=== PATIENT | female | born 1945 | race Caucasian/White ===

== ENCOUNTER → 2019-12-21 11:24 | Outpatient (CLI) | payer MEDICARE, SELFPAY ==
--- NOTE | ~2019-12-21 | XR_ITS ---
EXAMINATION: XR hip LT 2V w AP pelvis INDICATION: Left hip pain TECHNIQUE: AP view of the pelvis and two views of the left hip are obtained. COMPARISON: 06/02/2009 FINDINGS: There is mild osteoarthritis of the hips. Bone alignment is normal. There is no fracture. T here is a large findings of colonic stool. Osteitis pubis is noted. There are phleboliths of the pelv is. IMPRESSION: 1. Mild hip osteoarthritis without acute findings. Reviewed, dictated and finalized at location A.
== END ==
PROVIDERS: PCP Nurse Practitioner Family; Visit Provider Nurse Practitioner Family
DX: M16.12 Unilateral primary osteoarthritis, left hip (principal)
CPT/HCPCS: 73502

== ENCOUNTER → 2020-01-28 13:20 | Outpatient (CLI) | payer MEDICARE, SELFPAY ==
--- NOTE | ~2020-01-28 | MM_ITS ---
EXAMINATION: MM screening mi BI w spenser HISTORY: Screening mammogram TECHNIQUE: Craniocaudal and mediolateral oblique 3-D tomosynthesis images were obtained and synthetic 2-D images were generated. CAD analysis was submitted and interpreted. COMPARISON: 11/26/2018, 11/18/2016, 08/07/2015 bilateral digital screening mammogram examinations BREAST PARENCHYMAL COMPOSITION: The breasts are heterogeneously dense, which may obscure small masses . FINDINGS: New approximately 7.5 mm asymmetric opacity is suggested in the deep central right breast o n screening craniocaudal views (craniocaudal Tomosynthesis image 42/79). Otherwise there is no evidence of suspicious mass, calcification, or architectural distortion to sugg est malignancy in either breast. There has been no suspicious interval change. IMPRESSION: 1. Possible new 7.5 mm mass of right breast 2. Diagnostic right mammogram is recommended, with ultrasound if required BI-RADS Category 0: Incomplete: Needs additional imaging evaluation. Reviewed, dictated and finalized at location A.
== END ==
PROVIDERS: PCP Nurse Practitioner Family; Visit Provider Nurse Practitioner Family
DX: Z12.31 Encounter for screening mammogram for malignant neoplasm of breast (principal)
CPT/HCPCS: 77063; 77067

== ENCOUNTER → 2020-02-14 07:53 | Outpatient (CLI) | payer MEDICARE, SELFPAY ==
--- NOTE | ~2020-02-14 | MMUS_ITS ---
EXAMINATION: MM diagnostic mammo unilat RT, US breast RT limited HISTORY: Follow-up right breast asymmetry TECHNIQUE: Additional 3-D tomosynthesis images of the right breast were performed and synthetic 2-D i mages were generated. CAD analysis was submitted and interpreted. High resolution breast ultrasound w as performed. COMPARISON: Comparison to multiple prior studies sequentially, with oldest reviewed study dated 08/2015. BREAST PARENCHYMAL COMPOSITION: Breast composed of scattered areas of fibroglandular density FINDINGS: MAMMOGRAPHIC FINDINGS: There are no suspicious masses, calcifications or architectural distortion in the right breast to sug gest malignancy. ULTRASOUND: Limited right breast ultrasound: Normal heterogeneous echotexture without focal solid or cystic mass. IMPRESSION: 1. No evidence for malignancy in the right breast. 2. Routine yearly screening mammogram and regular clinical breast examination are recommended. BI-RADS Category 1: Negative Reviewed, dictated and finalized at location A. IMPRESSION: 1. No evidence for malignancy in the right breast. 2. Routine yearly screening mammogram and regular clinical breast examination a re recommended. BI-RADS Category 1: Negative
== END ==
PROVIDERS: PCP Nurse Practitioner Family; Visit Provider Nurse Practitioner Family
DX: R92.8 Other abnormal and inconclusive findings on diagnostic imaging of breast (principal)
CPT/HCPCS: 76642; 77065

== ENCOUNTER 2020-06-03 00:49 | Outpatient (CLI) | payer MEDICARE, SELFPAY ==
[2020-06-03 18:47] LABS: SARS-CoV-2 RNA PCR Negative
== END 2020-06-03 00:50 | disposition home or self-care (01) ==
LOC: ANHCOVIDDT 00:49
PROVIDERS: PCP Nurse Practitioner Family; Visit Provider Internal Medicine Gastroenterology
DX: Z01.812 Encounter for preprocedural laboratory examination (principal); Z20.822 Contact with and (suspected) exposure to COVID-19
CPT/HCPCS: C9803; U0003; U0005

== ENCOUNTER 2020-06-07 01:25 | Day surgery (SDC) | payer MEDICARE, SELFPAY ==
[2020-05-19 09:42] VITALS: BMI 31.8
[2020-06-07 06:20] VITALS: BP 160/91; PULSE 93; RESP 16; TEMP 36.7; O2SAT 97
[2020-06-07] MEDS: LACTATED RINGERS 1,000 ML 150 ML IV CONT (06:31)
--- NOTE | 2020-06-07 07:03 | P.PNAN_ITS ---
Anes - Initial Pre Proc Eval Procedure: Operation Date: 06/07/20 07:30 Proposed Procedures p Screening Colonoscopy - Dominguez Yousif MD Date/Time: 06/07/20 07:03 Surgeon: Dominguez Yousif MD Pre Op Diagnosis: neoplasm screening Patient Data Age: 74 Gender: F Height: 1.65 m Weight: 84.9 kg Last Vital Signs Temp 36.7 C 06/07/20 06:20 Pulse 93 06/07/20 06:20 Resp 16 06/07/20 06:20 BP 160/91 H 06/07/20 06:20 Pulse Ox 97 06/07/20 06:20 Allergies Allergy/AdvReac Type Severity Reaction Status Date / Time Yorzpsu-Yea-Esj Reductase Allergy Intermediate Cramping Verified 06/07/20 06:19 Inhibitor of the Muscles Home Medications Medication Instructions Recorded Confirmed Type omeprazole 20 mg capsule,delayed 20 mg PO DAILY #30 cap 05/04/20 06/07/20 Rx release Eye Promise 1 cap PO BID 05/19/20 06/07/20 History calcium citrate-vitamin D3 2 tablet PO BID 05/19/20 06/07/20 History [Citracal plus D] ezetimibe [Zetia] 10 mg PO DAILY 05/19/20 06/07/20 History light mineral oil-mineral oil 1 drp OPHTHALMIC (EYE) DAILY 05/19/20 06/07/20 History [Soothe XP] lisinopril 20 mg tablet 20 mg PO DAILY #90 tablet 05/22/20 06/07/20 Rx Patient hx anesthesia problems: none Family hx anesthesia problems: none PMFSH Past Medical History Medical History (Updated 05/22/20 @ 16:32 by Candelaria Yeh NP) Family history of breast cancer Mother Family hx of colon cancer Hyperlipidemia Normal colonoscopy (~08/2014) Dr Galeana Normal mammography (~11/2018) Pain of left hip Seasonal allergies Trochanteric bursitis of left hip Surgical History Surgical History History of bunionectomy (~2009) Hx of cataract extraction (~2008) Hx of hammer toe correction (~2015) Family History Family History (Updated 05/04/20 @ 08:52 by Candelaria Yeh NP) Mother Family history of malignant neoplasm of breast in first degree relative Patient's mother is Grandparent Carcinoma of colon, Onset Age: 60 Other Family history of malignant neoplasm Social History Social History (Reviewed 05/04/20 @ 08:13 by Adelaide Sanford [facility]) Smoking status: Never smoker Second hand tobacco smoke exposure: No Alcohol intake: current Drinks per week: 3 Alcohol use details: WINE Substance use: never Substance use type: does not use Living arrangements: with family Spiritual care concerns: No Anes - Eval Final PreProcedure Day of Procedure 06/07/20 07:03 Patient weight: overweight Heart: regular rate and rhythm Lungs: clear to auscultation and normal air movement Airway: Mallampati scale class II Neurological: alert and oriented Last oral intake: >/= 8 hours ASA classification: II Emergent: no Anesthetic plan: proceed Anesthesia type and monitoring: general GIVS Informed Consent: The patient's anesthetic plan and its attendant risks and benefits were discussed with the patient/family/POA. Questions were solicited and answers provided to the satisfaction of the patient/family/POA.
--- NOTE | 2020-06-07 07:33 | PM.HPGS ---
History of Present Illness History of Present Illness Consent: Risks, benefits, and alternatives have been discussed and questions answered. Patient agrees to proceed with procedure. Chief complaint: neoplasm screening Narrative: Olive Pereira is a 74 year old female here for screening colonoscopy, last one 6 years ago. Review of Systems Constitutional: Constitutional: Denies headache(s) and Denies weakness Eyes: Eyes: Denies blurry vision ENT: Reports Normal hearing present, Denies headache(s) and Denies neck pain Cardiovascular: Cardiovascular: Denies chest pain and Denies dyspnea Respiratory: Respiratory: Denies dyspnea Gastrointestinal: Gastrointestinal: Reports no additional gastrointestinal complaints Genitourinary: Genitourinary: Denies dysuria Musculoskeletal: Musculoskeletal: Denies neck pain Integumentary/Breasts: Skin/Breast: Denies dry skin Neurologic: Reports Normal hearing present, Denies headache(s) and Denies weakness Psychiatric: Psychiatric: Denies anxiety Endocrine: Endocrine: Denies change in body appearance Hematologic/Lymphatic: Hematologic/Lymphatic: Denies easy bleeding Allergic/Immunologic: Allergic/Immunologic: Denies urticaria PMFSH Past Medical History Medical History (Updated 06/07/20 @ 07:33 by Dominguez Yousif MD) Colon cancer screening Family history of breast cancer Mother Family hx of colon cancer Hyperlipidemia Normal colonoscopy (~08/2014) Dr Galeana Normal mammography (~11/2018) Pain of left hip Seasonal allergies Trochanteric bursitis of left hip Surgical History Surgical History History of bunionectomy (~2009) Hx of cataract extraction (~2008) Hx of hammer toe correction (~2015) Family History Family History (Updated 05/04/20 @ 08:52 by Candelarai Yeh NP) Mother Family history of malignant neoplasm of breast in first degree relative Patient's mother is Grandparent Carcinoma of colon, Onset Age: 60 Other Family history of malignant neoplasm Social History Social History Smoking status: Never smoker Second hand tobacco smoke exposure: No Alcohol intake: current Drinks per week: 3 Alcohol use details: WINE Substance use: never Substance use type: does not use Living arrangements: with family Spiritual care concerns: No Meds Home Medications and Allergies Home Medications Medication Instructions Recorded Confirmed Type omeprazole 20 mg capsule,delayed 20 mg PO DAILY #30 cap 05/04/20 06/07/20 Rx release Eye Promise 1 cap PO BID 05/19/20 06/07/20 History calcium citrate-vitamin D3 2 tablet PO BID 05/19/20 06/07/20 History [Citracal plus D] ezetimibe [Zetia] 10 mg PO DAILY 05/19/20 06/07/20 History light mineral oil-mineral oil 1 drp OPHTHALMIC (EYE) DAILY 05/19/20 06/07/20 History [Soothe XP] lisinopril 20 mg tablet 20 mg PO DAILY #90 tablet 05/22/20 06/07/20 Rx Allergies Allergy/AdvReac Type Severity Reaction Status Date / Time Zwzpdsu-Uxf-Nya Reductase Allergy Intermediate Cramping Verified 06/07/20 06:19 Inhibitor of the Muscles Vital Signs Vital Signs - 24 hr 06/07/20 06:20 Temperature 98.1 F Pulse Rate 93 Respiratory Rate 16 Blood Pressure 160/91 H Pulse Oximetry 97 Exam Const: General: comfortable and no acute distress HENMT: General nose exam: Normal nares present Eyes: General: appearance normal, both eyes and all related structures Neck: Neck: no JVD Resp: Auscultation: clear to auscultation bilaterally Cardio: Rate: regular rate Rhythm: regular rhythm GI: Inspection: non-distended GI Palp: Yes Soft to palpation Skin: General skin exam: normal color Neuro: General: gait normal Speech: normal speech Extrem: General: normal to inspection Psych: Mental Status: mental status grossly normal Assessme
[2020-06-07 07:54] VITALS: BP 106/73; PULSE 70; RESP 16; O2SAT 95
[2020-06-07 08:04] VITALS: BP 116/72; PULSE 72; RESP 18; O2SAT 98
[2020-06-07 08:14] VITALS: BP 133/86; PULSE 72; RESP 18; O2SAT 98
== END 2020-06-07 08:31 | disposition home or self-care (01) ==
PROVIDERS: PCP Nurse Practitioner Family; Visit Provider Internal Medicine Gastroenterology
PROC: 0DJD8ZZ Inspection of Lower Intestinal Tract, Via Natural or Artificial Opening Endoscopic (ICD-10-PCS; CPT 45378; principal; 2020-06-07 07:30)
DX: Z12.11 Encounter for screening for malignant neoplasm of colon (principal); K57.30 Diverticulosis of large intestine without perforation or abscess without bleeding; Z80.0 Family history of malignant neoplasm of digestive organs; E78.5 Hyperlipidemia, unspecified
CPT/HCPCS: G0105; C9803; J2704; J7120; U0003; U0005

== ENCOUNTER 2020-12-07 10:23 | Day surgery (SDC) | payer MEDICARE, SELFPAY ==
[2020-12-07] VITALS (14 sets, daily range): BP systolic 99–146; BP diastolic 52–88; PULSE 60–89; RESP 12–18; TEMP 36.3–37.2; O2SAT 95–100
--- NOTE | ~2020-12-07 | CT_ITS ---
EXAMINATION: CT abdomen pelvis w con INDICATION: Right lower quadrant abdominal pain TECHNIQUE: Computed tomographic images of the abdomen and pelvis were obtained after the administrati on of 100 cc of Omnipaque 350 intravenous contrast. The dose-length product (DLP) was 671.60 mGy-cm. Automated exposure control and iterative reconstruction technique were employed. COMPARISON: None available FINDINGS: Minimal dependent atelectasis is present in the lung bases. The heart size is normal. There is a small sliding hiatal hernia. An 8 mm cyst is noted in the left hepatic lobe. The spleen, pancre as, gallbladder, and adrenal glands are normal. There is a large diverticulum in the second portion o f the duodenum. The right kidney is unremarkable. There appears to be a 10 mm enhancing mass within t he left renal pelvis and possible abnormal enhancement in lower pole calyces of the left kidney. The dilated appendix measures up to 12 mm. There is edematous stranding of the periappendiceal fat withou t abscess or perforation. Cystic lesions of the left adnexa measure up to 3.3 cm. No pathologically e nlarged abdominal or pelvic lymph nodes are identified. There is no free intraperitoneal gas or evide nce of bowel obstruction. Colonic diverticulosis is present without evidence of diverticulitis. There is moderate lumbar spondylosis. IMPRESSION: 1. Acute appendicitis. 2. Findings concerning for urothelial carcinoma the left renal pelvis and possible urothelial lesion in lower pole calyces of the left kidney. Urologic evaluation is recommended. 3. Cystic lesions of the left adnexa measuring up to 3.3 cm. Follow-up pelvic ultrasound is recommend ed for a postmenopausal female. These findings were discussed with Dr. Mehran West DO in the Emergency Department at 1201 hour s on 12/07/2020. Reviewed, dictated and finalized at location [facility]. IMPRESSION: 1. Acute appendicitis. 2. Findings concerning for urothelial carcinoma the left renal pelvis and possi ble urothelial lesion in lower pole calyces of the left kidney. Urologic evalua tion is recommended. 3. Cystic lesions of the left adnexa measuring up to 3.3 cm. Follow-up pelvic u ltrasound is recommended for a postmenopausal female. These findings were discussed with Dr. Mehran West DO in the Emergency D epartment at 1201 hours on 12/07/2020.
--- NOTE | ~2020-12-07 | XR_ITS ---
EXAMINATION: XR retrograde pyelo w/stent LT DATE: 12/07/2020 16:29 INDICATION: Left ureteral mass. TECHNIQUE: 87 intraoperative fluoroscopic views of the abdomen and pelvis were obtained. I was not pr esent. Fluoroscopy exposure time was 50 seconds. COMPARISON: CT abdomen and pelvis 12/07/2020 FINDINGS: The left-sided retrograde pyelogram demonstrates filling defects in the left renal pelvis a nd calyces. IMPRESSION: 1. Filling defects in the left renal pelvis and calyces, consistent with urothelial carcinoma. Reviewed, dictated and finalized at location [facility]. IMPRESSION: 1. Filling defects in the left renal pelvis and calyces, consistent with urothe lial carcinoma.
--- NOTE | 2020-12-07 10:40 | ED.GENADULT ---
HPI - General Adult General Chief complaint: Abdominal Pain Stated complaint: abd pain Time Seen by Provider: 12/07/20 10:33 Source: RN notes reviewed History of Present Illness HPI narrative: Patient presents emergency room from home for abdominal pain. Patient states abdominal pain began 2 days ago with pain in the periumbilical region is moved in the right lower quadrant. Pain described as sharp and stabbing does not radiate states she is taken no pain medication for the pain today. She notes a subjective fever last night but denies any fever today denies any nausea vomiting diarrhea or any other symptoms Related Data Home Medications Medication Instructions Recorded Confirmed Eye Promise 1 cap PO BID 05/19/20 11/02/20 calcium citrate-vitamin D3 2 tablet PO BID 05/19/20 11/02/20 [Citracal plus D] Allergies Allergy/AdvReac Type Severity Reaction Status Date / Time Xifswhw-Fje-Gia Reductase Allergy Intermediate Cramping Verified 12/07/20 10:39 Inhibitor of the Muscles Review of Systems Review of Systems: Gen.: Denies fevers or chills ENT: Denies congestion Respiratory: Denies shortness of breath or cough CV: Denies chest pain or palpitations GI: See HPI denies burning, urgency, frequency or hematuria Musculoskeletal: Denies back pain or muscle pain Neuro: Denies numbness, tingling, weakness or focal weakness Skin: Denies rash Except as documented, all other systems reviewed and negative [facility] Past Medical History Medical History Family history of breast cancer Mother Family hx of colon cancer Hyperlipidemia Seasonal allergies Trochanteric bursitis of left hip Surgical History Surgical History History of bunionectomy (~2009) Hx of cataract extraction (~2008) Hx of hammer toe correction (~2015) Family History Family History Mother Family history of malignant neoplasm of breast in first degree relative Patient's mother is Grandparent Carcinoma of colon, Onset Age: 60 Other Family history of malignant neoplasm Social History Social History Smoking status: Never smoker Second hand tobacco smoke exposure: No Alcohol intake: current Drinks per week: 3 Alcohol use details: WINE Substance use: never Substance use type: does not use Gender identity (if verbalized by the patient): Female Spiritual care concerns: No Exam Narrative: APPEARANCE: No acute distress, nontoxic, resting in bed HEENT: Normocephalic, atraumatic, OMM RESPIRATORY: No respiratory distress, clear to auscultation bilaterally with no rhonchi wheezing or rales CARDIOVASCULAR: RRR s murmur ABDOMINAL: Soft, nondistended, tender to palpation in right lower quadrant no tenderness in left upper quadrant, left lower quadrant and right upper quadrant positive percussion tenderness MUSCULOSKELETAl: Moves all extremities. No clubbing, cyanosis or edema. NEURO: Awake and alert. Following commands, speech normal, no focal deficits SKIN:: Warm, dry. Normal Color PSYCHIATRIC: Normal affect/mood Course Course Emergency Course: Called and discussed with Dr. Tanner presentation work-up we will plan to take patient to surgery today Discussed with Dr. Herrera presentation work-up discussed CT results we will plan to do intervention during patient's appendicitis surgery today for further evaluation Discussed with patient results of work-up discussed CT scan showing acute appendicitis as well as urothelial mass adnexal mass discussed need for evaluation by urology as well as outpatient imaging with ultrasound after appendicitis treatment all questions answered Dr. Herrera and Dr. Tanner came to see the patient in the emergency department Vital Signs Vital signs: Vital Signs Temperature
[2020-12-07 10:59] LABS: Basophils Percent Auto 0.1 % (0.2-1.2); Eosinophils Absolute Auto 0.1 K/mm3 (0-0.3); Eosinophils Percent Auto 0.9 % (0-4.4); Hematocrit 44.9 % (37.0-47.0); Hemoglobin 14.8 g/dL (12.0-15.0); Immature Granulocyte Absolute 0.02 K/mm3 (0.00-0.031); Immature Granulocyte Percent A 0.3 % (0-0.5); Lymphocytes Absolute Auto 1.55 K/mm3 (0.9-3.2); Lymphocytes Percent Auto 22.3 % (18.3-44.2); Mean Corpuscular Hemoglobin 29.1 pg (26-34); Mean Corpuscular Volume 88.2 fl (80-100); Mean Platelet Volume 9.5 fl (7.4-10.4); Monocytes Absolute Auto 0.5 K/mm3 (0.1-0.6); Monocytes Percent Auto 6.5 % (2.6-8.5); Neutrophils Absolute Auto 4.9 K/mm3 (1.3-6.7); Neutrophils Percent Auto 69.9 % (45.5-73.1); Platelet Count Result 192 k/mm3 (150-375); Red Blood Count 5.09 M/mm3 (4.2-5.4); Red Cell Distribution Width 14.5 % (11.5-14.5)
[2020-12-07] MEDS: fentaNYL CITRATE INJ (*CRX) 100 MCG/2 ML VIAL 25 MCG IV PUSH (11:00)
[2020-12-07] MEDS: SODIUM CHLORIDE 0.9% IV 1,000 ML 999 ML IV CONT (11:05)
[2020-12-07 11:07] LABS: Alanine Aminotransferase 19 U/L (4-35); Albumin Level 4.6 g/dL (3.5-5.1); Alkaline Phosphatase 71 U/L (38-126); Anion Gap 6 mmol/L (8-16); Aspartate Amino Transferase 24 U/L (14-36); Bilirubin,Total 1.3 mg/dL (0.2-1.3); Blood Urea Nitrogen 8 mg/dL (7-17); Carbon Dioxide 27 mmol/L (22-30); Chloride 103 mmol/L (98-107); Estimated CRCL calculation 57 ml/min; Estimated Glomerular Filt Rate > 60; Glucose 104 mg/dL (65-110); Lipase 65 U/L (23-300); Potassium 3.9 mmol/L (3.4-5.0); Sodium 136 mmol/L (137-145)
[2020-12-07 11:16] LABS: Add Urine Microscopic? YES; Appearance Urine Cloudy (Clear); Bilirubin Urine Negative (Negative); Blood Urine 2+ (Negative); Color Urine Amber (Yellow); Glucose Urine UA Negative (Negative); Ketones Urine Negative (Negative); Leukocyte Esterase Ur 2+ LEU/UL (Negative); Mucus Urine Rare /lpf; Nitrate Urine Negative (Negative); Protein Urine Negative (Negative); RBC Urine 0-2 /hpf (0-2); Specific Grav Ur 1.015 (1.001-1.035); Squamous Epithelial Cell Urine Rare /hpf (Few); Urobilinogen Urine Negative mg/dL (<2.0); WBC Urine 0-3 /hpf
--- NOTE | 2020-12-07 12:32 | PC.NURSE ---
Pt states the last thing she ate was 0600 this morning. she drank a cup of coffee and a coffee
--- NOTE | 2020-12-07 13:00 | PC.NURSE ---
Dr. Tanner and Dr. Jims at bedside discussing procedures And obtained consent
--- NOTE | 2020-12-07 13:09 | WPDURCON ---
Assessment and Plan Assessment and plan (1) Hydronephrosis, left: Code(s): N13.30 - Unspecified hydronephrosis Status: Acute Assessment and Plan: CT scan abdomen and pelvis reveals a unusual, somewhat thickened and slightly enhancing appearance to the urothelium of her left renal pelvis and proximal ureter. Although not diagnostic, this is concerning for possible urothelial carcinoma. This was identified during evaluation for, which turned out to be, acute appendicitis. after discussion with the patient and her , as well as Dr. Tanner, and plan cystoscopy with left retrograde pyelography and left ureteroscopy time of his laparoscopic appendectomy. Urology Consult Note HPI Date Seen: 12/07/20 Primary Care Provider: Candelaria Yeh NP Consult Narrative Narrative: Olive Pereira is a 75 year old female with no prior significant urological history. She presents to the ER with a 2 day history of right lower quadrant abdominal pain. Koul incidentally, CT scan of the abdomen pelvis reveals some abnormal thickening, fullness and possible filling defect in the left renal pelvis and left proximal ureter. The patient has no prior history of hematuria, recurrence urinary tract infections, urolithiasis or significant flank pain. Review of Systems Cardiovascular: Cardiovascular: Denies chest pain, Denies lightheadedness, Denies palpitations and Denies dyspnea Respiratory: Respiratory: Denies dyspnea Gastrointestinal: Gastrointestinal: Reports abdominal pain, Denies diarrhea, Denies nausea and Denies vomiting Genitourinary: Genitourinary: Denies hematuria and Denies dysuria Endocrine: Endocrine: Denies palpitations PMFSH Past Medical History Medical History Family history of breast cancer Mother Family hx of colon cancer Hyperlipidemia Seasonal allergies Trochanteric bursitis of left hip Surgical History Surgical History History of bunionectomy (~2009) Hx of cataract extraction (~2008) Hx of hammer toe correction (~2015) Family History Family History Mother Family history of malignant neoplasm of breast in first degree relative Patient's mother is Grandparent Carcinoma of colon, Onset Age: 60 Other Family history of malignant neoplasm Social History Social History Smoking status: Never smoker Second hand tobacco smoke exposure: No Alcohol intake: current Drinks per week: 3 Alcohol use details: WINE Substance use: never Substance use type: does not use Gender identity (if verbalized by the patient): Female Spiritual care concerns: No Meds Home Medications and Allergies Home Medications Medication Instructions Recorded Confirmed Type Eye Promise 1 cap PO BID 05/19/20 11/02/20 History calcium citrate-vitamin D3 2 tablet PO BID 05/19/20 11/02/20 History [Citracal plus D] ezetimibe 10 mg tablet 10 mg PO DAILY #90 tablet 11/02/20 11/02/20 Rx famotidine 20 mg tablet 20 mg PO DAILY #90 tablet 11/02/20 11/02/20 Rx lisinopril 20 mg tablet 20 mg PO DAILY #90 tablet 11/02/20 11/02/20 Rx triamcinolone acetonide 0.1 % 1 applic TOPICAL BID #80 g 11/02/20 11/02/20 Rx topical cream Allergies Allergy/AdvReac Type Severity Reaction Status Date / Time Fyjtecb-Foi-Pbm Reductase Allergy Intermediate Cramping Verified 12/07/20 10:39 Inhibitor of the Muscles Vital Signs Vital Signs - 24 hr 12/07/20 10:27 12/07/20 12:00 12/07/20 12:19 Temperature 97.3 F L Pulse Rate 89 74 77 Respiratory Rate 18 18 18 Blood Pressure 139/88 132/74 136/81 Pulse Oximetry 99 100 100 12/07/20 13:04 Temperature Pulse Rate 82 Respiratory Rate 18 Blood Pressure 146/83 H Pulse Oximetry 99 Exam Const: General: no acu
--- NOTE | 2020-12-07 13:17 | WPDANESEPPF ---
Anes - Initial Pre Proc Eval Procedure: Operation Date: 12/07/20 14:00 Proposed Procedures p Laparoscopic Appendectomy - Lyn Tanner MD s Left Ureteroscopy - Juan Daniel Herrera MD Date/Time: 12/07/20 13:17 Surgeon: Lyn Tanner MD Pre Op Diagnosis: abd pain Patient Data Age: 75 Gender: F Height: 1.65 m Weight: 82 kg Last Vital Signs Temp 36.3 C L 12/07/20 10:27 Pulse 82 12/07/20 13:04 Resp 18 12/07/20 13:04 BP 146/83 H 12/07/20 13:04 Pulse Ox 99 12/07/20 13:04 Allergies Allergy/AdvReac Type Severity Reaction Status Date / Time Xriuxyo-Ujm-Agm Reductase Allergy Intermediate Cramping Verified 12/07/20 10:39 Inhibitor of the Muscles Home Medications Medication Instructions Recorded Confirmed Type Eye Promise 1 cap PO BID 05/19/20 11/02/20 History calcium citrate-vitamin D3 2 tablet PO BID 05/19/20 11/02/20 History [Citracal plus D] ezetimibe 10 mg tablet 10 mg PO DAILY #90 tablet 11/02/20 11/02/20 Rx famotidine 20 mg tablet 20 mg PO DAILY #90 tablet 11/02/20 11/02/20 Rx lisinopril 20 mg tablet 20 mg PO DAILY #90 tablet 11/02/20 11/02/20 Rx triamcinolone acetonide 0.1 % 1 applic TOPICAL BID #80 g 11/02/20 11/02/20 Rx topical cream Laboratory Tests 12/07/20 12/07/20 12/07/20 10:44 10:44 10:44 WBC 7.0 K/mm3 K/mm3 (4.5-10.0) RBC 5.09 M/mm3 M/mm3 (4.2-5.4) Hgb 14.8 g/dL g/dL (12.0-15.0) Hct 44.9 % % (37.0-47.0) MCV 88.2 fl fl (80-100) MCH 29.1 pg pg (26-34) MCHC 33.0 g/dl g/dl (32-36) RDW 14.5 % % (11.5-14.5) Plt Count 192 k/mm3 k/mm3 (150-375) MPV 9.5 fl fl (7.4-10.4) Immature Gran % (Auto) 0.3 % % (0-0.5) Neut % (Auto) 69.9 % % (45.5-73.1) Lymph % (Auto) 22.3 % % (18.3-44.2) Weber % (Auto) 6.5 % % (2.6-8.5) Eos % (Auto) 0.9 % % (0-4.4) Baso % (Auto) 0.1 % L % (0.2-1.2) Lymph # (Auto) 1.55 K/mm3 K/mm3 (0.9-3.2) Weber # (Auto) 0.5 K/mm3 K/mm3 (0.1-0.6) Eos # (Auto) 0.1 K/mm3 K/mm3 (0-0.3) Baso # (Auto) 0.0 K/mm3 K/mm3 (0.0-0.1) Abs Immat Gran (auto) 0.02 K/mm3 K/mm3 (0.00-0.031) Absolute Neuts (auto) 4.9 K/mm3 K/mm3 (1.3-6.7) Absolute Nucleated RBC 0.0 K/mm3 K/mm3 (0.0-0.012) Nucleated RBC % 0.0 % % (0.0-0.2) Sodium 136 mmol/L L mmol/L (137-145) Potassium 3.9 mmol/L mmol/L (3.4-5.0) Chloride 103 mmol/L mmol/L (98-107) Carbon Dioxide 27 mmol/L mmol/L (22-30) Anion Gap 6 mmol/L L mmol/L (8-16) BUN 8 mg/dL mg/dL (7-17) Creatinine 0.80 mg/dL mg/dL (0.7-1.0) Estim Creat Clear Calc 57 ml/min ml/min Estimated GFR > 60 (59 - ) Glucose 104 mg/dL mg/dL (65-110) Calcium 10.0 mg/dL mg/dL (8.4-10.2) Total Bilirubin 1.3 mg/dL mg/dL (0.2-1.3) AST 24 U/L U/L (14-36) ALT 19 U/L U/L (4-35) Alkaline Phosphatase 71 U/L U/L (38-126) Total Protein 7.0 g/dL g/dL (6.3-8.2) Albumin 4.6 g/dL g/dL (3.5-5.1) Lipase 65 U/L U/L (23-300) Urine Color Sweetie (Yellow) Urine Appearance Cloudy H (Clear) Urine pH 5.0 (5.0-9.0) Ur Specific [place] 1.015 (1.001-1.035) Urine Protein Negative mg/dL mg/dL (Negative) Urine Glucose (UA) Negative mg/dL mg/dL (Negative) Urine Ketones Negative mg/dL mg/dL (Negative) Ur Blood (Man) 2+ H (Negative) Urine Nitrate Negative (Negative) Urine Bilirubin Negative (Negative) Urine Urobilinogen Negative mg/dL mg/dL (<2.0) Leukocyte Esterase Rfl 2+ STAN/UL H STAN/UL (Negative) Urine RBC 0-2 /hpf /hpf (0-2) Urine WBC 0-3
--- NOTE | 2020-12-07 13:31 | PM.IMHP ---
H&P: HPI History of Present Illness Date/Time: 12/07/20 13:31 Pt is a 75 y/o F presenting to ED c/o severe RLQ abd pain over last few days. Pt reports pain was initially more mild and periumbilical. Pt reports over last day, pain in now localized to RLQ and constant. Pt reports poor appetite, general weakness during this episode. Pt denies previous episodes. Chief Complaint: acute appendicitis Review of Systems Constitutional: Constitutional: Denies anorexia, Denies body ache(s), Denies chills, Reports fatigue, Denies fever(s), Reports lethargy, Reports malaise, Reports poor appetite, Reports weakness, Denies weight gain and Denies weight loss Eyes: Eyes: Reports no additional eye complaints ENT: Reports system reviewed and no additional complaints, except as documented Cardiovascular: Cardiovascular: Reports no additional cardiovascular complaints Respiratory: Respiratory: Reports no additional respiratory complaints Gastrointestinal: Gastrointestinal: Reports as per HPI, Reports abdominal pain, Denies change in stool character, Reports GI cramping, Reports nausea and Denies vomiting Genitourinary: Genitourinary: Reports no additional female genitourinary complaints Musculoskeletal: Musculoskeletal: Reports no additional musculoskeletal complaints Integumentary/Breasts: Skin/Breast: Reports system reviewed and no additional complaints, except as docu Neurologic: Reports system reviewed and no additional complaints, except as documented Psychiatric: Psychiatric: Reports no additional psychiatric complaints Endocrine: Endocrine: Reports no additional endocrine complaints Hematologic/Lymphatic: Hematologic/Lymphatic: Reports no additional hematologic/lymphatic complaints Allergic/Immunologic: Allergic/Immunologic: Reports no additional allergic/immunologic complaints [facility] Past Medical History Medical History Family history of breast cancer Mother Family hx of colon cancer Gastroesophageal reflux disease HTN (hypertension) Hyperlipidemia Obesity Seasonal allergies Trochanteric bursitis of left hip Surgical History Surgical History History of bunionectomy (~2009) Hx of cataract extraction (~2008) Hx of hammer toe correction (~2015) Family History Family History Mother Family history of malignant neoplasm of breast in first degree relative Patient's mother is Grandparent Carcinoma of colon, Onset Age: 60 Other Family history of malignant neoplasm Social History Social History Smoking status: Never smoker Second hand tobacco smoke exposure: No Alcohol intake: current Drinks per week: 3 Alcohol use details: WINE Substance use: never Substance use type: does not use Gender identity (if verbalized by the patient): Female Spiritual care concerns: No Meds Home Medications and Allergies Home Medications Medication Instructions Recorded Confirmed Type Eye Promise 1 cap PO BID 05/19/20 11/02/20 History calcium citrate-vitamin D3 2 tablet PO BID 05/19/20 11/02/20 History [Citracal plus D] ezetimibe 10 mg tablet 10 mg PO DAILY #90 tablet 11/02/20 11/02/20 Rx famotidine 20 mg tablet 20 mg PO DAILY #90 tablet 11/02/20 11/02/20 Rx lisinopril 20 mg tablet 20 mg PO DAILY #90 tablet 11/02/20 11/02/20 Rx triamcinolone acetonide 0.1 % 1 applic TOPICAL BID #80 g 11/02/20 11/02/20 Rx topical cream Allergies Allergy/AdvReac Type Severity Reaction Status Date / Time Tqbtiqh-Txb-Bsi Reductase Allergy Intermediate Cramping Verified 12/07/20 10:39 Inhibitor of the Muscles Vital Signs Vital Signs - 24 hr 12/07/20 10:27 12/07/20 12:00 12/07/20 12:19 Temperature 36.3 C L Pulse Rate 89 74 77 Respiratory Rate 18 18 18 Blood Pressure 139/88 132
[2020-12-07] MEDS: LACTATED RINGERS 1,000 ML 30 ML IV CONT ×2 (14:00→16:16)
--- NOTE | 2020-12-07 14:41 | WPDHPUPDATE1 ---
History and Physical Update Update Date/Time: 12/07/20 14:41 History and Physical has been reviewed, including an updated exam of the patient. There are NO changes in the patient's condition. Risks, benefits, and alternatives have been discussed and questions answered. Patient agrees to proceed with procedure.
--- NOTE | 2020-12-07 15:26 | W.PM.PROC2 ---
Procedure Note - Detailed Date of Procedure 12/07/20 Pre-op Diagnosis acute appendicitis Post-op Diagnosis same Procedure Performed laparoscopic appendectomy Surgeon Lyn Tanner MD Anesthesia general Indications 75 y/o F c acute appendicitis Findings acute appendicitis, no evidence of perforation Description of Procedure The patient was taken to the operating room and placed in the supine position. After adequate induction of general anesthesia, the patient was prepped and draped in the normal sterile fashion. A time-out was then done to verify the patient's identity, as well as the procedure being performed. I began by making a 5 mm incision in the infraumbilical region, through this a Veress needle was placed in the peritoneal cavity. CO2 gas was then insufflated and after adequate pneumoperitoneum was achieved the Veress needle was removed. Then placed a 5 mm Optiview trocar under direct visualization into the peritoneal cavity. I then insufflated through this trocar site and the endoscope was placed into the trocar. Under direct visualization, placed 2 further 5 mm suprapubic port as well as an additional 12 mm port in the left lower abdomen. At this point identified the cecum, I retracted the cecum both medially and superiorly allowing me to expose the appendix. The appendix was noted to be dilated and inflamed. The appendix was noted to be very adherent to the right lateral sidewall as well as the ileum. I was able to bluntly dissect the appendix from these adhesions. I then was able to locate the base of the appendix with the cecum. I created a window with the [place] dissector between the appendix itself and the mesoappendix. I then transected the mesoappendix with a white vascular staple load. The Endo-HENNA was then reloaded with a blue staple load and I transected the base of the appendix. Once the specimen was completely detached, an endo-pouch was placed into the 12 mm port site and the specimen was removed through the endo-pouch. The appendiceal specimen will be sent to pathology for further review. I then copiously irrigated the right lower quadrant. Hemostasis was noted at both staple lines no other pathology was seen in this area. I then moved the camera to the suprapubic port to check our its port of entry. No iatrogenic injury or other pathology was noted in the upper abdomen. I then closed the 12 mm port site with a Kulwant code and 0 Vicryl suture under direct visualization. At this point, the abdomen was desufflated and all ports were removed. All port sites were closed with 4 Monocryl subcuticular suture. Dermabond was placed on all wounds. The patient tolerated the procedure well and will now undergo ureteroscopy per Dr. Herrera. Estimated Blood Loss 5 Drains No Packing No Pathology yes Complications No immediate complications Condition stable Disposition PACU
[2020-12-07] MEDS: BUPIVACAINE/EPINEPHRINE 0.5% 30 ML VIAL INFILTRATE (15:42)
[2020-12-07] MEDS: LIDOCAINE HCL 2% GEL UROJET 10 ML PKG MUCOUS MEM (15:43)
--- NOTE | 2020-12-07 16:02 | SUR.OPER ---
urine for cytology sent with VADIM Zamora, received by Darwin in lab
--- NOTE | 2020-12-07 16:38 | W.PM.PROC2 ---
Procedure Note - Detailed Date of Procedure 12/07/20 Pre-op Diagnosis abd pain, left renal pelvic filling defect Post-op Diagnosis same Procedure Performed Cystoscopy, left retrograde pyelography, left ureteroscopy with renal pelvic biopsies. 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 Tanner has completed a laparoscopic appendectomy. Cystoscopy is undertaken with a 21 F rigid cystoscope. Urethra and bladder neck were endoscopically normal. The bladder mucosa is perfectly normal without hyperemia. There is no intravesical foreign body or neoplasm. 0.035 in glidewire was advanced in the left renal pelvis, the distal ureter was dilated with an 8 F 10 F dilator and ureteroscopy was undertaken with a 7.5 F flexible ureteral scope. There was a large, somewhat sessile appearing urothelial neoplasm involving much of the renal pelvis. Upper pole calices are endoscopically normal but there is additional neoplasm at least midpole and perhaps lower pole calices. Obtained several small biopsies using a small disposable forceps. I very carefully inspected the ureter upon withdrawing the ureteral scope in there are no additional sites of urothelial carcinoma throughout any other portion of her left ureter. This point scopes and wires removed the patient was taken recovery room in good condition. Estimated Blood Loss 5 Drains No Packing No Pathology yes Complications No immediate complications Condition stable Disposition PACU
== END 2020-12-07 17:45 | disposition home or self-care (01) ==
LOC: ANHED 12:58 → ANHSURGERY 13:09
PROVIDERS: Urology; Emergency Provider Emergency Medicine; PCP Nurse Practitioner Family; Visit Provider Surgery
PROC: 0DTJ4ZZ Resection of Appendix, Percutaneous Endoscopic Approach (ICD-10-PCS; CPT 44970; principal; 2020-12-07 14:00)
PROC: (CPT 52352; 2020-12-07 14:00)
DX: K35.30 Acute appendicitis with localized peritonitis, without perforation or gangrene (principal); D41.12 Neoplasm of uncertain behavior of left renal pelvis; R82.998 Other abnormal findings in urine; R10.31 Right lower quadrant pain; N13.30 Unspecified hydronephrosis; R10.33 Periumbilical pain; E78.5 Hyperlipidemia, unspecified; I10 Essential (primary) hypertension; E66.8 Other obesity; Z68.30 Body mass index [BMI] 30.0-30.9, adult; K21.9 Gastro-esophageal reflux disease without esophagitis
CPT/HCPCS: 44970; 52354; 36415; 74177; 74420; 80053; 81001; 83690; 85025; 88108; 88304; 88305; 96365; 96366; 96367; 96375; 99285; A9270; C1769; J0131; J0330; J1100; J2250; J2405; J2543; J2704; J2710; J3010; J7030; J7120; Q9966; Q9967

== ENCOUNTER 2020-12-07 23:15 | Observation (INO) | payer MEDICARE, SELFPAY ==
--- NOTE | ~2020-12-07 | CT_ITS ---
EXAMINATION: CT abdomen pelvis w con DATE: 12/08/2020 00:50 INDICATION: Lower abdominal pain. History of appendectomy. Left renal biopsy 12/07/2020 afternoon TECHNIQUE: Computed tomography (CT) of the abdomen and pelvis was performed with 100 cc Omnipaque 350 intravenous contrast. Automated exposure control and iterative reconstruction technique were employe d. Exam dose: 586.28 mGy-cm total exam DLP. COMPARISON: 12/07/2020 CT abdomen pelvis FINDINGS: There is mild discoid atelectasis at the lung bases. Cardiomegaly. No pericardial or pleural effusion. 8 mm left hepatic cyst is again noted. The liver is otherwise unremarkable. The gallbladder is presen t. No gallbladder wall thickening or pericholecystic fluid or fat stranding. No bile duct dilatation. No pancreatic mass lesion, calcification or ductal dilatation. Normal splenic size. Prominent fluid level in the stomach. Normal morphology of the adrenal glands. Normal appearing right kidney. There is mild left hydronephrosis. There is parapelvic fluid density, possibly hemorrhage associated with recent left renal biopsy. Follow-up KUB would be helpful to exclude any extravasated contrast ma terial. There is some air in the urinary bladder, likely secondary to instrumentation. Bilobed left adnexal cyst measuring up to 5.6 cm, stable since 1142 hours on 12/07/2020. Diverticulosis of the colon, prominently involving the sigmoid colon. No CT evidence of diverticuliti s. No bowel obstruction is evident. A small amount of intraperitoneal free air consistent with recent appendectomy. There is subcutaneous emphysema of the anterior abdominal wall. Normal caliber of the abdominal aorta. No intraperitoneal or retroperitoneal or pelvic mass lesion or adenopathy or ascites is noted otherwise. Degenerative changes at the apophyseal joints with associated grade 1 anterolisthesis at L5-S1. No suspicious osteolytic or osteoblastic lesions are noted. IMPRESSION: Status post appendectomy Left parapelvic and perinephric fluid, possibly hemorrhage secondary to left renal biopsy. Consider f ollow-up KUB to evaluate for extravasated contrast material. Reviewed, dictated and finalized at [facility]. Reviewed, dictated and finalized at location [facility]. IMPRESSION: Status post appendectomy Left parapelvic and perinephric fluid, possibly hemorrhage secondary to left re nal biopsy. Consider follow-up KUB to evaluate for extravasated contrast gail hoover
[2020-12-07 23:18] VITALS: BP 182/91; PULSE 65; RESP 18; TEMP 36.6; O2SAT 97
--- NOTE | 2020-12-07 23:20 | ED.ABDPAIN ---
HPI - Abdominal Pain General Chief Complaint: Abdominal Pain Stated Complaint: L abd pain Time Seen by Provider: 12/07/20 23:20 Source: patient and family Mode of arrival: ambulatory Limitations: no limitations History of Present Illness HPI narrative: Patient is a 75 yo female with recent appendectomy this morning and renal pelvis biopsies of the left kidney, who presents to the ER for evaluation of worsening left lower quadrant abdominal pain. Patient has been taking her pain medication this evening, however has vomited once and has felt no improvement in pain. Pain radiates to her left flank. Patient denies fever or chills. She reports mild abdominal distension. No dysuria or hematuria. She states her incisions are not leaking or red. Pt denies flatus or bowel movement today. Related Data Home Medications Medication Instructions Recorded Confirmed Eye Promise 1 cap PO BID 05/19/20 12/07/20 calcium citrate-vitamin D3 2 tablet PO BID 05/19/20 12/07/20 Allergies Allergy/AdvReac Type Severity Reaction Status Date / Time [id number]-Arr Reductase Allergy Intermediate Cramping Verified 12/07/20 13:45 Inhibitor of the Muscles Review of Systems Review of Systems: CONSTITUTIONAL: Denies fever, chills EYES: Denies visual changes ENT: Denies rhinorrhea, congestion CARDIOVASCULAR: Denies chest pain, palpitations, or edema. RESPIRATORY: Denies cough or dyspnea. GASTROINTESTINAL: Reports abdominal pain in the left lower quadrant, reports vomiting GENITOURINARY: Denies dysuria or hematuria. SKIN: Denies rash or itching. MUSCULOSKELETAL: Reports left flank pain, denies joint pain, or myalgia. NEUROLOGIC: Denies headache, numbness, or weakness. [facility] Past Medical History Medical History (Updated 12/08/20 @ 01:37 by Jeaneth Singh MD) Acute appendicitis Encounter for screening mammogram for malignant neoplasm of breast Family history of breast cancer Mother Family hx of colon cancer Gastroesophageal reflux disease HTN (hypertension) Hydronephrosis, left Hyperlipidemia Leukopenia Obesity Seasonal allergies Trochanteric bursitis of left hip Surgical History Surgical History History of bunionectomy (~2009) Hx of cataract extraction (~2008) Hx of hammer toe correction (~2015) Family History Family History Mother Family history of malignant neoplasm of breast in first degree relative Patient's mother is Grandparent Carcinoma of colon, Onset Age: 60 Other Family history of malignant neoplasm Social History Social History Smoking status: Never smoker Second hand tobacco smoke exposure: No Alcohol intake: current Drinks per week: 3 Alcohol use details: WINE Substance use: never Substance use type: does not use Gender identity (if verbalized by the patient): Female Spiritual care concerns: No Exam Narrative: GENERAL: Awake, alert, conversant HEAD: Normocephalic, atraumatic. EYES: 2+ PERRLA and EOMI. ENT: Nares clear, no rhinorrhea or epistaxis. Mucous membranes moist. NECK: Supple. CHEST: No respiratory distress, breathing even and non labored HEART: Regular rate, sinus rhythm ABDOMEN: Mild distension, incision sites c/d/i, tender in the LLQ with rebound and guarding, mild left flank tenderness EXTREMITIES: Normal range of motion. No edema. SKIN: Warm, dry, no rash. NEURO:No focal deficits. Alert and oriented x3 Course Vital Signs Vital signs: Vital Signs Temperature 36.6 C 12/07/20 23:18 Pulse Rate 65 12/07/20 23:18 Respiratory Rate 18 12/07/20 23:18 Blood Pressure 182/91 H 12/07/20 23:18 Pulse Oximetry 97 12/07/20 23:18 Temperature 36.6 C 12/07/20 23:18 Pulse Rate 91 12/08/20 01:00 Respiratory Rate 24 H 12/08/20 01:00 Blood Pressure 151/83 H 12/08/20 01:00 Pulse
[2020-12-07] MEDS: ONDANSETRON INJ 4 MG/2 ML VIAL IV PUSH (23:49)
[2020-12-07] MEDS: SODIUM CHLORIDE 0.9% IV 1,000 ML 999 ML IV CONT (23:49)
[2020-12-07] MEDS: MORPHINE SULFATE (*CRX) 4 MG/ML INJ IV PUSH (23:51)
[2020-12-08 00:06] LABS: Basophils Percent Auto 0.1 % (0.2-1.2); Hematocrit 43.4 % (37.0-47.0); Hemoglobin 14.4 g/dL (12.0-15.0); Immature Granulocyte Absolute 0.03 K/mm3 (0.00-0.031); Immature Granulocyte Percent A 0.4 % (0-0.5); Lymphocytes Absolute Auto 0.55 K/mm3 (0.9-3.2); Lymphocytes Percent Auto 7.2 % (18.3-44.2); Mean Corpuscular HGB Conc 33.2 g/dl (32-36); Mean Corpuscular Volume 87.3 fl (80-100); Mean Platelet Volume 9.6 fl (7.4-10.4); Monocytes Absolute Auto 0.1 K/mm3 (0.1-0.6); Monocytes Percent Auto 1.7 % (2.6-8.5); Neutrophils Percent Auto 90.6 % (45.5-73.1); Platelet Count Result 196 k/mm3 (150-375); Red Blood Count 4.97 M/mm3 (4.2-5.4); Red Cell Distribution Width 14.5 % (11.5-14.5); White Blood Count 7.7 K/mm3 (4.5-10.0)
[2020-12-08 00:16] LABS: Lipase 34 U/L (23-300)
[2020-12-08 00:18] LABS: Alanine Aminotransferase 20 U/L (4-35); Albumin Level 4.5 g/dL (3.5-5.1); Alkaline Phosphatase 73 U/L (38-126); Anion Gap 10 mmol/L (8-16); Aspartate Amino Transferase 26 U/L (14-36); Blood Urea Nitrogen 9 mg/dL (7-17); Calcium 9.8 mg/dL (8.4-10.2); Carbon Dioxide 23 mmol/L (22-30); Chloride 105 mmol/L (98-107); Estimated CRCL calculation 65 ml/min; Estimated Glomerular Filt Rate > 60; Glucose 167 mg/dL (65-110); Potassium 4.3 mmol/L (3.4-5.0); Sodium 138 mmol/L (137-145)
[2020-12-08] MEDS: HYDROmorphone HCL INJ (*CRX) 1 MG/ML SYR 0.5 MG IV PUSH (00:58)
[2020-12-08 01:00] VITALS: BP 151/83; PULSE 91; RESP 24; O2SAT 96
[2020-12-08 01:54] VITALS: BP 127/77; PULSE 83; RESP 19; O2SAT 94
--- NOTE | 2020-12-08 02:44 | ADMGEN ---
This patient, Olive Pereira, was admitted to [address] [place] [address] Room 325-02. Patient/family oriented to hospital policies and general routines including ID bracelet, bed and alarms, visiting hours, pain management, procedures, bathroom and other care routines, personal items, smoking policy, room service/diet, and visiting hours. Information on how to activate the Rapid Response Team has been discussed. Patient/Family are encouraged to report perceived risks to care and to ask questions if they do not understand what they are told or what they should do.
[2020-12-08 02:52] VITALS: PULSE 83; RESP 19; O2SAT 94
[2020-12-08] MEDS: LACTATED RINGERS 1,000 ML 125 ML IV CONT (03:13)
[2020-12-08 06:00] VITALS: BP 139/65; PULSE 80; RESP 18; TEMP 36.4; O2SAT 96
--- NOTE | 2020-12-08 11:06 | PM.IMHP ---
H&P: HPI History of Present Illness Date/Time: 12/08/20 11:06 Pt is a 75 y/o F s/p lap appy, cystoscopy, left retrograde pyelography, left ureteroscopy with renal pelvic biopsies yesterday afternoon presenting to ED c/o severe LLQ, L flank pain. Pt reports pain was severe, constant and not relieved despite pain meds. Pt reports other incisions and RLQ c minimal to no soreness/pain. Pt denies any urinary issues. Pt has not had any bowel fxn and does feel somewhat bloated. Chief Complaint: abdominal pain Review of Systems Constitutional: Constitutional: Reports anorexia, Denies chills, Reports fatigue, Denies fever(s), Denies headache(s), Reports lethargy, Denies malaise, Reports poor appetite, Reports weakness, Denies weight gain and Denies weight loss Eyes: Eyes: Reports no additional eye complaints ENT: Reports system reviewed and no additional complaints, except as documented Cardiovascular: Cardiovascular: Reports no additional cardiovascular complaints Respiratory: Respiratory: Reports no additional respiratory complaints Gastrointestinal: Gastrointestinal: Reports as per HPI, Reports abdominal pain, Reports bloating, Reports change in bowel habits, Reports change in stool character, Reports GI cramping, Reports nausea and Denies vomiting Genitourinary: Genitourinary: Reports no additional female genitourinary complaints Musculoskeletal: Musculoskeletal: Reports no additional musculoskeletal complaints Integumentary/Breasts: Skin/Breast: Reports system reviewed and no additional complaints, except as docu Neurologic: Reports system reviewed and no additional complaints, except as documented Psychiatric: Psychiatric: Reports no additional psychiatric complaints Endocrine: Endocrine: Reports no additional endocrine complaints Hematologic/Lymphatic: Hematologic/Lymphatic: Reports no additional hematologic/lymphatic complaints Allergic/Immunologic: Allergic/Immunologic: Reports no additional allergic/immunologic complaints [facility] Past Medical History Medical History Acute appendicitis Encounter for screening mammogram for malignant neoplasm of breast Family history of breast cancer Mother Family hx of colon cancer Gastroesophageal reflux disease HTN (hypertension) Hydronephrosis, left Hyperlipidemia Leukopenia Obesity Seasonal allergies Trochanteric bursitis of left hip Surgical History Surgical History History of bunionectomy (~2009) Hx of cataract extraction (~2008) Hx of hammer toe correction (~2016) Family History Family History Mother Family history of malignant neoplasm of breast in first degree relative Patient's mother is Grandparent Carcinoma of colon, Onset Age: 60 Other Family history of malignant neoplasm Social History Social History Smoking status: Never smoker Second hand tobacco smoke exposure: No Alcohol intake: current Drinks per week: 2 Alcohol use details: WINE Substance use: never Substance use type: does not use Gender identity (if verbalized by the patient): Female Spiritual care concerns: No Meds Home Medications and Allergies Home Medications Medication Instructions Recorded Confirmed Type Eye Promise 1 cap PO BID 05/19/20 12/08/20 History calcium citrate-vitamin D3 2 tablet PO BID 05/19/20 12/08/20 History ezetimibe 10 mg tablet 10 mg PO DAILY #90 tablet 11/02/20 12/08/20 Rx famotidine 20 mg tablet 20 mg PO DAILY #90 tablet 11/02/20 12/08/20 Rx lisinopril 20 mg tablet 20 mg PO DAILY #90 tablet 11/02/20 12/08/20 Rx cephalexin 500 mg PO Q8H #9 cap 12/07/20 12/08/20 Rx docusate sodium [Colace] 100 mg PO BID #20 cap 12/07/20 12/08/20 Rx hydrocodone-acetaminophen 1 tablet PO Q6H PRN #20 tablet 12/07/20 12/08/20 Rx Allergies
--- NOTE | 2020-12-08 13:03 | WPDURCON ---
Assessment and Plan Assessment and plan (1) Postoperative lower abdominal pain: Code(s): G89.18 - Other acute postprocedural pain; R10.30 - Lower abdominal pain, unspecified Status: Acute (2) Hydronephrosis, left: Code(s): N13.30 - Unspecified hydronephrosis Status: Acute Assessment and Plan: Lower abdominal pain following appendectomy and left ureteroscopy. Based on the location of her pain, and the presence of fluid around the left kidney, I suspect her pain may be related to high pressure irrigation of fluid use during ureteroscopy with extravasation from the calices. I do not suspect a significant retroperitoneal bleed. In the absence of hydronephrosis there is no indication for stent placement or any other urological intervention at this point. I had another lengthy discussion with her about the endoscopic findings. She and her are both fully aware that I suspect a urothelial carcinoma. I will call them with biopsy results next week. I that time we will arrange follow-up care. Urology Consult Note HPI Date Seen: 12/08/20 Requesting Physician: Lyn Tanner MD Primary Care Provider: Candelaria Yeh NP Consult Narrative Narrative: Olive Pereira is a 75 year old female Who I became for med your with just yesterday when she presented with acute appendicitis but was also found to have a filling defect in her left renal pelvis. Ripped time of her appendectomy I did left ureteroscopy with biopsy of a renal pelvic mass. Endoscopically this lesion was consistent with a urothelial carcinoma. She initially did well and was discharged as an outpatient. She came back to the ER later that evening with left lower quadrant pain and bloating. She had noted some pink to red colored urine but noted no clots or clot urinary retention. She had no fevers or chills. CT scan of the abdomen and pelvis shows fluid around her left kidney. Currently, she is feeling much better over the course of the morning. She is tolerating clear liquids. Review of Systems Cardiovascular: Cardiovascular: Denies chest pain, Denies lightheadedness, Denies palpitations and Denies dyspnea Respiratory: Respiratory: Denies dyspnea Gastrointestinal: Gastrointestinal: Denies diarrhea, Denies nausea and Denies vomiting Genitourinary: Genitourinary: Denies hematuria and Denies dysuria Endocrine: Endocrine: Denies palpitations PMFSH Past Medical History Medical History Acute appendicitis Encounter for screening mammogram for malignant neoplasm of breast Family history of breast cancer Mother Family hx of colon cancer Gastroesophageal reflux disease HTN (hypertension) Hydronephrosis, left Hyperlipidemia Leukopenia Obesity Seasonal allergies Trochanteric bursitis of left hip Surgical History Surgical History History of bunionectomy (~2009) Hx of cataract extraction (~2008) Hx of hammer toe correction (~2015) Family History Family History Mother Family history of malignant neoplasm of breast in first degree relative Patient's mother is Grandparent Carcinoma of colon, Onset Age: 60 Other Family history of malignant neoplasm Social History Social History Smoking status: Never smoker Second hand tobacco smoke exposure: No Alcohol intake: current Drinks per week: 2 Alcohol use details: WINE Substance use: never Substance use type: does not use Gender identity (if verbalized by the patient): Female Spiritual care concerns: No Meds Home Medications and Allergies Home Medications Medication Instructions Recorded Confirmed Type Eye Promise 1 cap PO BID 05/19/20 12/08/20 History calcium citrate-vitamin D3 2 tablet PO BID 05/19/20 12/08/20 Hi
[2020-12-08 14:00] VITALS: BP 139/67; PULSE 65; RESP 16; TEMP 36.7; O2SAT 91
--- NOTE | 2020-12-12 11:58 | PM.DS ---
DS: Admitting Diagnosis Admitting Diagnosis postoperative abdominal pain DS: Discharge Diagnosis Discharge Diagnosis (1) Postoperative lower abdominal pain: Code(s): G89.18 - Other acute postprocedural pain; R10.30 - Lower abdominal pain, unspecified Status: Acute Assessment and Plan: likely from perinephric hematoma s/p biopsy, improved c analgesia, now jabari diet, home c cont routine postop care, po analgesics, await bx results, f/u 2 wks DS: Summary Hospital Course Reason for hospitalization: postoperative left lower abdominal pain Hospital Course: Pt is a 75 y/o F presenting c severe LLQ/L flank abd pain. Pt had lap appy and L urteroscopy c bx earlier in the day. Pt reports worsening LLQ/L flank abd pain since discharge. Pt reports pain not relieved by analgesics. Pt had CT in ED suggesting L perinephric hematoma and ileus. Pt admitted to surgical service. Pt reports pain much better on HD 1 c IV analgesia. Pt seen by urology and they agree c no further intervention at this time. Pt awaiting bx results. Pt to be discharged c po analgesics and routine postop care. Status at Discharge Functional status at discharge: independent ambulation Overall status at discharge: patient is progressing back to baseline Time Spent with Patient Time attestation: Total time spent providing and/or coordinating discharge services: Time spent: Less than 30 minutes Exam Const: General: cooperative, comfortable and no acute distress Nutritional Appearance: obese Orientation/consciousness: patient oriented x3 Limitations: no limitations Chest: Chest palpation & inspection: normal inspection of the chest Resp: Effort & Inspection: normal respiratory effort Auscultation: clear to auscultation bilaterally Cardio: Rate: regular rate Rhythm: regular rhythm GI: Inspection: normal to inspection, distended and incision GI Palp: Yes Soft to palpation, Yes Tenderness to palpation present (GI), No Guarding due to palpation present (GI) and No Rigid due to palpation Other: soft, sl dist, allen TTP, incisions C/D/I Skin: General skin exam: normal color and no rashes or lesions noted Neuro: General: patient oriented x3 Discharge Plan Discharge Attending physician on discharge: Lyn Tanner Consulting providers: Meggan Marks ; Sterling Urias ; Juan Daniel Herrera Discharging Clinician: Lyn Tanner Anticipated Discharge Date/Time: 08/06/21 14:10 Patient Disposition: Home, Self-Care Activity: other - see discharge instructions Diet: as tolerated Wound Care Instructions: incision open to air Discharge Instructions: DISCHARGE INSTRUCTION SHEET FOR HERNIA, GALLBLADDER AND APPENDIX SURGERIES DR. TANNER PATIENT TO TAKE HOME 1. May shower in 24 hours, no soaking in bath x 2weeks. 2. Call office for: Wound increasingly painful or bleeding Vomiting Fever of greater than 101 degrees 3. If no bowel movement for three days, take 1 oz. (30 ml) Milk of Magnesia or MiraLax 17g 1 to 2 times daily. 4. No heavy lifting > 10-15 pounds x 6 weeks for hernia repairs and 2 weeks for laparoscopic cholecystectomy or appendectomy. 5. No driving for 3 days or while taking narcotic pain medications. 6. Ice to surgical site for 48 hours (30 min on, then 30 min off). 7. Up walking 10-30 minutes three times per day. 8. Resume previous home medications. 9. Follow-up 10-14 days in office for wound check or as previously scheduled. ([phone]) 10. Oral pain medications prescription to be sent to pharmacy. Take Tylenol 500mg every 6 hours and Ibuprofen 600mg every 6 hours for the first 2 days, then as needed. 11. NUTRITION: Start out by drinking fluids and increase your diet as tolerated. If you experience nausea, try dry toast, crackers, and 7-UP. If nausea or vomiting persists, contact your surgeon?s office. 12. Gallbladders-Low Fat Diet for 2 we
== END 2020-12-08 17:15 | disposition home or self-care (01) ==
LOC: ANHED 12-08 01:37 → ANH3MEDSUR 12-08 02:10
PROVIDERS: Admitting Provider Surgery; Emergency Provider Emergency Medicine; PCP Nurse Practitioner Family; Visit Provider Surgery
DX: G89.18 Other acute postprocedural pain (principal); R10.32 Left lower quadrant pain; N13.30 Unspecified hydronephrosis; R11.10 Vomiting, unspecified; K56.7 Ileus, unspecified; R14.0 Abdominal distension (gaseous); K21.9 Gastro-esophageal reflux disease without esophagitis; E78.5 Hyperlipidemia, unspecified; N83.8 Other noninflammatory disorders of ovary, fallopian tube and broad ligament; I11.9 Hypertensive heart disease without heart failure; K76.89 Other specified diseases of liver; J43.9 Emphysema, unspecified; M47.817 Spondylosis without myelopathy or radiculopathy, lumbosacral region; J98.11 Atelectasis; K57.90 Diverticulosis of intestine, part unspecified, without perforation or abscess without bleeding; J30.2 Other seasonal allergic rhinitis; D72.819 Decreased white blood cell count, unspecified; E66.9 Obesity, unspecified; Z68.30 Body mass index [BMI] 30.0-30.9, adult; M70.62 Trochanteric bursitis, left hip; Z80.3 Family history of malignant neoplasm of breast; Z80.0 Family history of malignant neoplasm of digestive organs; Z79.1 Long term (current) use of non-steroidal anti-inflammatories (NSAID); Z79.811 Long term (current) use of aromatase inhibitors; Z90.89 Acquired absence of other organs; Z98.890 Other specified postprocedural states; Z79.899 Other long term (current) drug therapy
CPT/HCPCS: 36415; 74177; 80053; 83690; 85025; 96361; 96374; 96375; 99285; G0378; J1170; J2270; J2405; J7030; J7120; Q9967

== ENCOUNTER 2021-02-07 13:58 | Outpatient (CLI) | payer MEDICARE, SELFPAY ==
--- NOTE | ~2021-02-07 | XR_ITS ---
EXAMINATION: XR chest 2V DATE: 02/07/2021 15:29 INDICATION: Malignant neoplasm of urinary organ. TECHNIQUE: PA and lateral views of the chest were obtained. COMPARISON: Chest radiograph dated 12/08/2015 FINDINGS: The lungs remain clear with no focal airspace opacities, pulmonary edema, pleural effusion or pneumot horax. Heart size is normal. Tortuous thoracic aorta. Calcified mediastinal lymph nodes consistent wi th old granulomatous disease. Mild thoracic kyphosis with chronic minimal anterior wedging of a midth oracic vertebral body and mild to moderate spondylosis. IMPRESSION: 1. No acute cardiopulmonary disease. Reviewed, dictated and finalized at location B.
--- NOTE | 2021-02-07 14:53 | ECG_ITS ---
Measurements Intervals [place] Rate: 71 P: 25 CO: 177 QRS: -18 QRSD: 101 T: 5 QT: 373 QTc: 407 Interpretive Statements SINUS RHYTHM POSSIBLE LEFT ATRIAL ENLARGEMENT LOW QRS VOLTAGE IN PRECORDIAL LEADS INCOMPLETE RIGHT BUNDLE BRANCH BLOCK POSSIBLE LEFT VENTRICULAR HYPERTROPHY BORDERLINE T WAVE ABNORMALITY- ANTEROLAT/INF LEADS BORDERLINE ECG Electronically Signed On 02-07-2021 15:26:13 CDT by Dayday Samano D.O.
[2021-02-07 15:28] LABS: Eosinophils Absolute Auto 0.1 K/mm3 (0-0.3); Eosinophils Percent Auto 3.5 % (0-4.4); Hematocrit 42.4 % (37.0-47.0); Hemoglobin 13.9 g/dL (12.0-15.0); Immature Granulocyte Absolute 0.01 K/mm3 (0.00-0.031); Immature Granulocyte Percent A 0.3 % (0-0.5); Lymphocytes Absolute Auto 1.23 K/mm3 (0.9-3.2); Lymphocytes Percent Auto 33.2 % (18.3-44.2); Mean Corpuscular HGB Conc 32.8 g/dl (32-36); Mean Corpuscular Hemoglobin 29.2 pg (26-34); Mean Corpuscular Volume 89.1 fl (80-100); Mean Platelet Volume 9.5 fl (7.4-10.4); Monocytes Absolute Auto 0.3 K/mm3 (0.1-0.6); Monocytes Percent Auto 8.4 % (2.6-8.5); Neutrophils Percent Auto 54.6 % (45.5-73.1); Platelet Count Result 213 k/mm3 (150-375); Red Blood Count 4.76 M/mm3 (4.2-5.4); White Blood Count 3.7 K/mm3 (4.5-10.0)
[2021-02-07 15:35] LABS: INR 0.9; Prothrombin Time 11.7 Seconds (11.1-14.7)
[2021-02-07 15:36] LABS: Partial Thromboplastin Time 24.9 SECONDS (22.3-36.8)
[2021-02-07 15:40] LABS: Alanine Aminotransferase 18 U/L (4-35); Albumin Level 4.9 g/dL (3.5-5.1); Alkaline Phosphatase 71 U/L (38-126); Anion Gap 8 mmol/L (8-16); Aspartate Amino Transferase 27 U/L (14-36); Bilirubin,Total 0.5 mg/dL (0.2-1.3); Blood Urea Nitrogen 9 mg/dL (7-17); Carbon Dioxide 29 mmol/L (22-30); Chloride 106 mmol/L (98-107); Estimated Glomerular Filt Rate > 60; Glucose 106 mg/dL (65-110); Potassium 3.9 mmol/L (3.4-5.0); Sodium 143 mmol/L (137-145)
== END 2021-02-07 13:59 | disposition home or self-care (01) ==
LOC: ANHSURGERY 14:01
PROVIDERS: PCP Nurse Practitioner Family; Visit Provider Urology
DX: C68.9 Malignant neoplasm of urinary organ, unspecified (principal); Z01.818 Encounter for other preprocedural examination; I45.10 Unspecified right bundle-branch block
CPT/HCPCS: 36415; 71046; 80053; 85025; 85610; 85730; 86850; 86900; 86901; 87086; 93005

== ENCOUNTER 2021-02-15 10:16 | Inpatient (IN) | payer MEDICARE, SELFPAY ==
[2021-02-07 14:07] VITALS: BMI 29.3
[2021-02-07 14:48] VITALS: BP 143/85; PULSE 87; RESP 16; TEMP 36.7; O2SAT 97
--- NOTE | 2021-02-12 07:48 | PM.IMHP ---
H&P: HPI History of Present Illness Date/Time: 02/12/21 07:48 Pleasant 75-year-old female without prior significant urological history who was found to have an enhancing mass in the left collecting system which she presented with acute prostatitis. 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 The remainder of the distal ureter was unremarkable, as was her bladder. CT scan suggested no evidence of metastatic disease. She has a normal appearing contralateral kidney. After discussion of therapeutic options she has elected to proceed with hand assisted laparoscopic left radical nephro ureterectomy with preoperative mitomycin installation. She is aware of the risk of this procedure including, but not limited to, adverse cardiopulmonary events, fair control cancer, intraoperative bleeding necessitating conversion to an open procedure and mortality. Chief Complaint: Left renal pelvic cancer Review of Systems Cardiovascular: Cardiovascular: Denies chest pain, Denies lightheadedness, Denies palpitations and Denies dyspnea Respiratory: Respiratory: Denies dyspnea Gastrointestinal: Gastrointestinal: Denies diarrhea, Denies nausea and Denies vomiting Genitourinary: Genitourinary: Denies hematuria and Denies dysuria Endocrine: Endocrine: Denies palpitations PMFSH Past Medical History Medical History Acute appendicitis Encounter for screening mammogram for malignant neoplasm of breast Family history of breast cancer Mother Family hx of colon cancer Gastroesophageal reflux disease HTN (hypertension) Hydronephrosis, left Hyperlipidemia Leukopenia Obesity Seasonal allergies Trochanteric bursitis of left hip Surgical History Surgical History History of bunionectomy (~2009) History of laparoscopic appendectomy 12/07/20 Hx of cataract extraction (~2008) Hx of hammer toe correction (~2015) Family History Family History Mother Family history of malignant neoplasm of breast in first degree relative Patient's mother is Grandparent Carcinoma of colon, Onset Age: 60 Other Family history of malignant neoplasm Social History Social History Smoking status: Never smoker Second hand tobacco smoke exposure: No Alcohol intake: current Drinks per week: 2 Alcohol use details: 2 DRINKS PER MONTH Substance use: never Substance use type: does not use Gender identity (if verbalized by the patient): Female Spiritual care concerns: No Meds Home Medications and Allergies Home Medications Medication Instructions Recorded Confirmed Type Eye Promise 1 cap PO DAILY 05/19/20 02/07/21 History calcium citrate-vitamin D3 2 tablet PO DAILY 05/19/20 02/07/21 History ezetimibe [Zetia] 10 mg PO HS 02/07/21 02/07/21 History light mineral oil-mineral oil 1 drp OPHTHALMIC (EYE) HS 02/07/21 02/07/21 History [Soothe XP] lisinopril 20 mg PO HS 02/07/21 02/07/21 History triamcinolone acetonide 0.1 applic TOPICAL PRN PRN 02/07/21 02/07/21 History Allergies Allergy/AdvReac Type Severity Reaction Status Date / Time Ughjndx-YCG-FiN Reductase Allergy Intermediate Cramping Verified 02/07/21 14:07 Inhibitor of the [Evbdsqs-Hxp-Xjg Reductase Muscles Inhibitor] Exam Const: General: no acute distress Resp: Effort & Inspection: normal respiratory effort GI: Inspection: non-distended GI Palp: No abdominal tenderness and No Guarding due to palpation present (GI) Auscultation: normal bowel sounds Assessment and Plan Assessment and plan (1) Cancer of left renal pelvis: Code(s): C65.2 - Malignant neoplasm of left renal pelvis
--- NOTE | 2021-02-14 14:09 | WPDANESEPPF ---
Anes - Initial Pre Proc Eval Procedure: Operation Date: 02/15/21 07:30 Proposed Procedures p Hand-Assisted Laparoscopic Left Radical Nephroureterectomy with, - Juan Daniel Herrera MD s Trans Urethral Resection Bladder Cuff with Preoperative Mitomycin C Instillation - Juan Daniel Herrera MD Date/Time: 02/14/21 14:09 Surgeon: Juan Daniel Herrera MD Pre Op Diagnosis: malignant neoplasm of bladder Patient Data Age: 75 Gender: F Height: 1.65 m Weight: 80.1 kg Last Vital Signs Temp 36.7 C 02/07/21 14:48 Pulse 87 02/07/21 14:48 Resp 16 02/07/21 14:48 BP 143/85 H 02/07/21 14:48 Pulse Ox 97 02/07/21 14:48 Allergies Allergy/AdvReac Type Severity Reaction Status Date / Time Rkafpzn-JRL-UmS Reductase Allergy Intermediate Cramping Verified 02/15/21 06:34 Inhibitor of the [Rzngdrv-Mqe-Vqr Reductase Muscles Inhibitor] Home Medications Medication Instructions Recorded Confirmed Type Eye Promise 1 cap PO DAILY 05/19/20 02/15/21 History calcium citrate-vitamin D3 2 tablet PO DAILY 05/19/20 02/15/21 History ezetimibe [Zetia] 10 mg PO HS 02/07/21 02/15/21 History light mineral oil-mineral oil 1 drp OPHTHALMIC (EYE) HS 02/07/21 02/15/21 History [Soothe XP] lisinopril 20 mg PO HS 02/07/21 02/15/21 History triamcinolone acetonide 0.1 applic TOPICAL PRN PRN 02/07/21 02/07/21 History Patient hx anesthesia problems: none Family hx anesthesia problems: none Results Review: All pre-operative results and documents have been reviewed as part of the pre-operative evaluation. [facility] Past Medical History Medical History Acute appendicitis Encounter for screening mammogram for malignant neoplasm of breast Family history of breast cancer Mother Family hx of colon cancer Gastroesophageal reflux disease HTN (hypertension) Hydronephrosis, left Hyperlipidemia Leukopenia Obesity Seasonal allergies Trochanteric bursitis of left hip Surgical History Surgical History History of bunionectomy (~2009) History of laparoscopic appendectomy 12/07/20 Hx of cataract extraction (~2008) Hx of hammer toe correction (~2015) Family History Family History Mother Family history of malignant neoplasm of breast in first degree relative Patient's mother is Grandparent Carcinoma of colon, Onset Age: 60 Other Family history of malignant neoplasm Social History Social History (Reviewed 12/27/20 @ 11:03 by Elisabeth Herron [facility]) Smoking status: Never smoker Second hand tobacco smoke exposure: No Alcohol intake: current Drinks per week: 2 Alcohol use details: WINE Substance use: never Substance use type: does not use Living arrangements: with family Gender identity (if verbalized by the patient): Female Spiritual care concerns: No Anes - Eval Final PreProcedure Day of Procedure 02/14/21 14:09 Patient weight: obese Heart: regular rate and rhythm Lungs: clear to auscultation and normal air movement Airway: Mallampati scale class II Neurological: alert and oriented Last oral intake: >/= 8 hours ASA classification: III Emergent: no Anesthetic plan: proceed Anesthesia type and monitoring: general ETT Results Review: All pre-operative results and documents have been reviewed as part of the pre-operative evaluation. Informed Consent: The patient's anesthetic plan and its attendant risks and benefits were discussed with the patient/family/POA. Questions were solicited and answers provided to the satisfaction of the patient/family/POA.
[2021-02-15] VITALS (20 sets, daily range): BP systolic 138–173; BP diastolic 68–95; PULSE 49–94; RESP 12–18; TEMP 36–36.4; O2SAT 87–100
[2021-02-15] MEDS: LACTATED RINGERS 1,000 ML 30 ML IV CONT ×2 (06:40→10:46)
--- NOTE | 2021-02-15 06:44 | WPDHPUPDATE1 ---
History and Physical Update Update Date/Time: 02/15/21 06:44 History and Physical has been reviewed, including an updated exam of the patient. There are NO changes in the patient's condition. Risks, benefits, and alternatives have been discussed and questions answered. Patient agrees to proceed with procedure.
[2021-02-15] MEDS: ceFAZolin 2 GM/D5W 50 ML 2 GM/50 ML BAG IVPB (07:33)
--- NOTE | 2021-02-15 10:09 | P.OP_ITS ---
Procedure Note - Detailed Date of Procedure 02/15/21 Pre-op Diagnosis Malignant neoplasm of left renal pelvis Post-op Diagnosis same Procedure Performed Hand assisted, laparoscopic left radical nephro ureterectomy with transurethral resection of bladder cuff Surgeon Juan Daniel Herrera MD [facility] Smith, [facility] Anesthesia general Description of Procedure The patient is brought to the operative suite where she is placed in the right lateral position in anticipation of a left radical nephrectomy. An 8cm periumbilical incision made and dissection was carried into the peritoneal cavity with care taken to avoid injury to the peritoneal contents. A hand-port is placed at this site and insufflation is undertaken to 18cm Hg. Two 12mm trocars were then placed in the left midaxillary line, one 3-4cm below the costovertebral angle and another 3-4cm above the iliac crest. A 5mm trocar is placed in the left anterior axillary line and used to retract the left kidney. Using the harmonic scalpel the descending colon is mobilized medially by incising the white line of Toldt. The spleno-renal ligament is also dissected with the harmonic scalpel. The hilum is in dissected and the left renal vein and renal artery are identified. A single vascular hemaclip is placed on the left renal artery. Left gonadal vein is controlled with 2 vascular clips and transected. The renal vein is in controlled and transected with a laparoscopic HENNA stapling device with a vascular load. 3 clips were then placed on the proximal and distal side of the renal artery and the artery was transected. Using the Harmonic scalpel the fibro-fatty attachment to the kidney to the psoas and wonders lumbar muscles are freed. The ureter was identified, dissected deep into the pelvis to within a showed 1-2 cm of the ureterovesical junction Where it is clipped with vascular clips and transected. The upper and lower pole of the kidney are then dissected with the harmonic scalpel. The specimen is submitted for permanent section. Inspection for hemostasis is undertaken at low insufflation pressures and appeared excellent. The descending colon was returned to an orthotopic position. The hand port and trocars were removed. The midline incision is closed with a running looped 0 PDS. The trocar sites were closed with 4-0 Vicryl subcuticular. Estimated blood loss was less than 25cc . patient was then repositioned in the dorsal lithotomy position. Using a 24 F resectoscope and a Weston 9th bladder cuff was created in the distal ureters dissected to the previously placed vascular eulogio. An 18 F urethral catheter was left to drainage.The patient was taken to the recovery room having tolerated this procedure well. Estimated Blood Loss 25 Drains Yes (18F Caro catheter) Packing No Pathology yes Complications No immediate complications Condition stable Disposition PACU
--- NOTE | 2021-02-15 10:48 | W.PM.PROC2 ---
Procedure Note - Detailed Date of Procedure 02/15/21 Pre-op Diagnosis Malignant neoplasm of left renal pelvis Post-op Diagnosis same Procedure Performed Mitomycin-C bladder instillation Surgeon Juan Daniel Herrera MD Anesthesia general Description of Procedure With the patient in the supine position, a 16F Caro catheter is placed using sterile technique. Using a protective facemask, gown and double layer of gloves Mitomycin-C 40 mg in 50 cc saline is administered through the catheter/into the bladder. The catheter is then plugged. This is left indwelling during the initial part of our nephro ureterectomy and drained 60 minutes later. Total dwell time will be 60 min., after which the bladder will be drained. following completion of the nephroureterectomy the bladder was irrigated copiously with saline. Estimated Blood Loss 25
[2021-02-15] MEDS: fentaNYL CITRATE INJ (*CRX) 100 MCG/2 ML VIAL 25 MCG IV PUSH ×3 (11:14→11:47)
--- NOTE | 2021-02-15 12:13 | SUR.PHASEI ---
1200 PT MEETS ANESTHESIA DISCHARGE CRITERIA TO GO TO THE FLOOR. WAITING ON A POST OP ROOM TO BECOME AVAILABLE.
[2021-02-15] MEDS: DEXTROSE 5%/LACTATED RINGERS 1,000 ML 150 ML IV CONT ×2 (13:38→20:06)
[2021-02-15 14:11] LABS: Anion Gap 6 mmol/L (8-16); Blood Urea Nitrogen 13 mg/dL (7-17); Carbon Dioxide 27 mmol/L (22-30); Chloride 103 mmol/L (98-107); Estimated CRCL calculation 56 ml/min; Estimated Glomerular Filt Rate > 60; Glucose 167 mg/dL (65-110); Potassium 4.1 mmol/L (3.4-5.0); Sodium 136 mmol/L (137-145)
[2021-02-15] MEDS: ONDANSETRON INJ 4 MG/2 ML VIAL IV PUSH (21:12)
[2021-02-15] MEDS: lisinopriL 20 MG TABLET PO (21:22)
[2021-02-15] MEDS: EZETIMIBE 10 MG TABLET PO (21:22)
[2021-02-16 00:09] VITALS: BP 144/74; PULSE 92; RESP 16; TEMP 36.8; O2SAT 96
[2021-02-16] MEDS: traMADol HCL (*CRX) 50 MG TABLET PO ×2 (00:58→20:08)
[2021-02-16 05:48] VITALS: BP 148/74; PULSE 86; RESP 16; TEMP 36.6; O2SAT 95
[2021-02-16 06:37] LABS: Basophils Percent Auto 0.1 % (0.2-1.2); Hematocrit 43.9 % (37.0-47.0); Hemoglobin 14.7 g/dL (12.0-15.0); Immature Granulocyte Absolute 0.02 K/mm3 (0.00-0.031); Immature Granulocyte Percent A 0.2 % (0-0.5); Lymphocytes Absolute Auto 0.81 K/mm3 (0.9-3.2); Lymphocytes Percent Auto 9.7 % (18.3-44.2); Mean Corpuscular HGB Conc 33.5 g/dl (32-36); Mean Corpuscular Hemoglobin 29.3 pg (26-34); Mean Corpuscular Volume 87.5 fl (80-100); Mean Platelet Volume 9.6 fl (7.4-10.4); Monocytes Absolute Auto 0.6 K/mm3 (0.1-0.6); Monocytes Percent Auto 7.2 % (2.6-8.5); Neutrophils Absolute Auto 6.9 K/mm3 (1.3-6.7); Neutrophils Percent Auto 82.8 % (45.5-73.1); Platelet Count Result 202 k/mm3 (150-375); Red Blood Count 5.02 M/mm3 (4.2-5.4); Red Cell Distribution Width 14.8 % (11.5-14.5); White Blood Count 8.4 K/mm3 (4.5-10.0)
[2021-02-16] MEDS: DEXTROSE 5%/LACTATED RINGERS 1,000 ML 150 ML IV CONT ×4 (06:53→23:49)
[2021-02-16 06:56] LABS: Anion Gap 5 mmol/L (8-16); Blood Urea Nitrogen 13 mg/dL (7-17); Calcium 9.4 mg/dL (8.4-10.2); Carbon Dioxide 27 mmol/L (22-30); Chloride 104 mmol/L (98-107); Estimated CRCL calculation 45 ml/min; Estimated Glomerular Filt Rate 54; Glucose 171 mg/dL (65-110); Potassium 4.4 mmol/L (3.4-5.0); Sodium 136 mmol/L (137-145)
--- NOTE | 2021-02-16 07:25 | WPDUROPN2 ---
Progress Note: A&P Assessment and Plan (1) Cancer of left renal pelvis: Code(s): C65.2 - Malignant neoplasm of left renal pelvis Status: Acute Assessment and Plan: Doing well POD #1. Increase diet/activity. Subjective Subjective Date/Time Seen: 02/16/21 07:25 Comfortable, no complaints Review of Systems Cardiovascular: Cardiovascular: Denies chest pain, Denies lightheadedness, Denies palpitations and Denies dyspnea Respiratory: Respiratory: Denies dyspnea Gastrointestinal: Gastrointestinal: Denies diarrhea, Denies nausea and Denies vomiting Genitourinary: Genitourinary: Denies hematuria and Denies dysuria Endocrine: Endocrine: Denies palpitations Exam Const: General: no acute distress Resp: Effort & Inspection: normal respiratory effort GI: Inspection: normal to inspection and non-distended GI Palp: No abdominal tenderness and No Guarding due to palpation present (GI) Auscultation: normal bowel sounds Objective Data Vital Signs Vital Signs: Vital Signs - 24 hr 02/15/21 10:46 02/15/21 11:00 02/15/21 11:15 Temperature 97.3 F L Pulse Rate 77 66 65 Respiratory Rate 16 18 13 Blood Pressure 141/86 H 156/84 H 154/93 H Pulse Oximetry 100 99 100 02/15/21 11:30 02/15/21 11:45 02/15/21 11:57 Temperature Pulse Rate 58 L 54 L Respiratory Rate 12 12 Blood Pressure 154/95 H 165/80 H Pulse Oximetry 100 98 87 L 02/15/21 12:00 02/15/21 12:15 02/15/21 12:30 Temperature Pulse Rate 49 L 53 L 58 L Respiratory Rate 12 12 12 Blood Pressure 154/84 H 150/83 H 147/78 H Pulse Oximetry 97 98 97 02/15/21 12:45 02/15/21 13:00 02/15/21 13:15 Temperature 97.4 F L 96.8 F L Pulse Rate 58 L 57 L 69 Respiratory Rate 12 12 14 Blood Pressure 147/78 H 142/83 H 139/76 Pulse Oximetry 99 99 97 02/15/21 13:30 02/15/21 14:00 02/15/21 15:00 Temperature 96.9 F L 97.0 F L 97.0 F L Pulse Rate 68 61 73 Respiratory Rate 14 16 16 Blood Pressure 138/74 149/68 H 147/81 H Pulse Oximetry 98 100 100 02/15/21 20:00 02/15/21 22:00 02/15/21 22:34 Temperature 97.6 F Pulse Rate 94 Respiratory Rate 14 Blood Pressure 142/78 H Pulse Oximetry 100 99 97 02/16/21 00:09 02/16/21 05:48 Temperature 98.2 F 97.9 F Pulse Rate 92 86 Respiratory Rate 16 16 Blood Pressure 144/74 H 148/74 H Pulse Oximetry 96 95 Intake/Output Intake/Output: Intake & Output 02/13/21 02/14/21 02/15/21 02/16/21 23:59 23:59 23:59 23:59 Intake Total 1300 1100 Output Total 850 800 Balance 450 300 Meds/Results Medications: Active Medications Generic Name Dose Route Start Last Admin Trade Name Freq PRN Reason Stop Dose Admin Hydrocodone Bitart/Acetaminophen 1 tab 02/16/21 05:00 Hydrocodone/Acetaminophen (*Crx) 5-325 Mg Tablet PO Q4H PRN Pain Rated 1-3 Hydrocodone Bitart/Acetaminophen 2 tab 02/16/21 05:00 Hydrocodone/Acetaminophen (*Crx) 5-325 Mg Tablet PO Q4H PRN Pain Rated 4-6 Ezetimibe 10 mg 02/15/21 21:00 02/15/21 21:22 Ezetimibe 10 Mg Tablet PO 10 mg HS QUENTIN Administration Hydromorphone HCl 0.5 mg 02/15/21 10:14 Hydromorphone Hcl Inj (*Crx) 1 Mg/Ml Syr IV PUSH Q4H PRN Pain Rated 7-10 Dextrose/Lactated Ringer's 1,000 mls @ 150 mls/hr 02/15/21 10:15 02/16/21 06:53 Dextrose 5%/Lactated Ringers IV CONT 150 mls/hr .Q6H40M QUENTIN Administration Lisinopril 20 mg 02/15/21 21:00 02/15/21 21:22 Lisinopril 20 Mg Tablet PO 20 mg HS QUENTIN Administration Naloxone HCl 0.1 mg 02/15/21 10:14 Naloxone Hcl 0.4 Mg/Ml Vial IV PUSH Q2M PRN Opiate Reversal Ondansetron HCl 4 mg 02/15/21 20:52 02/15/21 21:12 Ondansetron Inj 4 Mg/2 Ml Vial IV PUSH 4 mg Q6H PRN Administration Nausea And Vomiting Tramadol HCl 50 mg 02/15/21 20:57 02/16/21 00:58 Tramadol Hcl (*Crx) 50 Mg Tablet PO 50 mg Q8H PRN Administration Pain Rated 4-6 Labs Labs: Laboratory Results - last 24 hr 10
[2021-02-16 09:11] VITALS: O2SAT 95
[2021-02-16] MEDS: ONDANSETRON INJ 4 MG/2 ML VIAL IV PUSH ×2 (10:46→20:09)
[2021-02-16 11:17] VITALS: BP 157/80; PULSE 89; RESP 20; TEMP 36.6; O2SAT 96
[2021-02-16 19:49] VITALS: BP 167/85; PULSE 91; RESP 18; TEMP 37.4; O2SAT 96
[2021-02-16] MEDS: EZETIMIBE 10 MG TABLET PO (20:08)
[2021-02-16] MEDS: lisinopriL 20 MG TABLET PO (20:08)
[2021-02-17 04:44] VITALS: BP 162/82; PULSE 100; RESP 16; TEMP 37.3; O2SAT 94
--- NOTE | 2021-02-22 06:28 | PM.DS ---
DS: Admitting Diagnosis Discharge Date 02/17/21 Admitting Diagnosis Urothelial carcinoma left renal pelvis DS: Discharge Diagnosis Discharge Diagnosis (1) Cancer of left renal pelvis: Code(s): C65.2 - Malignant neoplasm of left renal pelvis Status: Acute DS: Summary Hospital Course Hospital Course: Patient admitted on the morning of for planned left left hand assisted nephro ureterectomy. The procedure was uneventful, as was her postoperative course. By the 1st day she was ambulating of bed and tolerating full liquids. By the 2nd day she was tolerating regular diet ambulating quite well. Postoperative blood counts and creatinine did not change appreciably. She was discharged with an indwelling catheter with plans to come back in 1 week with a cystogram. Time Spent with Patient Time attestation: Total time spent providing and/or coordinating discharge services:15 Exam Const: General: no acute distress Resp: Effort & Inspection: normal respiratory effort GI: Inspection: non-distended GI Palp: No abdominal tenderness and No Guarding due to palpation present (GI) Auscultation: normal bowel sounds DS: Data Data Completed and Pending Completed studies during hospitalization: Pending at discharge 02/15/21 09:46 Surgical [PTH] Routine Discharge Plan Discharge Attending physician on discharge: Juan Daniel Herrera Discharging Clinician: Juan Daniel Herrera Patient Disposition: Home, Self-Care Activity: may shower Diet: as tolerated Discharge Instructions: 1) Caro catheter -> leg bag / bedside bag at night. 2) No lifting/straining >15lbs. x3 weeks. 3) No driving x1-week. 4) Resume normal, pre-operative diet. 5) My office will contact regarding follow-up in 1-week with cystogram. Patient Instructions: Caro Catheter Placement and Care (DC) Stand Alone Forms: General Discharge Instructions Follow-up/Referrals: Juan Daniel Herrera MD [Physician] - Discharge Medications: New hydrocodone-acetaminophen 5-325 mg tablet 1 - 2 tablet PO Q6H PRN (Reason: pain) Qty: 24 RF: 0 cephalexin 500 mg capsule 500 mg PO Q8H Qty: 9 RF: 0 Continued ezetimibe [Zetia] 10 mg tablet 10 mg PO HS RF: 0 lisinopril 20 mg tablet 20 mg PO HS RF: 0 triamcinolone acetonide 0.1 % cream 0.1 applic TOPICAL PRN PRN (Reason: ECZEMA) RF: 0 Soothe XP 1-4.5 % Drops 1 drp OPHTHALMIC (EYE) HS RF: 0 calcium citrate-vitamin D3 315 mg-5 mcg (200 unit) Tablet 2 tablet PO DAILY RF: 0 Held Eye Promise 1 cap PO DAILY RF: 0 Hold Instructions: Resume on 02/17/21. Date of admission: 02/15/21 10:16 Primary Care Provider: Candelaria Yeh Admitting Provider: Juan Daniel Herrera Attending physician on admission: Juan Daniel Herrera Condition: Stable
== END 2021-02-17 13:50 | disposition home or self-care (01) | DRG 655 ==
LOC: ANH2MED 12:51 → ANHSURGERY 02-16 08:55 → ANH2MED 02-16 16:54
PROVIDERS: Admitting Provider Urology; PCP Nurse Practitioner Family; Visit Provider Urology
PROC: 0TT10ZZ Resection of Left Kidney, Open Approach (ICD-10-PCS; CPT 50548; principal; 2021-02-15 07:30)
PROC: 0TBB8ZZ Excision of Bladder, Via Natural or Artificial Opening Endoscopic (ICD-10-PCS; 2021-02-15 07:30)
DX: C65.2 Malignant neoplasm of left renal pelvis (principal); K21.9 Gastro-esophageal reflux disease without esophagitis; I10 Essential (primary) hypertension; E78.5 Hyperlipidemia, unspecified; M70.62 Trochanteric bursitis, left hip; Z98.42 Cataract extraction status, left eye; Z98.41 Cataract extraction status, right eye; Z90.49 Acquired absence of other specified parts of digestive tract
CPT/HCPCS: 36415; 80048; 85025; 88305; 88307; 88309; A9270; J0690; J1100; J1170; J2250; J2370; J2405; J2704; J2710; J3010; J7030; J7120; J7121; J9280

== ENCOUNTER 2021-02-23 10:46 | Outpatient (CLI) | payer MEDICARE, SELFPAY ==
--- NOTE | ~2021-02-23 | XR_ITS ---
EXAMINATION: XR cystogram DATE: 02/23/2021 11:24 INDICATION: Malignant neoplasm of left renal pelvis status post left nephrectomy and ureterectomy. TECHNIQUE: Water-soluble contrast was gravity-infused through the patient's Caro catheter. Multiple fluoroscopic images were obtained. Fluoroscopy exposure time was 0.3 minutes. The total number of eduardo ges was 11. COMPARISON: CT abdomen and pelvis 12/08/2020 FINDINGS: There is irregularity of the left posterior bladder wall, consistent with surgical change. No extraluminal leakage of contrast. No ureteral reflux. IMPRESSION: 1. No extraluminal leakage of contrast. Reviewed, dictated and finalized at location A.
== END 2021-02-23 10:47 | disposition home or self-care (01) ==
PROVIDERS: PCP Nurse Practitioner Family; Visit Provider Urology
DX: C65.2 Malignant neoplasm of left renal pelvis (principal)
CPT/HCPCS: 51600; 74430; Q9967

== ENCOUNTER 2021-04-02 01:17 | Day surgery (SDC) | payer MEDICARE, SELFPAY ==
[2021-03-19 14:49] VITALS: BMI 28.2
--- NOTE | 2021-03-19 15:00 | PC.NURSE ---
Report to the Outpatient Waiting Room, entrance under the green pavilion located off [facility], at time ___0700____ on date ___04/02/21____. OR Time: ___09 . - You and your visitor will be asked a series of questions to screen for COVID 19 for your protection. - A mask is required within the hospital. - Only one visitor is allowed at this time. Patient visitors will be guided where to wait when not with patient. Preoperative COVID Testing Requirements: No COVID Test needed if: (proof is required; if not received patient will have Rapid Test prior to entry) - Patient has received COVID Vaccine at least 14 days prior to procedure date or - Patient has positive COVID test result within last 90 days of surgery date. COVID Test needed if above criteria is not met If not COVID vaccinated a COVID test must be conducted within 72 hours of surgery and patient is asked to isolate self from time of testing until procedure. You will go to the [facility] for your COVID testing. The [facility] site is located at the corner of [address] [facility]. You will only be called if COVID results are positive and your surgeon may reschedule your elective surgery date. Patients may have clear liquids (water, carbonated beverages, clear teas, apple juice) until 3 hours prior to surgery with a maximum of 20 ounces. - No food from midnight until time of surgery - Infants may have breast milk until 4 hours before surgery, infant formula 6 hours prior to surgery. - Children will be allowed to drink immediately following surgery. If applicable, please bring a bottle or sippy cup to assist with drinking. Juice, water, soda, and popsicles are readily available. For infants on formula, please bring formula the day of surgery. Pacifiers are allowed. Take the following medications with a SIP of water the morning of surgery: ____NONE Medications to discontinue per physician ALL VITAMINS/SUPPLEMENTS 3 DAYS PRE-OP Date to take last dose Please no make-up, nail turkish, hairspray, perfume, deodorant, or body powder the day of surgery. No jewelry (including any body piercings) or valuables the day of surgery, leave them at home. Please take a shower or bath the night before, or the morning of, surgery with an antibacterial soap. Wear comfortable, loose fitting clothing. Children are encouraged to wear pajamas. - Jewelry must be removed prior to entering the operating room. Rings and piercings that are not removed may be cut off. - The hospital will not accept responsibility for valuables. - Please leave all valuables, including medications, at home the day of surgery. If you are going home after surgery, a licensed electric pile driver operator must drive you home. - NO public transportation without another adult. - We recommend that an adult stay with you for 24 hours following discharge. - We also recommend that you do not drive, make important decision, drink alcoholic beverages, or take any drugs that were not prescribed by your health care provider for at least 24 hours after your discharge time. For Pediatric surgeries, we recommend two adults accompany the child home (only one inside the building at this time). Follow any additional instructions given to you from your surgeon. Telephone instructions given to ___PATIENT and asked if any additional questions and then verbalized understanding. Patient advised to call surgeon office or pre surgery nurse liaison [phone] if any additional questions.
--- NOTE | ~2021-04-02 | XR_ITS ---
EXAMINATION: XR chest port-a-cath/central 04/02/2021 10:40 INDICATION: Portacatheter placement PROCEDURE: AP portable chest COMPARISON: 02/07/2021 FINDINGS: The lungs are clear. The cardiomediastinal silhouette is within normal limits. There are no pleural effusions. There is no pneumothorax suspected. Right-sided portacatheter tip in the SVC. IMPRESSION: 1: NO ACUTE CARDIOPULMONARY DISEASE. Reviewed, dictated and finalized at location B. MIZATION ANALYST
--- NOTE | ~2021-04-02 | XR_ITS ---
XR fl guide central line place 04/02/2021 10:26 Indication: Portacatheter placement Procedure: 2 fluoroscopic images of the chest. 42 seconds of fluoroscopy. Comparison: Chest dated 02/07/2021 Findings: There is a rashawn catheter, tip likely near the cavoatrial junction. Visualized lung parench yma is grossly unremarkable, although resolution limited. Impression: 1: Portacatheter placement, tip likely near the cavoatrial junction. Reviewed, dictated and finalized at location B. CISE INSTRUCT Impression: 1: Portacatheter placement, tip likely near the cavoatrial junction.
[2021-04-02] MEDS: KETOROLAC 15 MG/ML VIAL (*BKC) IV PUSH (08:13)
[2021-04-02 08:23] VITALS: BP 150/78; PULSE 82; RESP 16; TEMP 36.7; O2SAT 100
--- NOTE | 2021-04-02 08:44 | WPDANESEPPF ---
Anes - Initial Pre Proc Eval Procedure: Operation Date: 04/02/21 09:30 Proposed Procedures p Arie Cath Placement - Lyn Tanner MD Date/Time: 04/02/21 08:44 Surgeon: Lyn Tanner MD Pre Op Diagnosis: UROTHELIAL Ca Patient Data Age: 75 Gender: F Height: 1.65 m Weight: 76.7 kg Last Vital Signs Temp 36.7 C 04/02/21 08:23 Pulse 82 04/02/21 08:23 Resp 16 04/02/21 08:23 BP 150/78 H 04/02/21 08:23 Pulse Ox 100 04/02/21 08:23 Allergies Allergy/AdvReac Type Severity Reaction Status Date / Time Kzjdsif-OBI-LeI Reductase Allergy Intermediate Cramping Verified 04/02/21 07:43 Inhibitor of the [Mdegyvx-Equ-Ugh Reductase Muscles Inhibitor] Home Medications Medication Instructions Recorded Confirmed Type Eye Promise 1 cap PO DAILY 05/19/20 04/02/21 History calcium citrate-vitamin D3 2 tablet PO DAILY 05/19/20 04/02/21 History Soothe XP 1 drp OPHTHALMIC (EYE) HS 02/07/21 04/02/21 History ezetimibe [Zetia] 10 mg PO HS 02/07/21 04/02/21 History lisinopril 20 mg PO HS 02/07/21 04/02/21 History triamcinolone acetonide 0.1 applic TOPICAL PRN PRN 02/07/21 04/02/21 History tamsulosin 0.4 mg PO HS 04/02/21 04/02/21 History Patient hx anesthesia problems: none Family hx anesthesia problems: none Results Review: All pre-operative results and documents have been reviewed as part of the pre-operative evaluation. [facility] Past Medical History Medical History Acute appendicitis Encounter for screening mammogram for malignant neoplasm of breast Family history of breast cancer Mother Family hx of colon cancer Gastroesophageal reflux disease HTN (hypertension) Hydronephrosis, left Hyperlipidemia Leukopenia Obesity Seasonal allergies Trochanteric bursitis of left hip Surgical History Surgical History History of bunionectomy (~2009) History of laparoscopic appendectomy 12/07/20 Hx of cataract extraction (~2008) Hx of hammer toe correction (~2016) Family History Family History Mother Family history of malignant neoplasm of breast in first degree relative Patient's mother is Grandparent Carcinoma of colon, Onset Age: 60 Other Family history of malignant neoplasm Social History Social History Smoking status: Never smoker Second hand tobacco smoke exposure: No Alcohol intake: current Drinks per week: 2 Alcohol use details: WINE Substance use: never Substance use type: does not use Living arrangements: with family Additional living arrangements comments: HUSB Gender identity (if verbalized by the patient): Female Spiritual care concerns: No Anes - Eval Final PreProcedure Day of Procedure 04/02/21 08:44 Patient weight: overweight Heart: regular rate and rhythm Lungs: clear to auscultation and normal air movement Airway: Mallampati scale class II Neurological: alert and oriented Last oral intake: >/= 8 hours ASA classification: III Emergent: no Anesthetic plan: proceed Anesthesia type and monitoring: general GIVS and standard monitoring Results Review: All pre-operative results and documents have been reviewed as part of the pre-operative evaluation. Informed Consent: The patient's anesthetic plan and its attendant risks and benefits were discussed with the patient/family/POA. Questions were solicited and answers provided to the satisfaction of the patient/family/POA.
[2021-04-02] MEDS: LACTATED RINGERS 1,000 ML 30 ML IV CONT (08:53)
--- NOTE | 2021-04-02 09:28 | PM.IMHP ---
H&P: HPI History of Present Illness Date/Time: 04/02/21 09:28 75 y/o F presenting for VAD placement. Pt denies previous central venous catheterization. Pt prefers placement of right side. Pt is going to undergo adjuvant tx of urothelial cancer. Chief Complaint: urothelial cancer Review of Systems Review of Systems: All systems reviewed & are unremarkable except as noted in HPI and below PMFSH Past Medical History Medical History Acute appendicitis Encounter for screening mammogram for malignant neoplasm of breast Family history of breast cancer Mother Family hx of colon cancer Gastroesophageal reflux disease HTN (hypertension) Hydronephrosis, left Hyperlipidemia Leukopenia Obesity Seasonal allergies Trochanteric bursitis of left hip Surgical History Surgical History History of bunionectomy (~2009) History of laparoscopic appendectomy 12/07/20 Hx of cataract extraction (~2008) Hx of hammer toe correction (~2015) Family History Family History Mother Family history of malignant neoplasm of breast in first degree relative Patient's mother is Grandparent Carcinoma of colon, Onset Age: 60 Other Family history of malignant neoplasm Social History Social History Smoking status: Never smoker Second hand tobacco smoke exposure: No Alcohol intake: current Drinks per week: 2 Alcohol use details: WINE Substance use: never Substance use type: does not use Living arrangements: with family Additional living arrangements comments: HUSJorje Gender identity (if verbalized by the patient): Female Spiritual care concerns: No Meds Home Medications and Allergies Home Medications Medication Instructions Recorded Confirmed Type Eye Promise 1 cap PO DAILY 05/19/20 04/02/21 History calcium citrate-vitamin D3 2 tablet PO DAILY 05/19/20 04/02/21 History Soothe XP 1 drp OPHTHALMIC (EYE) HS 02/07/21 04/02/21 History ezetimibe [Zetia] 10 mg PO HS 02/07/21 04/02/21 History lisinopril 20 mg PO HS 02/07/21 04/02/21 History triamcinolone acetonide 0.1 applic TOPICAL PRN PRN 02/07/21 04/02/21 History tamsulosin 0.4 mg PO HS 04/02/21 04/02/21 History Allergies Allergy/AdvReac Type Severity Reaction Status Date / Time Kvwtave-ZEZ-KmD Reductase Allergy Intermediate Cramping Verified 04/02/21 07:43 Inhibitor of the [Ijienjl-Nsm-Shh Reductase Muscles Inhibitor] Vital Signs Vital Signs - 24 hr 04/02/21 08:23 Temperature 36.7 C Pulse Rate 82 Respiratory Rate 16 Blood Pressure 150/78 H Pulse Oximetry 100 Exam Const: General: cooperative, comfortable and no acute distress Nutritional Appearance: obese Neck: Neck: normal visual inspection, full ROM and no lymphadenopathy Chest: Chest palpation & inspection: normal inspection of the chest Resp: Effort & Inspection: normal respiratory effort Auscultation: clear to auscultation bilaterally Cardio: Rate: regular rate Rhythm: regular rhythm GI: Inspection: normal to inspection and non-distended GI Palp: Yes Soft to palpation and No Tenderness to palpation present (GI) Assessment and Plan Assessment and plan (1) 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
--- NOTE | 2021-04-02 09:31 | WPDHPUPDATE1 ---
History and Physical Update Update Date/Time: 04/02/21 09:31 History and Physical has been reviewed, including an updated exam of the patient. There are NO changes in the patient's condition. Risks, benefits, and alternatives have been discussed and questions answered. Patient agrees to proceed with procedure.
[2021-04-02] MEDS: ceFAZolin 2 GM/D5W 50 ML 2 GM/50 ML BAG IVPB (09:48)
[2021-04-02] MEDS: BUPIVACAINE HCL 0.5% PF 30 ML VIAL INFILTRATE (10:10)
[2021-04-02] MEDS: HEPARIN SODIUM 5,000 UNITS/ML VIAL 5000 UNITS IRRIGATION (10:11)
[2021-04-02] MEDS: HEPARIN SODIUM, PORCINE 10,000 UNITS/10 ML VIAL 2000 UNITS IV PUSH (10:12)
[2021-04-02 10:30] VITALS: BP 134/69; PULSE 72; RESP 14; O2SAT 98
--- NOTE | 2021-04-02 10:46 | W.PM.PROC2 ---
Procedure Note - Detailed Date of Procedure 04/02/21 Pre-op Diagnosis UROTHELIAL Ca Post-op Diagnosis same Procedure Performed Placement of left subclavian venous access device Surgeon Lyn Tanner MD Anesthesia MAC and local Indications 75-year-old female with urothelial cancer and needing access for adjuvant chemotherapy Findings first stick L SCV Description of Procedure Patient was brought into the operating room and placed in the supine position. After adequate induction of mac anesthesia, the patient was prepped and draped in normal sterile fashion. Time-out was then done to verify the patient's identity, as well as the procedure being performed. I began by making a small incision in the left chest, I then gained access into the left subclavian vein with an 18 gauge needle. I then placed the guidewire into the vein and confirmed placement via fluoroscopic guidance. I then locally anesthetized the area in the left chest. I then enlarged the incision around the guidewire including making a subcutaneous pocket inferiorly to allow placement of the port itself. I then placed a dilating sheath over the guidewire into the left subclavian vein via sterile Seldinger technique. This was once again done and confirmed via fluoroscopic guidance. I then removed the dilator and the guidewire, now just leaving the sheath in the vein. I then fed the previously flushed catheter into the left subclavian vein under fluoroscopic guidance. At approximately 15 cm, the catheter was noted to be near the atrial caval junction. I then peeled away the sheath, now just leaving the catheter in the vein. I then was able to easily draw and flush from the catheter. The catheter was cut to fit and attached to the port itself. The port was placed into the previously made subcutaneous pocket and sutured in with 0 Ethibond suture. Final fluoroscopic view showed the termination of the catheter at the atrial caval junction with a nice smooth curvature back to the port itself. I was able to gain access to the port with a Flynn needle and was able to easily draw and flush from the port. I then flushed 4 cc of a final heparin flush into the port. The incision was closed with 3 0 Vicryl suture in the subcutaneous tissue and the skin was closed with 4 O Monocryl subcuticular suture. Dermabond was then placed on wound. The patient tolerated the procedure well and will be sent to the recovery room in stable condition. Implants L SCV VAD Estimated Blood Loss 5 Drains No Packing No Pathology none sent Complications No immediate complications Condition stable Disposition PACU
[2021-04-02 11:00] VITALS: BP 141/67; PULSE 76; RESP 16; O2SAT 98
[2021-04-02 11:30] VITALS: BP 133/73; PULSE 67; RESP 16
[2021-04-02 11:50] VITALS: BP 131/69; PULSE 54; RESP 16
--- NOTE | 2021-04-02 12:35 | SUR.PHASEII ---
1100- chest xr done prior to getting up. voided x1.
== END 2021-04-02 12:10 | disposition home or self-care (01) ==
PROVIDERS: PCP Nurse Practitioner Family; Visit Provider Surgery
PROC: (CPT 36561; principal; 2021-04-02 09:30)
DX: C65.2 Malignant neoplasm of left renal pelvis (principal); K21.9 Gastro-esophageal reflux disease without esophagitis; I10 Essential (primary) hypertension; N13.30 Unspecified hydronephrosis; E78.5 Hyperlipidemia, unspecified; D72.819 Decreased white blood cell count, unspecified
CPT/HCPCS: 36561; 77001; C1788; J0690; J1644; J1885; J2704; J3010; J7030; J7120

== ENCOUNTER 2021-04-16 09:19 | Outpatient (CLI) | payer MEDICARE, SELFPAY ==
[2021-04-16 10:33] LABS: Cholesterol 144 mg/dL (0-200); HDL Direct 48 mg/dL; Triglycerides 81 mg/dL (<150)
[2021-04-16 10:44] LABS: LDL Cholesterol Direct 79 mg/dL
== END 2021-04-16 09:20 | disposition home or self-care (01) ==
LOC: ANHLAB 09:21
PROVIDERS: PCP Nurse Practitioner Family; Visit Provider Nurse Practitioner Family
DX: E78.5 Hyperlipidemia, unspecified (principal); I10 Essential (primary) hypertension
CPT/HCPCS: 36415; 80061

== ENCOUNTER 2021-06-03 10:02 | Emergency (ER) | payer MEDICARE, SELFPAY ==
[2021-06-03 10:21] VITALS: BP 134/79; PULSE 101; RESP 16; TEMP 36.9; O2SAT 100
--- NOTE | 2021-06-03 10:38 | PC.NURSE ---
1033 Patient left our facility to go to [place] for completion of care, address provided to patient and her . Patient left the facility ambulatory with steady gait in company of her ; guaze dressing secured with coban over laceration left elbow.
== END 2021-06-03 10:38 | disposition left against medical advice (07) ==
PROVIDERS: Emergency Provider Nurse Practitioner Family; PCP Nurse Practitioner Family
DX: Z53.21 Procedure and treatment not carried out due to patient leaving prior to being seen by health care provider (principal)
CPT/HCPCS: 99199

== ENCOUNTER 2021-06-03 10:50 | Emergency (ER) | payer MEDICARE, SELFPAY ==
[2021-06-03 11:16] VITALS: BP 140/80; PULSE 99; RESP 16; TEMP 36.4; O2SAT 100
--- NOTE | 2021-06-03 11:16 | ED.GENADULT ---
HPI - General Adult General Chief complaint: Wound/Laceration Stated complaint: Cut Lt Elbow Source: patient Mode of arrival: ambulatory Limitations: no limitations History of Present Illness HPI narrative: Patient is a 75-year-old female who presents to the urgent care via POV for evaluation of a laceration located on left elbow that occurred this morning. She states she was walking when she excellently fell down approximately 3 steps at home causing her to lacerate her left elbow. She received last tetanus October 16, 2016. Denies cleaning wound prior to arrival. Of note, patient reports she initially arrived at the [facility] location and was sent to this facility for lack repair since there was no provider on staff at that time. Related Data Home Medications Medication Instructions Recorded Confirmed Eye Promise 1 cap PO DAILY 05/19/20 06/03/21 calcium citrate-vitamin D3 2 tablet PO DAILY 05/19/20 06/03/21 Soothe XP 1 drp OPHTHALMIC (EYE) HS 02/07/21 06/03/21 triamcinolone acetonide 0.1 applic TOPICAL PRN PRN 02/07/21 06/03/21 tamsulosin 0.4 mg PO HS 04/02/21 06/03/21 lidocaine-prilocaine See Rx Instructions .ROUTE .COMPLEX 04/16/21 06/03/21 ondansetron HCl 8 mg PO Q8-10H PRN 04/16/21 06/03/21 famotidine 20 mg PO DAILY 06/03/21 06/03/21 Allergies Allergy/AdvReac Type Severity Reaction Status Date / Time Jwalbeq-XNZ-YzM Reductase Allergy Intermediate Cramping Verified 06/03/21 10:19 Inhibitor of the [Fbairpv-Dkl-Vbo Reductase Muscles Inhibitor] Review of Systems Review of Systems: Pertinent negatives: dizziness, LOC, difficulty healing, petechiae, pruritus, easy bruising, uncontrolled bleeding, decreased range of motion, deformity, paresthesias, loss of sensation, shortness of breath, chest pain, and heart palpitations/murmurs. [facility] Past Medical History Medical History Encounter for screening mammogram for malignant neoplasm of breast Family history of breast cancer Mother Family hx of colon cancer Gastroesophageal reflux disease HTN (hypertension) Hyperlipidemia Leukopenia Obesity Seasonal allergies Ureter ca Surgical History Surgical History History of bunionectomy (~2009) History of laparoscopic appendectomy (~12/2019) 12/07/20 History of nephroureterectomy (~02/2020) Hx of cataract extraction (~2008) Hx of hammer toe correction (~2015) Family History Family History Mother Family history of malignant neoplasm of breast in first degree relative Patient's mother is Grandparent Carcinoma of colon, Onset Age: 60 Other Family history of malignant neoplasm Social History Social History Smoking status: Never smoker Second hand tobacco smoke exposure: No Alcohol intake: current Drinks per week: 2 Alcohol use details: WINE Substance use: never Substance use type: does not use Additional living arrangements comments: MEGHANA Gender identity (if verbalized by the patient): Female Spiritual care concerns: No Comments I have reviewed and agree with the patient's past medical, surgical, social, and family hx as documented by the RN. There is no relevant family history pertinent to the presenting complaint. Exam Narrative: GENERAL: Well-appearing, well-nourished, and in no acute distress. HEAD: Normocephalic, atraumatic. No facial swelling appreciated. EYES: PERRLA and EOMI. No evidence of erythema, swelling, or drainage. ENT: Nares clear, no rhinorrhea or epistaxis.Mucous membranes moist and pink. Uvula is midline without erythema and swelling. No evidence of obstruction, petechial rash, cobblestoning, lesions, ulcers, erythema, swelling, exudates, peritonsillar abscess, tenting, or drooling. Breath odo
== END 2021-06-03 12:12 | disposition home or self-care (01) ==
PROVIDERS: Emergency Provider Nurse Practitioner Family; PCP Nurse Practitioner Family
DX: S51.012A Laceration without foreign body of left elbow, initial encounter (principal); W10.9XXA Fall (on) (from) unspecified stairs and steps, initial encounter; K21.9 Gastro-esophageal reflux disease without esophagitis; I10 Essential (primary) hypertension; E78.5 Hyperlipidemia, unspecified; E66.9 Obesity, unspecified; Z68.28 Body mass index [BMI] 28.0-28.9, adult; Z85.54 Personal history of malignant neoplasm of ureter; Z98.49 Cataract extraction status, unspecified eye; Z90.6 Acquired absence of other parts of urinary tract
CPT/HCPCS: 12001; 99213; G0463

== ENCOUNTER → 2021-06-27 10:14 | Outpatient (CLI) | payer MEDICARE, SELFPAY ==
--- NOTE | ~2021-06-27 | DEXA_ITS ---
Bone Density Report Name: MARTÍNEZ RAMEY Age: 75 Sex: Female Ethnicity: White Date of : 1945 Indication: postmenopausal; screening for osteoporosis; height loss; cancer; Referring Provider: Candelaria Yhe Study: Bone densitometry was performed. Exam Date: June 27, 2021 Accession number: [id number] Bone Density: Region BMD T-score Z-score Classification AP Spine (L1-L4) 1.116 0.6 3.0 Normal Femoral Neck (Left) 0.869 0.2 2.3 Normal Total Hip (Left) 1.053 0.9 2.7 Normal Femoral Neck (Right) 0.821 -0.3 1.8 Normal Total Hip (Right) 1.017 0.6 2.4 Normal Total Hip Mean 1.035 0.8 2.6 Normal World Health Organization criteria for BMD impression classify patients as: Normal (T-score at or above -1.0), Osteopenia (T-score between -1.0 and -2.5), or Osteoporosis (T-score at or below -2.5). 10-year Fracture Risk: FRAX not reported because: All T-scores for Spine Total, Hip Total, Femoral Neck at or above -1.0 Previous Exams: Region Exam Age BMD T-score BMD Change BMD Change Date g/cm2 vs Baseline vs Previous AP Spine(L1-L4) 06/27/2021 75 1.116 0.6 -0.003 -0.007 11/26/2018 73 1.123 0.7 0.003 0.027* 11/18/2016 71 1.096 0.4 -0.023* -0.027* 12/21/2013 68 1.123 0.7 0.004 0.004 12/30/2008 63 1.119 0.7 Total Hip(Left) 06/27/2021 75 1.053 0.9 -0.108* -0.088* 11/26/2018 73 1.141 1.6 -0.020 0.010 11/18/2016 71 1.131 1.6 -0.030* -0.011 12/21/2013 68 1.142 1.6 -0.019 -0.019 12/30/2008 63 1.161 1.8 Total Hip(Right) 06/27/2021 75 1.017 0.6 -0.132* -0.012 11/26/2018 73 1.029 0.7 -0.119* -0.053* 11/18/2016 71 1.082 1.1 -0.066* -0.023 12/21/2013 68 1.105 1.3 -0.043* -0.043* 12/30/2008 63 1.149 1.7 *Denotes significance at 95% confidence level, LSC for AP Spine = 0.022 g/cm2, LSC for Total Hip = 0.027 g/cm2 Clinical Information Provided by Patient: Has used the following medications: Vitamin D, Calcium Has the following medical conditions: Cancer, Upper Tract Urothelial Carcinoma- 2020 with Chemo Patient maximum height was 67.0 Menopause Age: 48 No regular weight bearing exercise Onset of menses at age 14 Number of children 2 Impression: The patient
--- NOTE | ~2021-06-27 | MM_ITS ---
EXAMINATION: MM screening [facility] BI w spenser HISTORY: Screening mammogram TECHNIQUE: Craniocaudal and mediolateral oblique 3-D tomosynthesis images were obtained and synthetic 2-D images were generated. CAD analysis was submitted and interpreted. COMPARISON: No prior mammogram is available for comparison at this institution. BREAST PARENCHYMAL COMPOSITION: FINDINGS: Possible irregular 4.8 mm mass in upper left breast on MLO view (MLO Tomosynthesis image 24 /64) Otherwise there is no evidence of suspicious mass, calcification, or architectural distortion to sugg est malignancy in either breast. There has been no other suspicious interval change. IMPRESSION: 1. Possible irregular 4.8 mm mass in upper left breast 2. Diagnostic left mammogram and left breast ultrasound examination are recommended. BI-RADS Category 0: Incomplete: Needs additional imaging evaluation. Reviewed, dictated and finalized at location A. T DIGESTER OPERATOR IMPRESSION: 1. Possible irregular 4.8 mm mass in upper left breast 2. Diagnostic left mammogram and left breast ultrasound examination are recomme nded. BI-RADS Category 0: Incomplete: Needs additional imaging evaluation.
== END ==
PROVIDERS: PCP Family Medicine; Visit Provider Nurse Practitioner Family
DX: Z12.31 Encounter for screening mammogram for malignant neoplasm of breast (principal); Z78.0 Asymptomatic menopausal state; R92.8 Other abnormal and inconclusive findings on diagnostic imaging of breast
CPT/HCPCS: 77063; 77067; 77080

== ENCOUNTER → 2021-07-10 09:18 | Outpatient (CLI) | payer MEDICARE, SELFPAY ==
--- NOTE | ~2021-07-10 | MMUS_ITS ---
EXAMINATION: MM diagnostic mi LT w spenser, US breast LT limited HISTORY: Follow-up left breast asymmetry TECHNIQUE: Additional 3-D tomosynthesis images of the left breast were performed and synthetic 2-D im ages were generated. CAD analysis was submitted and interpreted. High resolution Limited left breast ultrasound was performed. COMPARISON: 06/27/2021 BREAST PARENCHYMAL COMPOSITION: Breast composed of scattered areas of fibroglandular density FINDINGS: MAMMOGRAPHIC FINDINGS: The area of asymmetry in the upper outer quadrant of the left breast is less dense with spot compress ion views, likely superimposed fibroglandular tissue. ULTRASOUND: Limited left breast ultrasound: Normal heterogeneous echotexture without focal solid or cystic mass. IMPRESSION: 1. No evidence for malignancy in the left breast. 2. Routine yearly screening mammogram and regular clinical breast examination are recommended. BI-RADS Category 2: Benign finding(s). Reviewed, dictated and finalized at location A. L LABOR IMPRESSION: 1. No evidence for malignancy in the left breast. 2. Routine yearly screening mammogram and regular clinical breast examination a re recommended. BI-RADS Category 2: Benign finding(s).
== END ==
PROVIDERS: PCP Family Medicine; Visit Provider Nurse Practitioner Family
DX: R92.8 Other abnormal and inconclusive findings on diagnostic imaging of breast (principal)
CPT/HCPCS: 76642; 77061; 77065; G0279

== ENCOUNTER 2021-10-29 08:17 | Outpatient (CLI) | payer MEDICARE, SELFPAY ==
--- NOTE | ~2021-10-29 | CT_ITS ---
EXAMINATION: CT abdomen pelvis wo con DATE: 10/29/2021 08:40 INDICATION: Urothelial carcinoma, left renal pelvis TECHNIQUE: Computed tomography (CT) of the abdomen and pelvis was performed without intravenous contr ast. Automated exposure control and iterative reconstruction technique were employed. Exam dose: 415 .12 mGy-cm total exam DLP. COMPARISON: 02/23/2021 cystogram 12/08/2020 CT abdomen pelvis FINDINGS: There is mild discoid atelectasis and/or scarring at the lung bases. Right lower lobe calci fied pulmonary granulomas. Normal heart size. No pericardial or pleural effusion. Approximately 9 mm probable cyst of the medial segment left hepatic lobe. The liver is otherwise unre markable. The gallbladder is present. No bile duct or pancreatic duct dilatation. No pancreatic mass lesion or ductal dilatation is detected. Splenic size is normal. There is a calcified splenic granulo ma. Normal morphology of the adrenal glands. The right kidney appears unremarkable. Status post left nephrectomy. No suspicious mass is noted in the left nephrectomy bed. There is atherosclerotic calcification of the abdominal aorta and at the origins of celiac and superi or mesenteric and renal arteries. No abdominal aortic aneurysm. No intraperitoneal or retroperitoneal or pelvic mass lesion or adenopathy or ascites. Numerous diverticula of sigmoid and descending colon; no CT evidence of diverticulitis. No bowel obst ruction is evident. 3.2 and 3.5 cm left adnexal cystic lesions are noted. Approximately 9 mm 11 mm right adnexal cystic l esions. The uterus is present. The urinary bladder is not very distended but appears unremarkable. Multilevel degenerative disc disease of moderate to moderately severe degree involving the lumbar spi ne, with associated minimal retrolisthesis at L2-3. Degenerative change of prominent degree at the lower lumbar and lumbosacral area with associated grad e 1 anterolisthesis at L4-5 and L5-S1. 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 Reviewed, dictated and finalized at [facility].
== END 2021-10-29 08:18 | disposition home or self-care (01) ==
PROVIDERS: PCP Family Medicine; Visit Provider Internal Medicine Hematology & Oncology
DX: C68.9 Malignant neoplasm of urinary organ, unspecified (principal); K57.30 Diverticulosis of large intestine without perforation or abscess without bleeding; N83.201 Unspecified ovarian cyst, right side; N83.202 Unspecified ovarian cyst, left side
CPT/HCPCS: 74176

== ENCOUNTER 2021-11-06 12:41 | Outpatient (CLI) | payer MEDICARE, SELFPAY ==
[2021-11-06 14:06] LABS: Cholesterol 157 mg/dL (0-200); HDL Direct 50 mg/dL; Triglycerides 65 mg/dL (<150)
[2021-11-06 14:17] LABS: LDL Cholesterol Direct 84 mg/dL
== END 2021-11-06 12:42 | disposition home or self-care (01) ==
LOC: ANHLAB 12:43
PROVIDERS: PCP Family Medicine; Visit Provider Nurse Practitioner Family
DX: E78.5 Hyperlipidemia, unspecified (principal)
CPT/HCPCS: 36415; 80061

== ENCOUNTER → 2021-11-16 08:45 | Outpatient (CLI) | payer MEDICARE, SELFPAY ==
--- NOTE | ~2021-11-16 | US_ITS ---
US abdomen limited INDICATION: Liver cyst seen on CT. PROCEDURE: Realtime right upper abdominal ultrasound. COMPARISON: No prior studies for comparison. FINDINGS: The pancreas is normal without focal mass or pancreatic ductal dilation. Liver echotexture is normal without focal mass or intrahepatic biliary dilatation. There is a 1.2 cm liver cyst. There is normal directional flow in the portal vein. The gallbladder is normal without stones, gallbladder wall thickening or pericholecystic fluid. Comm on bile duct measures 4 mm. No sonographic Bennett's sign. IMPRESSION: 1: Liver cyst measures 1.2 cm. Reviewed, dictated and finalized at [facility].
== END ==
PROVIDERS: PCP Nurse Practitioner Family; Visit Provider Nurse Practitioner Family
DX: K76.89 Other specified diseases of liver (principal)
CPT/HCPCS: 76705

== ENCOUNTER 2022-02-13 13:36 | Outpatient (CLI) | payer MEDICARE, SELFPAY ==
--- NOTE | ~2022-02-13 | CT_ITS ---
EXAMINATION: CT abdomen pelvis wo con DATE: 02/13/2022 13:55 INDICATION: Urothelial carcinoma. TECHNIQUE: Computed tomography (CT) of the abdomen and pelvis was performed without intravenous contr ast. Automated exposure control and iterative reconstruction technique were employed. The dose-length product was 564.53 mGy-cm. COMPARISON: CT abdomen and pelvis 10/29/2021, 12/07/2020 FINDINGS: The visualized portions of the lung bases demonstrate mild atelectasis. There is mild bronc hiectasis bilaterally. Calcified right lung nodules are consistent with old granulomas disc disease. No pleural effusion. The heart size is normal. There are coronary artery calcifications. No pericardi al effusion. There is a 9 mm cyst in the liver. Calcifications in the spleen are consistent with old granulomatous disease. The gallbladder, pancreas, adrenal glands, and right kidney are normal. 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 There is diverticulosis of the colon without evidence of diverticuli tis. There are changes of appendectomy. There are no pathologically enlarged lymph nodes. There are 3 .3 cm and 3.8 cm cysts in left adnexa. There are no pathologically enlarged lymph nodes. There is no free intraperitoneal fluid. There is moderate thoracic and lumbar spondylosis. IMPRESSION: 1. No evidence of metastatic disease. 2. Chronic cysts in left adnexa, likely benign. Pelvis ultrasound is recommended in one year. Reviewed, dictated and finalized at location [facility]. IMPRESSION: 1. No evidence of metastatic disease. 2. Chronic cysts in left adnexa, likely benign. Pelvis ultrasound is recommende d in one year.
== END 2022-02-13 13:37 | disposition home or self-care (01) ==
PROVIDERS: PCP Nurse Practitioner Family; Visit Provider Internal Medicine Hematology & Oncology
DX: C68.9 Malignant neoplasm of urinary organ, unspecified (principal); N83.8 Other noninflammatory disorders of ovary, fallopian tube and broad ligament
CPT/HCPCS: 74176

== ENCOUNTER 2022-08-10 08:08 | Emergency (ER) | payer MEDICARE, SELFPAY ==
--- NOTE | ~2022-08-10 | XR_ITS ---
XR abdomen/kub 1V DATE: 08/10/2022 08:46 INDICATION: Left flank pain. History of left nephrectomy. TECHNIQUE: AP view COMPARISON: 02/13/2022 CT abdomen pelvis FINDINGS: Postoperative change from left nephrectomy. Moderately prominent amount of fecal material in the colon. No evidence of bowel obstruction. No visceromegaly is evident. IMPRESSION: Status post left nephrectomy Nonspecific abdomen Reviewed, dictated and finalized at [facility]. Reviewed, dictated and finalized at [facility].
--- NOTE | 2022-08-10 08:13 | ED.BACK ---
HPI - Back Pain/Injury General Chief Complaint: Back Pain/Injury Stated Complaint: BACK PAIN Time Seen by Provider: 08/10/22 08:20 Source: patient, RN notes reviewed and old records reviewed Mode of arrival: ambulatory Limitations: no limitations History of Present Illness HPI Narrative: 77 year old female presents ambulatory to [facility] with complaints of left lower back pain since Friday. Patient reports initially pain was across her lower back, she felt bloated and had some radiation into her left abdomen region. Patient reports past history of kidney cancer on the left side with removal of left kidney and ureter. Patient reports that she saw her urologist on and was given medication for urinary tract infection. patient denies any known injury to her back.Patient reports pain in mainly now at left lower back with no radiation to buttocks. Patient reports that she has CT scan scheduled 08/20/2022. MD elicited complaint: back pain Pertinent past history: other (kidney cancer left kidney with removal of left kidney and ureter) Onset (ago): day(s) (5 days) Pain scale (0-10): 9 Quality: sharp Treatments prior to arrival: heat therapy and other (on antibiotic from urologist) Work related injury: No Related Data Home Medications Medication Instructions Recorded Confirmed calcium citrate 315 mg-vitamin D3 2 tablet PO DAILY 05/19/20 08/10/22 5 mcg (200 unit) tablet timolol 0.5 % eye drops 1 drp EACH EYE Q12H 07/29/22 08/10/22 nitrofurantoin 100 mg PO BID 08/10/22 08/10/22 monohydrate/macrocrystals 100 mg capsule Allergies Allergy/AdvReac Type Severity Reaction Status Date / Time Mbbvkey-HYF-LjQ Reductase Allergy Intermediate Cramping Verified 08/10/22 08:16 Inhibitor of the [Xrghicr-Vkq-Loo Reductase Muscles Inhibitor] Review of Systems Review of Systems: CONSTITUTIONAL: Denies fever, chills, or sweats. CARDIOVASCULAR: Denies chest pain, palpitations, or edema. RESPIRATORY: Denies cough or dyspnea. GASTROINTESTINAL: Denies abdominal pain, nausea, vomiting, or diarrhea. GENITOURINARY: Denies dysuria or hematuria.No CVA tenderness SKIN: Denies rash or itching. MUSCULOSKELETAL: Reports left sided back pain, or myalgia. NEUROLOGIC: Denies headache, numbness, or weakness. All systems reviewed & are unremarkable except as noted in HPI and below PMFSH Past Medical History Medical History Eczema of lower extremity Encounter for screening mammogram for malignant neoplasm of breast Family history of breast cancer Mother Family hx of colon cancer Gastroesophageal reflux disease HTN (hypertension) Hyperlipidemia Ileus, postoperative (~02/2021) Leukopenia Obesity Seasonal allergies Ureter ca Surgical History Surgical History History of bunionectomy (~2009) History of laparoscopic appendectomy (~12/2019) 12/07/20 History of nephroureterectomy (~02/2020) Hx of cataract extraction (~2008) Hx of hammer toe correction (~2015) Family History Family History Mother Family history of malignant neoplasm of breast in first degree relative Patient's mother is Grandparent Carcinoma of colon, Onset Age: 60 Other Family history of malignant neoplasm Social History Social History Social History: Lives with -2 children out of house. Smoking status: Never smoker Second hand tobacco smoke exposure: No Alcohol intake: current Drinks per week: 2 Alcohol use details: WINE Substance use: never Substance use type: does not use Lack of Transportation: No Lack of Food: Never True Current Housing: I Have Housing Concerned About Future Housing: No Difficulty Paying Gas/Electric Bills: No Difficulty Paying for Meds: No Currently Unemployed: No
[2022-08-10 08:23] VITALS: BP 126/82; PULSE 80; RESP 16; TEMP 36.5; O2SAT 99
== END 2022-08-10 09:21 | disposition home or self-care (01) ==
PROVIDERS: Emergency Provider Registered Nurse; PCP Nurse Practitioner Family
DX: M54.50 Low back pain, unspecified (principal); I10 Essential (primary) hypertension; E78.5 Hyperlipidemia, unspecified; Z85.528 Personal history of other malignant neoplasm of kidney
CPT/HCPCS: 74018; 99213; G0463

== ENCOUNTER 2022-08-14 08:25 | Emergency (ER) | payer MEDICARE, SELFPAY ==
--- NOTE | ~2022-08-14 | CT_ITS ---
EXAMINATION: CT abdomen pelvis w con DATE: 08/14/2022 10:17 INDICATION: Left lower quadrant and flank pain for 4 days. TECHNIQUE: Computed tomography (CT) of the abdomen and pelvis was performed with 100 cc Omnipaque 350 intravenous contrast. The dose-length product was 519.54 mGy-cm. Automated exposure control and iter ative reconstruction technique were employed. COMPARISON: Comparison to multiple prior studies sequentially, with oldest reviewed study dated 2020. FINDINGS: There is left lower lobe and right lower lobe atelectasis/scarring. There is dependent atel ectasis. Cardiomegaly. No significant pleural or pericardial effusion. There is a left adnexal cystic mass measuring 6 x 3.3 x 3.5 cm with internal septation. This mass is not significantly changed from prior CTs dating back to 12/07/2020 Small low-density lesion in the liver, too small to characterize, although most likely benign cysts. There are calcified granulomas in the spleen. The pancreas, adrenal glands and right kidney are unrem arkable. 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 No significant vascular abnormality. Small fat-contai yoel umbilical hernia. There is thickening of the rectum. No obstruction. Moderate lumbar spondylosis . There is scoliosis. IMPRESSION: 1. Moderate thickening of the rectum which may be due to underdistention, although malignancy not exc luded. Recommend follow-up evaluation. 2: Septated left adnexal cystic mass, likely benign, without significant change. Reviewed, dictated and finalized at location [facility]. IMPRESSION: 1. Moderate thickening of the rectum which may be due to underdistention, altho ugh malignancy not excluded. Recommend follow-up evaluation. 2: Septated left adnexal cystic mass, likely benign, without significant change .
[2022-08-14 08:35] VITALS: BP 155/87; PULSE 72; RESP 16; TEMP 36.8; O2SAT 98
--- NOTE | 2022-08-14 09:13 | ED.BACK ---
HPI - Back Pain/Injury General Chief Complaint: Back Pain/Injury Stated Complaint: back pain Time Seen by Provider: 08/14/22 08:57 History of Present Illness HPI Narrative: Patient is a 77-year-old female with a history of kidney cancer status post left nephrectomy in 2020 here for evaluation of left flank pain x5 days. Patient states the pain is there constantly, but is worse with certain positions, particularly when she lays down or tries to walk. She denies any radiation of the pain. Describes it as a internal soreness. She has never had a similar pain in the past. She has tried Tylenol without relief of her symptoms. She was seen in urgent care 2 days ago upon symptom onset, had KUB that was unrevealing aside from constipation, patient states that she took MiraLAX over the past 2 days and is no longer constipated but the pain remains. She did have a fever 3 days ago but none since. No urinary symptoms, cough, congestion, shortness of breath, chest pain, weakness. Related Data Home Medications Medication Instructions Recorded Confirmed calcium citrate 315 mg-vitamin D3 2 tablet PO DAILY 05/19/20 08/10/22 5 mcg (200 unit) tablet timolol 0.5 % eye drops 1 drp EACH EYE Q12H 07/29/22 08/10/22 Allergies Allergy/AdvReac Type Severity Reaction Status Date / Time Qgbubwf-NHM-VkH Reductase Allergy Intermediate Cramping Verified 08/14/22 09:13 Inhibitor of the [Bbgncfr-Ulh-Uul Reductase Muscles Inhibitor] Review of Systems Review of Systems: Gen.: Denies fevers or chills Eyes: Denies eye pain or visual change ENT: Denies congestion Respiratory: Denies shortness of breath or cough CV: Denies chest pain or palpitations GI: Denies abdominal pain nausea, emesis or diarrhea : denies burning, urgency, frequency or hematuria Musculoskeletal: Reports left flank pain Neuro: Denies numbness, tingling, weakness or focal weakness Skin: Denies rash Except as documented, all other systems reviewed and negative [facility] Past Medical History Medical History (Updated 08/14/22 @ 11:11 by Cristin Mejía PA-C) Eczema of lower extremity Encounter for screening mammogram for malignant neoplasm of breast Family history of breast cancer Mother Family hx of colon cancer Gastroesophageal reflux disease HTN (hypertension) Hyperlipidemia Ileus, postoperative (~02/2021) Leukopenia Obesity Seasonal allergies Urethral cancer Surgical History Surgical History History of bunionectomy (~2009) History of laparoscopic appendectomy (~12/2019) 12/07/20 History of nephroureterectomy (~02/2020) Hx of cataract extraction (~2008) Hx of hammer toe correction (~2015) Family History Family History Mother Family history of malignant neoplasm of breast in first degree relative Patient's mother is Grandparent Carcinoma of colon, Onset Age: 60 Other Family history of malignant neoplasm Social History Social History Social History: Lives with -2 children out of house. Smoking status: Never smoker Second hand tobacco smoke exposure: No Alcohol intake: current Drinks per week: 2 Alcohol use details: WINE Substance use: never Substance use type: does not use Lack of Transportation: No Lack of Food: Never True Current Housing: I Have Housing Concerned About Future Housing: No Difficulty Paying Gas/Electric Bills: No Difficulty Paying for Meds: No Currently Unemployed: No Education: High School Diploma/GED Difficulty w/ Childcare or Family Care: No Living arrangements: with family Additional living arrangements comments: [place] Gender identity (if verbalized by the patient): Female Spiritual care concerns: No Exam Narrative: APPEARANCE: Uncomfortable appearing Head: Normocephalic and atrau
[2022-08-14 09:20] LABS: Basophils Percent Auto 0.2 % (0.2-1.2); Eosinophils Absolute Auto 0.2 K/mm3 (0-0.3); Eosinophils Percent Auto 3.7 % (0-4.4); Hematocrit 39.3 % (37.0-47.0); Hemoglobin 12.8 g/dL (12.0-15.0); Lymphocytes Absolute Auto 0.81 K/mm3 (0.9-3.2); Lymphocytes Percent Auto 19.8 % (18.3-44.2); Mean Corpuscular HGB Conc 32.6 g/dl (32-36); Mean Corpuscular Hemoglobin 29.7 pg (26-34); Mean Corpuscular Volume 91.2 fl (80-100); Monocytes Absolute Auto 0.4 K/mm3 (0.1-0.6); Monocytes Percent Auto 9.3 % (2.6-8.5); Neutrophils Absolute Auto 2.8 K/mm3 (1.3-6.7); Platelet Count Result 214 k/mm3 (150-375); Red Blood Count 4.31 M/mm3 (4.2-5.4); Red Cell Distribution Width 14.1 % (11.5-14.5); White Blood Count 4.1 K/mm3 (4.5-10.0)
[2022-08-14] MEDS: HYDROcodone/acetaminophen (*CRX) 5-325 MG TABLET 1 TAB PO (09:29)
[2022-08-14 09:32] LABS: Lactic Acid Reflex 0.7 mmol/L (0.7-2.0)
[2022-08-14 09:34] LABS: Alanine Aminotransferase 23 U/L (6-35); Albumin Level 4.3 g/dL (3.5-5.1); Alkaline Phosphatase 79 U/L (38-126); Anion Gap 6 mmol/L (8-16); Aspartate Amino Transferase 26 U/L (14-36); Bilirubin,Total 0.7 mg/dL (0.2-1.3); Blood Urea Nitrogen 15 mg/dL (7-17); Calcium 9.8 mg/dL (8.4-10.2); Carbon Dioxide 28 mmol/L (22-30); Chloride 104 mmol/L (98-107); Estimated CRCL calculation 54 ml/min; Estimated Glomerular Filt Rate > 60; Glucose 102 mg/dL (65-110); Potassium 4.8 mmol/L (3.4-5.0); Sodium 138 mmol/L (137-145)
[2022-08-14 09:46] LABS: Appearance Urine Cloudy (Clear); Bacteria Urine None Seen /hpf; Bilirubin Urine Negative (Negative); Blood Urine Trace (Negative); Color Urine Yellow (Yellow); Glucose Urine UA Negative (Negative); Ketones Urine Negative (Negative); Leukocyte Esterase Ur 2+ LEU/UL (Negative); Nitrate Urine Negative (Negative); Non Pathogenic Casts 0-2; Protein Urine Negative (Negative); RBC Urine 0-2 /hpf (0-2); Specific Grav Ur 1.007 (1.001-1.035); Squamous Epithelial Cell Urine None seen /hpf (Few); Urobilinogen Urine 0.2 mg/dL (<2.0)
[2022-08-14 10:01] LABS: Add Urine Microscopic? YES
== END 2022-08-14 11:30 | disposition home or self-care (01) ==
PROVIDERS: Emergency Provider Physician Assistant; PCP Nurse Practitioner Family
DX: N39.0 Urinary tract infection, site not specified (principal); I10 Essential (primary) hypertension; E78.5 Hyperlipidemia, unspecified; K21.9 Gastro-esophageal reflux disease without esophagitis; E66.9 Obesity, unspecified; Z68.28 Body mass index [BMI] 28.0-28.9, adult; Z85.59 Personal history of malignant neoplasm of other urinary tract organ; Z98.49 Cataract extraction status, unspecified eye; Z90.5 Acquired absence of kidney; Z90.6 Acquired absence of other parts of urinary tract
CPT/HCPCS: 36415; 74177; 80053; 81001; 81025; 83605; 85025; 87086; 99284; A9270; Q9967

== ENCOUNTER 2022-08-29 15:31 | Outpatient (CLI) | payer MEDICARE, SELFPAY ==
[2022-08-29 16:05] LABS: Cholesterol 171 mg/dL (0-200); HDL Direct 53 mg/dL; Triglycerides 125 mg/dL (<150)
[2022-08-29 16:15] LABS: LDL Cholesterol Direct 93 mg/dL
[2022-09-02 01:14] LABS: CA-125 5 U/mL (<35)
== END 2022-08-29 15:32 | disposition home or self-care (01) ==
PROVIDERS: PCP Nurse Practitioner Family; Visit Provider Obstetrics & Gynecology
DX: N94.89 Other specified conditions associated with female genital organs and menstrual cycle (principal); D39.12 Neoplasm of uncertain behavior of left ovary; E78.5 Hyperlipidemia, unspecified
CPT/HCPCS: 36415; 80061; 86304

== ENCOUNTER 2022-09-11 08:37 | Outpatient (CLI) | payer MEDICARE, SELFPAY ==
--- NOTE | ~2022-09-11 | MM_ITS ---
EXAMINATION: MM screening mi BI w spenser HISTORY: Screening mammogram, family history of breast cancer in her mother. TECHNIQUE: Craniocaudal and mediolateral oblique 3-D tomosynthesis images were obtained and synthetic 2-D images were generated. CAD analysis was submitted and interpreted. COMPARISON: 07/10/2021, 06/27/2021, 02/14/2020, 01/28/2020 BREAST PARENCHYMAL COMPOSITION: The breasts are heterogeneously dense, which may obscure small masses . FINDINGS: No suspicious mass, calcification, or architectural distortion are identified in either db ast to suggest malignancy. There has been no suspicious interval change. IMPRESSION: 1. No mammographic evidence of malignancy. 2. Recommend routine screening mammography in one year. BI-RADS Category 1: Negative Reviewed, dictated and finalized at location [facility].
== END 2022-09-11 08:38 | disposition home or self-care (01) ==
LOC: ANHIMG 08:38
PROVIDERS: PCP Nurse Practitioner Family; Visit Provider Nurse Practitioner Family
DX: Z12.31 Encounter for screening mammogram for malignant neoplasm of breast (principal)
CPT/HCPCS: 77063; 77067

== ENCOUNTER 2022-10-02 02:51 | Day surgery (SDC) | payer MEDICARE, SELFPAY ==
[2022-09-10 14:43] VITALS: BMI 28.7
[2022-10-02 06:16] VITALS: BP 147/77; PULSE 70; RESP 20; TEMP 36.2; O2SAT 100
[2022-10-02] MEDS: LACTATED RINGERS 1,000 ML 150 ML IV CONT (06:28)
--- NOTE | 2022-10-02 07:24 | WPDANESEPPF ---
Anes - Initial Pre Proc Eval Procedure: Operation Date: 10/02/22 07:30 Proposed Procedures p Colonoscopy - Dominguez Yousif MD Date/Time: 10/02/22 07:24 Surgeon: Dominguez Yousif MD Pre Op Diagnosis: disease of anus and rectum Patient Data Age: 77 Gender: F Height: 1.65 m Weight: 77.5 kg Last Vital Signs Temp 97.2 F L 10/02/22 06:16 Pulse 70 10/02/22 06:16 Resp 20 10/02/22 06:16 BP 147/77 H 10/02/22 06:16 Pulse Ox 100 10/02/22 06:16 O2 Del Method Room Air 10/02/22 06:16 Allergies Allergy/AdvReac Type Severity Reaction Status Date / Time Ykbtqau-FEX-IuZ Reductase AdvReac Intermediate Cramping Verified 10/02/22 06:16 Inhibitor of the [Erjxuok-Afq-Uen Reductase Muscles Inhibitor] lisinopril AdvReac Cough Verified 10/02/22 06:16 tizanidine AdvReac Dizziness Verified 10/02/22 06:16 Home Medications Medication Instructions Recorded Confirmed Type calcium citrate 315 mg-vitamin D3 2 tablet PO DAILY 05/19/20 09/10/22 History 5 mcg (200 unit) tablet triamcinolone acetonide 0.1 % 0.1 applic topical PRN PRN ECZEMA 09/20/21 09/10/22 Rx topical cream #30 grams ipratropium bromide 42 mcg (0.06 2 spray intranasal TID #15 mL 07/16/22 09/10/22 Rx %) nasal spray losartan 50 mg tablet 50 mg PO DAILY #90 tabs 07/29/22 10/02/22 Rx timolol 0.5 % eye drops 1 drp EACH EYE Q12H 07/29/22 09/10/22 History clobetasol 0.05 % topical cream 1 applic topical .see comments #60 08/21/22 09/10/22 Rx grams ezetimibe 10 mg tablet (Zetia) 10 mg PO HS #90 tabs 09/24/22 Rx Patient hx anesthesia problems: none Family hx anesthesia problems: none Results Review: All pre-operative results and documents have been reviewed as part of the pre-operative evaluation. [facility] Past Medical History Medical History (Updated 08/29/22 @ 15:18 by Dominguez Yousif MD) Diverticulosis Eczema of lower extremity Encounter for screening mammogram for malignant neoplasm of breast Family history of breast cancer Mother Family hx of colon cancer Gastroesophageal reflux disease HTN (hypertension) Hyperlipidemia Ileus, postoperative (~02/2021) Leukopenia Lichen sclerosus of female genitalia Obesity Seasonal allergies Urethral cancer Surgical History Surgical History History of bunionectomy (~2009) History of endometrial ablation SCANT ATROPHIC ENDOMETRIUM. History of laparoscopic appendectomy (~12/2019) 12/07/20 History of nephroureterectomy (~02/2020) Hx of cataract extraction (~2008) Hx of hammer toe correction (~2015) Family History Family History Mother Family history of malignant neoplasm of breast in first degree relative Patient's mother is Grandparent Carcinoma of colon, Onset Age: 60 Other Family history of malignant neoplasm Social History Social History Social History: Lives with -2 children out of house. Smoking status: Never smoker Second hand tobacco smoke exposure: No Alcohol intake: current Drinks per week: 2 Alcohol use details: occasional Substance use: never Substance use type: does not use Lack of Transportation: No Lack of Food: Never True Current Housing: I Have Housing Concerned About Future Housing: No Difficulty Paying Gas/Electric Bills: No Difficulty Paying for Meds: No Currently Unemployed: No Education: High School Diploma/GED Difficulty w/ Childcare or Family Care: No Living arrangements: with family Additional living arrangements comments: [place] Occupation/Education: retired Gender identity (if verbalized by the patient): Female Spiritual care concerns: No Anes - Eval Final PreProcedure Day of Procedure 10/02/22 07:24 Patient weight: normal Heart: regular rate and rhythm
--- NOTE | 2022-10-02 07:36 | PM.HPGS ---
History of Present Illness History of Present Illness Consent: Risks, benefits, and alternatives have been discussed and questions answered. Patient agrees to proceed with procedure. Chief complaint: disease of anus and rectum Narrative: Olive Pereira is a 77 year old female who had colonoscopy 2020 for screening, only divertulosis, since diagnosed with kidney cancer s/p surgery and completed chemotherapy last year. Few weeks ago had new onset of back pain with constipation, she came to ER and had CT scan that showed?moderate thickening of the rectum which may be due to underdistention, although malignancy not excluded, here for colonoscopy Review of Systems Constitutional: Constitutional: Denies headache(s) and Denies weakness Eyes: Eyes: Denies blurry vision ENT: Reports Normal hearing present, Denies headache(s) and Denies neck pain Cardiovascular: Cardiovascular: Denies chest pain and Denies dyspnea Respiratory: Respiratory: Denies dyspnea Gastrointestinal: Gastrointestinal: Reports no additional gastrointestinal complaints Genitourinary: Genitourinary: Denies dysuria Musculoskeletal: Musculoskeletal: Denies neck pain Integumentary/Breasts: Skin/Breast: Denies dry skin Neurologic: Reports Normal hearing present, Denies headache(s) and Denies weakness Psychiatric: Psychiatric: Denies anxiety Endocrine: Endocrine: Denies change in body appearance Hematologic/Lymphatic: Hematologic/Lymphatic: Denies easy bleeding Allergic/Immunologic: Allergic/Immunologic: Denies urticaria PMFSH Past Medical History Medical History (Updated 10/02/22 @ 07:37 by Dominguez Yousif MD) Diverticulosis Eczema of lower extremity Encounter for screening mammogram for malignant neoplasm of breast Family history of breast cancer Mother Family hx of colon cancer Gastroesophageal reflux disease HTN (hypertension) Hyperlipidemia Ileus, postoperative (~02/2021) Leukopenia Lichen sclerosus of female genitalia Obesity Seasonal allergies Urethral cancer Surgical History Surgical History History of bunionectomy (~2009) History of endometrial ablation SCANT ATROPHIC ENDOMETRIUM. History of laparoscopic appendectomy (~12/2019) 12/07/20 History of nephroureterectomy (~02/2020) Hx of cataract extraction (~2008) Hx of hammer toe correction (~2015) Family History Family History Mother Family history of malignant neoplasm of breast in first degree relative Patient's mother is Grandparent Carcinoma of colon, Onset Age: 60 Other Family history of malignant neoplasm Social History Social History Social History: Lives with -2 children out of house. Smoking status: Never smoker Second hand tobacco smoke exposure: No Alcohol intake: current Drinks per week: 2 Alcohol use details: occasional Substance use: never Substance use type: does not use Lack of Transportation: No Lack of Food: Never True Current Housing: I Have Housing Concerned About Future Housing: No Difficulty Paying Gas/Electric Bills: No Difficulty Paying for Meds: No Currently Unemployed: No Education: High School Diploma/GED Difficulty w/ Childcare or Family Care: No Living arrangements: with family Additional living arrangements comments: [place] Occupation/Education: retired Gender identity (if verbalized by the patient): Female Spiritual care concerns: No Meds Home Medications and Allergies Home Medications Medication Instructions Recorded Confirmed Type calcium citrate 315 mg-vitamin D3 2 tablet PO DAILY 05/19/20 09/10/22 History 5 mcg (200 unit) tablet triamcinolone acetonide 0.1 % 0.1 applic topical PRN PRN ECZEMA 09/20/21 09/10/22 Rx topical cream #30 grams ipratropium bromide 42 mcg (
[2022-10-02 07:54] VITALS: BP 110/62; PULSE 62; RESP 15; O2SAT 96
[2022-10-02 08:04] VITALS: BP 127/71; PULSE 58; RESP 22; O2SAT 97
[2022-10-02 08:14] VITALS: BP 133/76; PULSE 65; RESP 17; O2SAT 99
== END 2022-10-02 08:22 | disposition home or self-care (01) ==
PROVIDERS: PCP Nurse Practitioner Family; Visit Provider Internal Medicine Gastroenterology
PROC: 0DJD8ZZ Inspection of Lower Intestinal Tract, Via Natural or Artificial Opening Endoscopic (ICD-10-PCS; CPT 45378; principal; 2022-10-02 07:30)
DX: D12.3 Benign neoplasm of transverse colon (principal); K57.30 Diverticulosis of large intestine without perforation or abscess without bleeding; K64.8 Other hemorrhoids; I10 Essential (primary) hypertension; E78.5 Hyperlipidemia, unspecified; K21.9 Gastro-esophageal reflux disease without esophagitis; E66.9 Obesity, unspecified; Z68.28 Body mass index [BMI] 28.0-28.9, adult; Z85.528 Personal history of other malignant neoplasm of kidney; Z92.21 Personal history of antineoplastic chemotherapy; Z90.5 Acquired absence of kidney
CPT/HCPCS: 45385; 88305; J2704; J7120

== ENCOUNTER 2022-12-12 08:02 | Outpatient (CLI) | payer MEDICARE, SELFPAY ==
--- NOTE | ~2022-12-12 | CT_ITS ---
CT of the Abdomen and Pelvis: Indication: Urothelial carcinoma Technique: 2.5 mm axial scans were obtained through the abdomen and pelvis following intravenous adm inistration of 100 cc of Omnipaque 350. Dose reduction technique was used on this scan by utilizing a utomated exposure control and iterative reconstruction technique. The dose-length product (DLP) was 5 48.13 mGy-cm. COMPARISON: 08/14/2022 Findings: Scans through the lung bases are unremarkable. The liver, spleen, pancreas, gallbladder, adrenals and right kidney are within normal limits. Patient is status post left nephrectomy. No evidence of aortic aneurysm. No lymphadenopathy. No bowel obstruction or bowel wall thickening. There is no evidence to suggest acute appendicitis. Images through the pelvis were performed. Urinary bladder unremarkable. No adnexal mass seen. No asci tamanna. Impression: No evidence for recurrent malignancy or metastatic disease. Status post left nephrectomy. Reviewed, dictated and finalized at [facility]. Impression: No evidence for recurrent malignancy or metastatic disease. Status post left nephrectomy.
[2022-12-12 08:35] LABS: Estimated Glomerular Filt Rate 48
== END 2022-12-12 08:03 | disposition home or self-care (01) ==
PROVIDERS: PCP Nurse Practitioner Family; Visit Provider Internal Medicine Hematology & Oncology
DX: C68.9 Malignant neoplasm of urinary organ, unspecified (principal); Z90.5 Acquired absence of kidney
CPT/HCPCS: 36415; 74177; 80053; 85025; Q9967

== ENCOUNTER 2023-01-02 01:53 | Day surgery (SDC) | payer MEDICARE, SELFPAY ==
[2022-12-26 10:50] VITALS: BMI 28.8
--- NOTE | 2022-12-26 10:58 | PC.NURSE ---
Report to the Outpatient Waiting Room, entrance under the green pavilion located off [facility], at time ___1000____ on date _01/02/23 . Planned Procedure Time: _1200 . Time changes happen often and if your time is changed the preop area will call you the afternoon before. - You and your visitor will be asked to self-screen and do not enter if you have any COVID symptoms. - A mask is optional within the hospital at this time. Patients may have clear liquids (water, carbonated beverages, clear teas, apple juice) until 3 hours prior to surgery (0900 AM) with a maximum of 20 ounces. - No food from midnight until time of surgery - Infants may have breast milk until 4 hours before surgery, formula 6 hours prior to surgery. - Children will be allowed to drink immediately following surgery. If applicable, please bring a bottle or sippy cup to assist with drinking. Juice, water, soda, and popsicles are readily available. For infants on formula, please bring formula the day of surgery. Pacifiers are allowed. Take the following medications with a SIP of water the morning of surgery: NONE DO NOT STOP ANY OF YOUR OTHER PRESCRIPTION MEDICATIONS PRIOR TO SURGERY ?EXCEPT THE FOLLOWING Medications to discontinue per physician NONE Date to take last dose Please no make-up, nail urdu, hairspray, perfume, deodorant, or body powder the day of surgery. No jewelry (including any body piercings) or valuables the day of surgery, leave them at home. Please take a shower or bath the night before, or the morning of, surgery with an antibacterial soap. Wear comfortable, loose fitting clothing. Children are encouraged to wear pajamas. - Jewelry must be removed prior to entering the operating room. Rings and piercings that are not removed may be cut off. - The hospital will not accept responsibility for valuables. - Please leave all valuables, including medications, at home the day of surgery. If you are going home after surgery, a licensed operator and truck driver must drive you home. - NO public transportation without another adult if you receive anesthesia. - We recommend that an adult stay with you for 24 hours following discharge. - We also recommend that you do not drive, make important decision, drink alcoholic beverages, or take any drugs that were not prescribed by your health care provider for at least 24 hours after your discharge time. For Pediatric surgeries, we recommend two adults accompany the child home. Follow any additional instructions given to you from your surgeon. If you or anyone in your household have experienced Covid symptoms in the past week, please notify your surgeon or the nurse liaison at the phone number below for possible testing. Telephone instructions given to ____PT and asked if any additional questions and then verbalized understanding. Patient advised to call surgeon office or pre surgery nurse liaison [phone] if any additional questions.
--- NOTE | 2023-01-01 12:27 | PM.SD2 ---
Same Day Admit/Disch: HPI History of Present Illness Chief complaint: Port-A-Cath no longer needed Narrative: Olive Pereira is a 77 year old female who had a right subclavian Port-A-Cath placed in March of 2021 for chemotherapy. She has a history of cancer of the left renal pelvis and underwent left nephro ureterectomy with trans ureteral bladder resection in February of 2021. She has completed her chemotherapy and would like to have her Port-A-Cath removed. She is taken to the operating room at this time for that purpose. [facility] Past Medical History Medical History Diverticulosis Eczema of lower extremity Encounter for screening mammogram for malignant neoplasm of breast Family history of breast cancer Mother Family hx of colon cancer Gastroesophageal reflux disease HTN (hypertension) Hyperlipidemia Ileus, postoperative (~02/2021) Leukopenia Lichen sclerosus of female genitalia Obesity Seasonal allergies Urethral cancer Surgical History Surgical History History of bunionectomy (~2009) History of endometrial ablation SCANT ATROPHIC ENDOMETRIUM. History of laparoscopic appendectomy (~12/2019) 12/07/20 History of nephroureterectomy (~02/2020) Hx of cataract extraction (~2008) Hx of hammer toe correction (~2015) Family History Family History Mother Family history of malignant neoplasm of breast in first degree relative Patient's mother is Grandparent Carcinoma of colon, Onset Age: 60 Other Family history of malignant neoplasm Social History Social History Social History: Lives with -2 children out of house. Smoking status: Never smoker Second hand tobacco smoke exposure: No Alcohol intake: current Drinks per week: 2 Alcohol use details: occasional Substance use: never Substance use type: does not use Lack of Transportation: No Lack of Food: Never True Current Housing: I Have Housing Concerned About Future Housing: No Difficulty Paying Gas/Electric Bills: No Difficulty Paying for Meds: No Currently Unemployed: No Education: High School Diploma/GED Difficulty w/ Childcare or Family Care: No Living arrangements: with family Additional living arrangements comments: [place] Occupation/Education: retired Gender identity (if verbalized by the patient): Female Spiritual care concerns: No Same Day Admit/Disch: Med Pre-admit Medications Home Medications Medication Instructions Recorded Confirmed Type calcium citrate 315 mg-vitamin D3 2 tablet PO DAILY 05/19/20 01/02/23 History 5 mcg (200 unit) tablet triamcinolone acetonide 0.1 % 0.1 applic topical PRN PRN ECZEMA 09/20/21 01/02/23 Rx topical cream #30 grams losartan 50 mg tablet 50 mg PO DAILY #90 tabs 07/29/22 01/02/23 Rx timolol 0.5 % eye drops 1 drp EACH EYE Q12H 07/29/22 01/02/23 History clobetasol 0.05 % topical cream 1 applic topical .see comments #60 08/21/22 01/02/23 Rx grams ezetimibe 10 mg tablet (Zetia) 10 mg PO HS #90 tabs 09/24/22 01/02/23 Rx tramadol 50 mg tablet 50 mg PO Q6H PRN pain #7 tabs 01/02/23 Rx Review of Systems Review of Systems All systems reviewed & are unremarkable except as noted in HPI and below (HPI and those items noted below) Constitutional Constitutional: Denies chills and Denies fever(s) Cardiovascular Cardiovascular: Denies chest pain, Denies diaphoresis, Denies dyspnea and Denies paroxysmal nocturnal dyspnea Respiratory Respiratory: Denies chest congestion, Denies cough and Denies dyspnea Integumentary/Breasts Skin/Breast: Denies lesions and Denies rash Exam Const: General: comfortable, no acute distress, alert and awake HENMT: Head: normocephalic and atraumatic Mouth: Yes Normal oral and palatal mucosa present Eyes: Conjun
--- NOTE | 2023-01-02 08:53 | WPDANESEPPF ---
Anes - Initial Pre Proc Eval Procedure: Operation Date: 01/02/23 12:00 Proposed Procedures p Removal Arie Cath - Abraham Dennis MD Date/Time: 01/02/23 08:53 Surgeon: Abraham Dennis MD Pre Op Diagnosis: Port-A-Cath no longer needed Patient Data Age: 77 Gender: F Height: 1.65 m Weight: 78.63 kg Allergies Allergy/AdvReac Type Severity Reaction Status Date / Time Rgiicpw-GUG-GuH Reductase AdvReac Intermediate Cramping Verified 01/02/23 10:26 Inhibitor of the [Xntfktt-Hxt-Gek Reductase Muscles Inhibitor] lisinopril AdvReac Cough Verified 01/02/23 10:26 tizanidine AdvReac Dizziness Verified 01/02/23 10:26 Home Medications Medication Instructions Recorded Confirmed Type calcium citrate 315 mg-vitamin D3 2 tablet PO DAILY 05/19/20 01/02/23 History 5 mcg (200 unit) tablet triamcinolone acetonide 0.1 % 0.1 applic topical PRN PRN ECZEMA 09/20/21 01/02/23 Rx topical cream #30 grams losartan 50 mg tablet 50 mg PO DAILY #90 tabs 07/29/22 01/02/23 Rx timolol 0.5 % eye drops 1 drp EACH EYE Q12H 07/29/22 01/02/23 History clobetasol 0.05 % topical cream 1 applic topical .see comments #60 08/21/22 01/02/23 Rx grams ezetimibe 10 mg tablet (Zetia) 10 mg PO HS #90 tabs 09/24/22 01/02/23 Rx Patient hx anesthesia problems: none Family hx anesthesia problems: none Results Review: All pre-operative results and documents have been reviewed as part of the pre-operative evaluation. [facility] Past Medical History Medical History Diverticulosis Eczema of lower extremity Encounter for screening mammogram for malignant neoplasm of breast Family history of breast cancer Mother Family hx of colon cancer Gastroesophageal reflux disease HTN (hypertension) Hyperlipidemia Ileus, postoperative (~02/2021) Leukopenia Lichen sclerosus of female genitalia Obesity Seasonal allergies Urethral cancer Surgical History Surgical History History of bunionectomy (~2009) History of endometrial ablation SCANT ATROPHIC ENDOMETRIUM. History of laparoscopic appendectomy (~12/2019) 12/07/20 History of nephroureterectomy (~02/2020) Hx of cataract extraction (~2008) Hx of hammer toe correction (~2015) Family History Family History Mother Family history of malignant neoplasm of breast in first degree relative Patient's mother is Grandparent Carcinoma of colon, Onset Age: 60 Other Family history of malignant neoplasm Social History Social History Social History: Lives with -2 children out of house. Smoking status: Never smoker Second hand tobacco smoke exposure: No Alcohol intake: current Drinks per week: 2 Alcohol use details: occasional Substance use: never Substance use type: does not use Lack of Transportation: No Lack of Food: Never True Current Housing: I Have Housing Concerned About Future Housing: No Difficulty Paying Gas/Electric Bills: No Difficulty Paying for Meds: No Currently Unemployed: No Education: High School Diploma/GED Difficulty w/ Childcare or Family Care: No Living arrangements: with family Additional living arrangements comments: [place] Occupation/Education: retired Gender identity (if verbalized by the patient): Female Spiritual care concerns: No Anes - Eval Final PreProcedure Day of Procedure 01/02/23 08:53 Patient weight: overweight Heart: regular rate and rhythm Lungs: clear to auscultation Airway: Mallampati scale class II Neurological: alert and oriented Last oral intake: >/= 8 hours ASA classification: III Emergent: no Anesthetic plan: proceed Anesthesia type and monitoring: general GIVS and standard monitoring Results Review: All pre-operative results and documents have been reviewed as alysa
[2023-01-02 10:15] VITALS: BP 170/89; PULSE 58; RESP 18; TEMP 36.5; O2SAT 98
[2023-01-02] MEDS: LACTATED RINGERS 1,000 ML 30 ML IV CONT (10:52)
[2023-01-02] MEDS: ceFAZolin 2 GM/D5W 50 ML 2 GM/50 ML BAG IVPB (12:14)
--- NOTE | 2023-01-02 12:16 | WPDHPUPDATE1 ---
History and Physical Update Update Date/Time: 01/02/23 12:16 History and Physical has been reviewed, including an updated exam of the patient. There are NO changes in the patient's condition. Risks, benefits, and alternatives have been discussed and questions answered. Patient agrees to proceed with procedure.
[2023-01-02] MEDS: BUPIVACAINE/EPINEPHRINE 0.5% 50 ML VIAL 10 ML INFILTRATE (12:46)
--- NOTE | 2023-01-02 12:51 | P.OP_ITS ---
Procedure Note - Detailed Date of Procedure 01/02/23 Pre-op Diagnosis Port-A-Cath no longer needed, history urothelial cancer Post-op Diagnosis Same Procedure Performed Removal right subclavian Port-A-Cath Surgeon Abraham Dennis MD Clean Up Helper Banquet Saman Aguilar, DOCUMENT PHOTOGRAPHER Anesthesia MAC and Local Indications Patient had a Port-A-Cath placed for chemotherapy for cancer of the renal pelvis. She has completed her chemotherapy and would like to have her Port-A-Cath removed. She is taken to surgery now for this procedure. Findings Intact smart Port CT Description of Procedure Patient was checked in the preoperative holding area. She was taken to the operating room and anesthesia was introduced. The right subclavian area was prepped and draped. Local anesthetic was infiltrated in the area of the previous scar as well as in the area of the Port-A-Cath itself. Incision was made and dissection was carried down to the hub of the Port-A-Cath. I then removed some of the fibrous capsule around the Port-A-Cath. I was able to then grasp the Port-A-Cath and slowly extracted from the pocket. One remaining suture was noted and it was divided and removed. Port-A-Cath was then retrieved including the tubing. It appeared intact. There was no back bleeding from the venous tract. The wound was closed with subcutaneous interrupted 2-0 Vicryl. The skin was closed with running 4-0 Monocryl subcuticular skin suture. The wound was dressed with Exofin surgical adhesive. Sponge and needle counts were correct x2. Estimated Blood Loss -5 Drains No Packing No Pathology None sent Complications No immediate complications Condition Stable Disposition Same day [facility] Billing Surgery - Charge Forward: Surgery Billing (Removal Port-A-Cath)
[2023-01-02 12:55] VITALS: BP 140/77; PULSE 51; RESP 14; O2SAT 99
[2023-01-02 13:25] VITALS: BP 141/91; PULSE 45; RESP 16
== END 2023-01-02 13:40 | disposition home or self-care (01) ==
PROVIDERS: PCP Family Medicine; Visit Provider Surgery
PROC: (CPT 36589; principal; 2023-01-02 12:00)
DX: Z45.2 Encounter for adjustment and management of vascular access device (principal); Z85.53 Personal history of malignant neoplasm of renal pelvis; Z92.21 Personal history of antineoplastic chemotherapy; I10 Essential (primary) hypertension; E78.5 Hyperlipidemia, unspecified; K21.9 Gastro-esophageal reflux disease without esophagitis
CPT/HCPCS: 36590; J0690; J2704; J3010; J7120

== ENCOUNTER 2023-02-11 07:00 | Outpatient (NON) | payer MEDICARE, SELFPAY | END 2023-02-11 07:01 | disposition home or self-care (01) | LOC: ANHLAB 02-12 12:21 | PROVIDERS: PCP Family Medicine; Visit Provider Nurse Practitioner | DX: D48.5 Neoplasm of uncertain behavior of skin (principal) | CPT/HCPCS: 88305 ==

== ENCOUNTER 2023-03-16 08:05 | Emergency (ER) | payer MEDICARE, SELFPAY ==
[2023-03-16 08:13] VITALS: BP 139/77; PULSE 69; RESP 16; TEMP 36.6; O2SAT 99
--- NOTE | 2023-03-16 08:16 | ED.SKABFB ---
HPI - Skin/Abscess/Foreign Bdy General Chief complaint: Skin/Abscess/Foreign Body Stated complaint: Infected sore Time Seen by Provider: 03/16/23 08:16 Source: patient, RN notes reviewed and old records reviewed Mode of arrival: ambulatory Limitations: no limitations History of Present Illness HPI narrative: 77 year old female presents to express care with complaints of cutting her right distal ring finger over DIP joint area on grater 2 weeks ago. Patient reports that she has been cleansing wound well daily and has applied Neosporin ointment but was out of town last week and it seems to of become red and has whitish tissue with center scab.Patient reports tenderness to wound area with no fluctuation of tissue noted,no acute warmth of tissue area with no drainage noted. MD complaint: lesion (infected originally cut on grater 2 weeks ago) Onset (ago): week(s) (2) Location: R hand (4th distal finger) Severity scale (1-10): 3 Quality: aching Treatments prior to arrival: other (Cleansing and Neosporin ointment) Related Data Home Medications Medication Instructions Recorded Confirmed calcium citrate 315 mg-vitamin D3 2 tablet PO DAILY 05/19/20 03/16/23 5 mcg (200 unit) tablet timolol 0.5 % eye drops 1 drp EACH EYE Q12H 07/29/22 03/16/23 Allergies Allergy/AdvReac Type Severity Reaction Status Date / Time Ecbixqh-CZG-EfF Reductase AdvReac Intermediate Cramping Verified 03/16/23 08:14 Inhibitor of the [Winqsrs-Hxx-Aqp Reductase Muscles Inhibitor] ciprofloxacin AdvReac Gastrointestinal Verified 03/16/23 08:19 Upset lisinopril AdvReac Cough Verified 03/16/23 08:14 tizanidine AdvReac Dizziness Verified 03/16/23 08:14 Review of Systems Review of Systems: CONSTITUTIONAL: Denies fever, chills, or sweats. CARDIOVASCULAR: Denies chest pain, palpitations, or edema. RESPIRATORY: Denies cough or dyspnea. GASTROINTESTINAL: Denies abdominal pain, nausea, vomiting SKIN: Reports redness and swelling to right 4th finger over DIP region of finger. Patient originally cut on grater 2 weeks ago Denies purulent drainage,whitish tinged lesion with scab in center with surrounding redness and discomfort , no numbness, pain beyond proportion MUSCULOSKELETAL: Denies myalgia. NEUROLOGIC: Denies headache, numbness All systems reviewed & are unremarkable except as noted in HPI and below PMFSH Past Medical History Medical History Diverticulosis Eczema of lower extremity Encounter for screening mammogram for malignant neoplasm of breast Family history of breast cancer Mother Family hx of colon cancer Gastroesophageal reflux disease HTN (hypertension) Hyperlipidemia Ileus, postoperative (~02/2021) Leukopenia Lichen sclerosus of female genitalia Obesity Seasonal allergies Urethral cancer Surgical History Surgical History History of bunionectomy (~2009) History of endometrial ablation SCANT ATROPHIC ENDOMETRIUM. History of hysterectomy History of laparoscopic appendectomy (~12/2019) 12/07/20 History of nephroureterectomy (~02/2020) Hx of cataract extraction (~2008) Hx of hammer toe correction (~2015) Family History Family History Mother Family history of malignant neoplasm of breast in first degree relative Patient's mother is Grandparent Carcinoma of colon, Onset Age: 60 Other Family history of malignant neoplasm Social History Social History Social History: Lives with -2 children out of house. Smoking status: Never smoker Second hand tobacco smoke exposure: No Alcohol intake: current Drinks per week: 2 Alcohol use details: occasional Substance use: never Substance use type: does not use Lack of Transportation: No Lack of Food: Never True Current Hous
== END 2023-03-16 08:38 | disposition home or self-care (01) ==
PROVIDERS: Emergency Provider Registered Nurse; PCP Nurse Practitioner Family
DX: S61.214A Laceration without foreign body of right ring finger without damage to nail, initial encounter (principal); L08.9 Local infection of the skin and subcutaneous tissue, unspecified; W27.4XXA Contact with kitchen utensil, initial encounter; K21.9 Gastro-esophageal reflux disease without esophagitis; I10 Essential (primary) hypertension; E78.5 Hyperlipidemia, unspecified; E66.9 Obesity, unspecified; Z68.30 Body mass index [BMI] 30.0-30.9, adult; Z85.54 Personal history of malignant neoplasm of ureter
CPT/HCPCS: 99213; G0463

== ENCOUNTER 2023-04-15 09:40 | Outpatient (CLI) | payer MEDICARE, SELFPAY ==
--- NOTE | ~2023-04-15 | CT_ITS ---
EXAMINATION: CT abdomen pelvis w con INDICATION: Urothelial carcinoma TECHNIQUE: Computed tomographic images of the abdomen and pelvis were obtained after the administrati on of 100 cc of Omnipaque 350 intravenous contrast. The dose-length product (DLP) was 686.66 mGy-cm. Automated exposure control and iterative reconstruction technique were employed. COMPARISON: 12/12/2022 FINDINGS: Minimal dependent atelectasis is present in the lung bases. The heart size is normal. There is an 8 mm cyst of the liver. Punctate calcifications in an otherwise normal spleen likely represent healed granulomatous disease. The pancreas, and adrenal glands are normal. Stones are present in the nondistended gallbladder. 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 The right kidney is unremarkable. N o pathologically enlarged abdominal or pelvic lymph nodes are identified. No free intraperitoneal gas or evidence of bowel obstruction. There is a small fat-containing supraumbilical ventral hernia. The re is moderate lumbar spondylosis. IMPRESSION: 1. Changes of left nephrectomy without recurrent or metastatic disease. Reviewed, dictated and finalized at location L. APY AIDE
[2023-04-15 12:17] LABS: Estimated Glomerular Filt Rate 48
== END 2023-04-15 09:41 | disposition home or self-care (01) ==
PROVIDERS: PCP Nurse Practitioner Family; Visit Provider Internal Medicine Hematology & Oncology
DX: C68.9 Malignant neoplasm of urinary organ, unspecified (principal); Z90.5 Acquired absence of kidney
CPT/HCPCS: 74177; Q9967

== ENCOUNTER → 2023-05-23 08:11 | Outpatient (CLI) | payer MEDICARE, SELFPAY ==
--- NOTE | ~2023-05-23 | MR_ITS ---
EXAMINATION: MR brain/brain stem wo/w con DATE: 05/23/2023 08:57 INDICATION: Headache, unspecified. TECHNIQUE: Magnetic resonance imaging (MRI) of the brain and brainstem was performed without and with 15 mL MultiHance intravenous contrast. COMPARISON: None. FINDINGS: There are scattered areas of nonspecific increased T2-weighted signal intensity in the cere bral white matter. There is no intracranial hemorrhage, acute infarction, or abnormal intracranial ma ss lesion. The ventricles are normal in size. There are likely changes of ocular lens replacement albert geries. The paranasal sinuses are clear. The mastoid air cells are normal. IMPRESSION: 1. Mild nonspecific cerebral white matter disease, which likely represents chronic small vessel ische neto disease. Reviewed, dictated and finalized at location E. EY TECHNOLOGIST IMPRESSION: 1. Mild nonspecific cerebral white matter disease, which likely represents apartment rental clerk akanksha small vessel ischemic disease.
== END ==
PROVIDERS: PCP Family Medicine; Visit Provider Family Medicine
DX: R51.9 Headache, unspecified (principal); R90.82 White matter disease, unspecified
CPT/HCPCS: 70553; A9577

== ENCOUNTER 2023-08-13 14:59 | Outpatient (CLI) | payer MEDICARE, SELFPAY ==
[2023-08-13 19:26] LABS: Hemoglobin A1C 5.5 % (<5.7)
[2023-08-13 20:19] LABS: Alanine Aminotransferase 19 U/L (6-35); Albumin Level 4.6 g/dL (3.5-5.1); Alkaline Phosphatase 85 U/L (38-126); Anion Gap 8 mmol/L (4-12); Aspartate Amino Transferase 43 U/L (14-36); Bilirubin,Total 0.7 mg/dL (0.2-1.3); Blood Urea Nitrogen 19 mg/dL (7-17); Calcium 10.5 mg/dL (8.4-10.2); Carbon Dioxide 27 mmol/L (22-30); Chloride 106 mmol/L (98-107); Estimated Glomerular Filt Rate 54; Glucose 102 mg/dL (65-110); Potassium 4.5 mmol/L (3.4-5.0); Sodium 141 mmol/L (137-145)
== END 2023-08-13 15:00 | disposition home or self-care (01) ==
LOC: ANHGOSHLAB 15:00
PROVIDERS: PCP Family Medicine; Visit Provider Family Medicine
DX: R73.9 Hyperglycemia, unspecified (principal); I10 Essential (primary) hypertension
CPT/HCPCS: 36415; 80053; 83036

== ENCOUNTER 2023-10-17 07:28 | Outpatient (CLI) | payer MEDICARE, SELFPAY ==
--- NOTE | ~2023-10-17 | MM_ITS ---
EXAMINATION: MM screening [facility] BI w spenser HISTORY: Screening TECHNIQUE: Craniocaudal and mediolateral oblique 3-D tomosynthesis images were obtained and synthetic 2-D images were generated. CAD analysis was submitted and interpreted. COMPARISON: Comparison to multiple prior studies sequentially, with oldest reviewed study dated 11/26. BREAST PARENCHYMAL COMPOSITION: Not dense: There are scattered areas of fibroglandular density. FINDINGS: There is no evidence of suspicious mass, calcification, or architectural distortion to sugg est malignancy in either breast. There has been no suspicious interval change. IMPRESSION: 1. No mammographic evidence of malignancy. 2. Recommend routine screening mammography in one year. BI-RADS Category 1: Negative Reviewed, dictated and finalized at location B.
== END 2023-10-17 07:29 | disposition home or self-care (01) ==
LOC: ANHIMG 07:31
PROVIDERS: PCP Family Medicine; Visit Provider Family Medicine
DX: Z12.31 Encounter for screening mammogram for malignant neoplasm of breast (principal)
CPT/HCPCS: 77063; 77067

== ENCOUNTER 2023-10-20 08:36 | Outpatient (CLI) | payer MEDICARE, SELFPAY ==
--- NOTE | ~2023-10-20 | CT_ITS ---
EXAMINATION: CT abdomen pelvis w con DATE: 10/20/2023 09:28 INDICATION: Urothelial carcinoma TECHNIQUE: Computed tomography (CT) of the abdomen and pelvis was performed with 100 mL Omnipaque-350 intravenous contrast. Automated exposure control and iterative reconstruction technique were employe d. The dose-length product was 707.01 mGy-cm. COMPARISON: 04/15/2023 FINDINGS: Calcified nodule in the right lower lobe along with small hepatic and splenic calcifications all cons istent with old granulomatous disease. Heart size is normal. Aortic valve calcification. No pericardi al or pleural effusion. Small sliding-type hiatal hernia. 8 mm cyst in the left hepatic lobe. Gallbla dder, pancreas, right kidney and bilateral adrenal glands are normal. Status post left nephrectomy sae mai for reported prior urothelial carcinoma. No abnormal soft tissue uptake renal fossa to suggest l ocally recurrent disease. Surgical clip the tip the cecum likely related to prior appendectomy. There is moderate colonic diverticulosis with a descending and sigmoid colon predominance without adjacent inflammatory change to suggest diverticulitis. No bowel obstruction. A couple small fat-containing v entral hernias along a supraumbilical midline surgical scar. Bladder is normal. The uterus is not madelaine ntified and has likely been surgically resected. No free intraperitoneal gas or fluid. No pathologica lly enlarged abdominal or pelvic lymphadenopathy. Moderate lumbar and lower thoracic spondylosis. IMPRESSION: 1. Status post left nephrectomy with no evident locally recurrent or metastatic disease. 2. Small sliding-type hiatal hernia. 3. Diverticulosis. 4. Couple small fat-containing ventral hernias along a supraumbilical midline surgical scar. Reviewed, dictated and finalized at location A. IMPRESSION: 1. Status post left nephrectomy with no evident locally recurrent or metastatic disease. 2. Small sliding-type hiatal hernia. 3. Diverticulosis. 4. Couple small fat-containing ventral hernias along a supraumbilical midline s urgical scar.
[2023-10-20 09:16] LABS: Estimated Glomerular Filt Rate 44
== END 2023-10-20 08:37 | disposition home or self-care (01) ==
PROVIDERS: PCP Family Medicine; Visit Provider Internal Medicine Hematology & Oncology
DX: C68.9 Malignant neoplasm of urinary organ, unspecified (principal); K57.30 Diverticulosis of large intestine without perforation or abscess without bleeding; K44.9 Diaphragmatic hernia without obstruction or gangrene; K43.9 Ventral hernia without obstruction or gangrene
CPT/HCPCS: 36415; 74177; 80053; 85025; Q9967

== ENCOUNTER 2023-10-20 09:33 | Outpatient (CLI) | payer MEDICARE, SELFPAY ==
[2023-10-20 09:57] LABS: Basophils Percent Auto 0.2 % (0.2-1.2); Eosinophils Absolute Auto 0.2 K/mm3 (0-0.3); Eosinophils Percent Auto 3.7 % (0-4.4); Hematocrit 42.4 % (37.0-47.0); Hemoglobin 13.9 g/dL (12.0-15.0); Immature Granulocyte Absolute 0.01 K/mm3 (0.00-0.031); Immature Granulocyte Percent A 0.2 % (0-0.5); Lymphocytes Absolute Auto 1.02 K/mm3 (0.9-3.2); Lymphocytes Percent Auto 23.8 % (18.3-44.2); Mean Corpuscular HGB Conc 32.8 g/dl (32-36); Mean Corpuscular Hemoglobin 29.9 pg (26-34); Mean Corpuscular Volume 91.2 fl (80-100); Mean Platelet Volume 9.1 fl (7.4-10.4); Monocytes Absolute Auto 0.3 K/mm3 (0.1-0.6); Monocytes Percent Auto 7.7 % (2.6-8.5); Neutrophils Absolute Auto 2.8 K/mm3 (1.3-6.7); Neutrophils Percent Auto 64.4 % (45.5-73.1); Platelet Count Result 203 k/mm3 (150-375); Red Blood Count 4.65 M/mm3 (4.2-5.4); Red Cell Distribution Width 14.3 % (11.5-14.5); White Blood Count 4.3 K/mm3 (4.5-10.0)
[2023-10-20 11:44] LABS: Alanine Aminotransferase 18 U/L (6-35); Albumin Level 4.3 g/dL (3.5-5.1); Alkaline Phosphatase 77 U/L (38-126); Anion Gap 7 mmol/L (4-12); Aspartate Amino Transferase 25 U/L (14-36); Bilirubin,Total 0.9 mg/dL (0.2-1.3); Blood Urea Nitrogen 21 mg/dL (7-17); Calcium 9.9 mg/dL (8.4-10.2); Carbon Dioxide 28 mmol/L (22-30); Chloride 103 mmol/L (98-107); Estimated Glomerular Filt Rate 48; Glucose 90 mg/dL (65-110); Sodium 138 mmol/L (137-145)
== END 2023-10-20 09:34 | disposition home or self-care (01) ==
LOC: ANHLAB 09:35
PROVIDERS: PCP Family Medicine; Visit Provider Internal Medicine Hematology & Oncology
DX: C68.9 Malignant neoplasm of urinary organ, unspecified (principal)
CPT/HCPCS: 36415; 80053; 85025

== ENCOUNTER 2024-02-13 08:12 | Outpatient (CLI) | payer MEDICARE, SELFPAY ==
[2024-02-13 16:30] LABS: Basophils Percent Auto 0.3 % (0.2-1.2); Eosinophils Absolute Auto 0.2 K/mm3 (0-0.3); Eosinophils Percent Auto 4.7 % (0-4.4); Hemoglobin 13.2 g/dL (12.0-15.0); Lymphocytes Absolute Auto 1.03 K/mm3 (0.9-3.2); Lymphocytes Percent Auto 26.6 % (18.3-44.2); Mean Corpuscular HGB Conc 31.4 g/dl (32-36); Mean Corpuscular Hemoglobin 28.8 pg (26-34); Mean Corpuscular Volume 91.7 fl (80-100); Mean Platelet Volume 9.8 fl (7.4-10.4); Monocytes Absolute Auto 0.3 K/mm3 (0.1-0.6); Monocytes Percent Auto 8.3 % (2.6-8.5); Neutrophils Absolute Auto 2.3 K/mm3 (1.3-6.7); Neutrophils Percent Auto 60.1 % (45.5-73.1); Platelet Count Result 236 k/mm3 (150-375); Red Blood Count 4.58 M/mm3 (4.2-5.4); Red Cell Distribution Width 14.6 % (11.5-14.5); White Blood Count 3.9 K/mm3 (4.5-10.0)
[2024-02-13 16:51] LABS: Hemoglobin A1C 5.9 % (<5.7)
[2024-02-13 16:59] LABS: Alanine Aminotransferase 17 U/L (6-35); Albumin Level 4.1 g/dL (3.5-5.1); Alkaline Phosphatase 81 U/L (38-126); Anion Gap 7 mmol/L (4-12); Aspartate Amino Transferase 35 U/L (14-36); Bilirubin,Total 0.5 mg/dL (0.2-1.3); Blood Urea Nitrogen 20 mg/dL (7-17); Carbon Dioxide 30 mmol/L (22-30); Chloride 101 mmol/L (98-107); Cholesterol 150 mg/dL (0-200); Estimated Glomerular Filt Rate 54; Glucose 83 mg/dL (65-110); HDL Direct 44 mg/dL; Potassium 4.6 mmol/L (3.4-5.0); Sodium 138 mmol/L (137-145); Triglycerides 68 mg/dL (<150)
[2024-02-13 17:00] LABS: Vitamin D 25 Hydroxy 45.9 ng/mL
[2024-02-13 17:10] LABS: LDL Cholesterol Direct 79 mg/dL
== END 2024-02-13 08:13 | disposition home or self-care (01) ==
LOC: ANHGOSHLAB 08:13
PROVIDERS: PCP Family Medicine; Visit Provider Family Medicine
DX: Z00.00 Encounter for general adult medical examination without abnormal findings (principal); E78.5 Hyperlipidemia, unspecified; D72.819 Decreased white blood cell count, unspecified; I10 Essential (primary) hypertension; R73.9 Hyperglycemia, unspecified; E55.9 Vitamin D deficiency, unspecified; E53.8 Deficiency of other specified B group vitamins
CPT/HCPCS: 36415; 80053; 80061; 82306; 82607; 83036; 84443; 85025

== ENCOUNTER 2024-04-05 07:05 | Outpatient (CLI) | payer MEDICARE, SELFPAY ==
--- NOTE | ~2024-04-05 | CT_ITS ---
CT of the Abdomen and Pelvis: Indication: Urothelial carcinoma Technique: 2.5 mm axial scans were obtained through the abdomen and pelvis following intravenous adm inistration of 100 cc of Omnipaque 350. Dose reduction technique was used on this scan by utilizing a utomated exposure control and iterative reconstruction technique. The dose-length product (DLP) was 6 83.78 mGy-cm. COMPARISON: 10/20/2023 Findings: Scans through the lung bases are unremarkable. The liver, spleen, pancreas, gallbladder, adrenals and right kidney are within normal limits. Status post left nephrectomy. No evidence of aortic aneurysm. No lymphadenopathy. No bowel obstruction or bowel wall thickening. There is sigmoid diverticulosis. Images through the pelvis were performed. Urinary bladder unremarkable. There is fullness of the resi dual distal left ureter, unchanged. No pelvic mass evident. No ascites. Impression: No evidence of active malignancy or metastatic disease. Status post left nephrectomy. Reviewed, dictated and finalized at [facility]. Y HALL SUPERVISOR Impression: No evidence of active malignancy or metastatic disease. Status post left nephre ctomy.
[2024-04-05 07:33] LABS: Estimated Glomerular Filt Rate 36
== END 2024-04-05 07:06 | disposition home or self-care (01) ==
PROVIDERS: PCP Family Medicine; Visit Provider Internal Medicine Hematology & Oncology
DX: C68.9 Malignant neoplasm of urinary organ, unspecified (principal)
CPT/HCPCS: 74177; Q9967

== ENCOUNTER 2024-04-05 08:10 | Outpatient (CLI) | payer MEDICARE, SELFPAY ==
[2024-04-05 08:34] LABS: Basophils Percent Auto 0.3 % (0.2-1.2); Eosinophils Absolute Auto 0.2 K/mm3 (0-0.3); Eosinophils Percent Auto 4.3 % (0-4.4); Hematocrit 41.9 % (37.0-47.0); Hemoglobin 13.7 g/dL (12.0-15.0); Immature Granulocyte Absolute 0.01 K/mm3 (0.00-0.031); Immature Granulocyte Percent A 0.3 % (0-0.5); Lymphocytes Absolute Auto 1.08 K/mm3 (0.9-3.2); Lymphocytes Percent Auto 27.6 % (18.3-44.2); Mean Corpuscular HGB Conc 32.7 g/dl (32-36); Mean Corpuscular Hemoglobin 28.5 pg (26-34); Mean Corpuscular Volume 87.3 fl (80-100); Mean Platelet Volume 8.8 fl (7.4-10.4); Monocytes Absolute Auto 0.3 K/mm3 (0.1-0.6); Monocytes Percent Auto 7.4 % (2.6-8.5); Neutrophils Absolute Auto 2.4 K/mm3 (1.3-6.7); Neutrophils Percent Auto 60.1 % (45.5-73.1); Platelet Count Result 197 k/mm3 (150-375); Red Cell Distribution Width 14.4 % (11.5-14.5); White Blood Count 3.9 K/mm3 (4.5-10.0)
[2024-04-05 08:44] LABS: Immature Platelet Fraction Pct 4.8 % (0.9-11.2)
[2024-04-05 12:07] LABS: Alanine Aminotransferase 17 U/L (6-35); Albumin Level 4.2 g/dL (3.5-5.1); Alkaline Phosphatase 78 U/L (38-126); Anion Gap 6 mmol/L (4-12); Aspartate Amino Transferase 27 U/L (14-36); Bilirubin,Total 0.8 mg/dL (0.2-1.3); Blood Urea Nitrogen 22 mg/dL (7-17); Calcium 9.7 mg/dL (8.4-10.2); Carbon Dioxide 30 mmol/L (22-30); Chloride 102 mmol/L (98-107); Estimated Glomerular Filt Rate 48; Glucose 97 mg/dL (65-110); Potassium 4.3 mmol/L (3.4-5.0); Sodium 138 mmol/L (137-145)
== END 2024-04-05 08:11 | disposition home or self-care (01) ==
LOC: ANHLAB 08:11
PROVIDERS: PCP Family Medicine; Visit Provider Internal Medicine Hematology & Oncology
DX: C68.9 Malignant neoplasm of urinary organ, unspecified (principal)
CPT/HCPCS: 36415; 80053; 85025; 85055

== ENCOUNTER 2024-05-19 13:25 | Outpatient (CLI) | payer MEDICARE, SELFPAY ==
--- NOTE | ~2024-05-19 | XR_ITS ---
XR knee LT min 4V Ordering provider: Corinna Dickinson MD History: . M25.562 - Pain in left knee . Comparison: None. FINDINGS: BONES: No acute fracture or dislocation. JOINT SPACES: Narrowing of the medial compartment. Marginal osteophytes in the patella. SOFT TISSUES: Normal. IMPRESSION: No acute osseous abnormality left knee. Mild osteoarthritic changes. Reviewed, dictated and finalized at location A. [facility]
== END 2024-05-19 13:26 | disposition home or self-care (01) ==
LOC: GOSHIMG 13:25
PROVIDERS: PCP Family Medicine; Visit Provider Family Medicine
DX: M17.12 Unilateral primary osteoarthritis, left knee (principal)
CPT/HCPCS: 73564

== ENCOUNTER 2024-06-04 08:27 | Outpatient (CLI) | payer MEDICARE, SELFPAY ==
--- NOTE | 2024-06-04 08:41 | ECHO_ITS ---
Patient Info Name: Olive Pereira Age: 78 years : 1945 Gender: Female Ht: 65 in Wt: 183 lbs BSA: 1.98 m2 HR: 67 bpm BP: 145 / 83 mmHg Technical Quality: Fair Exam Date: 06/04/2024 8:53 AM Exam Location: Echo Lab Patient Status: Outpatient Admit Date: 06/04/2024 Staff Ordering Physician: Corinna Dickinson MD Auto Body Repairer Fiberglass: Brayan Johnson RDCS Attending Provider: Corinna Dickinson MD Exam Type: CA echo doppler color flow Study Info Indications - ESSENTIAL HTN - CARDIAC MURMUR Complete two-dimensional, color flow and Doppler transthoracic echocardiogram is performed. Summary 1. Complete two-dimensional, color flow and Doppler transthoracic echocardiogram is performed. 2. Left ventricular chamber dimension is normal. 3. Left ventricular systolic function is normal, estimated at 60-65%. 4. There is moderate concentric increased left ventricular wall thickness. 5. The left ventricular diastolic function is grade I diastolic dysfunction. 6. E/e' 7 is not elevated. 7. There is moderate aortic valve sclerosis. 8. There is mild aortic valve stenosis with a peak velocity of 211 cm/s, mean gradient of 9 mmHg, and aortic valve area of 1.6 cm2. Left Ventricle E/e' 7 is not elevated. Left ventricular chamber dimension is normal. Left ventricular systolic function is normal, estimated at 60-65%. There is moderate concentric increased left ventricular wall thickness. The left ventricular diastolic function is grade I diastolic dysfunction. Right Ventricle Right ventricular systolic function is normal and with normal TAPSE 1.8 cm. Right ventricular chamber dimension is normal. Left Atria Left atrial chamber dimension is normal. Right Atria Right atrial chamber dimension is normal. Aortic Valve The aortic valve is trileaflet. There is moderate aortic valve sclerosis. There is mild aortic valve stenosis with a peak velocity of 211 cm/s, mean gradient of 9 mmHg, and aortic valve area of 1.6 cm2. There is no aortic valve regurgitation. Pulmonic Valve There is no pulmonic regurgitation. Mitral Valve There is no mitral valve stenosis. There is no mitral valve regurgitation. Tricuspid Valve There is no tricuspid valve regurgitation. Pericardium/Pleural There is no pericardial effusion. Inferior Vena Cava Normal inferior vena cava with >50% collapse upon inspiration consistent with normal right atrial pressure, 5 mmHg. Aorta The aortic root size at the sinus of Valsalva is normal. Left Ventricular Outflow Tract Name Value Normal LVOT 2D LVOT Diameter 2.1 cm LVOT Doppler LVOT Peak Gradient 2 mmHg LVOT Mean Gradient 2 mmHg LVOT VTI 20 cm LVOT VTI/AV VTI Ratio 0.5 LVOT Stroke Volume 68 ml LVOT CO 3.9 l/min LVOT CI 2.0 l/min/m2 Pulmonic Valve Name Value Normal RVOT Doppler RVOT Peak Gradient 1 mmHg PV Doppler PV Peak Gradient 2 mmHg Mitral Valve Name Value Normal MV Doppler MV Decel Greer 241 cm/s2 MV PHT 60 ms MV Area (PHT) 3.6 cm2 4.0-5.0 MV Diastolic Function MV E Peak Velocity 50 cm/s MV A Peak Velocity 80 cm/s MV E/A 0.6 MV Decel Time 208 ms MV Annular TDI MV E/e' (Septal) 7.6 <=8.0 MV E/e' (Lateral) 7.4 <=8.0 MV E/e' (Average) 7.5 Tricuspid Valve Name Value Normal Estimated PAP/RSVP RA Pressure 5 mmHg <=5 Aorta Name Value Normal Ascending Aorta Ao Root Diameter (MM) 3.2 cm Ao Root Diam Index (MM) 1.6 cm/m2 Aortic Valve Name Value Normal AV Doppler AV Peak Velocity 211 cm/s AV Peak Gradient 18 mmHg AV Mean Gradient 9 mmHg AV VTI 43 cm AV Area (Cont Eq VTI) 1.6 cm2 >=3.0 AV Area (Cont Eq Donta) 1.2 cm2 AV Regurgitation 2D LVOT Area 3.4 cm2 Ventricles Name Value Normal LV Dimensions 2D/MM IVS Diastolic Thickness (2D) 1.5 cm 0.6-1.0 LVID Diastole (2D) 3.8 cm 3.8-5.2 LVIW Diastolic Thickness (2D) 1.2 cm 0.6-0.9 LVID Systole (2D) 2.6 cm 2.2-3.5 LVOT Diameter 2.1 cm LV Mass (2D Cubed) 187.74 g 67.00-162.00 LV Mass Index (2D Cubed) 95 g/m2 43-95 Relative Wall Thickness (2D) 0.64 LV Fractional Shortening/Ejection Fraction 2D/MM LV Fractional Shortening (2D) 32 % 27-45 LV EF (2D Teicholz) 61 % 54-74 LV Diastolic Volume (4C MOD) 89 ml LV EF (4C MOD) 72 % LV Diastolic Volume (2C MOD) 56 ml LV EF (2C MOD) 54 % LV Diastolic Volume (BP MOD) 73 ml 46-106 LV Diastolic Volume Index (BP MOD) 37 ml/m2 29-61 LV Systolic Volume (BP MOD) 25 ml 14-42 LV Systolic Volume Index (BP MOD) 13 ml/m2 8-24 LV EF (BP MOD) 65 % 54-74 LV Diastolic Length (4C) 7.6 cm LV Systolic Length (4C) 6.1 cm LV Stroke Volume (4C MOD) 64 ml Atria Name Value Normal LA Dimensions LA Dimension (MM) 3.3 cm 2.7-3.8 LA Volume (4C A-L) 34 ml LA Volume (BP A-L) 52 ml RA Dimensions RA Area (4C) 12.2 cm2 <=18.0 Report Signatures
== END 2024-06-04 08:28 | disposition home or self-care (01) ==
PROVIDERS: PCP Family Medicine; Visit Provider Family Medicine
DX: R01.1 Cardiac murmur, unspecified (principal); I10 Essential (primary) hypertension
CPT/HCPCS: 93306

== ENCOUNTER 2024-06-24 14:51 | Outpatient (CLI) | payer MEDICARE, SELFPAY ==
--- OUTSIDE RECORDS SUMMARY | 2024-06-24 14:56 | XMS_ITS ---
Author Organization [facility] Address [address] [place], [place] [address] Care Team Providers Care Business Information Analyst Name Role Phone BJ Henry Unavailable [phone] Nikki Dickinson Unavailable Unavaila CATHY Lin Unavailable [phone] REASON FOR VISIT The patient had ingrown toenail surgery many years ago. She grows a spicule on the right great toe and he left great toe forms a split that lifts up., Patient presents for at-risk foot care . The patient has painful toenails and calluses that are causing difficulty with ambulation and shoegear. Theonset is gradual Medications Medication SIG (Take, Route, Frequency, Duration) Notes Start Date End Date Status Ipratropium [place] 0.06 % USE 2 SPRAYS IN EACH NOSTRIL THREE TIMES DAILY Nasal for 13 Days Active Losartan Potassium 50 MG TAKE 1 TABLET B Y MOUTH DAILY Oral for 90 Days Active Nitrofurantoin Monohyd Macro 100 MG TAKE 1 CAPSULE BY MOUTH EVERY 12 HOURS FOR 5 DAYS Oral for 5 Days Active predniSONE 20 MG TAKE 1 TABLET BY MILAG[place] TH TWICE DAILY Oral for 4 Days Active tiZANidine HCl 2 MG TAKE 1 CAPSULE BY [facility] EVERY 8 HOURS NEEDED FOR MUSCLE SPASMS Oral for 3 Days Active Ezetimibe 10 MG Oral for 90 Days Active Timolol Maleate 0.5 % INSTILL 1 DROP IN BOTH EYES TWICE DAILY Ophthalmic for 50 Days Active Clobetasol Propionate 0.05 % APPLY TO VU LVA AREA 2 TO 3 TIMES PER WEEK External for 30 Days Active Encounters Encounter Location Date Provider Diagnosis [facility] [place] [address] [place], [place] [id number] 06/07/2024 CATHY ADAMEMaxime Tinea unguium B35.1 ; Acquired keratosis [keratoderma] palmaris et plantaris L85.1 ; Atherosclerosis of nav[place] arteries of extremities with intermittent claudication, bilateral legs I70.213 ; Pain in right foot M79.671 and Pain in left foot M79.672 Assessments Encounter Date Diagnosis (ICD Code) Assessment Notes Treatment Notes Treatment Clinical Notes Section Notes 06/07/2024 Tinea unguium (ICD-10 - B35.1) Nails 1 Bilateral were debrided extensively with nail nippers and emery board, reducing length and girth to pink healthy tissue with any subungual debris and necrotic tissue removed 06/07/2024 Acquired keratosis [keratoderma] palmaris et plantaris (ICD-10 - L85.1) A total of 2 corns or calluses, as described in the note above, were cut and pared utilizing a #15 blade 06/07/2024 Atherosclerosis of navajo arteries of extremities with intermittent claudication, bilateral legs (ICD-10 - I70.213) 06/07/2024 Pain in right foot (ICD-10 - M79.671) 06/07/2024 Pain in left foot (ICD-10 - M79.672) Plan Of Treatment Treatment Notes Assessment Notes Tinea unguium Nails 1 Bilateral we re debrided extensively with nail nippers and emery [...] care, sooner if problems develop. Provider Name:CATHY CLINTON, 09:30:00 AM, [address], [place], [place], [phone], Progress Notes * MARTÍNEZ RAMEY ADOB:0 1945 (78 yo F)Acc No.[id number]:06/07/2024 Patient: MARTÍNEZ SHEPARD Provider: Arline Clinton DPM :1945 A ge:78 Y S ex:Female Date:06/07/2024 Address:[address] [place], [place] [id number] Subjective: * Chief Complaints: * T he patient had ingrown toenail surgery many years ago. She grows a spicule on the right great toe and he left great toe forms a split that lifts up.Patient presents for at-risk foot care . The patient has painful toenails and calluses that are causing difficulty with ambulation and shoegear. The onset is gradual * ROS: G eneral / Constitutional: Patient denies c hange in appetite, chills, fatigue, fever.? C ardiovascular: Patient denies h air loss on leg, leg or foot ulcers, extremities cool. M usculoskeletal: Patient denies b roken foot bone, ankle sprain, gout. ? S kin: Patient denies a thletes foot, fungal nails, rash, ulcerations. N eurologic: Patient denies B urning/Tingling, Numbness, gait abnormality. * Medical History: * Surgical History: * Hospitalization/Major Diagno stic Procedure: * Medications: T akingIpratropium [place] 0.06 % Solution USE 2 SPRAYS IN [...] reviewed and reconciled with the patientTaking Ipratropium [place] 0.06 % Solution USE 2 SPRAYS IN [...] List reviewed and reconciled with the patient Objective: * Vitals: * Examination: P hysical Examination: General appearance: A lert, pleasant, well-nourished and in no acute distress. D ermatologic: Skin findings: S kin is thin, atrophic and lacking pedal hair. Hypertrophic / hyperkeratotic lesion: d orsal aspect of the left and right 5th digit. Nail pathology: N ails: The right hallux toenail has a spicule on the medial aspect that was debrided without incident. The left hallux toenail is lytic distally, but no erythema or breaks in the skin. V ascular: Dorsalis pedis pulse: 1 /4 b ilateral. Posterior tibial pulse: 0 /4 bilateral. Capillary refill: g reater than 3 seconds. [...] - L85.1 3 . A therosclerosis of navajo arteries of extremities with intermittent claudication, bilateral legs - I70.213 4 . P ain in right foot - M79.671 5 . P ain in left foot - M79.672 Plan: * Treatment: 2. A cquired keratosis [keratoderma] palmaris et plantaris Notes: A total of 2 corns or calluses, as described in the note above, were cut and pared utilizing a #15 blade * Procedure Codes: * Follow Up: 1 0 - 12 weeks (Reason: At-Risk Foot care, sooner if problems develop.) * Billing Information: * Visit Code: 83725 Office Visit, Est Pt., Level 3. * Procedure Codes: * NITY PROFESSOR Sign off status: Completed true * Provider: Arline Clinton DPM Date: 06/07/2024 Generated for Delaney cobos/Larry/Kassie on: 0 06/24/2024 02:56 PM DIVINITY PROFESSOR History and Physical Notes * Examination Category Sub-Category Detail Notes Category Not es Dermatologic Skin findings: Skin is thin, at rophic and lacking pedal hair Nail pathology: Nails: The right geo lux toenail has a spicule on the medial aspect that was debrided without incident. The left hallux toenail is lytic distally, but no erythema or breaks in the skin Hypertrophic / hyperkeratotic lesion: do rsal aspect of the left and right 5th digit Neurologic Gross sensation Grossly intact t o light touch. There is negative Tinel's sign Vascular Dorsalis pedis pulse: 1/4 bilateral Edema: No edema bilateral Capillary refill: greater than 3 secon ds Posterior tibial pulse: 0/4 bilateral Physical Examination General appearance: Alert, pleasant, well-nourished and in no acute distress Musculoskeletal Muscle Strength Muscle strength is 5/5 in regards to dorsiflexion, plantarflexion, inversion, and eversion in bilateral lower extremities
--- OUTSIDE RECORDS SUMMARY | 2024-06-24 14:56 | XMS_ITS | Encounter Summary ---
Author Organization [facility] Address 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 Gender Identity Not on file Sexual Orientation Not on file documented as of this encounter Plan of Treatment Upcoming Encounters Date Type Department Care Team (Late st Contact Info) Description 10/25/2024 10:15 AM CDT Office Visit [facility] Oncology and Hematology - [place] [address] [facility] [address] [place] [address] Taurus Mullins MD [address] [facility] [address] [place] [address] documented as of this encounter Visit Diagnoses Not on filedocumented in this encounter Care Teams Farm Service Consultant Relationship Specialty Start Date End Date Nikki Dickinson MD [address] [place] [address] [place] [address] PCP - General Family Practice 04/12/24 documented as of this encounter
--- OUTSIDE RECORDS SUMMARY | 2024-06-24 14:56 | XMS_ITS | Encounter Summary ---
Author Organization [facility] Address 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 Gender Identity Not on file Sexual Orientation Not on file documented as of this encounter Plan of Treatment Upcoming Encounters Date Type Department Care Team (Late st Contact Info) Description 10/25/2024 10:15 AM CDT Office Visit [facility] Oncology and Hematology - Sy[address] [facility] [address] [place] [address] Taurus Mullins MD [address] [facility] [address] [place] [address] documented as of this encounter Visit Diagnoses Not on filedocumented in this encounter Care Teams Lease Purchase Truck Driver Relationship Specialty Start Date End Date Nikki Dickinson MD [address] [place] [address] [place] [address] PCP - General Family Practice 04/12/24 documented as of this encounter
--- OUTSIDE RECORDS SUMMARY | 2024-06-24 14:56 | XMS_ITS ---
Author Organization [facility] Address [address] [place], [place] [id number] Care Team Providers Care Typewriter Aligner Name Role Phone BJ Henry Unavailable [phone] Nikki Dickinson Unavailable Unavaila CATHY Lin Unavailable [phone] Allergies Allergen (clinical drug ingredient) Drug/Non Drug Allergy documented on EMR Reaction Allergy Type Onset Date Status Substance with 8-fpfndhp-9-methylgluta ryl-coenzyme A reductase inhibitor mechanism of action (substance) Statins Unknown Drug Allergy Active REASON FOR VISIT Patient presents for at-risk foot care . The patient has painful toenails and calluses that are causing difficulty with ambulation and shoegear. The onset is gradual Medications Medication SIG (Take, Route, Frequency, Duration) Notes Start Date End Date Status Clobetasol Propionate 0.05 % APPLY TO VU LVA AREA 2 TO 3 TIMES PER WEEK External for 30 Days Active Timolol Maleate 0.5 % INSTILL 1 DROP IN BOTH EYES TWICE DAILY Ophthalmic for 50 Days Active tiZANidine HCl 2 MG TAKE 1 CAPSULE BY MO UTH EVERY 8 HOURS NEEDED FOR MUSCLE SPASMS Oral for 3 Days Active Losartan Potassium 50 MG TAKE 1 TABLET B Y MOUTH DAILY Oral for 90 Days Active Ezetimibe 10 MG Oral for 90 Days Active predniSONE 20 MG TAKE 1 TABLET BY MILAGROS TH TWICE DAILY Oral for 4 Days Active Nitrofurantoin Monohyd Macro 100 MG TAKE 1 CAPSULE BY MOUTH EVERY 12 HOURS FOR 5 DAYS Oral for 5 Days Active Ipratropium Stonyford 0.06 % USE 2 SPRAYS IN EACH NOSTRIL THREE TIMES DAILY Nasal for 13 Days Active Encounters Encounter Location Date Provider Diagnosis [facility] [address] [place], [place] [id number] 12/08/2023 CATHY CLINTON Tinea unguium B35.1 ; Acquired keratosis [keratoderma] palmaris et plantaris L85.1 ; Atherosclerosis of moapa arteries of extremities with intermittent claudication, bilateral [...] utilizing a #15 blade 12/08/2023 Atherosclerosis of moapa arteries of extremities with intermittent claudication, bilateral [...] Foot care, sooner if problems develop. Provider Name:CATYH CLINTON, 09:30:00 AM, [address], [place], [place], [id number], Progress Notes * MARTÍNEZ RAMEY ADOB:0 1945 (78 yo F)Acc No.[id number]:12/08/2023 Patient: MARTÍNEZ SHEPARD Provider: Arline Clinton DPM :1945 A ge:78 Y S ex:Female Date:12/08/2023 Address:[address] [place], [place] [id number] Subjective: * Chief Complaints: * 1 . Patient presents for at-risk foot care . The patient has painful toenails and calluses that are causing difficulty with ambulation and shoegear. The onset is gradual. * HPI: H PI: Follow Up Visit P atient presents for follow up visit for porokeratosis check. Patient needs left foot callus shavedand the 5th digit looked at. There is a callus or bunion on the right foot that she gets trimmed. Patient also needs a couple of nails trimmed back. , [place]: [facility]. * ROS: G eneral / Constitutional: Patient [...] Numbness, gait abnormality. * Medical History: * Medications: T aking Ipratropium Stonyford 0.06 % Solution USE 2 SPRAYS IN EACH NOSTRIL THREE TIMES DAILY Nasal , Taking Losartan Potassium 50 MG Tablet TAKE 1 TABLET BY MOUTH DAILY Oral , Taking Ezetimibe 10 MG Tablet Oral , Taking Timolol Maleate 0.5 % Solution INSTILL 1 DROP IN BOTH EYES TWICE DAILY Ophthalmic , Taking Clobetasol Propionate 0.05 % Cream APPLY TO VULVA AREA 2 TO 3 TIMES PER WEEK External , Taking tiZANidine HCl 2 MG Capsule TAKE 1 CAPSULE BY MOUTH EVERY 8 HOURS NEEDED FOR MUSCLE SPASMS Oral , Taking Nitrofurantoin Monohyd Macro 100 MG Capsule TAKE 1 CAPSULE BY MOUTH EVERY 12 HOURS FOR 5 DAYS Oral , Taking predniSONE 20 MG Tablet TAKE 1 TABLET BY MOUTH TWICE DAILY Oral * Allergies: S tatins. Objective: * Examination: P hysical Examination: General [...] - L85.1 3 . A therosclerosis of moapa arteries of extremities with intermittent claudication, bilateral [...] develop.) * Billing Information: * Visit Code: 93016 Office Visit, Est Pt., Level 3. * Procedure Codes: * Sign off status: Completed true * Provider: Arline Clinton DPM Date: 0 12/08/2023 Generated for Delaney cobos/Larry/Karloitting on: 0 06/24/2024 02:55 PM [employer] History and Physical Notes * HPI (History [...] couple of nails trimmed back. , MA: [facility] Examination Category Sub-Category Detail Notes Category Not [...]
--- OUTSIDE RECORDS SUMMARY | 2024-06-24 14:56 | XMS_ITS | Clinical Summary ---
Author Organization [facility] Address [address] [place] [address] Care Team Providers Care Creel Cleaner Name Role Phone Nikki Dickinson MD Primary Care Provider Source Comments [facility] is amultiple site organization consisting of ambulatory clinics and hospital sitesin [place], [place], [place] and [place]. This disclosure is being madepursuant to the Care Everywhere program and may not contain all information available regarding this patient. Last updated 18.[facility] Allergies Active Allergy Reactions Criticality Noted Date Comments Ciprofloxacin Unknown Low 09/08/2023 dizziness Latanoprost GI Discomfort 01/20/2023 Hmg-Coa-R Inhibitors Myalgias Low 09/08/2023 Muscle cramping Tizanidine Dizziness Low 10/04/2022 Medications * Be aware that medications may not be up to date on this document. Alwaysverify current medications with the patient. Medication Sig Dispensed Refills Start Date End Date Status timolol maleate (Timoptic) 0.5 % ophthalmic solution Instill 1 (one) drop into both eyes 2 times daily 07/29/2022 Active losartan (Cozaar) 50 MG tablet Take 1 (one) tablet by mouth once daily 07/17/2023 Active hydroCHLOROthiazide 12.5 MG Take 1 (one) tablet by mouth once daily 08/13/2023 Active ezetimibe (Zetia) 10 MG tablet Take 1 (one) tablet by mouth once daily 09/24/2022 Active Calcium Citrate-Vitamin D 315-6.25 MG-MCG TABS Take 1 tablet by mouth once daily Active cyanocobalamin (Vitamin B-12) 1000 MCG tablet Take 1 (one) tablet by mouth once daily Active MAGNESIUM GLYCINATE PO Take 200 mg by mouth 2 times daily Active cetirizine (ZyrTEC) 10 MG tabletIndications:Al lergic conjunctivitis of both eyes,Vasomotor rhinitis,Nasal congestion,Nasal discharge Take 1 (one) tablet by mouth once daily 90 tablet 4 02/23/2024 Active olopatadine 0.7 % (Pataday) 0.7 % ophthalmic solutionIndications: Allergic conjunctivitis of both eyes Instill 1 (one) drop into both eyes once daily 2.5 mL 02/23/2024 Active fluticasone propionate (Flonase) 50 MCG/ACT nasal sprayIndications:Chr onic rhinitis,Allergic conjunctivitis of both eyes,Vasomotor rhinitis,Nasal discharge SHAKE LIQUID AND USE 2 SPRAYS IN EACH NOSTRIL DAILY 16 g 11 05/31/2024 Active fluticasone propionate (Flonase) 50 MCG/ACT nasal sprayIndications:Chr onic rhinitis,Allergic conjunctivitis of both eyes,Vasomotor rhinitis,Nasal discharge [place]ont 2 (two) sprays into each nostril once daily 16 g 04/19/2024 Discontinued Active Problems Problem Noted Date Diagnosed Date Vasomotor rhinitis 09/08/2023 09/08/2023 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 Thickened endometrium 10/04/2022 09/08/2023 Prophylaxis for chemotherapy-induced neutropenia 05/23/2021 09/08/2023 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 05/0 10/2023 After-cataract with vision obscured 08/19/2014 09/08/2023 Epiphora due to insufficient drainage 08/19/2014 09/08/2023 Presbyopia 08/19/2014 09/08/2023 Pseudophakia 08/19/2014 09/08/2023 Vitreous floaters 08/19/2014 09/08/2023 Encounters Date Type Department Care Team Description 05/28/2024 Refill [facility] - ENT [address] [place] [phone] David Moore MD Refill Request 04/19/2024 9:30 AM BODY HANGER Office Visit [facility] - ENT [address] [place] [phone] David Moore MD Chronic rhinitis (Primary Dx); Allergic conjunctivitis of both eyes; Vasomotor rhinitis; Nasal discharge 04/19/2024 Travel from Last 3 Months Immunizations Name Administration Dates Next Due HEP A VACCINE, ADULT 05/12/2012,11/08/2011 INFLUENZA VACCINE 02/13/2022,02/08/2021,01/13/20 INFLUENZA VACCINE, ADJUVANTE D, TRIV. (FLUAD TRIVALENT; 65Y+) (AIIV3) 02/18/2019,02/19/2018 INFLUENZA VACCINE, HIGH-DOSE , QUADR. (FLUZONE HIGH-DOSE QUADRIVALENT; 65Y+), 0.7 ML (HD-IIV4) 02/19/2017 PNEUMOCOCCAL PPSV23 11/02/2020 Pneumococcal Pcv13 Conj 06/16/2017 TDAP (7yrs+) 11/21/2008 Zoster Hzv Vacc Recombinant Inj Im 05/25/2018, Family History Medical History Relation Name Comments Cancer Mother Cancer Other other side Relation Name Status Comments Mother Other other side Social History Tobacco Use Types Packs/Day Years Used Date Smoking Tobacco: Never Passive Smoke Exposure: Never Smokeless Tobacco: Never Tobacco Cessation:Counseling Given: Not Answered Alcohol Use Standard Drinks/Week Comments Yes 0 (1 standard drink = 0.6 oz pur e alcohol) occasionallly Sex and Gender Information Value Date Recorded Sex Assigned at Not on file Gender Identity Not on file Sexual Orientation Not on file Last Filed Vital Signs Vital Sign Reading Time Taken Comments Blood Pressure 136/86 04/19/2024 9:18 AM BODY HANGER Pulse 66 04/19/2024 9:18 AM BODY HANGER Temperature 36.4 C (97.6 F) 12/16/2023 1:30 PM CDT Respiratory Rate 12 12/16/2023 1:45 PM CDT Oxygen Saturation 96% 02/23/2024 8:45 AM CDT Inhaled Oxygen Concentration - - Weight 83.5 kg (184 lb) 04/19/2024 9:18 AM BODY HANGER Height 165.1 cm (5' 5 ) 04/19/2024 9:18 AM BODY HANGER Body Mass Index 30.62 04/19/2024 9:18 AM BODY HANGER Plan of Treatment Upcoming Encounters Date Type Department Care Team (Late st Contact Info) Description 08/23/2024 9:30 AM CDT Office Visit [facility] - ENT [address] [facility], [place] [address] David Moore MD [address] [place] [address] [place] [address] Health Maintenance Due Date Last Done Comments BONE DENSITY TESTING 1945 HEPATITIS C SCREENING 07/25/1964 DTAP/TDAP/TD VACCINES (2 - Td or Tdap) 11/21/2018 11/21/2008 Respiratory Syncytial Virus (RSV) Vaccine Pt: or over 60 yrs (1 - 1-dose 75+ series) 2021 COVID-19 VACCINE ( season) 2024 INFLUENZA VACCINE (#1) 2024 2, 02/08/2021, 01/13/2020, Additional history exists DEPRESSION SCREENING 05/05/2024 MEDICARE AWV CALENDAR YEAR 2024 ZOSTER VACCINE Completed 05/25/2018, 02/19/2018 PNEUMOCOCCAL VACCINE 50+ Completed 11/02/2020, 06/05 HEPATITIS B VACCINE Aged Out No longe r eligible based on patient's age to complete this topic HIB VACCINE Aged Out No longer eligi ble based on patient's age to complete this topic HPV VACCINE Aged Out No longer eligi ble based on patient's age to complete this topic MENINGOCOCCAL (Group B) VACCINE Aged Out No longer eligible based on patient's age to complete this topic MENINGOCOCCAL VACCINE Aged Out No ciara kelly eligible based on patient's age to complete this topic Procedures Procedure Name Priority Date/Time Associated Diagnosis Comments AL NASAL ENDOSCOPY,DX Routine 04/19/2024 9:37 AM BODY HANGER Chronic rhinitis Allergic conjunctivitis of both eyes Vasomotor rhinitis Nasal discharge from Last 3 Months Results * AL NASAL ENDOSCOPY,DX (04/19/2024 9:37 AM BODY HANGER) Narrative David Moore MD - 04/19/2024 9:37 AM BODY HANGER David Moore MD 04/19/2024 9:38 AM Due to the findings on physical examination, in correlation with the patient's symptomatology, the decision was made to perform a procedure today in clinic. Verbal consent obtained prior to starting procedure. Procedure note: Procedure: Rigid Nasal Endoscopy Pre Op Dx: Nasal secretions Post Op: same Anesthesia: Bilateral Nasal Cavities sprayed with Lidocaine and Neosynephrine Detail: Rigid nasal endoscopy performed bilaterally. Note: Post op changes with patent sinuses Septum intact. No masses or lesions seen. Right interior nasal cavity showed turbinate hypertrophy, mucus stranding present. Right middle and superior meatus show pink mucosa with mucus stranding present. Sphenoethmoidal recess inspected showing mucus stranding, intact mucosa. Left interior nasal cavity showed turbinate hypertrophy, mucus stranding present. Left middle and superior meatus show pink mucosa with mucus stranding present. Sphenoethmoidal recess inspected showing mucus stranding, intact mucosa. David Moore MD PROCEDURE/MINOR HAYES RGICAL ORDERABLES from Last 3 Months Care Teams Creel Cleaner Relationship Specialty Start Date End Date Nikki Dickinson MD [address] [facility] [address] [place] [address] PCP - General Family Medicine 09/08/23
--- OUTSIDE RECORDS SUMMARY | 2024-06-24 14:56 | XMS_ITS | Encounter Summary ---
Author Organization [facility] Address [address] [place] [address] Care Team Providers Care Overhead Crane Truck Loader Name Role Phone Nikki Dickinson MD Primary Care Provider Encounter Details Date Type Department Care Team (Late st Contact Info) Description 06/23/2024 External Device Data ST[place] ABSTRACTION Provider, Abstract NO ADDRESS ON FILE Social History Tobacco Use Types Packs/Day Years Used Date Smoking Tobacco: Never Smokeless Tobacco: Never Alcohol Use Standard Drinks/Week Comments Not Currently 0 (1 standard drink = 0.6 oz pur e alcohol) Comments Unknown Sex and Gender Information Value Date Recorded Sex Assigned at Not on file 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 Gender Identity Not on file Sexual Orientation Not on file documented as of this encounter Plan of Treatment Upcoming Encounters Date Type Department Care Team (Late st Contact Info) Description 10/25/2024 10:15 AM CDT Office Visit [facility] Oncology and Hematology - [place] [address] [facility] [address] [place] [address] Taurus Mullins MD [address] [facility] [address] [place] [address] documented as of this encounter Visit Diagnoses Not on filedocumented in this encounter Care Teams Overhead Crane Truck Loader Relationship Specialty Start Date End Date Nikki Dickinson MD [address] [place] [address] [place] [address] PCP - General Family Practice 04/12/24 documented as of this encounter
--- OUTSIDE RECORDS SUMMARY | 2024-06-24 14:56 | XMS_ITS | Patient Health Record ---
Author Organization [facility] Address [address] [place], [place] [id number] Care Team Providers Care Iuss Acoustic Analyst Name Role Phone BJ Henry Unavailable [phone] Nikki Dickinson Unavailable Unavaila CATHY Lin Unavailable [phone] Allergies Allergen (clinical drug ingredient) Drug/Non Drug Allergy documented on EMR Reaction Allergy Type Onset Date Status Substance with 1-oynoyig-7-methylgluta ryl-coenzyme A reductase inhibitor mechanism of action (substance) Statins Unknown Drug Allergy Active Reason For Referral No Information Medications Medication SIG (Take, Route, Frequency, Duration) Notes Start Date End Date Status Ipratropium Auberry 0.06 % USE 2 SPRAYS IN EACH [...] TWICE DAILY Oral for 4 Days Active Ezetimibe 10 MG Oral for 90 Days Active Timolol Maleate 0.5 % INSTILL 1 DROP IN BOTH EYES TWICE DAILY Ophthalmic for 50 Days Active Clobetasol Propionate 0.05 % APPLY TO VU LVA AREA 2 TO 3 TIMES PER WEEK External for 30 Days Active tiZANidine HCl 2 MG TAKE 1 CAPSULE BY MO UTH EVERY 8 HOURS NEEDED FOR MUSCLE SPASMS Oral for 3 Days Active Vital Signs Height-cm 167.64 cm 09/08/2023 Weight-kg 78.02 kg 09/08/2023 Height 66.00 in 09/08/2023 Weight 172 lbs 09/08/2023 BMI 27.76 kg/m2 09/08/2023 Encounters Encounter Location Date Provider Diagnosis [facility] [address] [place] [id number] 08/18/2023 CATHY SNOOK Pain in right ankle and joints of right foot M25.571 ; Acquired keratosis [keratoderma] palmaris et plantaris L85.1 ; Primary osteoarthritis, right ankle and foot M19.071 and Pain in right foot M79.671 [facility] [address] [place] [id number] 09/08/2023 CATHY SNOOK Pain in right ankle and joints of right foot M25.571 ; Hammer toe of right foot M20.41 ; Acquired keratosis [keratoderma] palmaris et plantaris L85.1 ; Primary osteoarthritis, right ankle and foot M19.071 and Pain in right foot M79.671 [facility] [address] [place] [id number] 12/08/2023 CATHY SNOOK Tinea unguium B35.1 ; Acquired keratosis [keratoderma] palmaris et plantaris L85.1 ; Atherosclerosis of tangirnaq arteries of extremities with intermittent claudication, bilateral legs I70.213 ; Pain in right foot M79.671 and Pain in left foot M79.672 [facility] [address] [place] [id number] 03/08/2024 CATHY SNOOK Tinea unguium B35.1 ; Acquired keratosis [keratoderma] palmaris et plantaris L85.1 ; Atherosclerosis of tangirnaq arteries of extremities with intermittent claudication, bilateral legs I70.213 ; Pain in right foot M79.671 and Pain in left foot M79.672 [facility] [address] [place] [id number] 06/07/2024 CATHY SNOOK Tinea unguium B35.1 ; Acquired keratosis [keratoderma] palmaris et plantaris L85.1 ; Atherosclerosis of tangirnaq arteries of extremities with intermittent claudication, bilateral legs I70.213 ; Pain in right foot M79.671 and Pain in left foot M79.672 Assessments Encounter Date Diagnosis (ICD Code) Assessment Notes Treatment Notes Treatment Clinical Notes Section Notes 08/18/2023 Acquired keratosis [keratoderma] palmaris et plantaris (ICD-10 - L85.1) Hyperkeratosis: The skin was prepped with isopropyl alcohol. Using a 15-blade scalpel, the hyperkeratotic skin lesions were sharply debrided down to healthy appearing skin. Emollient: Recommend that the patient use an emollient such as sror-aii-txvrxwa Eucerin cream, Vanicream, or other lotion to the affected area. 08/18/2023 Pain in right ankle and joints of right foot (ICD-10 - M25.571) Sinus Tarsi Syndrome: I discussed anti-inflammatory treatment options and various means of immobilization with the patient. I educated the patient on icing and stretching, supportive shoegear, and the use of orthotic devices and bracing. Kenalog Injection: Following skin prep, a total of 3 ccs of a 1-1-1 mix of 0.5% marcaine plain, 1% lidocaine plain, and Kenalog was injected to the right sinus tarsi. Orthotic Continue: Advised patient to continue to wear orthotic devices. 09/08/2023 Pain in right ankle and joints of right foot (ICD-10 - M25.571) Sinus Tarsi Syndrome: I discussed anti-inflammatory treatment options and various means of immobilization with the patient. I educated the patient on icing and stretching, supportive shoegear, and the use of orthotic devices and bracing. Orthotic Continue: Advised patient to continue to wear orthotic devices. 09/08/2023 Hammer toe of right foot (ICD-10 - M20.41) 12/08/2023 Tinea unguium (ICD-10 - B35.1) Nails [...] cut and pared utilizing a #15 blade 03/08/2024 Tinea unguium (ICD-10 - B35.1) Nails 1-5 Bilateral were debrided extensively with nail nippers and emery board, reducing length and girth to pink healthy tissue with any subungual debris and necrotic tissue removed 03/08/2024 Acquired keratosis [keratoderma] palmaris et plantaris (ICD-10 - L85.1) A total of 2 corns or calluses, as described in the note above, were cut and pared utilizing a #15 blade 06/07/2024 Tinea unguium (ICD-10 - B35.1) Nails [...] utilizing a #15 blade 06/07/2024 Atherosclerosis of tangirnaq arteries of extremities with intermittent claudication, bilateral legs (ICD-10 - I70.213) 03/08/2024 Atherosclerosis of tangirnaq arteries of extremities with intermittent claudication, bilateral legs (ICD-10 - I70.213) 12/08/2023 Atherosclerosis of tangirnaq arteries of extremities with intermittent claudication, bilateral legs (ICD-10 - I70.213) 09/08/2023 Acquired keratosis [keratoderma] palmaris et plantaris (ICD-10 - L85.1) Hyperkeratosis: The skin was prepped with isopropyl alcohol. Using a 15-blade scalpel, the hyperkeratotic skin lesions were sharply debrided down to healthy appearing skin. Emollient: Recommend that the patient use an emollient such as yvuk-hal-wfevyve Eucerin cream, Vanicream, or other lotion to the affected area. 08/18/2023 Primary osteoarthritis, right ankle and foot (ICD-10 - M19.071) 09/08/2023 Primary osteoarthritis, right ankle and foot (ICD-10 - M19.071) Padding: Application of accomodative padding to offload pressure from area. 08/18/2023 Pain in right foot (ICD-10 - M79.671) 12/08/2023 Pain in right foot (ICD-10 - M79.671) 03/08/2024 Pain in right foot (ICD-10 - M79.671) 06/07/2024 Pain in right foot (ICD-10 - M79.671) 06/07/2024 Pain in left foot (ICD-10 - M79.672) 03/08/2024 Pain in left foot (ICD-10 - M79.672) 12/08/2023 Pain in left foot (ICD-10 - M79.672) 09/08/2023 Pain in right foot (ICD-10 - M79.671) Plan Of Treatment Next Appt Details Provider Name:CATHY CLINTON, 09:30:00 AM, [address], [facility], [place], [place], [phone], Insurance Providers Payer Name Payer Address Payer Phone Subscriber Number Group Number Insured Name Patient Relationship to Insured Coverage Start Date Coverage End Date [employer] [address] [place] [phone] [id number] MARTÍNEZ MELARA Self - patient is the insured Medical (General) History Medical History History ICD Code Cancer (type of cancer) hypertension Surgical History Surgery Date(Month/Year) appendectomy 12/2020 Hysterectomy 10/2022 nephrectomy [id number]
--- OUTSIDE RECORDS SUMMARY | 2024-06-24 14:56 | XMS_ITS | Encounter Summary ---
Author Organization [facility] Address [address] [place] [address] Care Team Providers Care Operational Intelligence Analyst Name Role Phone Nikki Dickinson MD Primary Care Provider Encounter Details Date Type Department Care Team (Late Contact Info) Description 08/29/2022 Abstract [facility] Oncology and Hematology [facility] [address] [place] [address] Nader Hmyan, RN Social History Tobacco Use Types Packs/Day Years Used Date Smoking Tobacco: Never Smokeless Tobacco: Never Alcohol Use Standard Drinks/Week Comments Not Currently 0 (1 standard drink = 0.6 oz pur e alcohol) Comments Unknown Sex and Gender Information Value Date Recorded Sex Assigned at Not on file Legal Sex Female 4:50 AM 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 No / Unsure 08/29/2022 12:55 PM CDT documented as of this encounter Plan of Treatment Upcoming Encounters Date Type Department Care Team (Late st Contact Info) Description 10/25/2024 10:15 AM CDT Office Visit [facility] Oncology and Hematology [facility] [address] [place] [address] Taurus Mullins MD [address] [place] [address] documented as of this encounter Visit Diagnoses Not on filedocumented in this encounter Care Teams Operational Intelligence Analyst Relationship Specialty Start Date End Date Nikki Dickinson MD [address] [place] [address] PCP - General Family Practice 04/12/24 documented as of this encounter
--- OUTSIDE RECORDS SUMMARY | 2024-06-24 14:56 | XMS_ITS | Patient Health Summary ---
Author Organization [facility] Address [address] [place] [address] Care Team Providers Care Digital Photo Printer Name Role Phone Nikki Dickinson MD Primary Care Provider Note from [facility],non-owned Affiliates and Associated Physician Practices is amultiple site organization consisting of ambulatory clinics and hospital sitesin [place], [place], [place] and [place]. This disclosure is being madepursuant to the Care Everywhere program and may not contain all information available regarding this patient. Last updated 18.[facility] Allergies * Ciprofloxacin(Unknown) -Low Criticality * Latanoprost(GI Discomfort) * Hmg-Coa-R Inhibitors(Myalgias) -Low Criticality * Tizanidine(Dizziness) -Low Criticality * Contrast-Iodinated Agents For Ct/Other(Unknown) -Medium Criticality,Inactive Medications * Be aware that medications may not be up to date on this document. Alwaysverify current medications with the patient. * timolol maleate (Timoptic) 0.5 % ophthalmic solution(Started 07/29/2022) Instill 1 (one) drop into both eyes 2 times daily * losartan (Cozaar) 50 MG tablet(Started 07/17/2023) Take 1 (one) tablet by mouth once daily * hydroCHLOROthiazide 12.5 MG(Started 08/13/2023) Take 1 (one) tablet by mouth once daily * ezetimibe (Zetia) 10 MG tablet(Started 09/24/2022) Take 1 (one) tablet by mouth once daily * Calcium Citrate-Vitamin D 315-6.25 MG-MCG TABS Take 1 tablet by mouth once daily * cyanocobalamin (Vitamin B-12) 1000 MCG tablet Take 1 (one) tablet by mouth once daily * MAGNESIUM GLYCINATE PO Take 200 mg by mouth 2 times daily * cetirizine (ZyrTEC) 10 MG tablet(Started 02/23/2024) Take 1 (one) tablet by mouth once daily 4 refills by 02/22/2025 * olopatadine 0.7 % (Pataday) 0.7 % ophthalmic solution(Started 02/23/2024) Instill 1 (one) drop into both eyes once daily * fluticasone propionate (Flonase) 50 MCG/ACT nasal spray(Started 05/31/2024) SHAKE LIQUID AND USE 2 SPRAYS IN EACH NOSTRIL DAILY 11 refills by 05/31/2025 Ended Medications* fluticasone propionate (Flonase) 50 MCG/ACT nasal spray (Started 04/19/2024)(Discontinued) Coffeen 2 (two) sprays into each nostril once daily Active Problems Problem Noted Date Diagnosed Date Vasomotor rhinitis 09/08/2023 09/08/2023 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 (FLUAD TRIVALENT; 65Y+) (AIIV3)(Given 02/18/2019, 02/19/2018) * INFLUENZA VACCINE, HIGH-DOSE, QUADR. (FLUZONE HIGH-DOSE QUADRIVALENT; 65Y+), 0.7 ML (HD-IIV4)(Given 02/19/2017) * PNEUMOCOCCAL PPSV23(Given 11/02/2020) * Pneumococcal Pcv13 Conj(Given 06/16/2017) * TDAP (7yrs+)(Given 11/21/2008) * Zoster Hzv Vacc Recombinant Inj Im(Given 05/25/2018, 02/19/2018) Social History Tobacco Use Types Packs/Day Years [...] Comments Blood Pressure 136/86 04/19/2024 9:18 AM CHIEF CRNA Pulse 66 04/19/2024 9:18 AM CHIEF CRNA Temperature 36.4 C (97.6 F) 12/16/2023 1:30 PM CDT Respiratory Rate 12 12/16/2023 1:45 PM CDT Oxygen Saturation 96% 02/23/2024 8:45 AM CDT Inhaled Oxygen Concentration - - Weight 83.5 kg (184 lb) 04/19/2024 9:18 AM CHIEF CRNA Height 165.1 cm (5' 5 ) 04/19/2024 9:18 AM CHIEF CRNA Body Mass Index 30.62 04/19/2024 9:18 AM CHIEF CRNA Procedures * CO NASAL ENDOSCOPY,DX(Performed 04/19/2024) Performed for Chronic rhinitis, Allergic conjunctivitis of both eyes, Vasomotor rhinitis, Nasal discharge * CO ENDO NASAL SINUS BX POLYP DEBRID RAY(Performed 02/23/2024) Performed for Allergic conjunctivitis of both eyes, Vasomotor rhinitis, Nasal congestion, Nasal discharge, Chronic rhinitis * CO ENDO NASAL SINUS BX POLYP DEBRID RAY(Performed 01/19/2024) Performed for Vasomotor rhinitis, Nasal congestion, Nasal discharge, Deviated septum, Nasal turbinate hypertrophy * ENDOTRACHEAL TUBE NOTE(Performed 12/16/2023) * CO REPAIR OF NASAL SEPTUM(Performed 12/16/2023) Performed for Vasomotor rhinitis, Deviated septum, Nasal turbinate hypertrophy * CO NASAL ENDOSCOPY,DX(Performed 09/08/2023) Performed for Vasomotor rhinitis, Nasal congestion, Nasal discharge, Deviated septum, Nasal turbinate hypertrophy Results * CO NASAL ENDOSCOPY,DX (04/19/2024 9:37 AM CHIEF CRNA) David Morgan MD - 04/19/2024 9:37 AM CHIEF CRNA David Moore MD 04/19/2024 9:38 AM Due [...] David Moore MD PROCEDURE/MINOR HAYES RGICAL ORDERABLES * CO ENDO NASAL SINUS BX POLYP DEBRID RAY (02/23/2024 9:02 AM CDT) David Morgan MD - 02/23/2024 9:02 AM CDT David Moore MD 02/23/2024 9:05 AM Due to the findings on physical examination, in correlation with the patient's symptomatology, the decision was made to perform a procedure today in clinic. Consent obtained prior to starting procedure. Procedure: Rigid Nasal Endoscopy with debridement Pre Op Dx: Nasal discharge, nasal crusting Post Op: same Anesthesia: Bilateral Nasal Cavities sprayed with Lidocaine and Neosynephrine Detail: Rigid nasal endoscopy performed bilaterally. Septum intact. Right nasal cavity showed significant nasal crusting and discharge. The crusts were removed with a combination of suction and Blakesley forceps. Mucopurulence was suctioned. Left nasal cavity showed mucopurulence and crustings. These were removed under endoscopic visualization using the suction and forceps. David Moore MD PROCEDURE/MINOR HAYES RGICAL ORDERABLES * CO ENDO NASAL SINUS BX POLYP DEBRID RAY (01/19/2024 11:05 AM CDT) David Morgan MD - 01/19/2024 11:05 AM CDT David Moore MD 01/19/2024 11:06 AM Due to the findings on physical examination, in correlation with the patient's symptomatology, the decision was made to perform a procedure today in clinic. Consent obtained prior to starting procedure. Procedure: Rigid Nasal Endoscopy with debridement Pre Op Dx: Nasal discharge, nasal crusting Post Op: same Anesthesia: Bilateral Nasal Cavities sprayed with Lidocaine and Neosynephrine Detail: Rigid nasal endoscopy performed bilaterally. Septum intact. Right nasal cavity showed significant nasal crusting and discharge. The crusts were removed with a combination of suction and Blakesley forceps. Mucopurulence was suctioned. Left nasal cavity showed mucopurulence and crustings. These were removed under endoscopic visualization using the suction and forceps. David Moore MD PROCEDURE/MINOR HAYES RGICAL ORDERABLES * ETT LINE PERFORMABLE (12/16/2023 12:15 PM CDT) Elisabeth Munoz Anes Asst - 12/16/2023 12:15 PM CDT Elisabeth Mcgowan Anes Asst 12/16/2023 12:16 PM Endotracheal Tube Placement: Patient Location: OR. Intubation Event Date/Time: 12/16/2023 12:05 PM Procedure: intubation ([id number]) Procedure Section: Sedation: under general anesthesia. Indications for Airway Management: anesthesia Induction: standard IV Patient Position: supine Mask Ventilation: easy with oral airway. Blade Type: Porfirio Blade Size: 3 Laryngoscopy View: grade 2 (partial cords) Intubation Adjuncts: cricoid pressure and stylet Tube: endotracheal tube Placement: oral Tube type: cuff - inflated Tube Size (MM): 7 Depth of Insertion (CM): 21 Measured From: lips Cuff Inflated With: air Number of Attempts: 1. Placement Verified By: direct visualization, bilateral breath sounds, chest auscultation and CO2 monitor Tube secured with: adhesive tape. Dentition unchanged? Yes Difficult Airway? No. Procedure Start Time: 12/16/2023 12:05 PM. Staff Section Anesthesia Provider: Mcgowan, Elisabeth, Anes Asst, Performed the procedure Provider #1: Leonardo Jameson MD. Additional Comments: Atraumatic intubation with lips, teeth, and tongue in pre-op condition. Eyes taped prior to intubation. . Leonardo Jameson MD GENERAL ANESTHESIA O RDERABLES * CO NASAL ENDOSCOPY,DX (09/08/2023 1:58 PM CDT) Narrative David Moore MD - 09/08/2023 1:58 PM CDT David Moore MD 09/08/2023 1:59 PM Due to the findings on physical examination, in correlation with the patient's symptomatology, the decision was made to perform a procedure today in clinic. Verbal consent obtained prior to starting procedure. Procedure note: Procedure: Rigid Nasal Endoscopy Pre Op Dx: Nasal secretions Post Op: same Anesthesia: Bilateral Nasal Cavities sprayed with Lidocaine and Neosynephrine Detail: Rigid nasal endoscopy performed bilaterally. Septum deviated superiorly and inferiorly. Right nasal cavity showed turbinate hypertrophy, mucus stranding present. Left nasal cavity showed turbinate hypertrophy, mucus present. David Moore MD PROCEDURE/MINOR HAYES RGICAL ORDERABLES Care Teams Digital Photo Printer Relationship Specialty Start Date End Date Nikki Dickinson MD [address] [facility] [address] [address] PCP - General Family Medicine 09/08/23
--- OUTSIDE RECORDS SUMMARY | 2024-06-24 14:56 | XMS_ITS | Clinical Summary ---
Author Organization [facility] Address [address] [place] [address] Care Team Providers Care Press Puller Name Role Phone Nikki Dickinson MD Primary Care Provider Allergies Active Allergy Reactions Criticality Noted Date Comments Oodetqb-Nkl-Bvu Reductase Inhibitors Unknown 03/14/2021 Medications ezetimibe (ZETIA) 10 mg tablet Take 10 mg by mouth daily. Active losartan (COZAAR) 50 mg tablet Take 50 mg by mouth daily. 2022 Active timoloL maleate (TIMOPTIC) 0.5% solution INSTILL 1 DROP IN BOTH EYES TWICE DAILY 07/29/2022 Active clobetasoL (TEMOVATE) 0.05 % Cream APPLY TO VULVA AREA 2 TO 3 TIMES PER WEEK 08/21/2022 Active hydroCHLOROthia zide 12.5 mg tablet Take 12.5 mg by mouth daily. Active Active Problems Problem Noted Date Diagnosed Date Prophylaxis for chemotherapy-induced neutropenia 05/23/2021 Urothelial carcinoma 03/14/2021 Encounters Date Type Department Care Team Description 06/23/2024 External Device Data STL ABSTRACTION Provider, Abstract 05/27/2024 External Device Data STL ABSTRACTION Provider, Abstract 04/12/2024 11:15 AM ENVIRONMENTAL COMPLIANCE MANAGER Office Visit [facility] Oncology and Hematology [facility] [address] [place] [address] Taurus Mullins MD Urothelial carcinoma (CMS/HCC) (Primary Dx) 04/06/2024 Orders Only [facility] Oncology [facility] [address] [place] [address] Taurus Mullins MD 04/05/2024 Orders Only [facility] Oncology and Hematology [facility] [address] [place] [address] Taurus Mullins MD from Last 3 Months Family History Medical History Relation Name Comments Cancer Mother Relation Name Status Comments Brother Alive Father Mother Social History Tobacco Use Types Packs/Day Years Used Date Smoking Tobacco: Never Smokeless Tobacco: Never Tobacco Cessation:Counseling Given: Not Answered Alcohol Use Standard Drinks/Week Comments Not Currently 0 (1 standard drink = 0.6 oz pur e alcohol) Comments Unknown Sex and Gender Information Value Date Recorded Sex Assigned at Not on file Legal Sex Female 4:50 AM ENVIRONMENTAL COMPLIANCE MANAGER Gender Identity Not on file Sexual Orientation Not on file Last Filed Vital Signs Vital Sign Reading Time Taken Comments Blood Pressure 129/79 04/12/2024 11:03 AM ENVIRONMENTAL COMPLIANCE MANAGER Pulse 60 04/12/2024 11:03 AM ENVIRONMENTAL COMPLIANCE MANAGER Temperature 36.3 C (97.3 F) 04/12/2024 11:03 AM ENVIRONMENTAL COMPLIANCE MANAGER Respiratory Rate 15 04/12/2024 11:03 AM ENVIRONMENTAL COMPLIANCE MANAGER Oxygen Saturation 95% 04/12/2024 11:03 AM ENVIRONMENTAL COMPLIANCE MANAGER Inhaled Oxygen Concentration - - Weight 83.1 kg (183 lb 3.2 oz) 04/12/2024 11:03 AM ENVIRONMENTAL COMPLIANCE MANAGER Height 165.1 cm (5' 5 ) 02/18/2022 1:10 PM CDT Body Mass Index 30.49 02/18/2022 1:10 PM CDT Plan of Treatment Upcoming Encounters Date Type Department Care Team (Late st Contact Info) Description 10/25/2024 10:15 AM CDT Office Visit [facility] Oncology and Hematology [facility] [address] [place] [address] Taurus Mullins MD [address] [facility] [address] [place] [address] Health Maintenance Due Date Last Done Comments OSTEOPOROSIS SCREENING 07/31/2011 DTAP/TDAP/TD VACCINES (2 - T d or Tdap) 11/21/2018 11/21/2008 RSV VACCINE (60+ or ) (1 - 1-dose 75+ series) 2021 INFLUENZA VACCINE (#1) 2023 2, 02/08/2021, 01/13/2020, Additional history exists ZOSTER VACCINE Completed 05/25/2018, 02/19/2018 PNEUMOCOCCAL VACCINE 65+ YEARS Completed 11/02/2020 , 06/16/2017 Procedures Procedure Name Priority Date/Time Associated Diagnosis Comments COMPREHENSIVE METABOLIC PANEL Routine 04/05/2024 11:19 AM ENVIRONMENTAL COMPLIANCE MANAGER CBC WITH DIFFERENTIAL Routine 04/05/2024 11:01 [address] ENVIRONMENTAL COMPLIANCE MANAGER CT ABDOMEN PELVIS W CONTRAST Routine 04/05/2024 10:29 AM ENVIRONMENTAL COMPLIANCE MANAGER CREATININE Routine 04/05/2024 9:51 AM ENVIRONMENTAL COMPLIANCE MANAGER from Last 3 Months Results * COMPREHENSIVE METABOLIC PANEL (04/05/2024 11:19 AM ENVIRONMENTAL COMPLIANCE MANAGER) Blood us Taurus Mullins MD CHEMISTRY ORDERABLES Final Resu lt * CBC WITH DIFFERENTIAL (04/05/2024 11:01 AM ENVIRONMENTAL COMPLIANCE MANAGER) Blood us Taurus Mullins MD HEMATOLOGY ORDERABLES Final Res ult * CT ABDOMEN PELVIS W CONTRAST (04/05/2024 10:29 AM ENVIRONMENTAL COMPLIANCE MANAGER) Anatomical Region Laterality Modality Abdomen Other us Taurus Mullins MD CT ORDERABLES Final Result * CREATININE (04/05/2024 9:51 AM ENVIRONMENTAL COMPLIANCE MANAGER) Blood us Taurus Mullins MD CHEMISTRY ORDERABLES Final Resu lt from Last 3 Months Insurance AET[employer] PPO MCR Care Teams Press Puller Relationship Specialty Start Date End Date Nikki Dickinson MD [address] [facility] [place] [address] PCP - General Family Practice 04/12/24
--- OUTSIDE RECORDS SUMMARY | 2024-06-24 14:56 | XMS_ITS | Referral Summary ---
Author Organization [facility] Address [address] [place] [address] Care Team Providers Care Laboratory Cureman Name Role Phone Candelaria Yeh NP Primary Care Provider [phone] Laurie Fletcher MD Unavailable [phone] Allergies Active Allergy Reactions Criticality Noted Date Comments Uxfyyfo-Nfk-Rvd Reductase Inhibitors Muscle pain Medium 10/04/2022 Muscle cramps Tizanidine Dizziness Low 10/04/2022 Medications clobetasoL (TEMOVATE) 0.05 % cream Apply 1 Application topically as needed 3 Active ezetimibe (ZETIA) 10 mg tabletIndicatio ns:hypercholest erolemia Take 1 tablet (10 mg total) by mouth nightly 3 Active timolol (TIMOPTIC) 0.5 % ophthalmic solution Administer 1 drop into both eyes 2 (two) times a day 3 Active ipratropium (ATROVENT) 42 mcg (0.06 %) nasal spray Administer 1 spray into each nostril 3 (three) times a day 3 Active losartan (COZAAR) 50 mg tablet Take 1 tablet (50 mg total) by mouth daily 3 Active calcium citrate-vitamin D3 (CITRACAL WITH D) 315 mg-6.25 mcg (250 unit) per tablet Take 1 tablet by mouth daily Active Active Problems Problem Noted Date Diagnosed Date 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 Thickened endometrium 10/04/2022 Urothelial carcinoma 03/14/2021 After-cataract with vision obscured 08/19/2014 Epiphora due to insufficient drainage 08/19/2014 Presbyopia 08/19/2014 Pseudophakia 08/19/2014 Vitreous floaters 08/19/2014 Resolved Problems Problem Noted Date Diagnosed Date Resolved Date Migraine with aura 11/18/2022 3 Immunizations Immunization Administration Dates Next Due Hep A, Adult 05/12/2012,11/08/2011 Influenza, Quad, Adjuvantated, Intramuscular 04/2022,02/08/2021 Influenza, Quadrivalent, Hig h Dose, Preservative Free, Intrr 01/13/2020 Influenza, Trivalent, Adjuvanted, Intramuscular 02/18/2019,02/19/2018 Influenza, Trivalent, High D ose, Split, Preservative Free, Intramuscular 02/19/2017 Pneumococcal Conjugate PCV 13 06/16/2017 Pneumococcal Polysaccharide PPV23 11/02/2020 Tdap 11/21/2008 ZOSTER Recombinant 05/25/2018,02/19/2018 Social History Tobacco Use Types Packs/Day Years Used Date Smoking Tobacco: Never Tobacco Cessation:Counseling Given: Not Answered AUDIT-C Answer Date Recorded Q1: How often do you have a drink containing alc ohol? 2-4 times a month 10/18/2022 Q2: How many drinks containi ng alcohol do you have on a typical day when you are drinking? 1 or 2 10/18/2022 Q3: How often do you have si x or more drinks on one occasion? Never 10/18/2022 Personal Safety Answer Date Recorded Have you ever been in or are you currently in a harmful physical or emotional relationship or is someone making you feel afraid or unsafe? Denies 10/28/2022 Comments No Sex and Gender Information Value Date Recorded Sex Assigned at Not on file Legal Sex Female 5:46 PM MIRROR INSTALLER Gender Identity Not on file Sexual Orientation Not on file Last Filed Vital Signs Vital Sign Reading Time Taken Comments Blood Pressure 157/87 12/17/2022 10:13 AM CDT Pulse 85 12/17/2022 10:13 AM CDT Temperature 36.8 C (98.2 F) 12/17/2022 10:13 AM CDT Respiratory Rate 16 12/17/2022 10:13 AM CDT Oxygen Saturation 98% 12/17/2022 10:13 AM CDT Inhaled Oxygen Concentration - - Weight 76.2 kg (168 lb) 12/17/2022 10:13 AM CDT Height 166.9 cm (5' 5.71 ) 12/17/2022 10:13 AM C DT Body Mass Index 27.36 12/17/2022 10:13 AM CDT Plan of Treatment Not on file Insurance AETNA MEDICARE AET MEDICARE AETNA MEDICARE Advance Directives For more information, please contact: [phone] Documents on File Type Date Recorded Patient Chicken Sexer Expl anation ADVANCE DIRECTIVE 10/23/2022 7:13 PM POWER OF AGENCY LEGAL COUNSEL-MEDICAL Care Teams Laboratory Cureman Relationship Specialty Start Date End Date Candelaria Yeh NP PCP - General Family Medicine 10/04/22 Laurie Fletcher MD [address] [place] [address] Obstetrics and Gynecology 11/21/22
--- OUTSIDE RECORDS SUMMARY | 2024-06-24 14:56 | XMS_ITS | Referral Summary ---
Author Organization [facility] Address [address] [place] [address] Care Team Providers Care Corner Cutter Name Role Phone Nikki Dickinson MD Primary Care Provider Source Comments [facility],non-owned Affiliates and Associated Physician Practices is amultiple site organization consisting of ambulatory clinics and hospital sitesin [place], [place], [place] and [place]. This disclosure is being madepursuant to the Care Everywhere program and may not contain all information available regarding this patient. Last updated 18.[facility] Encounters Date Type Department Care Team Description 05/28/2024 Refill [facility] - ENT [address] [place] [phone] David Moore MD Refill Request 04/19/2024 Travel 04/19/2024 9:30 AM FLOOR CASHIER Office Visit [facility] - ENT [address] [place] [phone] David Moore MD Chronic rhinitis (Primary Dx); Allergic conjunctivitis of both eyes; Vasomotor rhinitis; Nasal discharge from Last 3 Months Allergies Active Allergy Reactions Criticality Noted Date [...] rhinitis,Allergic conjunctivitis of both eyes,Vasomotor rhinitis,Nasal discharge [place] 2 (two) sprays into each nostril once [...] 08/19/2014 09/08/2023 Vitreous floaters 08/19/2014 09/08/2023 Immunizations Name Administration Dates Next Due HEP A VACCINE, ADULT 05/12/2012,11/08/2011 INFLUENZA VACCINE 02/13/2022,02/08/2021,01/13/20 INFLUENZA VACCINE, ADJUVANTE D, TRIV. (FLUAD TRIVALENT; 65Y+) (AIIV3) 02/18/2019,02/19/2018 INFLUENZA VACCINE, HIGH-DOSE , QUADR. (FLUZONE HIGH-DOSE QUADRIVALENT; 65Y+), 0.7 ML (HD-IIV4) 02/19/2017 PNEUMOCOCCAL PPSV23 11/02/2020 Pneumococcal Pcv13 Conj 06/16/2017 TDAP (7yrs+) 11/21/2008 Zoster Hzv Vacc Recombinant Inj Im 05/25/2018, Social History Tobacco Use Types Packs/Day Years [...] Comments Blood Pressure 136/86 04/19/2024 9:18 AM FLOOR CASHIER Pulse 66 04/19/2024 9:18 AM FLOOR CASHIER Temperature 36.4 C (97.6 F) 12/16/2023 1:30 PM CDT Respiratory Rate 12/16/2023 1:45 PM CDT Oxygen Saturation 96% 02/23/2024 8:45 AM CDT Inhaled Oxygen Concentration - - Weight 83.5 kg (184 lb) 04/19/2024 9:18 AM FLOOR CASHIER Height 165.1 cm (5' 5 ) 04/19/2024 9:18 AM FLOOR CASHIER Body Mass Index 30.62 04/19/2024 9:18 AM FLOOR CASHIER Plan of Treatment Upcoming Encounters Date Type Department Care Team (Late st Contact Info) Description 08/23/2024 9:30 AM CDT Office Visit [facility] - ENT [address] [facility] [address], [place] [address] David Moore MD [address] [facility] [address] [place] [address] Procedures Procedure Name Priority Date/Time Associated Diagnosis Comments [place] NASAL ENDOSCOPY,DX Routine 04/19/2024 9:37 AM FLOOR CASHIER Chronic rhinitis Allergic conjunctivitis of both eyes Vasomotor rhinitis Nasal discharge from Last 3 Months Results * [place] NASAL ENDOSCOPY,DX (04/19/2024 9:37 AM FLOOR CASHIER) Narrative David Moore MD - 04/19/2024 9:37 AM FLOOR CASHIER Daivd Moore MD 04/19/2024 9:38 AM Due to [...] ORDERABLES from Last 3 Months Care Teams Corner Cutter Relationship Specialty Start Date End Date Nikki Dickinson MD [facility] [address] [address] PCP - General Family Medicine 09/08/23
--- OUTSIDE RECORDS SUMMARY | 2024-06-24 14:56 | XMS_ITS | Clinical Summary ---
Author Organization [facility] Address [facility] [place] [address] Care Team Providers Care Station Mechanic Helper Name Role Phone Candelaria Yeh NP Primary Care Provider [phone] Laurie Fletcher MD Unavailable [phone] Allergies Active Allergy Reactions Criticality Noted Date Comments Qpexvsj-Ujn-Hku Reductase Inhibitors Muscle pain Medium 10/04/2022 Muscle [...] PPV23 11/02/2020 Tdap 11/21/2008 ZOSTER Recombinant 05/25/2018,02/19/2018 Surgical History Surgery Date Site/Laterality Comments CATARACT EXTRACTION 05/05/2008 - 05/04/2009 Bilateral BUNIONECTOMY 05/05/2009 - 05/04/2010 CORRECTION HAMMER TOE 05/05/2015 - 05/04/2016 APPENDECTOMY 05/05/2020 - 05/04/2021 NEPHROURETERECTOMY 05/05/2020 - 05/04/2021 TEAR DUCT SURGERY 05/05/2022 - 05/04/2023 Medical History Medical History Date Comments Hypertension Hyperlipidemia Cancer (CMS/HCC) ([facility]) Family History Medical History Relation Name Comments No Known Problems Brother No Known Problems Child 1 No Known Problems Child 2 Colon cancer Maternal Grandmother Breast cancer Mother Anesthesia problems Neg Hx Relation Name Status Comments Brother Alive Child 1 Alive Child 2 Alive Father Maternal Grandmother Mother Social History Tobacco Use Types Packs/Day [...] on file Legal Sex Female 5:46 PM SIMULATION DEVELOPER Gender Identity Not on file Sexual Orientation Not on file Obstetrics History Para Term AB IAB SAB Ectopic Multiple Livin g Live Births 2 2 2 2 2 Date Outcome GA Total Labor Labor/2nd/3rd Weight Sex Type Anes PTL Patrica A1 A5 Name Clin Term Term Last Filed Vital Signs Vital Sign Reading [...] 12/17/2022 10:13 AM CDT Plan of Treatment Health Maintenance Due Date Last Done Comments Depression Screening 1945 Hepatitis C Screening 1945 Osteoporosis Screening-Bone Density Scan 1945 Hepatitis B Screening 1964 Well Visit 65+ 07/31/2011 DTaP/Tdap/Td Vaccine (2 - Td or Tdap) 11/21/2018 11/21/2008 Fall Risk Assessment 10/29/2023 10/28/2022 Covid-19 Vaccine (2023-2 5 season) 2024 02/26/2022, 09/17/2021, 03/08/2021, Additional history exists Influenza Vaccine (#1) 2024 , 02/08/2021, 01/13/2020, Additional history exists Zoster Vaccine Completed 05/25/2018, 02/19/2018 Pneumococcal vaccine 65+ Completed 11/02/2020, 06/05 Insurance AETNA MEDICARE AETNA MEDICARE AETNA MEDICARE Advance Directives For more information, please contact: [phone] Documents on File Type Date Recorded Patient Formstone Fitter Expl anation ADVANCE DIRECTIVE 10/23/2022 7:13 PM POWER OF GREENS PLANTER-MEDICAL Care Teams Station Mechanic Helper Relationship Specialty Start Date End Date Candelaria Yeh NP PCP - General Family Medicine 10/04/22 Laurie Fletcher MD [address] [place] [address] Obstetrics and Gynecology 11/21/22
--- OUTSIDE RECORDS SUMMARY | 2024-06-24 14:56 | XMS_ITS ---
Author Organization [facility] Address [address] [place], [place] [id number] Care Team Providers Care Wood Boatbuilder Name Role Phone BJ Henry Unavailable [phone] Nikki Dickinson Unavailable Unavaila CATHY Lin Unavailable [phone] Allergies Allergen (clinical drug ingredient) Drug/Non Drug Allergy documented on EMR Reaction Allergy Type Onset Date Status Substance with 1-mruvjlo-7-methylgluta ryl-coenzyme A reductase inhibitor mechanism of action (substance) Statins Unknown Drug Allergy Active REASON FOR VISIT Patient presents for at-risk foot care . The patient has painful toenails and calluses that are causing difficulty with ambulation and shoegear. The onset is gradual Medications Medication SIG (Take, Route, Frequency, Duration) Notes Start Date End Date Status predniSONE 20 MG TAKE 1 TABLET BY MILAGROS TWICE DAILY Oral for 4 Days Active Nitrofurantoin Monohyd Macro 100 MG TAKE 1 CAPSULE BY MOUTH EVERY 12 HOURS FOR 5 DAYS Oral for 5 Days Active Timolol Maleate 0.5 % INSTILL 1 DROP IN BOTH EYES TWICE DAILY Ophthalmic for 50 Days Active tiZANidine HCl 2 MG TAKE 1 CAPSULE BY [place] [facility] EVERY 8 HOURS NEEDED FOR MUSCLE SPASMS Oral for 3 Days Active Clobetasol Propionate 0.05 % APPLY TO VU LVA AREA 2 TO 3 TIMES PER WEEK External for 30 Days Active Losartan Potassium 50 MG TAKE 1 TABLET B Y MOUTH DAILY Oral for 90 Days Active Ipratropium Moorhead 0.06 % USE 2 SPRAYS IN EACH NOSTRIL THREE TIMES DAILY Nasal for 13 Days Active Ezetimibe 10 MG Oral for 90 Days Active Encounters Encounter Location Date Provider Diagnosis [facility] [place] [address] [place], [place] [id number] 03/08/2024 CATHY CLINTON Tinea unguium B35.1 ; Acquired keratosis [keratoderma] palmaris et plantaris L85.1 ; Atherosclerosis of chitina arteries of extremities with intermittent claudication, bilateral legs I70.213 ; Pain in right foot M79.671 and Pain in left foot M79.672 Assessments Encounter Date Diagnosis (ICD Code) Assessment Notes Treatment Notes Treatment Clinical Notes Section Notes 03/08/2024 Tinea unguium (ICD-10 - B35.1) Nails [...] and pared utilizing a #15 blade 03/08/2024 Atherosclerosis of chitina arteries of extremities with intermittent claudication, bilateral legs (ICD-10 - I70.213) 03/08/2024 Pain in right foot (ICD-10 - M79.671) 03/08/2024 Pain in left foot (ICD-10 - [...] 09:30:00 AM, [address], [place], [place], [id number], Progress Notes * MARTÍNEZ RAMEY ADOB:0 1945 (78 yo F)Acc No.[id number]:03/08/2024 Patient: MARTÍNEZ SHEPARD Provider: Arline Clinton DPM :1945 A ge:78 Y S ex:Female Date:03/08/2024 Address:[address] [place], [place] [id number] Subjective: * Chief Complaints: * Derek crook presents for at-risk foot care . The patient has painful toenails and calluses that are causing difficulty with ambulation and shoegear. The onset is gradual * HPI: H PI: General care Derek crook presents to the office for at risk foot care. Patient states that their nails are thickened, elongated and painful. Patient states that it is aggravated by shoe gear. Onset is gradual. Patient denies being diabetic., Patient denies taking blood thinners., Date last seen by Dr. Dickinson was February 2024., Initials LB. * ROS: G eneral / Constitutional: Patient [...] abnormality. * Medical History: * Surgical History: a ppendectomy 12/2020Hysterectomy 10/2022nephrectomy [id number] * Hospitalization/Major Diagno stic Procedure: * Family History: F ather: PRN - Father: . M other: PRN - Mother: :: Cancer,,known absent . B rother: SIB - Brother: . * Social History: M igrated Social History: M igrated Social History: Alcohol intake : , Smoking Status : Never smoked , History of tobacco use :. * Medications: T akingIpratropium Moorhead 0.06 % Solution USE 2 SPRAYS IN [...] reviewed and reconciled with the patientTaking Ipratropium Moorhead 0.06 % Solution USE 2 SPRAYS IN [...] reconciled with the patient * Allergies: S rita[Allergies Verified] Objective: * Vitals: * Examination: P hysical Examination: General appearance: A lert, pleasant, well-nourished and in no acute distress. D ermatologic: Skin findings: S kin is thin, atrophic and lacking pedal hair. Hypertrophic / hyperkeratotic lesion: d orsal aspect of the left and right 5th digit. Nail pathology: N ails 1, 2, 3, 4, and 5 bilateral are elongated, thick, discolored, and dystrophic with subungual debris. They are painful to palpation. ? V ascular: Dorsalis pedis pulse: 1 /4 [...] - L85.1 3 . A therosclerosis of chitina arteries of extremities with intermittent claudication, bilateral [...] develop.) * Billing Information: * Visit Code: 57348 Office Visit, Est Pt., Level 3. * Procedure Codes: * RNAL AFFAIRS INVESTIGATOR Sign off status: Completed true * Provider: Arline Clinton DPM Date: 1 05/08/2023 Generated for Delaney cobos/Larry/Kassie on: 0 06/24/2024 02:55 PM INTERNAL AFFAIRS INVESTIGATOR History and Physical Notes * HPI (History of Present Illness) Category Sub-Category Detail Notes Category Not es HPI General care Patient presents to the office for at risk foot care. Patient states that their nails are thickened, elongated and painful. Patient states that it is aggravated by shoe gear. Onset is gradual. Patient denies being diabetic., Patient denies taking blood thinners., Date last seen by Dr. Dickinson was February 2024., Initials LB Examination Category Sub-Category Detail Notes Category Not es Dermatologic Skin findings: Skin is thin, at rophic and lacking pedal hair Nail pathology: Nails 1, 2, 3, 4, an d 5 bilateral are elongated, thick, discolored, and dystrophic [...]
[2024-06-24 20:32] LABS: Strep Group A RT-PCR NOT DETECTED (Negative)
[2024-06-24 20:44] LABS: Influenza A QL RT-PCR Positive (Negative); Influenza B QL RT-PCR Negative (Negative); RSV RNA, RT-PCR Negative (Negative); SARS-CoV-2 RNA PCR Negative (Negative)
== END 2024-06-24 14:52 | disposition home or self-care (01) ==
PROVIDERS: PCP Family Medicine; Visit Provider Family Medicine
DX: J06.9 Acute upper respiratory infection, unspecified (principal); J02.9 Acute pharyngitis, unspecified; Z20.822 Contact with and (suspected) exposure to COVID-19
CPT/HCPCS: 87637; 87651

== ENCOUNTER 2024-08-19 13:57 | Outpatient (CLI) | payer MEDICARE, SELFPAY ==
--- OUTSIDE RECORDS SUMMARY | 2024-08-19 14:15 | XMS_ITS | Clinical Summary ---
Author Organization [facility] Address [address] [place] [address] Care Team Providers Care Property Insurance Claims Examiner Name Role Phone Nikki Dickinson MD Primary Care Provider Allergies Active Allergy Reactions Criticality Noted Date Comments Hucajif-Qas-Djq Reductase Inhibitors Unknown 03/14/2021 Medications ezetimibe (ZETIA) [...] Encounters Date Type Department Care Team Description 07/21/2024 External Device Data [facility] ABSTRACTION Provider, Abstract 07/10/2024 External Device Data [facility] ABSTRACTION Provider, Abstract 07/10/2024 External Device Data [place] ABSTRACTION Provider, Abstract 06/23/2024 External Device Data [place] ABSTRACTION Provider, Abstract 05/27/2024 External Device Data [facility] ABSTRACTION Provider, Abstract from Last 3 Months Family History Medical [...] on file Legal Sex Female 4:50 AM GRANTS ANALYST Gender Identity Not on file Sexual Orientation Not on file Last Filed Vital Signs Vital Sign Reading Time Taken Comments Blood Pressure 129/79 04/12/2024 11:03 AM GRANTS ANALYST Pulse 60 04/12/2024 11:03 AM GRANTS ANALYST Temperature 36.3 C (97.3 F) 04/12/2024 11:03 AM GRANTS ANALYST Respiratory Rate 15 04/12/2024 11:03 AM GRANTS ANALYST Oxygen Saturation 95% 04/12/2024 11:03 AM GRANTS ANALYST Inhaled Oxygen Concentration - - Weight 83.1 kg (183 lb 3.2 oz) 04/12/2024 11:03 AM GRANTS ANALYST Height 165.1 cm (5' 5 ) 02/18/2022 1:10 PM CDT Body Mass Index 30.49 02/18/2022 1:10 PM CDT Plan of Treatment Upcoming Encounters Date Type Department Care Team (Late st Contact Info) Description 10/25/2024 10:15 AM CDT Office Visit [facility] On[facility] and H[facility]ology - [place] [address] [place] [address] [facility] [address] [place] [address] Taurus Mullins MD [address] [facility] [address] [place] [address] Health Maintenance Due Date Last Done Comments OSTEOPOROSIS SCREENING 07/31/2011 DTAP/TDAP/TD VACCINES (2 - T d or Tdap) 11/21/2018 11/21/2008 RSV VACCINE (60+ or ) (1 - 1-dose 75+ series) 2021 INFLUENZA VACCINE (#1) 2023 2, 02/08/2021, 01/13/2020, Additional history exists ZOSTER VACCINE Completed 05/25/2018, 02/19/2018 PNEUMOCOCCAL VACCINE 50+ YEARS Completed 11/02/2020 , 06/16/2017 Insurance AETNA PPO MCR Care Teams Property Insurance Claims Examiner Relationship Specialty Start Date End Date Nikki Dickinson MD [address] [facility] [address] PCP - General Family Practice 04/12/24
--- OUTSIDE RECORDS SUMMARY | 2024-08-19 14:16 | XMS_ITS | Clinical Summary ---
Author Organization [facility] Address [facility] [place] [address] Care Team Providers Care Art Preparator Name Role Phone Candelaria Yeh NP Primary Care Provider [phone] Laurie Fletcher MD Unavailable [phone] Allergies Active Allergy Reactions Criticality Noted Date Comments Qdfsacf-Ddd-Mfu Reductase Inhibitors Muscle pain Medium 10/04/2022 Muscle [...] Medical History Date Comments Hypertension Hyperlipidemia Cancer (HCC) Family History Medical History Relation Name Comments [...] on file Legal Sex Female 5:46 PM EQUIPMENT MAINTENANCE SUPERVISOR Gender Identity Not on file Sexual Orientation [...] Advance Directives For more information, please contact: [phone] Documents on File Type Date Recorded Patient Tube Draw Helper Expl anation ADVANCE DIRECTIVE 10/23/2022 7:13 PM POWER OF ADVANCED MANUFACTURING ASSOCIATE-MEDICAL Care Teams Art Preparator Relationship Specialty Start Date End Date Candelaria Yeh NP PCP - General Family Medicine 10/04/22 aLurie Fletcher MD [address] [place] [address] Obstetrics and Gynecology 11/21/22
--- OUTSIDE RECORDS SUMMARY | 2024-08-19 14:16 | XMS_ITS | Clinical Summary ---
Author Organization [facility] Address [address] [place] [address] Care Team Providers Care Metal Fabricator Welder Name Role Phone Nikki Dickinson MD Primary Care Provider Source Comments [facility] is amultiple site organization consisting of ambulatory clinics and hospital sitesin [place], [place], [place] and [place]. This disclosure is being madepursuant to the Care Everywhere program and may not contain all information available regarding this patient. Last updated 18.[facility] Allergies Active Allergy Reactions Criticality Noted Date Comments Ciprofloxacin Unknown Low 09/08/2023 dizziness Latanoprost GI Discomfort 01/20/2023 Hmg-Coa-R Inhibitors Myalgias Low 09/08/2023 Muscle cramping Tizanidine Dizziness Low 10/04/2022 Medications * Be aware that medications may not be up to date on this document. Alwaysverify current medications with the patient. timolol maleate (Timoptic) 0.5 % ophthalmic solution Instill 1 (one) drop into both eyes 2 times daily 3 Active losartan (Cozaar) 50 MG tablet Take 1 (one) tablet by mouth once daily 4 Active hydroCHLOROthiazide 12.5 MG Take 1 (one) tablet by mouth once daily 4 Active ezetimibe (Zetia) 10 MG tablet Take 1 (one) tablet by mouth once daily 3 Active Calcium Citrate-Vitamin D 315-6.25 MG-MCG TABS Take 1 tablet by mouth once daily Active cyanocobalamin (Vitamin B-12) 1000 MCG tablet Take 1 (one) tablet by mouth once daily Active MAGNESIUM GLYCINATE PO Take 200 mg by mouth 2 times daily Active cetirizine (ZyrTEC) 10 MG tabletIndications:A llergic conjunctivitis of both eyes,Vasomotor rhinitis,Nasal congestion,Nasal discharge Take 1 (one) tablet by mouth once daily 90 tablet 4 4 Active olopatadine 0.7 % (Pataday) 0.7 % ophthalmic solutionIndications :Allergic conjunctivitis of both eyes Instill 1 (one) drop into both eyes once daily 2.5 mL 4 Active fluticasone propionate (Flonase) 50 MCG/ACT nasal sprayIndications:Ch ronic rhinitis,Allergic conjunctivitis of both eyes,Vasomotor rhinitis,Nasal discharge SHAKE LIQUID AND USE 2 SPRAYS IN EACH NOSTRIL DAILY 16 g 11 5 Active Active Problems Problem Noted Date Diagnosed Date Vasomotor rhinitis 09/08/2023 09/08/2023 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 Thickened endometrium 10/04/2022 09/08/2023 Prophylaxis for chemotherapy-induced neutropenia 05/23/2021 09/08/2023 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 05/10/2023 After-cataract with vision obscured 08/19/2014 09/08/2023 Epiphora due to insufficient drainage 08/19/2014 09/08/2023 Presbyopia 08/19/2014 09/08/2023 Pseudophakia 08/19/2014 09/08/2023 Vitreous floaters 08/19/2014 09/08/2023 Encounters Date Type Department Care Team Description 05/28/2024 Refill [facility] - ENT [address] [place] [phone] David Moore MD Refill Request from Last 3 Months Immunizations Immunization Administration Dates Next Due HEP A VACCINE, ADULT 05/12/2012,11/08/2011 INFLUENZA VACCINE 02/13/2022,02/08/2021,01/13/20 20 INFLUENZA VACCINE, ADJUVANTE D, TRIV. (FLUAD TRIVALENT; [...] = 0.6 oz pur e alcohol) occasionallly Comments Unknown Sex and Gender Information Value Date Recorded Sex Assigned at Not on file Legal Sex Female 5:58 AM ACTUARIAL INTERNSHIP Gender Identity Not on file Sexual Orientation Not on file Last Filed Vital Signs Vital Sign Reading Time Taken Comments Blood Pressure 136/86 04/19/2024 9:18 AM ACTUARIAL INTERNSHIP Pulse 66 04/19/2024 9:18 AM ACTUARIAL INTERNSHIP Temperature 36.4 C (97.6 F) 12/16/2023 1:30 PM CDT Respiratory Rate 12 12/16/2023 1:45 PM CDT Oxygen Saturation 96% 02/23/2024 8:45 AM CDT Inhaled Oxygen Concentration - - Weight 83.5 kg (184 lb) 04/19/2024 9:18 AM ACTUARIAL INTERNSHIP Height 165.1 cm (5' 5 ) 04/19/2024 9:18 AM ACTUARIAL INTERNSHIP Body Mass Index 30.62 04/19/2024 9:18 AM ACTUARIAL INTERNSHIP Plan of Treatment Upcoming Encounters Date Type Department Care Team (Late st Contact Info) Description 08/23/2024 9:30 AM CDT Office Visit [facility] - ENT [address] [place] [phone] David Moore MD [address] [place] [address] [place] [address] Health Maintenance Due Date Last Done Comments BONE DENSITY TESTING 1945 HEPATITIS C SCREENING 07/25/1964 DTAP/TDAP/TD VACCINES (2 - Td or Tdap) 11/21/2018 11/21/2008 Respiratory Syncytial Virus (RSV) Vaccine Pt: or over 60 yrs (1 - 1-dose 75+ series) 2021 COVID-19 VACCINE ( - season) 2024 DEPRESSION SCREENING 05/05/2024 MEDICARE AWV CALENDAR YEAR 2024 INFLUENZA VACCINE (Season Ended) 2025 02/13/2022, 02/08/2021, 01/13/2020, Additional history exists ZOSTER VACCINE [...] complete this topic MENINGOCOCCAL (Group B) VACCINE SHARED DECISION-MAKING Aged Out No longer eligible based on patient's age to complete this topic MENINGOCOCCAL GROUPS A/C/Y/W VACCINE Aged Out No longer eligible based on patient's age to complete this topic Insurance AETNA MEDICARE ADV AETNA MEDICARE ADV Care Teams Metal Fabricator Welder Relationship Specialty Start Date End Date Nikki Dickinson MD [address] [facility] [address] [place] [address] PCP - General Family Medicine 09/08/23
--- OUTSIDE RECORDS SUMMARY | 2024-08-19 14:16 | XMS_ITS | Referral Summary ---
Author Organization [facility] Address formerly [facility] [place] [address] Care Team Providers Care Websphere Commerce Consultant Name Role Phone Candelaria Yeh NP Primary Care Provider [phone] Laurie Fletcher MD Unavailable [phone] Allergies Active Allergy Reactions Criticality Noted Date Comments Tjftekw-Zrj-Zaq Reductase Inhibitors Muscle pain Medium 10/04/2022 Muscle [...] on file Legal Sex Female 5:46 PM DRUG SAFETY ASSOCIATE Gender Identity Not on file Sexual Orientation [...] Advance Directives For more information, please contact: [phone] Documents on File Type Date Recorded Patient Geospatial Engineer Expl anation ADVANCE DIRECTIVE 10/23/2022 7:13 PM POWER OF DISPERSION MIXER-MEDICAL Care Teams Websphere Commerce Consultant Relationship Specialty Start Date End Date Candelaria Yeh NP PCP - General Family Medicine 10/04/22 Laurie Fletcher MD [address] [place] [address] Obstetrics and Gynecology 11/21/22
--- OUTSIDE RECORDS SUMMARY | 2024-08-19 14:16 | XMS_ITS | Encounter Summary ---
Author Organization [facility] Address [address] [place] [address] Care Team Providers Care Bulking Machine Operator Name Role Phone Nikki Dickinson MD Primary Care Provider Encounter Details Date Type Department Care Team (Late st Contact Info) Description 08/17/1998 Outpatient Historical [facility] Primary Care - [address] [place] [address] Slade Marino Social History Tobacco Use Types Packs/Day Years Used Date Smoking Tobacco: Never Assessed Comments Unknown Sex and Gender Information Value Date Recorded Sex Assigned at Not on file Legal Sex Female 4:50 AM EMBROIDERY SPECIALIST Gender Identity Not on file Sexual Orientation Not on file documented as of this encounter Plan of Treatment Upcoming Encounters Date Type Department Care Team (Late st Contact Info) Description 10/25/2024 10:15 AM CDT Office Visit [facility] Oncology and Hematology - [place] [address] [facility] [address] [place] [address] Taurus Mullins MD [address] [facility] [address] [place] [address] documented as of this encounter Visit Diagnoses Not on filedocumented in this encounter Care Teams Bulking Machine Operator Relationship Specialty Start Date End Date Nikki Dickinson MD [address] [place] [address] [place] [address] PCP - General Family Practice 04/12/24 documented as of this encounter
--- OUTSIDE RECORDS SUMMARY | 2024-08-19 14:16 | XMS_ITS | Encounter Summary ---
Author Organization [facility] Address [address] [place] [address] Care Team Providers Care Production Control Scheduler Name Role Phone Nikki Dickinson MD Primary Care Provider Encounter Details Date Type Department Care Team (Late st Contact Info) Description 10/09/1998 Outpatient Historical [facility] Primary Care - [address] [place] [address] Slade Marino Social History Tobacco Use Types Packs/Day Years Used Date Smoking Tobacco: Never Assessed Comments Unknown Sex and Gender Information Value Date Recorded Sex Assigned at Not on file Legal Sex Female 4:50 AM CREDIT COORDINATOR Gender Identity Not on file Sexual Orientation Not on file documented as of this encounter Plan of Treatment Upcoming Encounters Date Type Department Care Team (Late st Contact Info) Description 10/25/2024 10:15 AM CDT Office Visit [facility] Oncology and Hematology - [place] [address] [facility] [address] [place] [address] Taurus Mullins MD [address] [facility] [address] [place] [address] documented as of this encounter Visit Diagnoses Not on filedocumented in this encounter Care Teams Production Control Scheduler Relationship Specialty Start Date End Date Nikki Dickinson MD [address] [place] [address] [place] [address] PCP - General Family Practice 04/12/24 documented as of this encounter
--- OUTSIDE RECORDS SUMMARY | 2024-08-19 14:16 | XMS_ITS | Encounter Summary ---
Author Organization [facility] [employer] [facility] Address [address] [place] [address] Care Team Providers Care Slot Floor Person Name Role Phone Nikki Dickinson MD Primary Care Provider Encounter Details Date Type Department Care Team (Late Contact Info) Description 08/29/2022 Abstract [facility] Oncology and Hematology [facility] [address] [place] [address] Nader Hyman, RN Social History Tobacco Use Types Packs/Day Years Used Date Smoking Tobacco: Never Smokeless Tobacco: Never Alcohol Use Standard Drinks/Week Comments Not Currently 0 (1 standard drink = 0.6 oz pur e alcohol) Comments Unknown Sex and Gender Information Value Date Recorded Sex Assigned at Not on file Legal Sex Female 4:50 AM LEACHER Gender Identity Not on file Sexual Orientation [...] Description 10/25/2024 10:15 AM CDT Office Visit [facility] Oncology and Hematology [facility] [address] [place] [address] Taurus Mullins MD [address] [facility] [address] [place] [address] documented as of this encounter Visit Diagnoses Not on filedocumented in this encounter Care Teams Slot Floor Person Relationship Specialty Start Date End Date Nikki Dickinson MD [address] [facility] [place] [address] PCP - General Family Practice 04/12/24 documented as of this encounter
[2024-08-19 19:12] LABS: Alanine Aminotransferase 18 U/L (6-35); Albumin Level 4.2 g/dL (3.5-5.1); Alkaline Phosphatase 83 U/L (38-126); Anion Gap 8 mmol/L (4-12); Aspartate Amino Transferase 35 U/L (14-36); Bilirubin,Total 0.6 mg/dL (0.2-1.3); Blood Urea Nitrogen 21 mg/dL (7-17); CRP < 0.5 mg/dL (<1.0); Calcium 9.7 mg/dL (8.4-10.2); Carbon Dioxide 30 mmol/L (22-30); Chloride 101 mmol/L (98-107); Estimated Glomerular Filt Rate 46; Glucose 102 mg/dL (65-110); Potassium 3.9 mmol/L (3.4-5.0); Sodium 139 mmol/L (137-145)
[2024-08-19 19:20] LABS: Basophils Percent Auto 0.2 % (0.2-1.2); Eosinophils Absolute Auto 0.2 K/mm3 (0-0.3); Eosinophils Percent Auto 3.9 % (0-4.4); Hematocrit 41.9 % (37.0-47.0); Hemoglobin 13.4 g/dL (12.0-15.0); Immature Granulocyte Absolute 0.01 K/mm3 (0.00-0.031); Immature Granulocyte Percent A 0.2 % (0-0.5); Lymphocytes Absolute Auto 1.12 K/mm3 (0.9-3.2); Lymphocytes Percent Auto 22.8 % (18.3-44.2); Mean Corpuscular Hemoglobin 29.3 pg (26-34); Mean Corpuscular Volume 91.7 fl (80-100); Mean Platelet Volume 10.2 fl (7.4-10.4); Monocytes Absolute Auto 0.4 K/mm3 (0.1-0.6); Monocytes Percent Auto 8.6 % (2.6-8.5); Neutrophils Absolute Auto 3.2 K/mm3 (1.3-6.7); Neutrophils Percent Auto 64.3 % (45.5-73.1); Platelet Count Result 211 k/mm3 (150-375); Red Blood Count 4.57 M/mm3 (4.2-5.4); Red Cell Distribution Width 14.7 % (11.5-14.5); White Blood Count 4.9 K/mm3 (4.5-10.0)
[2024-08-19 19:47] LABS: Erythrocyte Sedimentation Rate 9 mm/hr (0-20)
[2024-08-19 21:00] LABS: Hemoglobin A1C 5.8 % (<5.7)
== END 2024-08-19 13:58 | disposition home or self-care (01) ==
PROVIDERS: PCP Family Medicine; Visit Provider Family Medicine
DX: G45.3 Amaurosis fugax (principal); Z00.00 Encounter for general adult medical examination without abnormal findings; I10 Essential (primary) hypertension; R73.03 Prediabetes
CPT/HCPCS: 36415; 80053; 83036; 85025; 85652; 86140

== ENCOUNTER 2024-08-25 12:52 | Outpatient (CLI) | payer MEDICARE, SELFPAY ==
--- NOTE | ~2024-08-25 | MR_ITS ---
EXAMINATION: MRA neck wo con DATE: 08/25/2024 13:22 INDICATION: Amaurosis fugax TECHNIQUE: Magnetic resonance angiography (MRA) of the neck was performed without intravenous contras t. Sequences included axial 2D-time of flight T1-weighted FSPGR and axial INHANCE 3-D velocity with r otating maximum intensity projection reconstructions. COMPARISON: None. FINDINGS: There is 0% stenosis of the right carotid bulb relative to normal distal artery lumen diameter (NASCE T criteria). There is a 30% stenosis right internal carotid artery immediately distal to the bulb. Th ere is 50% stenosis of the left carotid bulb relative to normal distal artery lumen diameter. The rig ht vertebral artery is dominant with diminutive left vertebral artery. IMPRESSION: 1. 50% stenosis of the left carotid bulb relative to normal distal artery lumen diameter (NASCET crit eria). 2. 30% stenosis of the right internal carotid artery immediately distal to the right carotid bulb rel ative to normal distal artery lumen diameter. 3. Right vertebral artery is dominant with diminutive left vertebral artery. Reviewed, dictated and finalized at location A. IMPRESSION: 1. 50% stenosis of the left carotid bulb relative to normal distal artery lumen diameter (NASCET criteria). 2. 30% stenosis of the right internal carotid artery immediately distal to the right carotid bulb relative to normal distal artery lumen diameter. 3. Right vertebral artery is dominant with diminutive left vertebral artery.
== END 2024-08-25 12:53 | disposition home or self-care (01) ==
LOC: MICIMG 12:52
PROVIDERS: PCP Family Medicine; Visit Provider Family Medicine
DX: I65.23 Occlusion and stenosis of bilateral carotid arteries (principal)
CPT/HCPCS: 70547

== ENCOUNTER 2024-10-18 10:32 | Outpatient (CLI) | payer MEDICARE, SELFPAY ==
[2024-10-18 11:13] LABS: Basophils Percent Auto 0.4 % (0.2-1.2); Eosinophils Absolute Auto 0.2 K/mm3 (0-0.3); Eosinophils Percent Auto 4.1 % (0-4.4); Hematocrit 41.3 % (37.0-47.0); Hemoglobin 13.6 g/dL (12.0-15.0); Immature Granulocyte Absolute 0.01 K/mm3 (0.00-0.031); Immature Granulocyte Percent A 0.2 % (0-0.5); Lymphocytes Absolute Auto 0.98 K/mm3 (0.9-3.2); Lymphocytes Percent Auto 21.3 % (18.3-44.2); Mean Corpuscular HGB Conc 32.9 g/dl (32-36); Mean Corpuscular Hemoglobin 29.4 pg (26-34); Mean Corpuscular Volume 89.2 fl (80-100); Mean Platelet Volume 9.3 fl (7.4-10.4); Monocytes Absolute Auto 0.4 K/mm3 (0.1-0.6); Monocytes Percent Auto 8.5 % (2.6-8.5); Neutrophils Percent Auto 65.5 % (45.5-73.1); Platelet Count Result 220 k/mm3 (150-375); Red Blood Count 4.63 M/mm3 (4.2-5.4); Red Cell Distribution Width 14.3 % (11.5-14.5); White Blood Count 4.6 K/mm3 (4.5-10.0)
--- OUTSIDE RECORDS SUMMARY | 2024-10-18 11:30 | XMS_ITS | Encounter Summary ---
Author Organization [facility] Address [address] [place] [address] Care Team Providers Care Mold Filler Name Role Phone Nikki Dickinson MD Primary Care Provider Encounter Details Date Type Department Care Team (Late st Contact Info) Description 08/17/1998 Outpatient Historical [facility] Primary Care - [address] [place] [address] Slade Marino Social History Tobacco Use Types Packs/Day Years Used Date Smoking Tobacco: Never Assessed Comments Unknown Sex and Gender Information Value Date Recorded Sex Assigned at Not on file Legal Sex Female 4:50 AM PARK SERVICES SPECIALIST Gender Identity Not on file Sexual Orientation Not on file documented as of this encounter Plan of Treatment Upcoming Encounters Date Type Department Care Team (Late st Contact Info) Description 10/25/2024 10:15 AM CDT Office Visit [facility] Oncology and Hematology - [place] [address] [facility] [address] [place] [address] Taurus Mullins MD [address] [facility] [address] [place] [address] documented as of this encounter Visit Diagnoses Not on filedocumented in this encounter Care Teams Mold Filler Relationship Specialty Start Date End Date Nikki Dickinson MD [address] [place] [address] [place] [address] PCP - General Family Practice 04/12/24 documented as of this encounter
--- OUTSIDE RECORDS SUMMARY | 2024-10-18 11:30 | XMS_ITS | Clinical Summary ---
Author Organization [facility] Address [address] [place] [address] Care Team Providers Care Manager Science Name Role Phone Nikki Dickinson MD Primary Care Provider Allergies Active Allergy Reactions Criticality Noted Date Comments Ppltsnk-Qdo-Chq Reductase Inhibitors Unknown 03/14/2021 Medications ezetimibe (ZETIA) [...] Encounters Date Type Department Care Team Description 10/05/2024 External Device Data ST[facility] ABSTRACTION Provider, Abstract 09/28/2024 External Device Data [facility] ABSTRACTION Provider, Abstract 09/22/2024 External Device Data [facility] ABSTRACTION Provider, Abstract 09/22/2024 External Device Data [facility] ABSTRACTION Provider, Abstract 07/21/2024 External Device Data [facility] ABSTRACTION Provider, [...] on file Legal Sex Female 4:50 AM ALUM MIXER Gender Identity Not on file Sexual Orientation Not on file Last Filed Vital Signs Vital Sign Reading Time Taken Comments Blood Pressure 129/79 04/12/2024 11:03 AM ALUM MIXER Pulse 60 04/12/2024 11:03 AM ALUM MIXER Temperature 36.3 C (97.3 F) 04/12/2024 11:03 AM ALUM MIXER Respiratory Rate 15 04/12/2024 11:03 AM ALUM MIXER Oxygen Saturation 95% 04/12/2024 11:03 AM ALUM MIXER Inhaled Oxygen Concentration - - Weight 83.1 kg (183 lb 3.2 oz) 04/12/2024 11:03 AM ALUM MIXER Height 165.1 cm (5' 5) 02/18/2022 1:10 PM CDT Body Mass Index 30.49 02/18/2022 1:10 PM CDT Plan of Treatment Upcoming Encounters Date Type Department Care Team (Late st Contact Info) Description 10/25/2024 10:15 AM CDT Office Visit [facility] Oncology and Hematology - [place] [address] [place] [address] [facility] [address] [place] [address] Taurus Mullins MD [address] [facility] [address] [place] [address] Health Maintenance Due Date Last Done Comments OSTEOPOROSIS SCREENING 07/31/2011 DTAP/TDAP/TD VACCINES (2 - T d or Tdap) 11/21/2018 11/21/2008 RSV VACCINE (60+ or ) (1 - 1-dose 75+ series) 2021 INFLUENZA VACCINE (#1) 2023 2, 02/08/2021, 01/13/2020, Additional history exists Medicare Advantage ([place]) Preventative Visit/Annual Wellness Visit 05/05/2024 ZOSTER VACCINE Completed 05/25/2018, 02/19/2018 PNEUMOCOCCAL VACCINE 50+ YEARS Completed 11/02/2020 , 06/16/2017 Insurance [employer]ETNA PPO MCR Care Teams Manager Science Relationship Specialty Start Date End Date Nikki Dickinson MD [address] [facility] [place] [address] PCP - General Family Practice 04/12/24
--- OUTSIDE RECORDS SUMMARY | 2024-10-18 11:30 | XMS_ITS | Patient Health Record ---
Author Organization [facility] Address [address] [place], [place] [address] Care Team Providers Care Spool Fixer Name Role Phone CATHY CLINTON Unavailable [phone] Nikki Dickinson Unavailable Unavaila ble Allergies Allergen (clinical drug ingredient) Drug/Non Drug Allergy documented on EMR Reaction Allergy Type Onset Date Status Substance with 0-fcavhvl-2-methylgluta ryl-coenzyme A reductase inhibitor mechanism of action (substance) Statins Unknown Drug Allergy Active Reason For Referral No Information Medications Medication SIG (Take, Route, Frequency, Duration) Notes Start Date End Date Status Losartan Potassium 50 MG TAKE 1 TABLET B Y MOUTH DAILY Oral for 90 Days Active Ipratropium Nicolaus 0.06 % USE 2 SPRAYS IN EACH NOSTRIL THREE TIMES DAILY Nasal for 13 Days Active Clobetasol Propionate 0.05 % APPLY TO VU LVA AREA 2 TO 3 TIMES PER WEEK External for 30 Days Active tiZANidine HCl 2 MG TAKE 1 CAPSULE BY MO UT EVERY 8 HOURS NEEDED FOR MUSCLE SPASMS Oral for 3 Days Active Ezetimibe 10 MG Oral for 90 Days Active Timolol Maleate 0.5 % INSTILL 1 DROP IN BOTH EYES TWICE DAILY Ophthalmic for 50 Days Active Nitrofurantoin Monohyd Macro 100 MG TAKE 1 CAPSULE BY MOUTH EVERY 12 HOURS FOR 5 DAYS Oral for 5 Days Active predniSONE 20 MG TAKE 1 TABLET BY MILAGROS TH TWICE DAILY Oral for 4 Days Active Immunizations Vaccine Route Administration Date Status Comme nts Hep A, Adult Unknown 11/08/2011 Administered Hep A, Adult Unknown 11/08/2011 Administered Hep A, Adult Unknown 05/12/2012 Administered Hep A, Adult Unknown 05/12/2012 Administered Influenza, high dose seasonal Unknown 02/19/2017 Admini stered Influenza, high dose seasonal Unknown 02/19/2017 Admini stered Influenza, high dose seasonal Unknown 01/30/2024 Admini stered Influenza, high-dose seasona l, quadrivalent, preservative free >65 yrs Unknown 02/19/2017 Administered Influenza, high-dose seasona l, quadrivalent, preservative free >65 yrs Unknown 01/13/2020 Administered Influenza, high-dose seasona l, quadrivalent, preservative free >65 yrs Unknown 01/13/2020 Administered Influenza, high-dose seasona l, quadrivalent, preservative free >65 yrs Unknown 01/30/2023 Administered Influenza, unspecified formulation Unknown 01/13/2020 A dministered Influenza, unspecified formulation Unknown 02/08/2021 A dministered Influenza, unspecified formulation Unknown 02/13/2022 A dministered Moderna Covid-19 Vaccine 1st dose Unknown 06/07/2020 Ad ministered Moderna Covid-19 Vaccine 1st dose Unknown 07/11/2020 Ad ministered Moderna Covid-19 Vaccine 1st dose Unknown 03/08/2021 Ad ministered Moderna Covid-19 Vaccine 1st dose Unknown 09/17/2021 Ad ministered Pneumococcal conjugate PCV 13 Unknown 06/16/2017 Admini stered Pneumococcal conjugate PCV 13 Unknown 06/16/2017 Admini stered Pneumococcal polysaccharide PPV23 Unknown 11/02/2020 Ad ministered Pneumococcal polysaccharide PPV23 Unknown 11/02/2020 Ad ministered Tdap Unknown 11/21/2008 Administered Tdap Unknown 11/21/2008 Administered Vital Signs Height-cm 167.64 cm 09/06/2024 Weight-kg 78.02 kg 09/06/2024 Height 66.00 in 09/06/2024 Weight 172 lbs 09/06/2024 BMI 27.76 kg/m2 09/06/2024 Encounters Encounter Location Date Provider Diagnosis [facility] [place] [address] [place] [address] [phone] 12/08/2023 CATHY CLINTON Tinea unguium B35.1 ; Acquired keratosis [keratoderma] palmaris et plantaris L85.1 ; Atherosclerosis of nightmute arteries of extremities with intermittent claudication, bilateral legs I70.213 ; Pain in right foot M79.671 and Pain in left foot M79.672 [facility] [place] [address] [address] [place] [address] [phone] 03/08/2024 CATHY SNOOK Tinea unguium B35.1 ; Acquired keratosis [keratoderma] palmaris et plantaris L85.1 ; Atherosclerosis of nightmute arteries of extremities with intermittent claudication, bilateral legs I70.213 ; Pain in right foot M79.671 and Pain in left foot M79.672 [facility] [place] [facility] [address] [place] [address] [phone] 06/07/2024 CATHY SNOOK Tinea unguium B35.1 ; Acquired keratosis [keratoderma] palmaris et plantaris L85.1 ; Atherosclerosis of nightmute arteries of extremities with intermittent claudication, bilateral legs 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 ; Pain in right foot M79.671 and Pain in left foot M79.672 [facility] [place] [address] [address] [place] [address] [phone] 09/06/2024 CATHY SNOOK Tinea unguium B35.1 ; Acquired keratosis [keratoderma] palmaris et plantaris L85.1 ; Atherosclerosis of nightmute arteries of extremities with intermittent claudication, bilateral [...] cut and pared utilizing a #15 blade 09/06/2024 Tinea unguium (ICD-10 - B35.1) Nails 1 Bilateral were debrided extensively with nail nippers and emery board, reducing length and girth to pink healthy tissue with any subungual debris and necrotic tissue removed 09/06/2024 Acquired keratosis [keratoderma] palmaris et plantaris (ICD-10 - L85.1) A total of 2 corns or calluses, as described in the note above, were cut and pared utilizing a #15 blade 09/06/2024 Atherosclerosis of nightmute arteries of extremities with intermittent claudication, bilateral legs (ICD-10 - I70.213) 06/07/2024 Atherosclerosis of nightmute arteries of extremities with intermittent claudication, bilateral legs (ICD-10 - I70.213) 03/08/2024 Atherosclerosis of nightmute arteries of extremities with intermittent claudication, bilateral legs (ICD-10 - I70.213) 12/08/2023 Atherosclerosis of nightmute arteries of extremities with intermittent claudication, bilateral legs (ICD-10 - I70.213) 12/08/2023 Pain in right foot (ICD-10 - M79.671) 03/08/2024 Pain in right foot (ICD-10 - M79.671) 06/07/2024 Pain in right foot (ICD-10 - M79.671) 09/06/2024 Pain in right foot (ICD-10 - M79.671) 09/06/2024 Pain in left foot (ICD-10 - M79.672) 06/07/2024 Pain in left foot (ICD-10 - M79.672) 03/08/2024 Pain in left foot (ICD-10 - M79.672) 12/08/2023 Pain in left foot (ICD-10 - M79.672) Plan Of Treatment Next Appt Details Provider Name:CATHY CLINTON, 08:30:00 AM, [address], [place], [place], [phone], Insurance Providers Payer Name Payer Address Payer Phone Subscriber Number Group Number Insured Name Patient Relationship to Insured Coverage Start Date Coverage End Date [employer] [address] [place] [phone] [id number] MARTÍNEZ MELARA Self - patient is the insured Medical (General) History Medical History History ICD Code Cancer (type of cancer) hypertension Surgical History Surgery Date(Month/Year) appendectomy 12/2020 Hysterectomy 10/2022 nephrectomy [id number]
--- OUTSIDE RECORDS SUMMARY | 2024-10-18 11:30 | XMS_ITS | Clinical Summary ---
Author Organization [facility] Address [address] [place] [address] Care Team Providers Care Program Manager Slp Name Role Phone Nikki Dickinson MD Primary Care Provider Source Comments [facility] and [facility] is amultiple site organization consisting of ambulatory clinics and hospital sitesin [place], [place], [place] and [place]. This disclosure is being madepursuant to the Care Everywhere program and may not contain all information available regarding this patient. 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 05/10/2023 After-cataract with vision obscured 08/19/2014 09/08/2023 Epiphora due to insufficient drainage 08/19/2014 09/08/2023 Presbyopia 08/19/2014 09/08/2023 Pseudophakia 08/19/2014 09/08/2023 Vitreous floaters 08/19/2014 09/08/2023 Encounters Date Type Department Care Team Description 08/23/2024 9:30 AM CDT Office Visit [facility] - ENT [address] [place] [phone] David Moore MD Bilateral epiphora (Primary Dx); Chronic rhinitis; Vasomotor rhinitis; Nasal discharge; Allergic conjunctivitis of both eyes; Deviated septum; Nasal turbinate hypertrophy; Nasal congestion 08/23/2024 Travel from Last 3 Months Immunizations Immunization Administration Dates Next Due COVID MODERNA BIVALENT 12Y+ 50MCG/0.5ML 02/26/2022 COVID PFIZER 12+YR 30MCG/0.3mL 01/30/2024,2023,01/30/2023 Covid Moderna primary monova lent 12+ yr 0.5mL 09/17/2021,03/08/2021,07/11/2020,2020 HEP A VACCINE, ADULT 05/12/2012,11/08/2011 INFLUENZA VACCINE 02/13/2022,02/08/2021,01/13/20 20 INFLUENZA VACCINE, ADJUVANTE D, QUADR. (FLUAD QUADRIVALENT; 65Y+) (AIIV4) 02/13/2022,02/08/2021 INFLUENZA VACCINE, ADJUVANTE D, TRIV. (FLUAD TRIVALENT; 65Y+) (AIIV3) 02/18/2019,02/19/2018 INFLUENZA VACCINE, HIGH-DOSE , QUADR. (FLUZONE HIGH-DOSE QUADRIVALENT; 65Y+), 0.7 ML (HD-IIV4) 01/30/2023,01/13/2020,02/19/2017 INFLUENZA VACCINE, HIGH-DOSE , TRIV. (FLUZONE HIGH-DOSE TRIVALENT; 65Y+) (HD-IIV3) 01/30/2024,02/19/2017 PNEUMOCOCCAL PPSV23 11/02/2020 Pneumococcal Pcv13 Conj 06/16/2017 RSV ABRYSVO PREG OR 60y+ 0.5mL 01/30/2023 TDAP (7yrs+) 11/21/2008 Zoster Hzv Vacc Recombinant [...] on file Legal Sex Female 5:58 AM CANDLE WICKER Gender Identity Not on file Sexual Orientation Not on file Last Filed Vital Signs Vital Sign Reading Time Taken Comments Blood Pressure 119/80 08/23/2024 9:11 AM CDT Pulse 64 08/23/2024 9:11 AM CDT Temperature 36.4 C (97.6 F) 12/16/2023 1:30 PM CDT Respiratory Rate 12 12/16/2023 1:45 PM CDT Oxygen Saturation 96% 02/23/2024 8:45 AM CDT Inhaled Oxygen Concentration - - Weight 84.8 kg (187 lb) 08/23/2024 9:11 AM CDT Height 165.1 cm (5' 5) 08/23/2024 9:11 AM CDT Body Mass Index 31.12 08/23/2024 9:11 AM CDT Plan of Treatment Upcoming Encounters Date Type Department Care Team (Late st Contact Info) Description 10/21/2024 1:00 PM CDT Office Visit [facility] - Ophthalmology [address] [place] [phone] Flower Martins MD [address] [place] [address] [place] [phone] 02/21/2025 10:00 AM CDT Office Visit [facility] - ENT [address] [place] [phone] David Moore MD [address] [place] [address] [place] [address] Health Maintenance Due Date Last Done Comments BONE DENSITY TESTING 1945 HEPATITIS C SCREENING 07/25/1964 DTAP/TDAP/TD VACCINES (2 - Td or Tdap) 11/21/2018 11/21/2008 DEPRESSION SCREENING 05/05/2024 MEDICARE AWV CALENDAR YEAR 2024 COVID-19 VACCINE ( season) 2024 01/30/2024, 08/18/2023, 01/30/2023, Additional history exists ZOSTER VACCINE Completed 05/25/2018, 02/19/2018 PNEUMOCOCCAL VACCINE 50+ Completed 11/02/2020, 06/05 Respiratory Syncytial Virus (RSV) Vaccine Pt: or over 60 yrs Completed 01/30/2023 INFLUENZA VACCINE Completed 01/30/2024, , 02/13/2022, Additional history exists HEPATITIS B VACCINE Aged Out No longe [...] Procedure Name Priority Date/Time Associated Diagnosis Comments MD NASAL ENDOSCOPY,DX Routine 08/23/2024 10:11 AM CDT Bilateral epiphora Chronic rhinitis Vasomotor rhinitis Nasal discharge Allergic conjunctivitis of both eyes Deviated septum Nasal turbinate hypertrophy Nasal congestion from Last 3 Months Results * MD NASAL ENDOSCOPY,DX (08/23/2024 10:11 AM CDT) Narrative David Moore MD - 08/23/2024 10:11 AM CDT David Moore MD 08/23/2024 10:13 AM Due to the findings on physical examination, in correlation with the patient's symptomatology, the decision was made to perform a procedure today in clinic. Verbal consent obtained prior to starting procedure. Procedure note: Procedure: Rigid Nasal Endoscopy Pre Op Dx: Nasal secretions Post Op: same EBL: minimal Anesthesia: Bilateral Nasal Cavities sprayed with Lidocaine and Neosynephrine Detail: Rigid nasal endoscopy performed bilaterally. Interior of nasal cavity and the middle and superior meatus, the turbinates, and the spheno-ethmoid recess were all viewed and found to be normal unless noted below: Septum intact. No masses or lesions seen. [...] recess inspected showing mucus stranding, intact mucosa. I, Dr. Moore, was present and actively participated in all aspects of the procedure. David Moore MD PROCEDURE/MINOR SURGICAL O RDERABLES Final Result from Last 3 Months Insurance AETNA MEDICARE ADV AETNA MEDICARE ADV Care Teams Program Manager Slp Relationship Specialty Start Date End Date Nikki Dickinson MD [address] [facility] [address] [place] [address] PCP - General Family Medicine 09/08/23
--- OUTSIDE RECORDS SUMMARY | 2024-10-18 11:30 | XMS_ITS | Referral Summary ---
Author Organization [facility] Address [address] [place] [address] Care Team Providers Care Manager Floral Name Role Phone Candelaria Yeh NP Primary Care Provider [phone] Laurie Fletcher MD Unavailable [phone] Encounters Date Type Department Care Team Description 10/14/2024 9:00 AM CDT Ancillary Procedure [facility] Vascular and Vein Surgery at [address] [place] [phone] Bilateral carotid artery stenosis 09/15/2024 Orders Only [facility] Vascular at [address] [place] [phone] Sherly Garvey MD Bilateral carotid artery stenosis (Primary Dx) 09/15/2024 8:30 AM CDT Office Visit [facility] Vascular at [address] [place] [phone] Haleigh Castellanos PA Amaurosis fugax of right eye (Primary Dx); Essential hypertension; Hyperlipidemia, unspecified hyperlipidemia type 08/25/2024 12:55 PM CDT - 08/25/2024 11:59 PM CDT Hospital Encounter [facility] [employer] [address] [facility] [place] [address] Discharge Disposition: Discharge to home or self care from Last 3 Months Allergies Active Allergy Reactions Criticality Noted Date Comments Azsdrtc-Bpf-Csz Reductase Inhibitors Muscle pain Medium 10/04/2022 Muscle [...] Take 1 tablet by mouth daily Active hydroCHLOROthia zide 12.5 mg tablet Take 1 tablet (12.5 mg total) by mouth daily Active aspirin 81 MG oral suspension 5 Active Active Problems Problem Noted Date [...] on file Legal Sex Female 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 Gender Identity Not on file Sexual Orientation Not on file Last Filed Vital Signs Vital Sign Reading Time Taken Comments Blood Pressure 122/79 09/15/2024 8:24 AM CDT Pulse 63 09/15/2024 8:24 AM CDT Temperature 36.8 C (98.2 F) 12/17/2022 10:13 AM CDT Respiratory Rate 16 12/17/2022 10:13 AM CDT Oxygen Saturation 99% 09/15/2024 8:24 AM CDT Inhaled Oxygen Concentration - - Weight 83 kg (183 lb) 09/15/2024 8:24 AM CDT Height 165.1 cm (5' 5) 09/15/2024 8:24 AM CDT Body Mass Index 30.45 09/15/2024 8:24 AM CDT Plan of Treatment Not on file Procedures Procedure Name Priority Date/Time Associated Diagnosis Comments US CAROTIDS DUPLEX BILATERAL Schedule Routine, Read Routine (OP Routine) 10/14/2024 9:17 AM CDT Bilateral carotid artery stenosis NEURO MR OUTSIDE REFERENCE Routine 08/25/2024 12:55 PM CDT from Last 3 Months Results * US Carotids Duplex Bilateral (10/14/2024 9:17 AM CDT) Anatomical Region Laterality Modality Vascular Bilateral Ultrasound 10/14/2024 8:49 AM CDT Narrative 10/15/2024 8:12 AM CDT Vascular & Vein Surgery [address] [place] [address] Carotid Duplex Ultrasound Report Patient Name: OLIVE PEREIRA A : 1945 (79y 2m) Study Date: 10/14/2024 8:49:46 AM Gender: F It Application Development Manager: RUDY Location: [facility] Ref Provider: SHERLY GARVEY Quality: Adequate Order Provider: SHERLY GARVEY PROCEDURES: Carotid Report: Carotid duplex examination of the extracranial arteries was performed using 2D, color and spectral Doppler. INDICATIONS: I65.23 Occlusion and stenosis of bilateral carotid arteries. HISTORY: HTN. HLD. COMPARISONS: Prior MRI 08/25/24: Rt 30%, Lt bulb 50%. MEASUREMENTS: Right Value Left Value RT Prox CCA PSV 119 cm/sec LT Prox CCA PSV 123 cm/sec RT Prox CCA EDV 21 cm/sec LT Prox CCA EDV 20 cm/sec RT Distal CCA PSV 79 cm/sec LT Distal CCA PSV 82 cm/sec RT Distal CCA EDV 20 cm/sec LT Distal CCA EDV 20 cm/sec RT Prox ICA PSV 97 cm/sec Lt Bulb PSV 65 cm/sec RT Prox ICA EDV 18 cm/sec Lt Bulb EDV 11 cm/sec RT Mid ICA PSV 85 cm/sec LT Prox ICA PSV 80 cm/sec RT Mid ICA EDV 30 cm/sec LT Prox ICA EDV 17 cm/sec RT Distal ICA PSV 84 cm/sec LT Mid ICA PSV 124 cm/sec RT Distal ICA EDV 24 cm/sec LT Mid ICA EDV 38 cm/sec RT ECA Prx PSV 68 cm/sec LT Distal ICA PSV 104 cm/sec RT ICA/CCA 1.23 ratio LT Distal ICA EDV 33 cm/sec Rt Vert Dst PSV 46 cm/sec LT ECA Prx PSV 68 cm/sec LT ICA/CCA 1.51 ratio Lt Vert Dst PSV 50 cm/sec FINDINGS: Rt Common Carotid Artery: Duplex imaging of the right common carotid artery is within normal limits without evidence of atherosclerotic disease. Rt Internal Carotid Artery: The plaque in the right internal carotid artery appears to be heterogeneous and smooth. Atherosclerotic changes of the right internal carotid artery without hemodynamically significant Doppler findings. <50% stenosis. Rt External Carotid Artery: The right external carotid artery is patent without evidence of atherosclerotic plaque. Rt Vertebral Artery: The right vertebral artery is patent with antegrade flow. Lt Common Carotid Artery: Duplex imaging of the left common carotid artery is within normal limits without evidence of atherosclerotic disease. Lt Internal Carotid Artery: The plaque in the left internal carotid artery appears to be heterogeneous and smooth. Atherosclerotic changes of the left internal carotid artery without hemodynamically significant Doppler findings. <50% stenosis. Lt External Carotid Artery: The left external carotid artery is patent without evidence of atherosclerotic plaque. Lt Vertebral Artery: The left vertebral artery is patent with antegrade flow. Comments: Brachial artery systolic blood pressure is 138 on the right, 140 on the left. CONCLUSIONS: 1. The right internal carotid artery disease is consistent with a less than 50% stenosis. 2. The left internal carotid artery disease is consistent with a less than 50% stenosis. 3. Normal, antegrade flow is noted in bilateral vertebral arteries. ATTESTATION: I have reviewed and interpreted the pertinent images and measurements of this study. I attest to the conclusions in the final report that is provided above. Electronically Signed By: Sherly Garvey MD 10/15/2024 7:53:54 AM CDT Procedure Note Sherly Garvey MD - 10/15/2024 Vascular & Vein Surgery [address] [facility] [place] [address] Carotid Duplex Ultrasound Report Patient Name: OLIVE PEREIRA A : 1945 (79y 2m) Study Date: 10/14/2024 8:49:46 AM Gender: F It Application Development Manager: RUDY Location: [facility] Ref Provider: SHERLY GARVEY Quality: Adequate Order Provider: SHERLY GARVEY PROCEDURES: Carotid Report: Carotid duplex examination of the extracranial arterieswas performed using 2D, color and spectral Doppler. INDICATIONS: I65.23 Occlusion and stenosis of bilateral carotid arteries. HISTORY: HTN. HLD. COMPARISONS: Prior MRI 08/25/24: Rt 30%, Lt bulb 50%. MEASUREMENTS: Right Value Left Value RT Prox CCA PSV 119 cm/sec LT Prox CCA PSV 123 cm/sec RT Prox CCA EDV 21 cm/sec LT Prox CCA EDV 20 cm/sec RT Distal CCA PSV 79 cm/sec LT Distal CCA PSV 82 cm/sec RT Distal CCA EDV 20 cm/sec LT Distal CCA EDV 20 cm/sec RT Prox ICA PSV 97 cm/sec Lt Bulb PSV 65 cm/sec RT Prox ICA EDV 18 cm/sec Lt Bulb EDV 11 cm/sec RT Mid ICA PSV 85 cm/sec LT Prox ICA PSV 80 cm/sec RT Mid ICA EDV 30 cm/sec LT Prox ICA EDV 17 cm/sec RT Distal ICA PSV 84 cm/sec LT Mid ICA PSV 124 cm/sec RT Distal ICA EDV 24 cm/sec LT Mid ICA EDV 38 cm/sec RT ECA Prx PSV 68 cm/sec LT Distal ICA PSV 104 cm/sec RT ICA/CCA 1.23 ratio LT Distal ICA EDV 33 cm/sec Rt Vert Dst PSV 46 cm/sec LT ECA Prx PSV 68 cm/sec LT ICA/CCA 1.51 ratio Lt Vert Dst PSV 50 cm/sec FINDINGS: Rt Common Carotid Artery: Duplex imaging of the right common carotidartery is within normal limits without evidence of atherosclerotic disease. Rt Internal Carotid Artery: The plaque in the right internal carotidartery appears to be heterogeneous and smooth. Atherosclerotic changes of the right internalcarotid artery without hemodynamically significant Doppler findings. <50% stenosis. Rt External Carotid Artery: The right external carotid artery is patentwithout evidence of atherosclerotic plaque. Rt Vertebral Artery: The right vertebral artery is patent with antegradeflow. Lt Common Carotid Artery: Duplex imaging of the left common carotid arteryis within normal limits without evidence of atherosclerotic disease. Lt Internal Carotid Artery: The plaque in the left internal carotid arteryappears to be heterogeneous and smooth. Atherosclerotic changes of the left internalcarotid artery without hemodynamically significant Doppler findings. <50% stenosis. Lt External Carotid Artery: The left external carotid artery is patentwithout evidence of atherosclerotic plaque. Lt Vertebral Artery: The left vertebral artery is patent with antegradeflow. Comments: Brachial artery systolic blood pressure is 138 on the right, 140on the left. CONCLUSIONS: 1. The right internal carotid artery disease is consistent with a lessthan 50% stenosis. 2. The left internal carotid artery disease is consistent with a less than50% stenosis. 3. Normal, antegrade flow is noted in bilateral vertebral arteries. ATTESTATION: I have reviewed and interpreted the pertinent images and measurements ofthis study. I attest to the conclusions in the final report that is provided above. Electronically Signed By: Sherly Garvey MD 10/15/2024 7:53:54 AM CDT Sherly Garvey MD IMG US PROCEDURES Final Result * Neuro MR Outside Reference (08/25/2024 12:55 PM CDT) Narrative SANNA_ANDER - 09/15/2024 9:02 AM CDT This order has been auto-finalized and does not contain a result. us Provider Transcribed Order IMG MRI PROCEDURES Fi nal Result NIKOLAS_AYAKA_MHB_MHE from Last 3 Months Insurance Ideal Me MEDICARE Ideal Me MEDICARE [facility] MEDICARE Advance Directives For more information, please contact: [phone] Documents on File Type Date Recorded Patient Gas Engine Performance Engineer Expl anation ADVANCE DIRECTIVE 10/23/2022 7:13 PM STAN R OF AOC OPERATIONS INTELLIGENCE OFFICER-MEDICAL Care Teams Manager Floral Relationship Specialty Start Date End Date Candelaria Yeh NP PCP - General Family Medicine 10/04/22 Laurie Fletcher MD [address] [place] [address] Obstetrics and Gynecology 11/21/22
--- OUTSIDE RECORDS SUMMARY | 2024-10-18 11:30 | XMS_ITS | Encounter Summary ---
Author Organization [facility] Address [address] [place] [address] Care Team Providers Care Commercial Sheet Metal Foreman Name Role Phone Nikki Dickinson MD Primary Care Provider Encounter Details Date Type Department Care Team (Late st Contact Info) Description 10/09/1998 Outpatient Historical [facility] Primary Care - [address] [place] [address] Slade Marino Social History Tobacco Use Types Packs/Day Years Used Date Smoking Tobacco: Never Assessed Comments Unknown Sex and Gender Information Value Date Recorded Sex Assigned at Not on file Legal Sex Female 4:[address]ER Gender Identity Not on file Sexual Orientation Not on file documented as of this encounter Plan of Treatment Upcoming Encounters Date Type Department Care Team (Late st Contact Info) Description 10/25/2024 10:15 AM CDT Office Visit [facility] Oncology and Hematology - [address] [facility] [address] [place] [address] Taurus Mullins MD [address] [facility] [address] [place] [address] documented as of this encounter Visit Diagnoses Not on filedocumented in this encounter Care Teams Commercial Sheet Metal Foreman Relationship Specialty Start Date End Date Nikki Dickinson MD [address] [place] [address] [place] [address] PCP - General Family Practice 04/12/24 documented as of this encounter
--- OUTSIDE RECORDS SUMMARY | 2024-10-18 11:30 | XMS_ITS | Clinical Summary ---
Author Organization [facility] Address [address] [place] [address] Care Team Providers Care Slot Floorperson Name Role Phone Candelaria Yeh NP Primary Care Provider [phone] Laurie Fletcher MD Unavailable [phone] Allergies Active Allergy Reactions Criticality Noted Date Comments Eytwmov-Tbi-Qvy Reductase Inhibitors Muscle pain Medium 10/04/2022 Muscle [...] Resolved Date Migraine with aura 11/18/2022 3 Encounters Date Type Department Care Team Description 10/14/2024 9:00 AM CDT Ancillary Procedure [facility] Vascular and Vein Surgery at [address] [phone] Bilateral carotid artery stenosis 09/15/2024 8:30 AM CDT Office Visit [facility] Vascular at [address] [phone] Haleigh Castellanos PA Amaurosis fugax of right eye (Primary Dx); Essential hypertension; Hyperlipidemia, unspecified hyperlipidemia type 09/15/2024 Orders Only [facility] Vascular at [address] [place] [phone] Sherly Garvey MD Bilateral carotid artery stenosis (Primary Dx) 08/25/2024 12:55 PM CDT - 08/25/2024 11:59 PM CDT Hospital Encounter [facility] [employer] [address] [place] [address] Discharge Disposition: Discharge to home or self care from Last 3 Months Immunizations Immunization Administration Dates Next Due Hep [...] on file Legal 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 Female 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 Gender Identity Not on file Sexual Orientation [...] 09/15/2024 8:24 AM CDT Plan of Treatment Health Maintenance Due Date Last Done Comments Depression Screening 1945 Hepatitis C Screening 1945 Osteoporosis Screening-Bone Density Scan 1945 Hepatitis B Screening 1963 Well Visit 65+ 07/31/2011 DTaP/Tdap/Td Vaccine (2 - Td or Tdap) 11/21/2018 11/21/2008 Fall Risk Assessment 10/29/2023 10/28/2022 Covid-19 Vaccine (2023-06 5 season) 2024 02/26/2022, 09/17/2021, 03/08/2021, Additional history exists Zoster Vaccine Completed 05/25/2018, 02/19/2018 Pneumococcal vaccine 65+ Completed 11/02/2020, 06/05 Influenza Vaccine Completed 01/30/2024, , 02/08/2021, Additional history exists Procedures Procedure Name Priority Date/Time Associated Diagnosis [...] AM CDT Vascular & Vein Surgery [address] [facility] [place] [address] Carotid Duplex Ultrasound Report Patient Name: MARTÍNEZ PEREIRANicolas : 1945 (79y 2m) Study Date: 10/14/2024 8:49:46 AM Gender: F Contract Programmer: RUDY Location: [facility] Ref Provider: SHERLY GARVEY [...] MD - 10/15/2024 Vascular & Vein Surgery [facility] [place] [address] Carotid Duplex Ultrasound Report Patient Name: MARTÍNEZ PEREIRA A : 1945 (79y 2m) Study Date: 10/14/2024 8:49:46 AM Gender: F Contract Programmer: RUDY Location: [facility] Ref Provider: SHERLY GARVEY [...] 10/15/2024 7:53:54 AM CDT Sherly Garvey MD [facility] US PROCEDURES Final Result * Neuro MR Outside Reference (08/25/2024 12:55 PM CDT) Narrative NIKOLAS_AYAKA_MHB_MHE - 09/15/2024 9:02 AM CDT This order has been auto-finalized and does not contain a result. us Provider Transcribed Order IMG MRI PROCEDURES Fi nal Result Performing Organization Address City/State/ZIP Or de Phone Number RAD_CLARIO_MHB_MHE from Last 3 Months Insurance T MEDICARE T MEDICARE AET MEDICARE Advance Directives For more information, please contact: [phone] Documents on File Type Date Recorded Patient Customer Care Professional Expl anation ADVANCE DIRECTIVE 10/23/2022 7:13 PM POWER OF TAG MARKER-MEDICAL Care Teams Slot Floorperson Relationship Specialty Start Date End Date Candelaria Yeh NP PCP - General Family Medicine 10/04/22 Laurie Fletcher MD [address] [place] [address] Obstetrics and Gynecology 11/21/22
--- OUTSIDE RECORDS SUMMARY | 2024-10-18 11:30 | XMS_ITS | Encounter Summary ---
Author Organization [facility] [employer] Address [address] [place] [address] Care Team Providers Care Forest Resource Specialist Name Role Phone Nikki Dickinson MD Primary Care Provider Encounter Details Date Type Department Care Team (Late Contact Info) Description 08/29/2022 Abstract [facility] Oncology and Hematology 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 [address] [place] [address] Taurus Mullins MD [address] [facility] [address] [place] [address] documented as of this encounter Visit Diagnoses Not on filedocumented in this encounter Care Teams Forest Resource Specialist Relationship Specialty Start Date End Date Nikki Dickinson MD [address] [facility] [place] [address] PCP - General Family Practice 04/12/24 documented as of this encounter
[2024-10-18 12:00] LABS: Alanine Aminotransferase 17 U/L (6-35); Albumin Level 4.5 g/dL (3.5-5.1); Alkaline Phosphatase 80 U/L (38-126); Anion Gap 8 mmol/L (4-12); Aspartate Amino Transferase 30 U/L (14-36); Bilirubin,Total 0.5 mg/dL (0.2-1.3); Blood Urea Nitrogen 22 mg/dL (7-17); Calcium 10.1 mg/dL (8.4-10.2); Carbon Dioxide 27 mmol/L (22-30); Chloride 103 mmol/L (98-107); Estimated Glomerular Filt Rate 55; Glucose 90 mg/dL (65-110); Potassium 4.2 mmol/L (3.4-5.0); Sodium 138 mmol/L (137-145); Total Protein 6.9 g/dL (6.3-8.2)
== END 2024-10-18 10:33 | disposition home or self-care (01) ==
LOC: ANHLAB 10:34
PROVIDERS: PCP Family Medicine; Visit Provider Internal Medicine Hematology & Oncology
DX: C68.9 Malignant neoplasm of urinary organ, unspecified (principal)
CPT/HCPCS: 36415; 80053; 85025

== ENCOUNTER 2024-10-19 07:47 | Outpatient (CLI) | payer MEDICARE, SELFPAY ==
--- NOTE | ~2024-10-19 | CT_ITS ---
EXAMINATION: CT abdomen pelvis w con DATE: 10/19/2024 09:02 INDICATION: Urothelial carcinoma TECHNIQUE: Computed tomography (CT) of the abdomen and pelvis was performed in prone position with a total of 130 mL Omnipaque-350 intravenous contrast using a double-bolus technique for simultaneous op acification of the renal parenchyma and renal collecting system. Automated exposure control and itera tive reconstruction technique were employed. The dose-length product was 851.68 mGy-cm. COMPARISON: 04/05/2024 FINDINGS: Mild dependent atelectasis in the anterior lung bases. Heart size is normal. Atherosclerotic coronary artery calcification and aortic valve calcification. No pericardial or pleural effusion. A few calci fied right lower lobe nodules and calcified mediastinal lymph nodes consistent with old granulomatous disease. Small sliding-type hiatal hernia. Unchanged 9 mm hepatic cyst. Gallbladder, spleen, pancrea s and bilateral adrenal glands are normal. Status post left nephrectomy. Small amount of noncontrast opacified fluid within the residual small distal left ureteral foramen. There are couple noncontrast opacified parapelvic cysts at the the remaining right kidney the larger measuring 1.2 cm. Right extra renal pelvis. Right kidney is otherwise normal. Contrast desiccation of the right renal collecting sy stem and majority of the right ureter. A small portion of the distalmost right ureter is diminutive/d ecompressed and unopacified with contrast. No filling defects or urothelial irregularities in the col lecting system or contrast opacified portions of the right ureter. Contrast and small amount of nonde pendent gas within the normal-appearing bladder is also without evident urothelial irregularities. Co rrelate clinically for recent instrumentation or Caro catheterization. The uterus and ovaries are no t identified and have likely been surgically resected. Prominent diverticulosis along the sigmoid: Wi thout adjacent from trace stranding to suggest diverticulitis. Postoperative change of prior appendec yoselin. No bowel obstruction. No free intraperitoneal gas or fluid. No pathologically enlarged abdomina l or pelvic lymphadenopathy. 5 mm anterolisthesis L5 on S1. Moderate to severe lumbar and lower thora cic spondylosis. Chronic mild anterior wedging of a few lower thoracic vertebral bodies. A couple sma ll fat-containing ventral hernias along a supraumbilical midline surgical scar. IMPRESSION: 1. Status post left nephrectomy with no evident residual/recurrent or metastatic disease. 2. Small sliding-type hiatal hernia. 3. Diverticulosis. 4. Couple unchanged small fat-containing ventral hernias along a supraumbilical midline surgical scar . Reviewed, dictated and finalized at location A. IMPRESSION: 1. Status post left nephrectomy with no evident residual/recurrent or metastati c disease. 2. Small sliding-type hiatal hernia. 3. Diverticulosis. 4. Couple unchanged small fat-containing ventral hernias along a supraumbilical midline surgical scar.
--- OUTSIDE RECORDS SUMMARY | 2024-10-19 07:52 | XMS_ITS | Encounter Summary ---
Author Organization [facility] Address 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 Gender Identity Not on file Sexual Orientation Not on file documented as of this encounter Plan of Treatment Upcoming Encounters Date Type Department Care Team (Late st Contact Info) Description 10/25/2024 10:15 AM CDT Office Visit [facility] Oncology and Hematology - [place] [address] [facility] [address] [place] [address] Taurus Mullins MD [address] [facility] [address] [place] [address] documented as of this encounter Visit Diagnoses Not on filedocumented in this encounter Care Teams Heel Sprayer Relationship Specialty Start Date End Date Nikki Dickinson MD [address] [place] [address] [place] [address] PCP - General Family Practice 04/12/24 documented as of this encounter
--- OUTSIDE RECORDS SUMMARY | 2024-10-19 07:52 | XMS_ITS | Clinical Summary ---
Author Organization [facility] Address [address] [facility] [place] [address] Care Team Providers Care Registered Dietician Name Role Phone Nikki Dickinson MD Primary Care Provider Allergies Active Allergy Reactions Criticality Noted Date Comments Zrjpeqa-Idz-Pzy Reductase Inhibitors Unknown 03/14/2021 Medications ezetimibe (ZETIA) [...] on file Legal Sex Female 4:50 AM TAX ATTORNEY Gender Identity Not on file Sexual Orientation Not on file Last Filed Vital Signs Vital Sign Reading Time Taken Comments Blood Pressure 129/79 04/12/2024 11:03 AM TAX ATTORNEY Pulse 60 04/12/2024 11:03 AM TAX ATTORNEY Temperature 36.3 C (97.3 F) 04/12/2024 11:03 AM TAX ATTORNEY Respiratory Rate 15 04/12/2024 11:03 AM TAX ATTORNEY Oxygen Saturation 95% 04/12/2024 11:03 AM TAX ATTORNEY Inhaled Oxygen Concentration - - Weight 83.1 kg (183 lb 3.2 oz) 04/12/2024 11:03 AM TAX ATTORNEY Height 165.1 cm (5' 5) 02/18/2022 1:10 PM CDT Body Mass Index 30.49 02/18/2022 1:10 PM CDT Plan of Treatment Upcoming Encounters Date Type Department Care Team (Late st Contact Info) Description 10/25/2024 10:15 AM CDT Office Visit [facility] Oncology and Hematology - [place] [address] [place] [address] [facility] [address] [place] [address] Taurus Mullins MD [address] [facility] [address] [place] [address] Health Maintenance Due Date Last Done Comments OSTEOPOROSIS SCREENING 07/31/2011 DTAP/TDAP/TD VACCINES (2 - T d or Tdap) 11/21/2018 11/21/2008 RSV VACCINE (60+ or ) (1 - 1-dose 75+ series) 2021 INFLUENZA VACCINE (#1) 2023 2, 02/08/2021, 01/13/2020, Additional history exists ZOSTER VACCINE Completed 05/25/2018, 02/19/2018 PNEUMOCOCCAL VACCINE 50+ YEARS Completed 11/02/2020 , 06/16/2017 Insurance [employer] PPO MCR Care Teams Registered Dietician Relationship Specialty Start Date End Date Nikki Dickinson MD [address] [facility] [place] [address] PCP - General Family Practice 04/12/24
--- OUTSIDE RECORDS SUMMARY | 2024-10-19 07:52 | XMS_ITS | Encounter Summary ---
Author Organization [facility] [employer] [facility] Address [address] [place] [address] Care Team Providers Care Photography And Prints Curator Name Role Phone Nikki Dickinson MD Primary Care Provider Encounter Details Date Type Department Care Team (Late Contact Info) Description 08/29/2022 Abstract [facility] Oncology and Hematology [facility] [address] [place] [address] Nader Hyman, RN Social History Tobacco Use Types Packs/Day Years Used Date Smoking Tobacco: Never Smokeless Tobacco: Never Alcohol Use Standard Drinks/Week Comments Not Currently 0 (1 standard drink = 0.6 oz pur e alcohol) Comments Unknown Sex and Gender Information Value Date Recorded Sex Assigned at Not on file 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 [place] [address] PCP - General Family Practice 04/12/24 documented as of this encounter
--- OUTSIDE RECORDS SUMMARY | 2024-10-19 07:52 | XMS_ITS | Referral Summary ---
Author Organization [facility] Address [address] [place] [address] Care Team Providers Care Debt Collection Specialist Name Role Phone Candelaria Yeh NP Primary Care Provider [phone] Laurie Fletcher MD Unavailable [phone] Encounters Date Type Department Care Team Description 10/14/2024 9:00 AM CDT Ancillary Procedure [facility] Vascular and Vein Surgery at [address] [place] [phone] Bilateral carotid artery stenosis 09/15/2024 Orders Only [facility] Vascular at [address] [place] [phone] Sherly Garvey MD Bilateral carotid artery stenosis (Primary Dx) 09/15/2024 8:30 AM CDT Office Visit [facility] Vascular at [address] [place] [phone] Haleigh Castellanos PA Amaurosis fugax of right eye (Primary Dx); Essential hypertension; Hyperlipidemia, unspecified hyperlipidemia type 08/25/2024 12:55 PM CDT - 08/25/2024 11:59 PM CDT Hospital Encounter [facility] [address] [facility] [place] [address] Discharge Disposition: Discharge to home or self care from Last 3 Months Allergies Active Allergy Reactions Criticality Noted Date Comments Rbsjpcv-Vmj-Qtb Reductase Inhibitors Muscle pain Medium 10/04/2022 Muscle [...] on file 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 [address] Carotid Duplex Ultrasound Report Patient Name: OLIVE PEREIRA A : 1945 (79y 2m) Study Date: 10/14/2024 8:49:46 AM Gender: F Commutator Assembler: RUDY Location: [facility] Ref Provider: SHERLY GARVEY [...] - 10/15/2024 Vascular & Vein Surgery [address] [facility] [place] [address] Carotid Duplex Ultrasound Report Patient Name: OLIVE PEREIAR A : 1945 (79y 2m) Study Date: 10/14/2024 8:49:46 AM Gender: F Commutator Assembler: RUDY Location: [facility] Ref Provider: SHERLY GARVEY [...] Result NIKOLAS_AYAKA_MHB_MHE from Last 3 Months Insurance [employer] MEDICARE [employer] MEDICARE [facility] MEDICARE Advance Directives For more information, please contact: [phone] Documents on File Type Date Recorded Patient Behavioral Services Tech Expl anation ADVANCE DIRECTIVE 10/23/2022 7:13 PM STAN R OF [employer] Care Teams Debt Collection Specialist Relationship Specialty Start Date End Date Candelaria Yeh NP PCP - General Family Medicine 10/04/22 Laurie Fletcher MD [address] [place] [address] Obstetrics and Gynecology 11/21/22
--- OUTSIDE RECORDS SUMMARY | 2024-10-19 07:52 | XMS_ITS | Patient Health Record ---
Author Organization [facility] Address [address] [place], [place] [id number] Care Team Providers Care Retort Pre Cooker Name Role Phone CATHY CLINTON Unavailable [phone] Nikki Dickinson Unavailable Unavaila ble Allergies Allergen (clinical drug ingredient) Drug/Non Drug Allergy documented on EMR Reaction Allergy Type Onset Date Status Substance with 7-zvqqkna-9-methylgluta ryl-coenzyme A reductase inhibitor mechanism of action (substance) Statins Unknown Drug Allergy Active Reason For Referral No Information Medications Medication SIG (Take, Route, Frequency, Duration) Notes Start Date End Date Status Losartan Potassium 50 MG TAKE 1 TABLET B Y MOUTH DAILY Oral for 90 Days Active Ipratropium [place] 0.06 % USE 2 SPRAYS IN EACH [...] Location Date Provider Diagnosis [facility] [place] [address] [place] [id number] 12/08/2023 CATHY CLINTON Tinea unguium B35.1 ; Acquired keratosis [keratoderma] palmaris et plantaris L85.1 ; Atherosclerosis of [place]ct[place] arteries of extremities with intermittent claudication, bilateral legs I70.213 ; Pain in right foot M79.671 and Pain in left foot M79.672 [facility] [place] [address] [place] [id number] 03/08/2024 CATHY SNOOK Tinea unguium B35.1 ; Acquired keratosis [keratoderma] palmaris et plantaris L85.1 ; Atherosclerosis of [place]ct[place] arteries of extremities with intermittent claudication, bilateral legs I70.213 ; Pain in right foot M79.671 and Pain in left foot M79.672 [facility] [place] [facility] [address] [place] [id number] 06/07/2024 CATHY SNOOK Tinea unguium B35.1 ; Acquired keratosis [keratoderma] palmaris et plantaris L85.1 ; Atherosclerosis of choct[place] arteries of extremities with intermittent claudication, bilateral legs I70.213 ; Pain in right foot M79.671 and Pain in left foot M79.672 [facility] [place] [address] [place] [id number] 09/06/2024 CATHY SNOOK Tinea unguium B35.1 ; Acquired keratosis [keratoderma] palmaris et plantaris L85.1 ; Atherosclerosis of [place]ct[place] arteries of extremities with intermittent claudication, bilateral [...] utilizing a #15 blade 09/06/2024 Atherosclerosis of choctaw arteries of extremities with intermittent claudication, bilateral legs (ICD-10 - I70.213) 06/07/2024 Atherosclerosis of choctaw arteries of extremities with intermittent claudication, bilateral legs (ICD-10 - I70.213) 03/08/2024 Atherosclerosis of choctaw arteries of extremities with intermittent claudication, bilateral legs (ICD-10 - I70.213) 12/08/2023 Atherosclerosis of choctaw arteries of extremities with intermittent claudication, bilateral [...] Appt Details Provider Name:CATHY CLINTON, 08:30:00 AM, [address], [place], [place], [id number], Insurance Providers Payer Name Payer Address Payer Phone Subscriber Number Group Number Insured Name Patient Relationship to Insured Coverage Start Date Coverage End Date Aetna [address] [place] GARCIA [phone] [id number] MARTÍNEZ MELARA Self - patient is the insured Medical (General) History Medical History History ICD Code Cancer (type of cancer) hypertension Surgical History Surgery Date(Month/Year) appendectomy 12/2020 Hysterectomy 10/2022 nephrectomy [id number]
--- OUTSIDE RECORDS SUMMARY | 2024-10-19 07:52 | XMS_ITS | Encounter Summary ---
Author Organization [facility] Address 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 Gender Identity Not on file Sexual Orientation Not on file documented as of this encounter Plan of Treatment Upcoming Encounters Date Type Department Care Team (Late st Contact Info) Description 10/25/2024 10:15 AM CDT Office Visit [facility] Oncology and Hematology - [place] [address] [facility] [address] [place] [address] Taurus Mullins MD [address] [facility] [address] [place] [address] documented as of this encounter Visit Diagnoses Not on filedocumented in this encounter Care Teams House Officer Relationship Specialty Start Date End Date Nikki Dickinson MD [address] [place] [address] [place] [address] PCP - General Family Practice 04/12/24 documented as of this encounter
--- OUTSIDE RECORDS SUMMARY | 2024-10-19 07:52 | XMS_ITS | Clinical Summary ---
Author Organization [facility] Address [facility] [place] [address] Care Team Providers Care Last Marker Name Role Phone Candelaria Yeh NP Primary Care Provider [phone] Laurie Fletcher MD Unavailable [phone] Allergies Active Allergy Reactions Criticality Noted Date Comments Gnovcon-Mcb-Fqj Reductase Inhibitors Muscle pain Medium 10/04/2022 Muscle [...] Description 10/14/2024 9:00 AM CDT Ancillary Procedure [facility] Vascular and Vein Surgery at [address] [phone] Bilateral carotid artery stenosis 09/15/2024 8:30 AM CDT Office Visit [facility] Vascular at [address] [phone] Haleigh Castellanos PA Amaurosis fugax of right eye (Primary Dx); Essential hypertension; Hyperlipidemia, unspecified hyperlipidemia type 09/15/2024 Orders Only [facility] Vascular at [address] [place] [phone] Sherly Garvey MD Bilateral carotid artery stenosis (Primary Dx) 08/25/2024 12:55 PM CDT - 08/25/2024 11:59 PM CDT Hospital Encounter [facility] [employer] [address] [place] [address] Discharge Disposition: Discharge to home or self [...] on file Legal Sex Female 5:46 PM PROCESS ARTIST Gender Identity Not on file Sexual Orientation [...] AM CDT Vascular & Vein Surgery [address] [place] [address] Carotid Duplex Ultrasound Report Patient Name: MARTÍNEZ PEREIRANicolas : 1945 (79y 2m) Study Date: 10/14/2024 8:49:46 AM Gender: F Obstetrician/Gynecologist: RUDY Location: [facility] Ref Provider: SHERLY GARVEY [...] MD - 10/15/2024 Vascular & Vein Surgery [facility] [place] [address] Carotid Duplex Ultrasound Report Patient Name: MARTÍNEZ PEREIRA A : 1945 (79y 2m) Study Date: 10/14/2024 8:49:46 AM Gender: F Obstetrician/Gynecologist: RUDY Location: [facility] Ref Provider: SHERLY GARVEY [...] 10/15/2024 7:53:54 AM CDT Sherly Garvey MD [facility] PROCEDURES Final Result * Neuro MR Outside Reference (08/25/2024 12:55 PM CDT) Narrative NIKOLAS_AYAKA_MHB_MHE - 09/15/2024 9:02 AM CDT This order has been auto-finalized and does not contain a result. us Provider Transcribed Order IMG MRI PROCEDURES Fi nal Result Performing Organization Address City/State/ZIP Nc de Phone Number RAD_CLARIO_MHB_MHE from Last 3 Months Insurance T MEDICARE T MEDICARE AET MEDICARE Advance Directives For more information, please contact: [phone] Documents on File Type Date Recorded Patient Senior Devops Engineer Expl anation ADVANCE DIRECTIVE 10/23/2022 7:13 PM POWER OF FOOD PRODUCTION MANAGER-MEDICAL Care Teams Last Marker Relationship Specialty Start Date End Date Candelaria Yeh NP PCP - General Family Medicine 10/04/22 Laurie Fletcher MD [address] [place] [address] Obstetrics and Gynecology 11/21/22
--- OUTSIDE RECORDS SUMMARY | 2024-10-19 07:53 | XMS_ITS | Clinical Summary ---
Author Organization [facility] Address [address] [place] [address] Care Team Providers Care Elevated Work Platform Operator Name Role Phone Nikki Dickinson MD Primary Care Provider Source Comments [facility] and Associated [facility] Practices is amultiple site organization consisting of ambulatory clinics and hospital sitesin [place], [place], [place] and [place]. This disclosure is being madepursuant to the Care Everywhere program and may not contain all information available regarding this patient. 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 Gender Identity Not on file Sexual Orientation [...] Office Visit [facility] - Ophthalmology [address] [place] [phone] Flower Martins MD [address] [place] [address] [place] [phone] 02/21/2025 10:00 AM CDT Office Visit [facility] - ENT [address] [place] [phone] David Moore MD [address] [place] [address] DE[place] [address] Health Maintenance Due Date Last Done Comments [...] Procedure Name Priority Date/Time Associated Diagnosis Comments DC NASAL ENDOSCOPY,DX Routine 08/23/2024 10:11 AM CDT Bilateral epiphora Chronic rhinitis Vasomotor rhinitis Nasal discharge Allergic conjunctivitis of both eyes Deviated septum Nasal turbinate hypertrophy Nasal congestion from Last 3 Months Results * DC NASAL ENDOSCOPY,DX (08/23/2024 10:11 AM CDT) Narrative [...] MEDICARE ADV AETNA MEDICARE ADV Care Teams Elevated Work Platform Operator Relationship Specialty Start Date End Date Nikki Dickinson MD [address] [place] [address] PCP - General Family Medicine 09/08/23
== END 2024-10-19 07:48 | disposition home or self-care (01) ==
PROVIDERS: PCP Family Medicine; Visit Provider Internal Medicine Hematology & Oncology
DX: C68.9 Malignant neoplasm of urinary organ, unspecified (principal); K44.9 Diaphragmatic hernia without obstruction or gangrene; K57.30 Diverticulosis of large intestine without perforation or abscess without bleeding; K42.9 Umbilical hernia without obstruction or gangrene; K43.9 Ventral hernia without obstruction or gangrene
CPT/HCPCS: 74177; Q9967

== ENCOUNTER 2024-10-20 08:12 | Outpatient (CLI) | payer MEDICARE, SELFPAY ==
--- NOTE | ~2024-10-20 | MM_ITS ---
EXAMINATION: MM screening [facility] BI w spenser HISTORY: Screening TECHNIQUE: Craniocaudal and mediolateral oblique 3-D tomosynthesis images were obtained and synthetic 2-D images were generated. CAD analysis was submitted and interpreted. COMPARISON: Comparison to multiple prior studies sequentially, with oldest reviewed study dated 01/27. BREAST PARENCHYMAL COMPOSITION: Not dense: There are scattered areas of fibroglandular density. FINDINGS: There is no evidence of suspicious mass, calcification, or architectural distortion to sugg est malignancy in either breast. There has been no suspicious interval change. IMPRESSION: 1. No mammographic evidence of malignancy. 2. Recommend routine screening mammography in one year. BI-RADS Category 1: Negative Reviewed, dictated and finalized at location A.
--- OUTSIDE RECORDS SUMMARY | 2024-10-20 08:20 | XMS_ITS | Patient Health Record ---
Author Organization [facility] Address [address] [place], [place] [address] Care Team Providers Care Compensation Administrator Name Role Phone CATHY CLINTON Unavailable [phone] Nikki Dickinson Unavailable Unavaila ble Allergies Allergen (clinical drug ingredient) Drug/Non Drug Allergy documented on EMR Reaction Allergy Type Onset Date Status Substance with 8-jehvoog-8-methylgluta ryl-coenzyme A reductase inhibitor mechanism of action (substance) Statins Unknown Drug Allergy Active Reason For Referral No Information Medications Medication SIG (Take, Route, Frequency, Duration) Notes Start Date End Date Status Losartan Potassium 50 MG TAKE 1 TABLET B Y MOUTH DAILY Oral for 90 Days Active Ipratropium [place] 0.06 % USE 2 SPRAYS IN EACH [...] Vaccine Route Administration Date Status Comme nts Tdap Unknown 11/21/2008 Administered Tdap Unknown 11/21/2008 Administered Pneumococcal polysaccharide PPV23 Unknown 11/02/2020 Ad ministered Pneumococcal polysaccharide PPV23 Unknown 11/02/2020 Ad ministered Pneumococcal conjugate PCV 13 Unknown 06/16/2017 Admini stered Pneumococcal conjugate PCV 13 Unknown 06/16/2017 Admini stered Moderna Covid-19 Vaccine 1st dose Unknown 06/07/2020 Ad ministered Moderna Covid-19 Vaccine 1st dose Unknown 07/11/2020 Ad ministered Moderna Covid-19 Vaccine 1st dose Unknown 03/08/2021 Ad ministered Moderna Covid-19 Vaccine 1st dose Unknown 09/17/2021 Ad ministered Influenza, unspecified formulation Unknown 01/13/2020 A dministered Influenza, unspecified formulation Unknown 02/08/2021 A dministered Influenza, unspecified formulation Unknown 02/13/2022 A dministered Influenza, high-dose seasona l, quadrivalent, preservative free >65 yrs Unknown 02/19/2017 Administered Influenza, high-dose seasona l, quadrivalent, preservative free >65 yrs Unknown 01/13/2020 Administered Influenza, high-dose seasona l, quadrivalent, preservative free >65 yrs Unknown 01/13/2020 Administered Influenza, high-dose seasona l, quadrivalent, preservative free >65 yrs Unknown 01/30/2023 Administered Influenza, high dose seasonal Unknown 02/19/2017 Admini stered Influenza, high dose seasonal Unknown 02/19/2017 Admini stered Influenza, high dose seasonal Unknown 01/30/2024 Admini stered Hep A, Adult Unknown 11/08/2011 Administered Hep A, Adult Unknown 11/08/2011 Administered Hep A, Adult Unknown 05/12/2012 Administered Hep A, Adult Unknown 05/12/2012 Administered Vital Signs Height-cm 167.64 cm 09/06/2024 Weight-kg 78.02 kg 09/06/2024 Height 66.00 in 09/06/2024 Weight 172 lbs 09/06/2024 BMI 27.76 kg/m2 09/06/2024 Encounters Encounter Location Date Provider Diagnosis [facility] [place] [address] [place] [phone] 12/08/2023 CATHY CLINTON Tinea unguium B35.1 ; Acquired keratosis [keratoderma] palmaris et plantaris L85.1 ; Atherosclerosis of [place] arteries of extremities with intermittent claudication, bilateral legs I70.213 ; Pain in right foot M79.671 and Pain in left foot M79.672 [facility] [place] [address] [address] [place] [phone] 03/08/2024 CATHY SNOOK Tinea unguium B35.1 ; Acquired keratosis [keratoderma] palmaris et plantaris L85.1 ; Atherosclerosis of [place] arteries of extremities with intermittent claudication, bilateral legs I70.213 ; Pain in right foot M79.671 and Pain in left foot M79.672 [facility] [place] [facility] [address] [address] [place] [phone] 06/07/2024 CATHY SNOOK Tinea unguium B35.1 ; Acquired keratosis [keratoderma] palmaris et plantaris L85.1 ; Atherosclerosis of [place] arteries of extremities with intermittent claudication, bilateral legs I70.213 ; Pain in right foot M79.671 and Pain in left foot M79.672 [facility] [place] [address] [address] [place] [id number] 09/06/2024 CATHY SNOOK Tinea unguium B35.1 ; Acquired keratosis [keratoderma] palmaris et plantaris L85.1 ; Atherosclerosis of [place] arteries of extremities with intermittent claudication, bilateral [...] utilizing a #15 blade 09/06/2024 Atherosclerosis of ho-[place] arteries of extremities with intermittent claudication, bilateral legs (ICD-10 - I70.213) 06/07/2024 Atherosclerosis of ho-chunk arteries of extremities with intermittent claudication, bilateral legs (ICD-10 - I70.213) 03/08/2024 Atherosclerosis of ho-chunk arteries of extremities with intermittent claudication, bilateral legs (ICD-10 - I70.213) 12/08/2023 Atherosclerosis of ho-chunk arteries of extremities with intermittent claudication, bilateral [...] Appt Details Provider Name:CATHY CLINTON, 08:30:00 AM, [address], [place], [place], [phone], Insurance Providers Payer Name Payer Address Payer Phone Subscriber Number Group Number Insured Name Patient Relationship to Insured Coverage Start Date Coverage End Date Aetna [address] [place] GARCIA [phone] [id number] MARTÍNEZ MELARA Self - patient is the insured Medical (General) History Medical History History ICD Code Cancer (type of cancer) hypertension Surgical History Surgery Date(Month/Year) appendectomy 12/2020 Hysterectomy 10/2022 nephrectomy [id number]
--- OUTSIDE RECORDS SUMMARY | 2024-10-20 08:20 | XMS_ITS | Clinical Summary ---
Author Organization [facility] Address [facility] [place] [address] Care Team Providers Care Helper Driver Name Role Phone Candelaria Yeh NP Primary Care Provider [phone] Laurie Fletcher MD Unavailable [phone] Allergies Active Allergy Reactions Criticality Noted Date Comments Wpdrely-Ptz-Hzw Reductase Inhibitors Muscle pain Medium 10/04/2022 Muscle [...] Description 10/14/2024 9:00 AM CDT Ancillary Procedure [facility] Vascular and Vein Surgery at [address] [address] Bilateral carotid artery stenosis 09/15/2024 8:30 AM CDT Office Visit [facility] Vascular at [address] [address] Haleigh Castellanos PA Amaurosis fugax of right eye (Primary Dx); Essential hypertension; Hyperlipidemia, unspecified hyperlipidemia type 09/15/2024 Orders Only [facility] Vascular at [address] [place] [phone] Sherly Garvey MD Bilateral carotid artery stenosis (Primary Dx) 08/25/2024 12:55 PM CDT - 08/25/2024 11:59 PM CDT Hospital Encounter [facility] [employer] [address] [place] [address] Discharge Disposition: Discharge to home or self [...] on file Legal Sex Female 5:46 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 [address] Carotid Duplex Ultrasound Report Patient Name: MARTÍNEZ PEREIRANicolas : 1945 (79y 2m) Study Date: 10/14/2024 8:49:46 AM Gender: F Child And Adolescent Therapist: RUDY Location: VVSE Ref Provider: SHERLY GARVEY [...] MD - 10/15/2024 Vascular & Vein Surgery [facility] [place] [address] Carotid Duplex Ultrasound Report Patient Name: MARTÍNEZ PEREIRA A : 1945 (79y 2m) Study Date: 10/14/2024 8:49:46 AM Gender: F Child And Adolescent Therapist: RUDY Location: VVSE Ref Provider: SHERLY GARVEY [...] 10/15/2024 7:53:54 AM CDT Sherly Garvey MD [facility] US PROCEDURES Final Result * Neuro MR Outside Reference (08/25/2024 12:55 PM CDT) Narrative NIKOLAS_[email or web address] - 09/15/2024 9:02 AM CDT This order has been auto-finalized and does not contain a result. us Provider Transcribed Order IMG MRI PROCEDURES Fi nal Result Performing Organization Address City/State/ZIP Wy de Phone Number RAD_[email or web address] from Last 3 Months Insurance T MEDICARE T MEDICARE AET MEDICARE Advance Directives For more information, please contact: [phone] Documents on File Type Date Recorded Patient Hiv Prevention Specialist Expl anation ADVANCE DIRECTIVE 10/23/2022 7:13 PM POWER OF HISTOLOGY MANAGER-MEDICAL Care Teams Helper Driver Relationship Specialty Start Date End Date Candelaria Yeh NP PCP - General Family Medicine 10/04/22 Laurie Fletcher MD [address] [place] [address] Obstetrics and Gynecology 11/21/22
--- OUTSIDE RECORDS SUMMARY | 2024-10-20 08:20 | XMS_ITS | Referral Summary ---
Author Organization [facility] Address [address] [place] [address] Care Team Providers Care Mending Carrier Name Role Phone Candelaria Yeh NP Primary Care Provider [phone] Laurie Fletcher MD Unavailable [phone] Encounters Date Type Department Care Team Description 10/14/2024 9:00 AM CDT Ancillary Procedure [facility] Vascular and Vein Surgery at [address] [place] [phone] Bilateral carotid artery stenosis 09/15/2024 Orders Only [facility] Vascular at [address] [place] [phone] Sherly Garvey MD Bilateral carotid artery stenosis (Primary Dx) 09/15/2024 8:30 AM CDT Office Visit [facility] Vascular at [address] [place] [phone] Haleigh Castellanos PA Amaurosis fugax of right eye (Primary Dx); Essential hypertension; Hyperlipidemia, unspecified hyperlipidemia type 08/25/2024 12:55 PM CDT - 08/25/2024 11:59 PM CDT Hospital Encounter [facility] [employer] [address] [facility] [place] [address] Discharge Disposition: Discharge to home or self care from Last 3 Months Allergies Active Allergy Reactions Criticality Noted Date Comments Adydsqd-Txw-Lhb Reductase Inhibitors Muscle pain Medium 10/04/2022 Muscle [...] on file Legal Sex Female 5:46 PM 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 [address] Carotid Duplex Ultrasound Report Patient Name: OLIVE PEREIRA A : 1945 (79y 2m) Study Date: 10/14/2024 8:49:46 AM Gender: F Community Pharmacist: RUDY Location: VVSE Ref Provider: SHERLY GARVEY [...] - 10/15/2024 Vascular & Vein Surgery [address] [facility] [place] [address] Carotid Duplex Ultrasound Report Patient Name: OLIVE PEREIRA A : 1945 (79y 2m) Study Date: 10/14/2024 8:49:46 AM Gender: F Community Pharmacist: RUDY Location: VVSE Ref Provider: SHERLY GARVEY [...] Result NIKOLAS_AYAKA_MHB_MHE from Last 3 Months Insurance [employer] MEDICARE [employer]path MEDICARE [facility] MEDICARE Advance Directives For more information, please contact: [phone] Documents on File Type Date Recorded Patient Line Construction Engineer Expl anation ADVANCE DIRECTIVE 10/23/2022 7:13 PM STAN R OF DIESEL ELECTRICIAN-MEDICAL Care Teams Mending Carrier Relationship Specialty Start Date End Date Candelaria Yeh NP PCP - General Family Medicine 10/04/22 Laurie Fletcher MD [address] [place] [address] Obstetrics and Gynecology 11/21/22
--- OUTSIDE RECORDS SUMMARY | 2024-10-20 08:20 | XMS_ITS | Clinical Summary ---
Author Organization [facility] [employer] Address [address] [place] [address] Care Team Providers Care Screener And Blender Name Role Phone Nikki Dickinson MD Primary Care Provider Source Comments [facility] and Associated [facility]ician Practices is amultiple site organization consisting of ambulatory clinics and hospital sitesin [place], [place], [place] and [place]. This disclosure is being madepursuant to the Care Everywhere program and may not contain all information available regarding this patient. Last updated 18.[facility] [employer] Allergies Active Allergy Reactions Criticality Noted Date [...] Description 08/23/2024 9:30 AM CDT Office Visit [facility] - ENT [address] [place] [phone] David Moore MD Bilateral epiphora (Primary Dx); [...] on file Legal Sex Female 5:58 AM STATIONARY ENGINEER APPRENTICE Gender Identity Not on file Sexual Orientation [...] Office Visit [facility] - Ophthalmology [address] [place] [phone] Flower Martins MD [address] [place] [address] [place] [phone] 02/21/2025 10:00 AM CDT Office Visit [facility] - ENT [address] [place] [phone] David Moore MD [address] [place] [address] [place] [address] Health Maintenance Due Date Last Done Comments [...] Procedure Name Priority Date/Time Associated Diagnosis Comments OK NASAL ENDOSCOPY,DX Routine 08/23/2024 10:11 AM CDT Bilateral epiphora Chronic rhinitis Vasomotor rhinitis Nasal discharge Allergic conjunctivitis of both eyes Deviated septum Nasal turbinate hypertrophy Nasal congestion from Last 3 Months Results * OK NASAL ENDOSCOPY,DX (08/23/2024 10:11 AM CDT) Narrative [...] MEDICARE ADV AETNA MEDICARE ADV Care Teams Screener And Blender Relationship Specialty Start Date End Date Nikki Dickinson MD [address] [place] [address] PCP - General Family Medicine 09/08/23
--- OUTSIDE RECORDS SUMMARY | 2024-10-20 08:20 | XMS_ITS | Encounter Summary ---
Author Organization [facility] Address [address] [place] [address] Care Team Providers Care Roaster Supervisor Name Role Phone Nikki Dickinson MD Primary Care Provider Encounter Details Date Type Department Care Team (Late st Contact Info) Description 10/09/1998 Outpatient Historical [facility] Primary Care - [address] [place] [address] Slade Marino Social History Tobacco Use Types Packs/Day Years Used Date Smoking Tobacco: Never Assessed Comments Unknown Sex and Gender Information Value Date Recorded Sex Assigned at Not on file Legal Sex Female 4:50 AM BURRER HAND Gender Identity Not on file Sexual Orientation Not on file documented as of this encounter Plan of Treatment Upcoming Encounters Date Type Department Care Team (Late st Contact Info) Description 10/25/2024 10:15 AM CDT Office Visit [facility] Oncology and Hematology - [place] [address] [facility] [address] [place] [address] Taurus Mullins MD [address] [facility] [address] [place] [address] documented as of this encounter Visit Diagnoses Not on filedocumented in this encounter Care Teams Roaster Supervisor Relationship Specialty Start Date End Date Nikki Dickinson MD [address] [place] [address] [place] [address] PCP - General Family Practice 04/12/24 documented as of this encounter
--- OUTSIDE RECORDS SUMMARY | 2024-10-20 08:20 | XMS_ITS | Encounter Summary ---
Author Organization [facility] Address [address] [place] [address] Care Team Providers Care Fiberglass Ski Maker Name Role Phone Nikki Dickinson MD Primary Care Provider Encounter Details Date Type Department Care Team (Late st Contact Info) Description 08/17/1998 Outpatient Historical [facility] Primary Care - [address] [place] [address] Slade Marino Social History Tobacco Use Types Packs/Day Years Used Date Smoking Tobacco: Never Assessed Comments Unknown Sex and Gender Information Value Date Recorded Sex Assigned at Not on file Legal Sex Female 4:50 AM HYDRAULIC MODELING ENGINEER Gender Identity Not on file Sexual Orientation Not on file documented as of this encounter Plan of Treatment Upcoming Encounters Date Type Department Care Team (Late st Contact Info) Description 10/25/2024 10:15 AM CDT Office Visit [facility] Oncology and Hematology - [place] [address] [facility] [address] [place] [address] Taurus Mullins MD [address] [facility] [address] [place] [address] documented as of this encounter Visit Diagnoses Not on filedocumented in this encounter Care Teams Fiberglass Ski Maker Relationship Specialty Start Date End Date Nikki Dickinson MD [address] [place] [address] [place] [address] PCP - General Family Practice 04/12/24 documented as of this encounter
--- OUTSIDE RECORDS SUMMARY | 2024-10-20 08:20 | XMS_ITS | Encounter Summary ---
Author Organization [facility] [employer] [facility] Address [address] [place] [address] Care Team Providers Care Rac Specialist Name Role Phone Nikki Dickinson MD Primary Care Provider Encounter Details Date Type Department Care Team (Late Contact Info) Description 08/29/2022 Abstract [facility] Oncology and Hematology [facility] [address] [place] [address] Nader Hyman, RN Social History Tobacco Use Types Packs/Day Years Used Date Smoking Tobacco: Never Smokeless Tobacco: Never Alcohol Use Standard Drinks/Week Comments Not Currently 0 (1 standard drink = 0.6 oz pur e alcohol) Comments Unknown Sex and Gender Information Value Date Recorded Sex Assigned at Not on file Legal Sex Female 4:50 AM BONDING AGENT Gender Identity Not on file Sexual Orientation [...] Description 10/25/2024 10:15 AM CDT Office Visit [facility] Oncology and Hematology [facility] [address] [place] [address] Taurus Mullins MD [address] [facility] [address] [place] [address] documented as of this encounter Visit Diagnoses Not on filedocumented in this encounter Care Teams Rac Specialist Relationship Specialty Start Date End Date Nikki Dickinson MD [address] [facility] [place] [address] PCP - General Family Practice 04/12/24 documented as of this encounter
--- OUTSIDE RECORDS SUMMARY | 2024-10-20 08:20 | XMS_ITS | Clinical Summary ---
Author Organization [facility] Address [address] [facility] [place] [address] Care Team Providers Care Pinion Sorter Name Role Phone Nikki Dickinson MD Primary Care Provider Allergies Active Allergy Reactions Criticality Noted Date Comments Xghmile-Ubq-Gvt Reductase Inhibitors Unknown 03/14/2021 Medications ezetimibe (ZETIA) [...] on file Legal Sex Female 4:50 AM DIGITAL SERVICE ENGINEER Gender Identity Not on file Sexual Orientation Not on file Last Filed Vital Signs Vital Sign Reading Time Taken Comments Blood Pressure 129/79 04/12/2024 11:03 AM DIGITAL SERVICE ENGINEER Pulse 60 04/12/2024 11:03 AM DIGITAL SERVICE ENGINEER Temperature 36.3 C (97.3 F) 04/12/2024 11:03 AM DIGITAL SERVICE ENGINEER Respiratory Rate 15 04/12/2024 11:03 AM DIGITAL SERVICE ENGINEER Oxygen Saturation 95% 04/12/2024 11:03 AM DIGITAL SERVICE ENGINEER Inhaled Oxygen Concentration - - Weight 83.1 kg (183 lb 3.2 oz) 04/12/2024 11:03 AM DIGITAL SERVICE ENGINEER Height 165.1 cm (5' 5) 02/18/2022 1:10 PM CDT Body Mass Index 30.49 02/18/2022 1:10 PM CDT Plan of Treatment Upcoming Encounters Date Type Department Care Team (Late st Contact Info) Description 10/25/2024 10:15 AM CDT Office Visit [facility] Oncology and Hematology - [place] [address] [place] [address] [facility] [address] [place] [address] Tauurs Mullins MD [address] [facility] [address] [place] [address] Health Maintenance Due Date Last Done Comments OSTEOPOROSIS SCREENING 07/31/2011 DTAP/TDAP/TD VACCINES (2 - T d or Tdap) 11/21/2018 11/21/2008 RSV VACCINE (60+ or ) (1 - 1-dose 75+ series) 2021 INFLUENZA VACCINE (#1) 2023 2, 02/08/2021, 01/13/2020, Additional history exists ZOSTER VACCINE Completed 05/25/2018, 02/19/2018 PNEUMOCOCCAL VACCINE 50+ YEARS Completed 11/02/2020 , 06/16/2017 Insurance AETNA PPO MCR Care Teams Pinion Sorter Relationship Specialty Start Date End Date Nikki Dickinson MD [address] [facility] [place] [address] PCP - General Family Practice 04/12/24
== END 2024-10-20 08:13 | disposition home or self-care (01) ==
PROVIDERS: PCP Family Medicine; Visit Provider Family Medicine
DX: Z12.31 Encounter for screening mammogram for malignant neoplasm of breast (principal)
CPT/HCPCS: 77063; 77067

== ENCOUNTER 2025-03-18 08:15 | Outpatient (CLI) | payer MEDICARE, SELFPAY ==
--- OUTSIDE RECORDS SUMMARY | 2023-12-08 03:10 | XMS_ITS ---
Author Organization [facility] Address [address] [place], [place] [id number] Care Team Providers Care Application Architect Manager Name Role Phone CATHY CLINTON Unavailable [phone] Nikki Dickinson Unavailable Unavaila ble Allergies Allergen (clinical drug ingredient) Drug/Non Drug Allergy documented on EMR Reaction Allergy Type Onset Date Status Substance with 8-xjvqrsd-8-methylgluta ryl-coenzyme A reductase inhibitor mechanism of action (substance) Statins Unknown Drug Allergy Active REASON FOR VISIT Patient presents for at-risk foot care . The patient has painful toenails and calluses that are causing difficulty with ambulation and shoegear. The onset is gradual Medications Medication SIG (Take, Route, Frequency, Duration) Notes Start Date End Date Status Clobetasol Propionate 0.05 % Cream APPLY TO VULVA AREA 2 TO 3 TIMES PER WEEK External; Duration: 30 Days Active Timolol Maleate 0.5 % Solution INSTILL 1 DROP IN BOTH EYES TWICE DAILY Ophthalmic; Duration: 50 Days Active tiZANidine HCl 2 MG Capsule TAKE 1 CAPSU LE BY MOUTH EVERY 8 HOURS NEEDED FOR MUSCLE SPASMS Oral; Duration: 3 Days Active Losartan Potassium 50 MG Tablet TAKE 1 TABLET BY MOUTH DAILY Oral; Duration: 90 Days Active Ezetimibe 10 MG Tablet Oral; Duration: 90 Days Active predniSONE 20 MG Tablet TAKE 1 TABLET BY MOUTH TWICE DAILY Oral; Duration: 4 Days Active Nitrofurantoin Monohyd Macro 100 MG Capsule TAKE 1 CAPSULE BY MOUTH EVERY 12 HOURS FOR 5 DAYS Oral; Duration: 5 Days Active Ipratropium [place] 0.06 % Solution USE 2 SPRAYS IN EACH NOSTRIL THREE TIMES DAILY Nasal; Duration: 13 Days Active Encounters Encounter Location Date Provider Diagnosis [facility] [place] [address] [place], [place] [id number] 12/08/2023 CATHY CLINTON Tinea unguium B35.1 ; Acquired keratosis [keratoderma] palmaris et plantaris L85.1 ; Atherosclerosis of [place] tribe arteries of extremities with intermittent claudication, bilateral legs I70.213 ; Pain in right foot M79.671 and Pain in left foot M79.672 Assessments Encounter Date Diagnosis (ICD Code) Assessment Notes Treatment Notes Treatment Clinical Notes Section Notes 12/08/2023 Tinea unguium (ICD-10 - B35.1) Nails 1-5 Bilateral were debrided extensively with nail nippers and emery board, reducing length and girth to pink healthy tissue with any subungual debris and necrotic tissue removed 12/08/2023 Acquired keratosis [keratoderma] palmaris et plantaris (ICD-10 - L85.1) A total of 2 corns or calluses, as described in the note above, were cut and pared utilizing a #15 blade 12/08/2023 Atherosclerosis of [place] ind[place] tribe arteries of extremities with intermittent claudication, bilateral legs (ICD-10 - I70.213) 12/08/2023 Pain in right foot (ICD-10 - M79.671) 12/08/2023 Pain in left foot (ICD-10 - M79.672) Plan Of Treatment Treatment Notes Assessment Notes Tinea unguium Nails 1-5 Bilateral were debrided extensively with nail nippers and emery board, reducing length and girth to pink healthy tissue with any subungual debris and necrotic tissue removed Acquired keratosis [keratode rma] palmaris et plantaris A total of 2 corns or calluses, as described in the note above, were cut and pared utilizing a #15 blade Next Appt Details Follow Up: 10 - 12 weeks, Re ason: At-Risk Foot care, sooner if problems develop. Provider Name:CATHY CEBALLOSNASRINMaxime, 10:00:00 AM, [address] [facility], [facility] [address], [place], [place], [id number], History and Physical Notes * HPI (History of Present Illness) Category Sub-Category Detail Notes Category Not es HPI Follow Up Visit Patient presents for follow up visit for porokeratosis check. Patient needs left foot callus shavedand the 5th digit looked at. There is a callus or bunion on the right foot that she gets trimmed. Patient also needs a couple of nails trimmed back. , MA: mca Examination Category Sub-Category Detail Notes Category Not es Dermatologic Skin findings: Skin is thin, at rophic and lacking pedal hair. Nail pathology: Nails 1-5 bilateral are elongated, thick, discolored, and dystrophic with subungual debris. They are painful to palpation Hypertrophic / hyperkeratotic lesion: do rsal aspect of the left 5th digit, plantar aspect of the left 2nd metatarsal head Neurologic Gross sensation Grossly intact t o light touch. There is negative Tinel's sign Vascular Dorsalis pedis pulse: 0/4, bilateral Edema: No edema bilateral Capillary refill: greater than 3 secon ds Posterior tibial pulse: 1/4, bilaterally Physical Examination General appearance: Alert, pleasant, well-nourished and in no acute distress Musculoskeletal Muscle Strength Muscle strength is 5/5 in regards to dorsiflexion, plantarflexion, inversion, and eversion in bilateral lower extremities Progress Notes * KAROLINE MARTÍNEZ ADOB:0 1945 (79 yo F)Acc No.[id number]:12/08/2023 Patient: MARTÍNEZ SHEPARD Provider: Arline Clinton DPM :1945 A ge:78 Y S ex:Female Date:12/08/2023 Address:[address] [place], [place] [id number] Subjective: * Chief Complaints: * Derek crook presents for at-risk foot care . The patient has painful toenails and calluses that are causing difficulty with ambulation and shoegear. The onset is gradual * HPI: H PI: Follow Up Visit Derek crook presents for follow up visit for porokeratosis check. Patient needs left foot callus shavedand the 5th digit looked at. There is a callus or bunion on the right foot that she gets trimmed. Patient also needs a couple of nails trimmed back. , MA: nicholas. * ROS: G eneral / Constitutional: Patient denies c hange in appetite, chills, fatigue, fever.? C ardiovascular: Patient denies h air loss on leg, leg or foot ulcers, extremities cool. M usculoskeletal: Patient denies b roken foot bone, ankle sprain, gout. ? S kin: Patient denies a thletes foot, fungal nails, rash, ulcerations. N eurologic: Patient denies B urning/Tingling, Numbness, gait abnormality. * Medications: T akingIpratropium [place] 0.06 % Solution USE 2 SPRAYS IN EACH NOSTRIL THREE TIMES DAILY Nasal Losartan Potassium 50 MG Tablet TAKE 1 TABLET BY MOUTH DAILY Oral Ezetimibe 10 MG Tablet Oral Timolol Maleate 0.5 % Solution INSTILL 1 DROP IN BOTH EYES TWICE DAILY Ophthalmic Clobetasol Propionate 0.05 % Cream APPLY TO VULVA AREA 2 TO 3 TIMES PER WEEK External tiZANidine HCl 2 MG Capsule TAKE 1 CAPSULE BY MOUTH EVERY 8 HOURS NEEDED FOR MUSCLE SPASMS Oral Nitrofurantoin Monohyd Macro 100 MG Capsule TAKE 1 CAPSULE BY MOUTH EVERY 12 HOURS FOR 5 DAYS Oral predniSONE 20 MG Tablet TAKE 1 TABLET BY MOUTH TWICE DAILY Oral Medication List reviewed and reconciled with the patientTaking Ipratropium [place] 0.06 % Solution USE 2 SPRAYS IN EACH NOSTRIL THREE TIMES DAILY Nasal Taking Losartan Potassium 50 MG Tablet TAKE 1 TABLET BY MOUTH DAILY Oral Taking Ezetimibe 10 MG Tablet Oral Taking Timolol Maleate 0.5 % Solution INSTILL 1 DROP IN BOTH EYES TWICE DAILY Ophthalmic Taking Clobetasol Propionate 0.05 % Cream APPLY TO VULVA AREA 2 TO 3 TIMES PER WEEK External Taking tiZANidine HCl 2 MG Capsule TAKE 1 CAPSULE BY MOUTH EVERY 8 HOURS NEEDED FOR MUSCLE SPASMS Oral Taking Nitrofurantoin Monohyd Macro 100 MG Capsule TAKE 1 CAPSULE BY MOUTH EVERY 12 HOURS FOR 5 DAYS Oral Taking predniSONE 20 MG Tablet TAKE 1 TABLET BY MOUTH TWICE DAILY Oral Medication List reviewed and reconciled with the patient * Allergies: S tatinsyesAllergies Verified. Objective: * Examination: P hysical Examination: General appearance: A lert, pleasant, well-nourished and in no acute distress. D ermatologic: Skin findings: S kin is thin, atrophic and lacking pedal hair.. Hypertrophic / hyperkeratotic lesion: d orsal aspect of the left 5th digit, plantar aspect of the left 2nd metatarsal head. Nail pathology: N ails 1-5 bilateral are elongated, thick, discolored, and dystrophic with subungual debris. They are painful to palpation. ? V ascular: Dorsalis pedis pulse: 0 /4, bilateral. Posterior tibial pulse: 1 /4, bilaterally. Capillary refill: g reater than 3 seconds. Edema: N o edema bilateral. N eurologic: Gross sensation G rossly intact to light touch. There is negative Tinel's sign. M usculoskeletal: Muscle Strength M uscle strength is 5/5 in regards to dorsiflexion, plantarflexion, inversion, and eversion in bilateral lower extremities. ? Assessment: * Assessment: 1. T inea unguium - B35.1 (Primary) 2 . 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 A therosclerosis of [place] ind[place] tribe arteries of extremities with intermittent claudication, bilateral legs - I70.213 4 . P ain in right foot - M79.671 5 . P ain in left foot - M79.672 Plan: * Treatment: 2. A cquired keratosis [keratoderma] palmaris et plantaris Notes: A total of 2 corns or calluses, as described in the note above, were cut and pared utilizing a #15 blade * Follow Up: 1 0 - 12 weeks (Reason: At-Risk Foot care, sooner if problems develop.) Billing Information: * Visit Code: 09060 Office Visit, Est Pt., Level 3. * Procedure Codes: * Electronic signature of CATHY CLINTON DPM on 03/18/2025 at 08:27 AM COUNTER INTELLIGENCE Sign off status: Pending * Provider: Arline Clinton DPM Date: 0 12/08/2023 Generated for Delaney cobos/Larry/Kassie on: 05/18/2024 08:27 AM COUNTER INTELLIGENCE
--- OUTSIDE RECORDS SUMMARY | 2025-03-18 08:24 | XMS_ITS | Patient Health Record ---
Author Organization [facility] Address [address] [place], [place] [id number] Care Team Providers Care Artificial Teeth Inspector Name Role Phone CATHY CLINTON Unavailable [phone] iNkki Dickinson Unavailable Unavaila ble Allergies Allergen (clinical drug ingredient) Drug/Non Drug Allergy documented on EMR Reaction Allergy Type Onset Date Status Substance with 1-lkrwhmm-4-methylgluta ryl-coenzyme A reductase inhibitor mechanism of action (substance) Statins Unknown Drug Allergy Active Reason For Referral No Information Medications Medication SIG (Take, Route, Frequency, Duration) Notes Start Date End Date Status predniSONE 20 MG Tablet TAKE 1 TABLET BY MOUTH TWICE DAILY Oral; Duration: 4 Days Active Nitrofurantoin Monohyd Macro 100 MG Capsule TAKE 1 CAPSULE BY MOUTH EVERY 12 HOURS FOR 5 DAYS Oral; Duration: 5 Days Active tiZANidine HCl 2 MG Capsule TAKE 1 CAPSU LE BY MOUTH EVERY 8 HOURS NEEDED FOR MUSCLE SPASMS Oral; Duration: 3 Days Active Clobetasol Propionate 0.05 % Cream APPLY TO VULVA AREA 2 TO 3 TIMES PER WEEK External; Duration: 30 Days Active Timolol Maleate 0.5 % Solution INSTILL 1 DROP IN BOTH EYES TWICE DAILY Ophthalmic; Duration: 50 Days Active Ezetimibe 10 MG Tablet Oral; Duration: 90 Days Active Losartan Potassium 50 MG Tablet TAKE 1 TABLET BY MOUTH DAILY Oral; Duration: 90 Days Active Ipratropium Vista 0.06 % Solution USE 2 SPRAYS IN EACH NOSTRIL THREE TIMES DAILY Nasal; Duration: 13 Days Active Immunizations Vaccine Route Administration Date [...] Unknown 11/21/2008 Administered Tdap Unknown 11/21/2008 Administered Social History Social History Additional Details Category Social Info Options Details Migrated Social History Migrated Social History Alcohol intake : , Smoking Status : Never smoked , History of tobacco use : Vital Signs Height-cm 167.64 cm 03/14/2025 Weight-kg 78.02 kg 03/14/2025 Height 66.00 in 03/14/2025 Weight 172 lbs 03/14/2025 BMI 27.76 kg/m2 03/14/2025 Encounters Encounter Location Date Provider Diagnosis [facility] [address] [place] [phone] 12/13/2024 CATHY SNOOK Tinea unguium B35.1 ; Acquired keratosis [keratoderma] palmaris et plantaris L85.1 ; Atherosclerosis of kar[place] arteries of extremities with intermittent claudication, bilateral legs I70.213 ; Pain in right foot M79.671 and Pain in left foot M79.672 [facility] [address] [place] [phone] 03/14/2025 CATHY SNOOK Tinea unguium B35.1 ; Acquired keratosis [keratoderma] palmaris et plantaris L85.1 ; Atherosclerosis of karuk arteries of extremities with intermittent claudication, bilateral legs I70.213 ; Pain in right foot M79.671 and Pain in left foot M79.672 [facility] [address] [address] [place] [phone] 06/07/2024 CATHY SNOOK Tinea unguium B35.1 ; Acquired keratosis [keratoderma] palmaris et plantaris L85.1 ; Atherosclerosis of karuk arteries of extremities with intermittent claudication, bilateral legs I70.213 ; Pain in right foot M79.671 and Pain in left foot M79.672 [facility] [address] [address] [place] [id number] 09/06/2024 CATHY SNOOK Tinea unguium B35.1 ; Acquired keratosis [keratoderma] palmaris et plantaris L85.1 ; Atherosclerosis of karuk arteries of extremities with intermittent claudication, bilateral [...] cut and pared utilizing a #15 blade 12/13/2024 Tinea unguium (ICD-10 - B35.1) Nails 1 Bilateral were debrided extensively with nail nippers and emery board, reducing length and girth to pink healthy tissue with any subungual debris and necrotic tissue removed 12/13/2024 Acquired keratosis [keratoderma] palmaris et plantaris (ICD-10 - L85.1) A total of 2 corns or calluses, as described in the note above, were cut and pared utilizing a #15 blade 03/14/2025 Tinea unguium (ICD-10 - B35.1) Nail 1 right was debrided extensively with nail nippers and emery board, reducing length and girth to pink healthy tissue with any subungual debris and necrotic tissue removed 12/13/2024 Atherosclerosis of karuk arteries of extremities with intermittent claudication, bilateral legs (ICD-10 - I70.213) 03/14/2025 Acquired keratosis [keratoderma] palmaris et plantaris (ICD-10 - L85.1) A total of 2 corns or calluses, as described in the note above, were cut and pared utilizing a #15 blade 09/06/2024 Atherosclerosis of karuk arteries of extremities with intermittent claudication, bilateral legs (ICD-10 - I70.213) 06/07/2024 Atherosclerosis of karuk arteries of extremities with intermittent claudication, bilateral legs (ICD-10 - I70.213) 06/07/2024 Pain in right foot (ICD-10 - M79.671) 09/06/2024 Pain in right foot (ICD-10 - M79.671) 03/14/2025 Atherosclerosis of karuk arteries of extremities with intermittent claudication, bilateral legs (ICD-10 - I70.213) 12/13/2024 Pain in right foot (ICD-10 - M79.671) 12/13/2024 Pain in left foot (ICD-10 - M79.672) 09/06/2024 Pain in left foot (ICD-10 - M79.672) 03/14/2025 Pain in right foot (ICD-10 - M79.671) 06/07/2024 Pain in left foot (ICD-10 - M79.672) 03/14/2025 Pain in left foot (ICD-10 - M79.672) Plan Of Treatment Next Appt Details Provider Name:CATHY CLINTON, 10:00:00 AM, [address] [facility] [address], [place], [place], [id number], Insurance Providers Payer Name Payer Address Payer Phone Subscriber Number Group Number Insured Name Patient Relationship to Insured Coverage Start Date Coverage End Date [employer] [address] [place] [address] [id number] MARTÍNEZ MELARA Self - patient is the insured Medical (General) History Medical History History ICD Code Cancer (type of cancer) hypertension Surgical History Surgery Date(Month/Year) appendectomy 12/2020 Hysterectomy 10/2022 nephrectomy [id number]
--- OUTSIDE RECORDS SUMMARY | 2025-03-18 08:25 | XMS_ITS | Encounter Summary ---
Author Organization [facility] [employer] [facility] Address [address] [place] [address] Care Team Providers Care Tentering Machine Off Bearer Name Role Phone Nikki Dickinson MD Primary Care Provider Encounter Details Date Type Department Care Team (Late st Contact Info) Description 08/29/2022 Abstract [facility] Oncology and Hematology [facility] [address] [place] [address] Nader Hyman, RN Social History Tobacco Use Types Packs/Day Years Used Date Smoking Tobacco: Never Smokeless Tobacco: Never Alcohol Use Standard Drinks/Week Comments Not Currently 0 (1 standard drink = 0.6 oz pur e alcohol) Comments Unknown Sex and Gender Information Value Date Recorded Sex Assigned at Not on file Legal Sex Female 4:50 AM BELL CLEANER Gender Identity Not on file Sexual Orientation Not on file COVID-19 Exposure Response Date Recorded In the last 10 days, have yo u been in contact with someone who was confirmed or suspected to have Coronavirus/COVID-19? No / Unsure 08/29/2022 12:55 PM CDT documented as of this encounter Plan of Treatment Upcoming Encounters Date Type Department Care Team (Late st Contact Info) Description 04/19/2025 1:15 PM BELL CLEANER Office Visit [facility] Oncology and Hematology [facility] [address] [place] [address] Taurus Mullins MD [address] [facility] [address] [place] [address] documented as of this encounter Visit Diagnoses Not on filedocumented in this encounter Care Teams Tentering Machine Off Bearer Relationship Specialty Start Date End Date Nikki Dickinson MD [address] [facility] [address] [facility] [place] [address] PCP - General Family Practice 04/12/24 documented as of this encounter
--- OUTSIDE RECORDS SUMMARY | 2025-03-18 08:26 | XMS_ITS | Clinical Summary ---
Author Organization [facility] Address [address] [place] [address] Care Team Providers Care Director Talent Name Role Phone Candelaria Yeh NP Primary Care Provider [phone] Laurie Fletcher MD Unavailable [phone] Allergies Active Allergy Reactions Criticality Noted Date Comments Tazbwol-Mfk-Fqm Reductase Inhibitors Muscle pain Medium 10/04/2022 Muscle [...] Active Problems Problem Noted Date Diagnosed Date Primary hypertension 10/28/2024 Assessment & Plan (10/28/2024 11:06 AM CDT): Stable continue losartan Mixed hyperlipidemia 10/28/2024 Assessment & Plan (10/28/2024 11:06 AM CDT): Stable continue Zetia Amaurosis fugax 10/28/2024 Assessment & Plan (10/28/2024 11:06 AM CDT): No evidence of significant carotid stenosis on duplex. Discussed findings with the patient, recommend continuing risk factor modification with ASA statin therapy good blood pressure control. We discussed ruling out any arrhythmia with a Holter monitor. We will discuss with her PCP. Can follow up with me as needed. 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 Thickened endometrium [...] on file Legal Sex Female 5:46 PM DIE TESTER Gender Identity Not on file Sexual Orientation Not on file Obstetrics History Para Term AB IAB SAB Ectopic Multiple Livin g Live Births 2 2 2 2 2 Date Outcome GA Total Labor Labor/2nd/3rd Weight Sex Type Anes PTL Patrica A1 A5 Name Clin Term Term Last Filed Vital Signs Vital Sign Reading Time Taken Comments Blood Pressure 118/76 10/27/2024 8:50 AM CDT Pulse 62 10/27/2024 8:50 AM CDT Temperature 36.8 C (98.2 F) 12/17/2022 10:13 AM CDT Respiratory Rate 16 12/17/2022 10:13 AM CDT Oxygen Saturation 98% 10/27/2024 8:50 AM CDT Inhaled Oxygen Concentration - - Weight 83 kg (183 lb) 10/27/2024 8:50 AM CDT Height 165.1 cm (5' 5) 10/27/2024 8:50 AM CDT Body Mass Index 30.45 10/27/2024 8:50 AM CDT Plan of Treatment Health Maintenance Due Date Last Done Comments Depression Screening 1945 Hepatitis C Screening 1945 Osteoporosis Screening-Bone Density Scan 1945 Hepatitis B Screening 1963 Well Visit 65+ 07/31/2011 DTaP/Tdap/Td Vaccine (2 - Td or Tdap) 11/21/2018 11/21/2008 Fall Risk Assessment 10/29/2023 10/28/2022 Covid-19 Vaccine (2024-2 6 season) 2025 02/26/2022, 09/17/2021, 03/08/2021, Additional history exists Influenza Vaccine (#1) 2025 , 02/13/2022, 02/08/2021, Additional history exists Zoster Vaccine Completed 05/25/2018, 02/19/2018 Pneumococcal vaccine 65+ Completed 11/02/2020, 06/05 Insurance [facility] MEDICARE [facility] MEDICARE [employer] MEDICARE Advance Directives For more information, please contact: [phone] Documents on File Type Date Recorded Patient Manager Women Expl anation ADVANCE DIRECTIVE 10/23/2022 7:13 PM POWER OF INSPECTOR EXPERIMENTAL ASSEMBLY-MEDICAL Care Teams Director Talent Relationship Specialty Start Date End Date Candelaria Yeh NP PCP - General Family Medicine 10/04/22 Laurie Fletcher MD [address] [place] [address] Obstetrics and Gynecology 11/21/22
--- OUTSIDE RECORDS SUMMARY | 2025-03-18 08:26 | XMS_ITS | Encounter Summary ---
Author Organization [facility] Address [address] [place] [address] Care Team Providers Care Dust Control Engineer Name Role Phone Nikki Dickinson MD Primary Care Provider Encounter Details Date Type Department Care Team (Late st Contact Info) Description 08/17/1998 Outpatient Historical [facility] Primary Care - [address] [place] [address] Slade Marino Social History Tobacco Use Types Packs/Day Years Used Date Smoking Tobacco: Never Assessed Comments Unknown Sex and Gender Information Value Date Recorded Sex Assigned at Not on file Legal Sex Female 4:50 AM FARMWORKER FRUIT Gender Identity Not on file Sexual Orientation Not on file documented as of this encounter Plan of Treatment Upcoming Encounters Date Type Department Care Team (Late st Contact Info) Description 04/19/2025 1:15 PM FARMWORKER FRUIT Office Visit [facility] Oncology and Hematology - [place] [facility] [address] [place] [address] Taurus Mullins MD [address] [facility] [address] [place] [address] documented as of this encounter Visit Diagnoses Not on filedocumented in this encounter Care Teams Dust Control Engineer Relationship Specialty Start Date End Date Nikki Dickinson MD [address] [place] [address] [place] [address] PCP - General Family Practice 04/12/24 documented as of this encounter
--- OUTSIDE RECORDS SUMMARY | 2025-03-18 08:27 | XMS_ITS | Clinical Summary ---
Author Organization [facility] Address [address] [place] [address] Care Team Providers Care City Council Member Name Role Phone Nikki Dickinson MD Primary Care Provider Allergies Active Allergy Reactions Criticality Noted Date Comments Hhunsuo-Bif-Afm Reductase Inhibitors Unknown 03/14/2021 Medications ezetimibe (ZETIA) [...] Take 12.5 mg by mouth daily. 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 Family History Medical History Relation Name Comments [...] on file Legal Sex Female 4:50 AM ORE FIELDER Gender Identity Not on file Sexual Orientation Not on file Last Filed Vital Signs Vital Sign Reading Time Taken Comments Blood Pressure 131/75 10/25/2024 10:10 AM CDT Pulse 64 10/25/2024 10:10 AM CDT Temperature 36.1 C (97 F) 10/25/2024 10:10 AM CDT Respiratory Rate 15 10/25/2024 10:10 AM CDT Oxygen Saturation 97% 10/25/2024 10:10 AM CDT Inhaled Oxygen Concentration - - Weight 83.1 kg (183 lb 3.2 oz) 10/25/2024 10:10 AM CDT Height 165.1 cm (5' 5) 02/18/2022 1:10 PM CDT Body Mass Index 30.49 02/18/2022 1:10 PM CDT Plan of Treatment Upcoming Encounters Date Type Department Care Team (Late st Contact Info) Description 04/19/2025 1:15 PM ORE FIELDER Office Visit [facility] Oncology and Hematology - [place] [address] [facility] [address] [place] [address] Taurus Mullins MD [address] [facility] [address] [place] [address] Health Maintenance Due Date Last Done Comments OSTEOPOROSIS SCREENING 07/31/2011 DTAP/TDAP/TD VACCINES (2 - T d or Tdap) 11/21/2018 11/21/2008 RSV VACCINE (60+ or ) (1 - 1-dose 75+ series) 2021 INFLUENZA VACCINE (#1) 2024 , 01/30/2023, 02/13/2022, Additional history exists COVID-19 Vaccine (2023-2 5 season) 2025 01/30/2024, 08/18/2023, 01/30/2023, Additional history exists ZOSTER VACCINE Completed 05/25/2018, 02/19/2018 PNEUMOCOCCAL VACCINE 50+ YEARS Completed 11/02/2020 , 06/16/2017 Insurance [employer] PPO MCR Care Teams City Council Member Relationship Specialty Start Date End Date Nikki Dickinson MD [facility] [place] [address] PCP - General Family Practice 04/12/24
--- OUTSIDE RECORDS SUMMARY | 2025-03-18 08:27 | XMS_ITS | Encounter Summary ---
Author Organization [facility] Address [address] [place] [address] Care Team Providers Care Uniform Force Captain Name Role Phone Nikki Dickinson MD Primary Care Provider Encounter Details Date Type Department Care Team (Late st Contact Info) Description 10/09/1998 Outpatient Historical [facility] Primary Care - [address] [place] [address] Slade Marino Social History Tobacco Use Types Packs/Day Years Used Date Smoking Tobacco: Never Assessed Comments Unknown Sex and Gender Information Value Date Recorded Sex Assigned at Not on file Legal Sex Female 4:50 AM SOIL ANALYST Gender Identity Not on file Sexual Orientation Not on file documented as of this encounter Plan of Treatment Upcoming Encounters Date Type Department Care Team (Late st Contact Info) Description 04/19/2025 1:15 PM SOIL ANALYST Office Visit [facility] Oncology and Hematology - [address] [facility] [address] [place] [address] Taurus Mullins MD [address] [facility] [address] [place] [address] documented as of this encounter Visit Diagnoses Not on filedocumented in this encounter Care Teams Uniform Force Captain Relationship Specialty Start Date End Date Nikki Dickinson MD [address] [place] [address] [place] [address] PCP - General Family Practice 04/12/24 documented as of this encounter
--- OUTSIDE RECORDS SUMMARY | 2025-03-18 08:29 | XMS_ITS | Clinical Summary ---
Author Organization [facility] Address [address] [facility] [place] [address] Care Team Providers Care Run Boat Operator Name Role Phone Nikki Dickinson MD Primary Care Provider Venancio Mcwilliams MD Unavailable [phone] Source Comments [facility],non-owned Affiliates and Associated Physician Practices is amultiple site organization consisting of ambulatory clinics and hospital sitesin [place], [place], [place] and [place]. This disclosure is being madepursuant to the Care Everywhere program and may not contain all information available regarding this patient. Last updated 18.[facility] Allergies Active Allergy Reactions Criticality Noted Date Comments Ciprofloxacin Dizziness,GI Discomfort Low 4 dizziness Latanoprost GI Discomfort Medium 01/20/2023 Lisinopril GI Discomfort,Cough Medium 02/12/2024 Hmg-Coa-R Inhibitors Myalgias Low 09/08/2023 Muscle cramping [...] mg by mouth 2 times daily Active Aspirin Low Dose 81 MG tablet Take 1 (one) tablet by mouth once daily 08/26/2024 Active hydrocortisone (Hytone) 2.5 % cream APPLY TO THE AFFECTED AREA EVERY MORNING NEEDED DIRECTED 09/07/2024 Active ketoconazole (Nizoral) 2 % cream APPLY TO THE AFFECTED AREA EVERY EVENING NEEDED DIRECTED 09/07/2024 Active clobetasol (Temovate) 0.05 % cream Apply to affected area 2 times daily Active ipratropium (Atrovent) 0.06 % nasal spray [place] 2 (two) sprays into each nostril 3 times daily 15 mL 3 02/21/2025 Active Active Problems Problem Noted Date Diagnosed Date Bilateral epiphora 10/23/2024 Punctal stenosis, acquired, bilateral 10/23/2024 Amaurosis fugax of right eye 08/23/2024 Vasomotor rhinitis 09/08/2023 09/08/2023 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 Thickened endometrium 10/04/2022 09/08/2023 Prophylaxis for chemotherapy-induced neutropenia 05/23/2021 09/08/2023 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 05/0 10/2023 After-cataract with vision obscured 08/19/2014 09/08/2023 Epiphora due to insufficient drainage 08/19/2014 09/08/2023 Presbyopia 08/19/2014 09/08/2023 Pseudophakia 08/19/2014 09/08/2023 Vitreous floaters 08/19/2014 09/08/2023 Encounters Date Type Department Care Team Description 03/03/2025 11:30 AM CDT Office Visit [facility] - Ophthalmology [address] [place] [phone] Arcelia Whiteside, HUNTING SALES LEADER-ACCOUNTANT AUDITOR Stenosis of both nasolacrimal ducts (Primary Dx); Bilateral epiphora; Punctal stenosis, acquired, bilateral 02/21/2025 10:00 AM CDT Office Visit [facility] Physician [facility] - ENT [address] [place] [phone] David Moore MD Chronic rhinitis (Primary Dx); Vasomotor rhinitis; Nasal discharge; Nasal congestion 02/21/2025 Travel 02/10/2025 10:30 AM CDT Office Visit [facility] Physician [facility] - Ophthalmology [address] [place] [phone] Arcelia Whiteside, HUNTING SALES LEADER-ACCOUNTANT AUDITOR Stenosis of both nasolacrimal ducts (Primary Dx); Bilateral epiphora; Punctal stenosis, acquired, bilateral 02/10/2025 Travel 01/01/2025 Resident Office Visit [facility] Physician [facility] - Ophthalmology [address] [place] [phone] Jluis Betancur MD Stenosis of both nasolacrimal ducts 01/01/2025 Telephone [facility] Physician [facility] - Ophthalmology [address] [place] [phone] Jluis Betancur MD Eye Problem 12/27/2024 10:00 AM CDT Office Visit [facility] Physician [facility] - Ophthalmology [address] [place] [phone] Arcelia Whiteside, HUNTING SALES LEADER-ACCOUNTANT AUDITOR Bilateral epiphora (Primary Dx); Punctal stenosis, acquired, bilateral 12/27/2024 Travel 12/20/2024 8:45 AM CDT - 12/20/2024 11:05 AM CDT Surgery [facility] [address] [place] [phone] Flower Martins MD Bilateral nasolacrimal duct probing and possible stent placement , BILATERAL 12/20/2024 8:45 AM CDT Anesthesia Event [facility] [address] [place] [phone] Roman Vásquez MD Rinderer, Mallory, APRN-ACCOUNTANT AUDITOR 12/20/2024 6:58 AM CDT - 12/20/2024 11:24 AM CDT Hospital Encounter [facility] [address] [place] [phone] Flower Martins MD Surgery General Discharge Disposition: Home or Self Care 12/20/2024 Travel from Last 3 Months Immunizations Immunization Administration Dates Next Due COVID MODERNA BIVALENT 12Y+ 50MCG/0.5ML 01/30/2024,02/26/2022 COVID PFIZER 12+YR 30MCG/0.3mL 01/30/2024,2023,01/30/2023 Covid Moderna booster monova lent 6y-11yr 0.5ml 09/17/2021,03/08/2021,07/11/2020,2020 Covid Moderna primary monova lent 12+ yr 0.5mL 09/17/2021,03/08/2021,07/11/2020,2020 Covid Pfizer primary monoval ent 12+ yr 0.3mL Purple cap 01/30/2023 HEP A VACCINE, ADULT 05/12/2012,11/08/2011 INFLUENZA VACCINE 02/13/2022,02/08/2021,01/13/20 20 INFLUENZA VACCINE, ADJUVANTE D, QUADR. (FLUAD QUADRIVALENT; 65Y+) (AIIV4) 02/13/2022,02/08/2021 INFLUENZA VACCINE, ADJUVANTE D, TRIV. (FLUAD TRIVALENT; 65Y+) (AIIV3) 02/18/2019,02/19/2018 INFLUENZA VACCINE, HIGH-DOSE , QUADR. (FLUZONE HIGH-DOSE QUADRIVALENT; 65Y+), 0.7 ML (HD-IIV4) 01/30/2023,02/08/2021,01/13/2020,2016 INFLUENZA VACCINE, HIGH-DOSE , TRIV. (FLUZONE HIGH-DOSE TRIVALENT; 65Y+) (HD-IIV3) 01/30/2024,02/19/2017 PNEUMOCOCCAL PPSV23 11/02/2020 Pneumococcal Pcv13 Conj 06/16/2017 RSV ABRYSVO PREG OR 60y+ 0.5mL 01/30/2023 TDAP (7yrs+) 10/16/2016,11/21/2008 ZOSTER VACCINE, LIVE 05/25/2018,02/19/2018,10/16 Zoster Hzv Vacc Recombinant Inj Im 05/25/2018, [...] = 0.6 oz pur e alcohol) occasionallly PHQ-2 Answer Date Recorded Patient Health Questionnaire-2 Score 0 10/21/2024 Comments No Sex and Gender Information Value Date Recorded Sex Assigned at Not on file Legal Sex Female 5:58 AM LEGAL SUPPORT ANALYST Gender Identity Not on file Sexual Orientation Not on file Last Filed Vital Signs Vital Sign Reading Time Taken Comments Blood Pressure 148/86 02/21/2025 10:02 AM CDT Pulse 56 02/21/2025 10:02 AM CDT Temperature 36.2 C (97.1 F) 12/20/2024 10:50 AM CDT Respiratory Rate 17 12/20/2024 11:10 AM CDT Oxygen Saturation 92% 12/20/2024 11:10 AM CDT Inhaled Oxygen Concentration - - Weight 83.9 kg (185 lb) 02/21/2025 10:02 AM CDT Height 165.1 cm (5' 5) 02/21/2025 10:02 AM CDT Body Mass Index 30.79 02/21/2025 10:02 AM CDT Plan of Treatment Upcoming Encounters Date Type Department Care Team (Late st Contact Info) Description 06/07/2025 10:00 AM LEGAL SUPPORT ANALYST Office Visit [facility] - Ophthalmology [address] [place] [phone] Arcelia Whiteside, HUNTING SALES LEADER-ACCOUNTANT AUDITOR [address] [place] [address] [place] [phone] Health Maintenance Due Date Last Done Comments BONE DENSITY TESTING 1945 HEPATITIS C SCREENING 07/25/1963 MEDICARE AWV CALENDAR YEAR 2024 COVID-19 VACCINE ( season) 2025 01/30/2024, 01/30/2024, 08/18/2023, Additional history exists INFLUENZA VACCINE (#1) 2025 , 01/30/2023, 02/13/2022, Additional history exists DTAP/TDAP/TD VACCINES (3 - Td or Tdap) 10/16/2026 10/16/2016, 11/21/2008 ZOSTER VACCINE Completed 05/25/2018, 05/06, 02/19/2018, Additional history exists PNEUMOCOCCAL VACCINE 50+ Completed 11/02/2020, 06/05 Respiratory Syncytial Virus (RSV) Vaccine Pt: or over 60 yrs Completed 01/30/2023 DEPRESSION SCREENING Completed 10/21/2024 HEPATITIS B VACCINE Aged Out No longe [...] on patient's age to complete this topic Medical Devices Implanted Type Area Endo Tech Device Identifier Shelf Expiration Date Model / Serial / Lot Set Intbt .016in .025in Crwfrd Nose - [id number] Implanted:Qty: 1 on 12/20/2024 by Flower Martins MD at [facility] Right: Eye [employer] 01/02/2029 / [id number] Set Intbt .016in .025in Crwfrd Nose - S00 Implanted:Qty: 1 on 12/20/2024 by Flower Martins MD at [facility] Left: Eye [employer] 01/02/2029 / [id number] Procedures Procedure Name Priority Date/Time Associated Diagnosis Comments OK ENDO NASAL SINUS BX POLYP DEBRID RAY Routine 02/21/2025 10:27 AM CDT Chronic rhinitis Vasomotor rhinitis Nasal discharge Nasal congestion LARYNGEAL MASK AIRWAY Routine 12/20/2024 9:31 AM CDT OK PROBE NASOLAC DUCT,INSERT TUBE/STENT 12/20/2024 8:44 AM CDT Punctal stenosis, acquired, bilateral Bilateral epiphora Special Needs SUPINE, GENRAL LOCAL, Wide diameter Garcia stent available from Last 3 Months Results * OK ENDO NASAL SINUS BX POLYP DEBRID RAY (02/21/2025 10:27 AM CDT) Narrative Alli Modi MD - 02/21/2025 10:27 AM CDT Alli Modi MD 02/21/2025 11:24 AM Due to the findings on physical [...] Septum intact. No masses or lesions seen. Bilateral inferior turbinates have been surgically reduced. Bilateral maxillary antrostomies are patent. Normal nasopharynx. Thin mucus present. I, Dr. Moore, was present and actively participated in all aspects of the procedure. us David Moore MD PROCEDURE/MINOR SURGICAL O RDERABLES Final Result * LARYNGEAL MASK AIRWAY (12/20/2024 9:31 AM CDT) Narrative Veronica Whitney APRN-BRILLIANDEER LOOPER - 12/20/2024 9:31 AM CDT Veronica Whitney APRN-CRNA 12/20/2024 9:32 AM LMA Placement Procedure/LDA Note: Patient Location: OR. LMA Insertion Date/Time: 12/20/2024 8:55 AM Procedure: LMA Pretreatment: 100% O2 Induction: standard IV Patient position: supine and sniffing. Mask Ventilation: easy Type: gel LMA Size: 4 Number of Attempts: 1. Placement verified by: bilateral breath sounds, chest auscultation and CO2 monitor Dentition unchanged? Yes Procedure Start Time: 12/20/2024 8:55 AM. Staff Section Anesthesia Provider: Veronica Whitney APRN-BRILLIANDEER LOOPER, Performed the procedure Provider #1: Roman Vásquez MD. Additional Comments: LMA placed atraumatically. No change in dentition or soft tissue after placement. . Roman Vásquez MD GENERAL ANESTHESIA ORDERABLES Fi nal Result from Last 3 Months Insurance [facility] MEDICARE ADV [facility] MEDICARE ADV Care Teams Run Boat Operator Relationship Specialty Start Date End Date Nikki Dickinson MD [address] [facility] [address] [place] [address] PCP - General Family Medicine 09/08/23 [place] [address] [facility] [address] [place] [address] Ophthalmology 10/21/24
[2025-03-18 11:07] LABS: Hematocrit 36.0 % (37.0-47.0); Hemoglobin 11.3 g/dL (12.0-15.0); Immature Granulocyte Percent A 0.3 % (0-0.5); Lymphocytes Absolute Auto 0.86 K/mm3 (0.9-3.2); Mean Corpuscular HGB Conc 31.4 g/dl (32-36); Mean Corpuscular Hemoglobin 28.5 pg (26-34); Mean Corpuscular Volume 90.7 fl (80-100); Nucleated Red Blood Cells Absolute Auto 0.000 K/mm3 (0.0-0.012); Nucleated Red Blood Cells Perc 0.0 % (0.0-0.2); Platelet Count Result 241 k/mm3 (150-375); Red Blood Count 3.97 M/mm3 (4.2-5.4); White Blood Count 3.5 K/mm3 (4.5-10.0)
[2025-03-18 11:24] LABS: Alanine Aminotransferase 17 U/L (6-35); Albumin Level 4.1 g/dL (3.5-5.1); Alkaline Phosphatase 82 U/L (38-126); Anion Gap 7 mmol/L (4-12); Aspartate Amino Transferase 32 U/L (14-36); Bilirubin,Total 0.5 mg/dL (0.2-1.3); Blood Urea Nitrogen 18 mg/dL (7-17); Calcium 9.8 mg/dL (8.4-10.2); Carbon Dioxide 28 mmol/L (22-30); Chloride 102 mmol/L (98-107); Cholesterol 157 mg/dL (0-200); Estimated Glomerular Filt Rate 54; Glucose 99 mg/dL (65-110); HDL Direct 46 mg/dL; Potassium 4.0 mmol/L (3.4-5.0); Sodium 137 mmol/L (137-145); Total Protein 6.5 g/dL (6.3-8.2); Triglycerides 92 mg/dL (<150)
[2025-03-18 11:43] LABS: Thyroid Stimulating Hormone Reflex 2.750 uIU/mL (0.465-4.68)
[2025-03-18 12:42] LABS: Hemoglobin A1C 5.7 % (<5.7)
[2025-03-18 13:22] LABS: Vitamin B12 950.0 pg/mL (239-931)
== END 2025-03-18 08:16 | disposition home or self-care (01) ==
PROVIDERS: PCP Family Medicine; Visit Provider Family Medicine
DX: R73.03 Prediabetes (principal); I10 Essential (primary) hypertension; Z00.00 Encounter for general adult medical examination without abnormal findings; E55.9 Vitamin D deficiency, unspecified; E78.5 Hyperlipidemia, unspecified; E53.8 Deficiency of other specified B group vitamins
CPT/HCPCS: 36415; 80053; 80061; 82306; 82607; 83036; 84443; 85025

== ENCOUNTER 2025-04-11 08:46 | Outpatient (CLI) | payer MEDICARE, SELFPAY ==
--- NOTE | ~2025-04-11 | CT_ITS ---
EXAMINATION: CT abdomen pelvis w con DATE: 04/11/2025 09:07 INDICATION: Urothelial carcinoma. TECHNIQUE: Computed tomography (CT) of the abdomen and pelvis was performed with 100 mL Omnipaque 350 intravenous contrast. Automated exposure control and iterative reconstruction technique were employed. The dose-length product was 527.34 mGy-cm. COMPARISON: CT abdomen and pelvis 10/19/2024 FINDINGS: The visualized portions of lung bases demonstrate mild atelectasis. A calcified right lung nodule and calcified mediastinal lymph nodes are consistent with old granulomatous disease. No pleural effusion. The heart size is normal. There are coronary artery calcifications. There are calcifications of the aortic valve. No pericardial effusion. There is an 8 mm cyst in the liver. Calcifications in the spleen are consistent with old granulomatous disease. The gallbladder, pancreas, adrenal glands, and right kidney are normal. 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 There is a large diverticulum of the second portion of the duodenum. There is diverticulosis of the colon without evidence of diver ticulitis. There are changes of appendectomy. There are no pathologically enlarged lymph nodes. There is no free intraperitoneal fluid. There are supraumbilical and periumbilical ventral hernias containing fat. There is severe lower lumbar spondylosis. There is moderate thoracic spondylosis. IMPRESSION: 1. No evidence of metastatic disease. Reviewed, dictated and finalized at location E. 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
== END 2025-04-11 08:47 | disposition home or self-care (01) ==
PROVIDERS: PCP Family Medicine; Visit Provider Internal Medicine Hematology & Oncology
DX: C68.9 Malignant neoplasm of urinary organ, unspecified (principal)
CPT/HCPCS: 74177; Q9967

== ENCOUNTER 2025-04-18 09:43 | Outpatient (CLI) | payer MEDICARE, SELFPAY ==
[2025-04-18 09:58] LABS: Hematocrit 41.0 % (37.0-47.0); Hemoglobin 13.0 g/dL (12.0-15.0); Immature Granulocyte Percent A 0.3 % (0-0.5); Lymphocytes Absolute Auto 1.04 K/mm3 (0.9-3.2); Mean Corpuscular HGB Conc 31.7 g/dl (32-36); Mean Corpuscular Hemoglobin 28.3 pg (26-34); Mean Corpuscular Volume 89.3 fl (80-100); Nucleated Red Blood Cells Absolute Auto 0.000 K/mm3 (0.0-0.012); Nucleated Red Blood Cells Perc 0.0 % (0.0-0.2); Platelet Count Result 218 k/mm3 (150-375); Red Blood Count 4.59 M/mm3 (4.2-5.4); White Blood Count 4.0 K/mm3 (4.5-10.0)
[2025-04-18 10:37] LABS: Alanine Aminotransferase 17 U/L (6-35); Albumin Level 4.3 g/dL (3.5-5.1); Alkaline Phosphatase 78 U/L (38-126); Anion Gap 4 mmol/L (4-12); Aspartate Amino Transferase 28 U/L (14-36); Bilirubin,Total 0.8 mg/dL (0.2-1.3); Blood Urea Nitrogen 18 mg/dL (7-17); Calcium 10.0 mg/dL (8.4-10.2); Carbon Dioxide 30 mmol/L (22-30); Chloride 104 mmol/L (98-107); Estimated Glomerular Filt Rate 53; Glucose 109 mg/dL (65-110); Potassium 4.1 mmol/L (3.4-5.0); Sodium 138 mmol/L (137-145); Total Protein 6.9 g/dL (6.3-8.2)
== END 2025-04-18 09:44 | disposition home or self-care (01) ==
LOC: ANHLAB 09:43
PROVIDERS: PCP Family Medicine; Visit Provider Internal Medicine Hematology & Oncology
DX: C68.9 Malignant neoplasm of urinary organ, unspecified (principal)
CPT/HCPCS: 36415; 80053; 85025